=== PATIENT | female | born 1935 | race Caucasian/White ===

== ENCOUNTER 2022-08-12 12:08 | Emergency (ER) | payer MEDICARE, SELFPAY ==
--- NOTE | ~2022-08-12 | XR_ITS ---
EXAMINATION: XR HUMERUS, RIGHT CLINICAL INFORMATION: Pain after catching self from falling. COMPARISON: CXR from 02/07/2019 TECHNIQUE: AP and lateral views of the right humerus. FINDINGS: Bone density is diffusely decreased in this patient with history of osteoporosis. Alignment is normal at the glenohumeral and acromioclavicular joints. No acute fracture or subluxation. The humerus is intact. Soft tissues of the arm are unremarkable. Bones have normal alignment at the elbow. No elbow joint effusion. XR/XR humerus RT IMPRESSION: No acute findings. No fracture or malalignment in the right upper extremity.
--- NOTE | ~2022-08-12 | XR_ITS ---
EXAMINATION: XR CHEST CLINICAL INFORMATION: Right chest pain COMPARISON: None TECHNIQUE: Frontal view of the chest was obtained. FINDINGS: The lungs are well-expanded with postsurgical sutures right midlung. Heart size and pulmonary vascularity is normal. There is moderate dextroscoliosis mid to lower dorsal spine. No aggressive lytic or sclerotic process seen. XR/XR chest 1V IMPRESSION: No acute cardiopulmonary process seen. Moderate dextroscoliosis mid to lower dorsal spine.
[2022-08-12 12:33] VITALS: BP 144/82; BP 168/57; PULSE 69; PULSE 80; RESP 16; TEMP 36.5; O2SAT 99; BMI 20.4
--- NOTE | 2022-08-12 12:55 | ECG_ITS ---
Test Reason : CP Blood Pressure : / mmHG Vent. Rate : 060 BPM Atrial Rate : 060 BPM P-R Int : 144 ms QRS Dur : 072 ms QT Int : 456 ms P-R-T Axes : 020 057 062 degrees QTc Int : 456 ms Normal sinus rhythm Normal EKG When compared with ECG of 08-JUN-2020 15:59, Vent. rate has decreased BY 33 BPM Referred By: Jennifer Earl Electronically Signed By:JANES SUMMERS
--- OUTSIDE RECORDS SUMMARY | 2022-08-12 13:00 | XMS_ITS | Continuity of Care Document ---
:1935 Author Organization [facility] Address [address] [place] [id number]- Care Team Providers Name Role Phone Imelda POWER, Donavan Hinojosa Primary Care Physician [place] [facility] [place]23[place] - 02/25/[address] [address]- Encounter Diagnosis Laceration of forehead (Final) - 02/21/21 Nasal bone fractures (Final) - 02/21/21 Periorbital edema of right eye (Final) - 02/21/21 Periorbital edema of right eye (Final) - 02/21/21 Laceration of forehead (Final) - 02/21/21 Nasal bone fractures (Final) - 02/21/21 Syncope (Final) - 02/21/21 Discharge Disposition: A-Transfer SNF Attending Physician: Mona Gurrola MD Admitting Physician: Milvia Duncan MD Referring Physician: Not on Staff, Referring MD Allergies, Adverse Reactions, Alerts Substance Reaction Severity Status NKA Active Immunizations Given and Recorded Vaccine Date Status Refusal Reason tetanus-diphtheria toxoids (Td) 02/21/21 Given tetanus-diphtheria toxoids (Td) 02/07/19 Recorded tetanus-diphtheria toxoids (Td) 02/03/13 Recorded SARS-CoV-2 (COVID-19) mRNA BNT-162b2 vac 10/06/20 Recorde d SARS-CoV-2 (COVID-19) mRNA BNT-162b2 vac 09/13/20 Recorde d Medications amLODIPine 5 mg oral tablet 5 mg, 1, tablet, By Mouth, Daily, Refills 0, Maintenance, 02/24/21 14:55:00 EDT, Partial fill upon patient request if the prescription is for a schedule II opioid drug. Start Date: 02/24/21 Status: OrderedamLODIPine 5 mg oral tablet 5 mg, Tablet, By Mouth, 02/25/21 9:00:00 EDT Start Date: 02/25/21 Stop Date: 02/25/21 Status: Completedatorvastatin 10 mg oral tablet 1 tablet = 10 mg, By Mouth, Daily, # 30 tablet, 0 Refills, Maintenance, 12/14/20 19:03:00 EDT, Partial fill upon patient request if the prescription is for a schedule II opioid drug. Start Date: 12/14/20 Status: Orderedlosartan 25 mg oral tablet 25 mg, Tablet, By Mouth, 02/25/21 9:00:00 EDT Start Date: 02/25/21 Stop Date: 02/25/21 Status: Completedlosartan 25 mg oral tablet 1 tablet = 25 mg, By Mouth, Daily, # 30 tablet, 0 Refills, Maintenance, 12/14/20 19:03:00 EDT, Tablet, Partial fill upon patient request if the prescription is for a schedule II opioid drug. Start Date: 12/14/20 Status: Orderedmelatonin 3 mg oral tablet By Mouth, Daily at bedtime, PRN Insomnia, 0 Refills, Maintenance, 02/24/21 14:57:00 EDT, Tablet, Partial fill upon patient request if the prescription is for a schedule II opioid drug. Start Date: 02/24/21 Status: OrderedMultivit Therapeutic/Minerals Tablet 1 tablet, By Mouth, Daily, 0 Refills, Maintenance, 02/24/21 14:59:00 EDT, Tablet, Partial fill upon patient request if the prescription is for a schedule II opioid drug. Start Date: 02/24/21 Status: Orderedthiamine 100 mg oral tablet 100 mg, 1, tablet, By Mouth, Daily, Refills 0, Maintenance, 02/24/21 14:59:00 EDT, Partial fill uponpatient request if the prescription is for a schedule II opioid drug. Start Date: 02/24/21 Status: Ordered Problem List Condition Effective Dates Status Health Status Informant HLD - Hyperlipidemia(Confirmed) Active HTN - Hypertension(Confirmed) Active Results Orders for Microbiology Reports Name Date Blood Culture 02/21/21 Blood Culture #2 02/21/21 Microbiology Reports TEST:Blood Culture, Second Order STATUS:Unauthenticated BODY SITE: SOURCE:Blood COLLECTED DATE/TIME:02/21/21 4:31 PMBlood Culture, Second Order SPECIMEN DESCRIPTION : BLOOD R AC SPECIAL REQUESTS : NONE CULTURE : NO GROWTH 4 DAYS REPORT STATUS : PRELIMINARY REPORT TEST:Blood Culture STATUS:Unauthenticated BODY SITE: SOURCE:Blood COLLECTED DATE/TIME:02/21/21 2:21 PMBlood Culture SPECIMEN DESCRIPTION : BLOOD LFA SPECIAL REQUESTS : NONE CULTURE : NO GROWTH 4 DAYS REPORT STATUS : PRELIMINARY REPORT Radiology Reports Exam Date Time Procedure Performing Provider Status 02/21/21 4:10 PM Chest 2 Views Frontal and Lat Nikole Menon; Auth (Verified) Notes:(Chest 2 Views Frontal and Lat) Reason For Exam: trauma;Other:RESULT: Chest 2 Views Frontal and Lat Chest 2 Views Frontal and Lat INDICATION: Status post mechanical fall COMPARISON: CT cervical spine 02/21/2021; CT angiogram chest 12/14/2020; chest x- ray 12/14/2020 FINDINGS: Lateral view is suboptimal due to patient positioning and motion blur. LINES AND TUBES: None. LUNGS AND PLEURA: C-collar overlies the lung apices, limiting evaluation. Right lower lung surgical suture. Large lung volumes correlating with emphysema on prior CT. Otherwise, clear lungs. No pleural effusion. No definite pneumothorax. HEART, MEDIASTINUM AND SCOTT: Heart is normal in size. Aorta is calcified. BONES AND SOFT TISSUES: No acute abnormality. Moderate-severe thoracic scoliosis. IMPRESSION: No acute abnormality. Emphysematous changes. I have personally reviewed the images and I agree with this report. WSN: [id number] Ordering Physician: Eliecer Izquierdo Dictated By: Harry Anderson DO Dictated Date/Time: 02/21/21 4:49 pm Reviewed By: Bernard Rosales MD Signed By: Bernard Rosales MD Signed Date/Time: 02/21/21 4:54 pm Transcribed By: LAURA Transcribed Date/Time: 02/21/21 4:18 pm Exam Date Time Procedure Performing Provider Status 02/21/21 3:27 PM XR Femur 2 Views Left Eliza Iglesias; Auth ( Verified) Notes:(XR Femur 2 Views Left) Reason For Exam: with Pain;TraumaRESULT: Femur 2 Views Left Pelvis 1 View, Femur 2 Views Right, Femur 2 Views Left Hx of Present Illness: pt states she tripped and fell on asphalt hit head, Question(s): Fracture COMPARISON: None. FINDINGS: There is no fracture or dislocation. Degenerative changes seen in the sacroiliac joints. Symmetric joint space narrowing is seen in both hips without significant bony hypertrophy change. Degenerative changes in the lower lumbar spine. Moderate to severe joint space narrowing in the knee joints. Mild stool retention. IMPRESSION: No fractures. Moderate-severe osteoarthritis of the knees. I have personally reviewed the images and I agree with this report. WSN: [id number] Ordering Physician: Eliecer Izquierdo Dictated By: Samuel Aguirre MD Dictated Date/Time: 02/21/21 3:34 pm Reviewed By: Ruma Burch MD Signed By: Ruma Burch MD Signed Date/Time: 02/21/21 3:39 pm Transcribed By: LAURA Transcribed Date/Time: 02/21/21 3:31 pm Exam Date Time Procedure Performing Provider Status 02/21/21 3:27 PM XR Femur 2 Views Right Eliza Iglesias; Auth (Verified) Notes:(XR Femur 2 Views Right) Reason For Exam: with Pain;TraumaRESULT: Femur 2 Views Right Pelvis 1 View, Femur 2 Views Right, Femur 2 Views Left Hx of Present Illness: pt states she tripped and fell on asphalt hit head, Question(s): Fracture COMPARISON: None. FINDINGS: There is no fracture or dislocation. Degenerative changes seen in the sacroiliac joints. Symmetric joint space narrowing is seen in both hips without significant bony hypertrophy change. Degenerative changes in the lower lumbar spine. Moderate to severe joint space narrowing in the knee joints. Mild stool retention. IMPRESSION: No fractures. Moderate-severe osteoarthritis of the knees. I have personally reviewed the images and I agree with this report. WSN: [id number] Ordering Physician: Eliecer Izquierdo Dictated By: Samuel Aguirre MD Dictated Date/Time: 02/21/21 3:34 pm Reviewed By: Ruma Burch MD Signed By: Ruma Burch MD Signed Date/Time: 02/21/21 3:39 pm Transcribed By: LAURA Transcribed Date/Time: 02/21/21 3:31 pm Exam Date Time Procedure Performing Provider Status 02/21/21 3:27 PM Pelvis 1 or 2 Views Eliza Iglesais; Auth (Ve rified) Notes:(Pelvis 1 or 2 Views) Reason For Exam: With Pain;TraumaRESULT: Pelvis 1 or 2 Views Pelvis 1 View, Femur 2 Views Right, Femur 2 Views Left Hx of Present Illness: pt states she tripped and fell on asphalt hit head, Question(s): Fracture COMPARISON: None. FINDINGS: There is no fracture or dislocation. Degenerative changes seen in the sacroiliac joints. Symmetric joint space narrowing is seen in both hips without significant bony hypertrophy change. Degenerative changes in the lower lumbar spine. Moderate to severe joint space narrowing in the knee joints. Mild stool retention. IMPRESSION: No fractures. Moderate-severe osteoarthritis of the knees. I have personally reviewed the images and I agree with this report. WSN: [id number] Ordering Physician: Eliecer Izquierdo Dictated By: Samuel Aguirre MD Dictated Date/Time: 02/21/21 3:34 pm Reviewed By: Ruma Burch MD Signed By: Ruma Burch MD Signed Date/Time: 02/21/21 3:39 pm Transcribed By: LAURA Transcribed Date/Time: 02/21/21 3:31 pm Vital Signs Most recent to oldest 1 2 3 [Reference Range]: Height 149 cm 149 cm 149 cm (02/25/21 11:36 AM) (02/24/21 5:01 PM) (02/24/21 12 :04 PM) Weight 40.2 kg 40.0 kg 38.6 kg (02/24/21 5:57 AM) (02/23/21 6:03 AM) (02/22/21 12: 13 PM) Oxygen Saturation [94-100 %] 97 % 100 % 99 % (02/25/21 11:36 AM) (02/24/21 11:00 PM) (02/24/21 5 :01 PM) Pulse Rate [55-90 bpm] 98 bpm 85 bpm 71 bpm *H* (02/24/21 11:00 PM) (02/24/21 5:01 PM) (02/25/21 11:36 AM) Body Mass Index [18.5-24.99] 18.11 18.02 17. 39 *L* *L* *L* (02/24/21 5:57 AM) (02/23/21 6:03 AM) (02/22/21 12: 13 PM) Blood Pressure [90-138/55-84 155/86 mm Hg 161/81 mm Hg 161 /81 mm Hg mm Hg] *H* *H* *H* (02/25/21 11:36 AM) (02/25/21 8:57 AM) (02/25/21 8: 57 AM) Respiratory Rate [16-30 18 br/min 18 br/min 18 br/mi n br/min] (02/25/21 11:36 AM) (02/24/21 11:00 PM) (02/24/21 5 :01 PM) Temperature [96.8-100.4 98.6 DegF 97.5 DegF 98.2 Deg F DegF] (02/25/21 11:36 AM) (02/24/21 11:00 PM) (02/24/21 5 :01 PM) Mode of Delivery (Oxygen) Room air Room air Room a ir (02/25/21 11:36 AM) (02/24/21 11:00 PM) (02/24/21 5 :01 PM) Blood pressure sites Arm, right Arm, right Arm, right (02/25/21 11:36 AM) (02/24/21 11:00 PM) (02/24/21 5 :01 PM) Temperature Route Oral Oral Oral (02/25/21 11:36 AM) (02/24/21 11:00 PM) (02/24/21 5 :01 PM) Dry Weight 38.6 kg (02/22/21 12:13 PM) Weight Obtained Via Bed scale Bed scale (02/24/21 5:57 AM) (02/23/21 6:03 AM) Social History Social History Type Response Smoking Status Never (less than 100 in life time) entered on: 12/14/20 Sex
--- OUTSIDE RECORDS SUMMARY | 2022-08-12 13:00 | XMS_ITS | Continuity of Care Document ---
:1935 Author Organization [facility] Address [address] [place] [address]- Care Team Providers Name Role Phone Imelda POWER, Donavan Hinojosa Primary Care Physician Encounter 12/16/20 - 01/10/21 [facility] [address] [place] [address]- Discharge Disposition: PER CLIENT REQUEST Allergies, Adverse Reactions, Alerts Substance Reaction Severity Status NKA Active Medications atorvastatin 10 mg oral tablet 1 tablet = 10 mg, By Mouth, Daily, # 30 tablet, 0 Refills, Maintenance, 12/14/20 19:03:00 EDT, Partial fill upon patient request if the prescription is for a schedule II opioid drug. Start Date: 12/14/20 Status: Orderedlosartan 25 mg oral tablet 1 tablet = 25 mg, By Mouth, Daily, # 30 tablet, 0 Refills, Maintenance, 12/14/20 19:03:00 EDT, Tablet, Partial fill upon patient request if the prescription is for a schedule II opioid drug. Start Date: 12/14/20 Status: Orderedmeclizine 25 mg oral tablet 1 tablet = 25 mg, By Mouth, Daily, # 30 tablet, 0 Refills, Maintenance, 12/14/20 19:03:00 EDT, Tablet, Partial fill upon patient request if the prescription is for a schedule II opioid drug. Start Date: 12/14/20 Status: Ordered Problem List Condition Effective Dates Status Health Status Informant HLD - Hyperlipidemia(Confirmed) Active HTN - Hypertension(Confirmed) Active Social History Social History Type Response Smoking Status Never (less than 100 in life time) entered on: 12/14/20 Sex
--- OUTSIDE RECORDS SUMMARY | 2022-08-12 13:00 | XMS_ITS | Continuity of Care Document ---
:1935 Author Organization [facility] Address [address] [place] [address]- Care Team Providers Name Role Phone Imelda POWER, Donavan Hinojosa Primary Care Physician Encounter [facility] [place] Date(s): 12/15/20 - 01/14/[address] [address]- Attending Physician: Not on Staff, Attending MD Admitting Physician: Not on Staff, Admitting MD Referring Physician: Not on Staff, Referring [...]
--- OUTSIDE RECORDS SUMMARY | 2022-08-12 13:00 | XMS_ITS | Continuity of Care Document ---
:1935 Author Organization [facility] Address [address] [place] [address] Drive [address] [place] [address]- Care Team Providers Name Role Phone Imelda POWER, Donavan Hinojosa Primary Care Physician Encounter [facility] [place] Date(s): 02/25/21 - 03/27/[address] [place] [address]- Allergies, Adverse Reactions, Alerts Substance Reaction Severity [...] II opioid drug. Start Date: 02/24/21 Status: Orderedatorvastatin 10 mg oral tablet 1 tablet = [...]
--- OUTSIDE RECORDS SUMMARY | 2022-08-12 13:00 | XMS_ITS | Continuity of Care Document ---
:1935 Author Organization [facility] Address [address] [place] [address]- Care Team Providers Name Role Phone Imelda POWER, Donavan Hinojosa Primary Care Physician Encounter [facility] [place] Date(s): 12/14/20 - 12/15/[address] [address]- Encounter Diagnosis Chest pain (Final) - 12/14/20 Discharge Disposition: A-Transfer VNA/Home Health Attending Physician: Renetta Wells MD Admitting Physician: Brittany Caballero MD Referring Physician: Not on Staff, Referring [...] oral tablet 25 mg, Tablet, By Mouth, 12/15/20 9:00:00 EDT Start Date: 12/15/20 Stop Date: 12/15/20 Status: Completedlosartan 25 mg oral tablet 1 [...] Hyperlipidemia(Confirmed) Active HTN - Hypertension(Confirmed) Active Results Radiology Reports Exam Date Time Procedure Performing Provider Status 12/14/20 3:13 PM Chest Portable Mar Nava; Denise (Verified ) Notes:(Chest Portable) Reason For Exam: Chest Pain;Other:RESULT: Chest Portable Chest Portable performed upright at 2:55 PM Hx of Present Illness: sudden onset back pain radiating to chest (pressure feeling) pt took 3 baby asa prior to ems arrival, 1 SL nitro given with no relief. 7 10 chest pressure.; Reason: Other:; ChestPain; Clinical Question(s): Other: COMPARISON: None. FINDINGS: LINES AND TUBES: None. LUNGS AND PLEURA: Surgical suture material seen in the right lower lung. Adjacent linear density may reflect atelectasis or scarring. No focal infiltrate or vascular congestion. No pleural effusion. No pneumothorax. HEART, MEDIASTINUM AND SCOTT: Heart is normal in size. Normal upper mediastinal and hilar contour. BONES AND SOFT TISSUES: No acute abnormality. Dextroscoliosis of the lower thoracic spine is seen. IMPRESSION: Linear atelectasis versus scarring in the right lung base. No focal infiltrate. WSN: [id number] Ordering Physician: Eric Rios Dictated By: Ruma Burch MD Dictated Date/Time: 12/14/20 3:29 pm Reviewed By: Ruma Burch MD Signed By: Ruma Burch MD Signed Date/Time: 12/14/20 3:29 pm Transcribed By: LAURA Transcribed Date/Time: 12/14/20 3:26 pm Vital Signs Most recent to oldest [Reference 1 2 3 Range]: Oxygen Saturation [94-100 %] 100 % 100 % 100 % (12/15/20 11:56 AM) (12/15/20 7:25 AM) (12/15/20 3:56 AM) Pulse Rate [55-90 bpm] 57 bpm 58 bpm 50 bpm (12/15/20 11:56 AM) (12/15/20 7:25 AM) *L* (12/15/20 3:56 AM) Blood Pressure [90-138/55-84 mm 158/67 mm Hg 165/70 mm Hg 165/70 mm Hg Hg] *H* *H* *H* (12/15/20 11:56 AM) (12/15/20 8:02 AM) (12/15/20 7:25 AM) Respiratory Rate [16-30 br/min] 16 br/min 17 br/min 17 br/min (12/15/20 11:56 AM) (12/15/20 9:00 AM) (12/15/20 7:25 AM) Temperature [96.8-100.4 DegF] 97.7 DegF 97.6 DegF 97 .6 DegF (12/15/20 11:56 AM) (12/15/20 7:25 AM) (12/15/20 3:56 AM) Mode of Delivery (Oxygen) Room air Room air Room a ir (12/15/20 11:56 AM) (12/15/20 7:25 AM) (12/15/20 3:56 AM) Blood pressure sites Arm, left Arm, left Arm, right (12/15/20 11:56 AM) (12/15/20 7:25 AM) (12/15/20 3:56 AM) Temperature Route Oral Oral Oral (12/15/20 11:56 AM) (12/15/20 7:25 AM) (12/15/20 3:56 AM) Social History Social History Type Response Smoking Status Never (less than 100 in life time) entered on: 12/14/20 Sex
--- NOTE | 2022-08-12 13:07 | PC.NURSE ---
patient alert, oriented x4. WRANGE[place]. ambulated to the bathroom with steady gait. able to make needs known. call monsivais within reach
[2022-08-12 13:23] VITALS: BP 149/59; PULSE 59; RESP 17; TEMP 36.8; O2SAT 100
[2022-08-12 13:23] LABS: MANUAL DIFF FLAG NO
[2022-08-12 13:25] LABS: Basophils Percent Auto 1.1 % (0-2); Eosinophils Percent Auto 0.8 % (0-4); Hematocrit 39.5 % (37.0-47.0); Hemoglobin 12.9 g/dl (12.0-16.0); Imm Gran Abs Auto 0.01 X10*3/uL (0.00-0.03); Imm Gran Pct Auto 0.3 % (0.0-0.4); Lymphocytes Absolute Auto 0.7 X10*3/uL (1.2-4.9); Lymphocytes Percent Auto 19.1 % (20-40); Mean Corpuscular HGB Conc 32.7 g/dl (31.0-35.0); Mean Corpuscular Hemoglobin 31.5 pg (27.0-33.0); Mean Corpuscular Volume 96.6 fL (80.0-98.0); Mean Platelet Volume 9.8 fL (9.4-12.3); Monocytes Absolute Auto 0.3 X10*3/uL (0.1-1.2); Monocytes Percent Auto 8.8 % (2-11); Neutrophils Absolute Auto 2.5 x10*3/uL (2.0-8.3); Neutrophils Percent Auto 69.9 % (45-73); Platelet Count 195 X10*3/uL (160-400); Red Blood Count 4.09 X10*6/uL (4.20-5.50); Red Cell Distribution Width 12.7 % (11.0-16.0); White Blood Count 3.6 X10*3/uL (4.8-10.8)
--- NOTE | 2022-08-12 13:30 | ED_ITS ---
HPI - General Adult General Chief complaint: General Medical Stated complaint: RT SIDED PAIN ON RT ARM MOVEMENT Time Seen by Provider: 08/12/22 12:35 Source: patient Mode of arrival: ambulatory Limitations: no limitations History of Present Illness HPI narrative: 86-year-old severely hard of hearing female past medical history of bilateral ostial arthritis of knee presents the emergency department with complaints of right sided pain near the axilla which radiates into her right arm after catching herself from falling to the right arm. She states pain is worse with movement and deep breathing. She denies falling to the ground, hitting her head, or loss of consciousness. She denies any dizziness, lightheadedness, chest palpitations, chest pain, shortness of breath prior to falling. She denies any recent illness, fever, chills, shortness of breath, chest pain, or changes in bowel patterns. Onset (ago): hour(s) Location: chest and right Radiation: other (right arm) Severity: moderate Severity scale (1-10): 5 Quality: aching Pain Consistency: constant Relieving factors: none Exacerbating factors: none Associated symptoms: denies other symptoms Treatments prior to arrival: none Related Data Previous Rx's Medication Instructions Recorded meclizine 25 mg tablet 25 mg PO TID PRN dizziness #14 tabs 06/08/20 Allergies Allergy/AdvReac Type Severity Reaction Status Date / Time epinephrine [EPINEPHRINE] Allergy Unknown TACHYCARDIA,SHAKEY, Verified 08/12/22 13:12 tachycardia anesthesia Allergy Unknown difficulty Uncoded 02/29/20 00:00 waking up Review of Systems Review of Systems: In addition to documented HPI above, the additional ROS was obtained: CONSTITUTIONAL: Denies fever, chills, weakness, fatigue, headache, night sweats, or weight loss EYES: Denies vision changes, eye pain, swelling, redness, foreign body, discharge ENT: Hard of hearing, wears hearing aids. Denies sore throat, swallowing difficulty, congestion, ear pain, no hoarseness CV: Denies chest pain or epigastric pain. No edema, palpitations, or dyspnea o n exertion RESP: Denies shortness of breath. Denies cough, wheezing, dyspnea. Denies smoke exposure GI: Denies abdominal pain. Denies nausea, vomiting, constipation or diarrhea. No melena or hematochezia. : Denies irregular bleeding, and dysuria, urinary frequency, urinary incontinence/retention, urgency. Denies flank pain, hematuria MSK: Denies change in gait, myalgias, joint swelling or pain SKIN: Denies no lesions, rashes, or sores NEURO: Denies new numbness, tingling, dizziness, paresthesias or weakness. No loss of consciousness. Denies headache ENDOCRINE: Denies unexpected weight loss. Denies polyuria, polydipsia. No temperature intolerance HEME/ONC: Denies bleeding disorders, easy bruising, or lymphadenopathy PSYCH: Denies anxiety/panic, depression, SI/HI, or social issues. Yes all other systems are reviewed and are negative [facility] Past Medical History Attestation statement: The following information was validated with the patient. Source: old records reviewed Medical History Diabetes High cholesterol HTN (hypertension) Social History Social History Alcohol intake: never Smoked in Last 30 Days: No Use of substances other than those prescribed or required for medical reasons: No Advance Directives: No Physical Exam ED Vital Signs: Vital Signs - 24 hr 08/12/22 12:33 08/12/22 13:23 08/12/22 16:04 Temperature 97.7 F 98.2 F 98.2 F Pulse Rate 69 59 54 Respiratory Rate 16 17 16 Blood Pressure 168/57 H 149/59 H 145/42 H Pulse Oximetry 99 100 98 Oxygen Delivery Method Room Air Room Air Room Air BMI result Body Mass Index 20.4 Const General: cooperative, alert and awake Nutritional Appearance: average body habitus Orientation/consciousness: patient oriented x3 Limitations: no limitations [facility] Head: Yes normal to inspection and Yes atraumatic Ears: external ears normal and hearing grossly impaired bilaterally General nose exam: Normal external nose present and Normal nares present Face and sinus: Yes normal facial exam and Yes face symmetric Mouth: Normal oral and palatal mucosa present Teeth and gingiva: dentures (upper) and poor dentition (lower) Throat: Yes posterior oropharynx normal Eyes General: appearance normal, both eyes and all related structures Visual Sexton: normal visual sexton by confrontation Alignment and Position: alignment normal Periorbital: periorbital findings normal Eyelids: Yes eyelids normal Conjunctivae: conjunctivae normal Sclerae: sclerae normal Corneas: corneas normal Pupils: Equal, round and reactive pupils present EOM: EOMs intact bilaterally Neck Neck: Yes normal visual inspection and Yes full ROM Chest Chest palpation & inspection: normal inspection of the chest Resp Effort & Inspection: normal respiratory effort, no cough and not labored Auscultation: clear to auscultation bilaterally, no crackles, no rhonchi and no wheezes Cardio Rate: regular rate Rhythm: regular rhythm GI Inspection: Yes normal to inspection Palpation (GI): Soft to palpation and nontender Auscultation: normal bowel sounds General: Yes no CVA tenderness Back/Spine/Pelvis Back: no CVA tenderness Cervical Spine: cervical ROM normal Thoracic/Lumbar Spine: thoraco-lumbar ROM normal Skin General skin exam: no rashes or lesions noted Neuro General: patient oriented x3, tone normal and moves all extremities Cranial nerves: Yes Equal, round and reactive pupils present Cognition (Neuro): normal cognition Gait exam (Neuro): Normal gait present Extrem General: Yes normal to inspection, Yes full ROM and Yes capillary refill normal Psych Appearance: grossly normal Mental Status: mental status grossly normal Speech and movement: Normal speech and movement present Affect: normal affect Attitude: cooperative Thought process: Normal thought process present Thought content: Normal thought content present Insight: Good insight present (Psych) Judgement: Good judgement present (Psych) Medical Decision Making Medical Decision Making MDM Narrative: 86-year-old severely hard of hearing female past medical history of bilateral ostial arthritis of knee presents the emergency department with complaints of right sided pain near the axilla which radiates into her right arm after catching herself from falling to the right arm. She states pain is worse with movement and deep breathing. Blood work unremarkable. Chest x-ray with no acute cardiopulmonary process, move moderate dextroscoliosis mid to lower dorsal spine. Right humerus/shoulder with no acute findings, no fracture, or malalignment in the right upper extremity. EKG normal sinus rhythm with no rhythm change compared to previous EKG done on 06/08/2020. HPI, PE, diagnostic consistent with muscle strain. Low suspicion for cardiopulmonary infection or disease, fracture, or dislocation. Patient is safe for discharge at this time with symptom management with [id number] Tylenol and/or Motrin with dosing according to package instructions. HPI, PE, diagnostics, and plan discussed with patient and patient's daughter, Ioana, with no unanswered questions at this time. Patient educated to return to the emergency department with new, worsening, or concerning emergent symptoms. Recommended to follow-up with her primary care provider in addition to [facility] [place] for further treatment and management. *Refer to Course for additional information on consultations, diagnostic interpretation, consultations, emergency department stay, conversations with patient and family, shared decision making with patient, and more information on medical decision making* Lab Data Result Diagrams: 08/12/22 13:18 08/12/22 13:18 Labs: Lab Results 08/12/22 08/12/22 Range/Units 13:18 13:18 WBC 3.6 L (4.8-10.8) X10*3/uL RBC 4.09 L (4.20-5.50) X10*6/uL Hgb 12.9 (12.0-16.0) g/dl Hct 39.5 (37.0-47.0) % MCV 96.6 (80.0-98.0) fL MCH 31.5 (27.0-33.0) pg MCHC 32.7 (31.0-35.0) g/dl RDW 12.7 (11.0-16.0) % Plt Count 195 (160-400) X10*3/uL MPV 9.8 (9.4-12.3) fL Immature Gran % (Auto) 0.3 (0.0-0.4) % Neut % (Auto) 69.9 (45-73) % Lymph % (Auto) 19.1 L (20-40) % [place] % (Auto) 8.8 (2-11) % Eos % (Auto) 0.8 (0-4) % Baso % (Auto) 1.1 (0-2) % Lymph # (Auto) 0.7 L (1.2-4.9) X10*3/uL [place] # (Auto) 0.3 (0.1-1.2) X10*3/uL Eos # (Auto) 0.0 (0.0-0.4) X10*3/uL Baso # (Auto) 0.0 (0.0-0.2) X10*3/uL Abs Immat Gran (auto) 0.01 (0.00-0.03) X10*3/uL Absolute Neuts (auto) 2.5 (2.0-8.3) x10*3/uL Absolute Nucleated RBC 0.000 (0.0-0.012) X10*3/uL Nucleated RBC % (auto) 0.0 (0.0-0.2) /100WBC Sodium 143 (135-145) mmol/L Potassium 3.8 (3.3-5.1) mmol/L Chloride 111 H (96-108) mmol/L Carbon Dioxide 26 (22-29) mmol/L Anion Gap 10 L (12-20) BUN 9 (9-16) mg/dL Creatinine 0.82 (0.5-1.4) mg/dL Estim Creat Clear Calc 32.9 Estimated GFR > 60 Random Glucose 114 (60-115) mg/dL Calcium 9.2 D (8.4-10.2) mg/dL Total Bilirubin 0.5 (0.0-1.0) mg/dL AST 20 (5-31) U/L ALT 18 (0-31) U/L Alkaline Phosphatase 89 (39-117) U/L Total Protein 6.3 L (6.5-8.0) g/dL Albumin 4.1 (3.5-5.0) g/dL Discharge Plan Discharge Clinical Impression: Muscle strain Patient Disposition: Home, Self-Care Instructions: Fall Prevention for Older Adults (ED), Acetaminophen (By mouth) Additional Instructions: Your EKG is normal sinus rhythm. Your chest x-ray shows no signs of cardiac or lung disease or infection. Your right shoulder and upper arm does not show fracture or dislocation. Your lab work is unremarkable. Based on your s ymptoms, exam and diagnostic tests, you have muscle strain. You may manage her pain with [id number] Tylenol and/or Motrin. Please return to the emergency department with new, worsening, or concerning symptoms. Recommended follow the primary care provider for further treatment and management. Prescriptions: No Action meclizine 25 mg tablet 25 mg PO TID PRN (Reason: dizziness) Qty: 14 0RF Referrals: Donavan Segura MD [Primary Care Provider] - Print Language: Pashto
[2022-08-12 13:45] LABS: Alanine Aminotransferase 18 U/L (0-31); Albumin Level 4.1 g/dL (3.5-5.0); Alkaline Phosphatase 89 U/L (39-117); Anion Gap 10 (12-20); Aspartate Amino Transferase 20 U/L (5-31); Bilirubin Total 0.5 mg/dL (0.0-1.0); Blood Urea Nitrogen 9 mg/dL (9-16); Calcium 9.2 mg/dL (8.4-10.2); Carbon Dioxide 26 mmol/L (22-29); Chloride 111 mmol/L (96-108); Creatinine Clr Calc Pharmacy 32.9; Estimated Glomerular Filt Rate > 60; Glucose Random 114 mg/dL (60-115); Potassium 3.8 mmol/L (3.3-5.1); Sodium 143 mmol/L (135-145); Total Protein 6.3 g/dL (6.5-8.0)
[2022-08-12 16:04] VITALS: BP 145/42; PULSE 54; RESP 16; TEMP 36.8; O2SAT 98
== END 2022-08-12 17:16 | disposition home or self-care (01) ==
PROVIDERS: Nurse Practitioner Family; Emergency Provider Student in an Organized Health Care Education/Training Program; PCP Internal Medicine
DX: S29.011A Strain of muscle and tendon of front wall of thorax, initial encounter (principal); W17.89XA Other fall from one level to another, initial encounter; Y93.89 Activity, other specified; Y92.9 Unspecified place or not applicable; Y99.9 Unspecified external cause status
CPT/HCPCS: 36415; 71045; 73060; 80053; 85025; 93005; 99283; 99284

== ENCOUNTER 2022-09-16 13:46 | Inpatient (IN) | payer MEDICARE, SELFPAY ==
--- NOTE | ~2022-09-16 | CT_ITS ---
EXAMINATION: CTA ABDOMEN AND PELVIS WITHOUT AND WITH CONTRAST CLINICAL INFORMATION: GI bleed TECHNIQUE: Helical imaging was performed in the axial plane through the abdomen and pelvis before and after administration of IV contrast. 80 mL of Omnipaque 350 was administered intravenously. Images were evaluated on independent dedicated 3-D workstation and 3-D images were reconstructed with concurrent radiologist supervision and subsequently interpreted. This CT examination was performed using dose optimization techniques as appropriate, variously including the following: * Automated exposure control * Adjustment of mA and/or kV according to patient size (this includes techniques or standardized protocols for targeted exams where dose is matched to indication/reason for exam; i.e. extremities or head) * Use of iterative reconstruction technique COMPARISON: CT abdomen pelvis 09/16/2022 DLP: 1047 mGy-cm. FINDINGS: VASCULAR: Slightly suboptimal arterial phase contrast enhancement. Visualized Thoracic Aorta: Normal caliber. Abdominal Aorta: The abdominal aorta is of normal contour and caliber without evidence of dissection. Moderate vascular calcifications. Celiac Trunk: The celiac trunk and its branches opacify normally without evidence of dissection, obstruction, or flow-limiting stenosis. Mesenteric Arteries: The superior and inferior mesenteric arteries are normal in caliber with no focal stenosis or dissection. Renal Arteries: There are single renal arteries bilaterally. No evidence of stenosis or dissection. Iliac Arteries: The iliac arteries are normal in course and caliber without evidence of focal stenosis or dissection. Venous Structures: The inferior vena cava and portal venous system are without demonstrated abnormalities. NONVASCULAR: LUNG BASES: Minimal bibasilar atelectasis. Mitral annular calcifications. LIVER, GALLBLADDER, BILIARY TREE: The liver is normal in size, shape, and attenuation. No focal hepatic lesion or biliary ductal dilatation is present. Mild vicarious excretion of contrast in the gallbladder. No calcified gallstone or surrounding inflammatory change. PANCREAS: Unremarkable. SPLEEN: Unremarkable. ADRENAL GLANDS: Unremarkable. KIDNEYS AND URETERS: Symmetric nephrograms. No hydronephrosis. 4.7 cm simple right upper pole renal cyst. A small parapelvic left renal cysts. No imaging follow-up recommended. BLADDER: Unremarkable. GASTROINTESTINAL TRACT: Colonic diverticulosis primarily involving the descending and sigmoid colon. No evidence of acute diverticulitis. No dilated bowel loops. No bowel wall thickening. No extravasated intraluminal contrast identified to localize a source of active GI bleeding. Appendix not clearly identified. No inflammatory changes the base of the cecum. No ascites or free air. Moderate amount of formed stool in the colon. ABDOMINAL WALL: No hernia is demonstrated. LYMPH NODES: No lymphadenopathy. PELVIC VISCERA: Unremarkable. Trace free pelvic fluid. OSSEOUS STRUCTURES: Levoconvex curvature lumbar spine. Mild multilevel degenerative disc disease. No acute fracture or suspicious osseous lesion. CT/CT gi bleed abd pel wo/w IVcon IMPRESSION: 1. No CT evidence of active gastrointestinal bleeding identified. 2. Colonic diverticulosis. No evidence of acute diverticulitis. 3. Moderate amount of formed stool throughout the colon. 4. No acute intra-abdominal process.
--- NOTE | ~2022-09-16 | CT_ITS ---
EXAMINATION: CT ABDOMEN AND PELVIS WITH AND WITHOUT CONTRAST: CT GI BLEEDING STUDY CLINICAL INFORMATION: Rectal bleeding.. COMPARISON: 10/04/2015. TECHNIQUE: Multidetector volumetric imaging was performed from the lung bases to the pubic symphysis before and after the administration of: Intravenous contrast: 80 mL Omnipaque 350 2 minute delayed acquisition also performed. No contrast reaction reported MIP coronal, sagittal and coronal reformatted images were obtained on the technologist workstation. This CT examination was performed using dose optimization techniques as appropriate, variously including the following: *Automated exposure control *Adjustment of mA and/or kV according to patient size (this includes techniques or standardized protocols for targeted exams where dose is matched to indication/reason for exam; i.e. extremities or head) *Use of iterative reconstruction technique Total exam dose-length product 640 mGy-cm FINDINGS: STOMACH: No abnormal wall thickening or mass. No intraluminal contrast accumulation to suggest hemorrhage. SMALL BOWEL: No abnormal wall thickening or dilation. No intraluminal contrast accumulation to suggest hemorrhage. COLON: No intraluminal contrast accumulation to suggest hemorrhage. No colonic wall thickening or pericolonic inflammatory changes. There is a moderate volume of stool throughout the colon. The cecum is likely positioned in the upper central abdomen. Diverticulosis without evidence of diverticulitis. Normal appendix. LUNG BASES: No nodules, mass, or focal consolidation. PLEURA: No pleural effusion. LIVER, GALLBLADDER, AND BILIARY TREE: The liver is normal in size, shape, and attenuation. No focal hepatic lesion. Mild intrahepatic biliary ductal dilatation is present. The gallbladder is unremarkable with no evidence of radiopaque gallstones, gallbladder wall thickening, or obvious pericholecystic inflammatory changes. Caliber common bile duct. PANCREAS: Normal; no mass or surrounding fluid. SPLEEN: Normal size. No focal lesion. ADRENAL GLANDS: Normal; no mass. KIDNEYS AND URETERS: The kidneys are normal in size, shape, and attenuation. No hydronephrosis, hydroureter, or calculi. Simple cyst at the upper pole of the right kidney. No specific follow-up recommended. ABDOMINAL WALL: No hernia seen. LYMPHOVASCULAR STRUCTURES: No lymphadenopathy. The aorta is normal in caliber. Moderate atherosclerotic calcifications. BLADDER: No focal mass or wall thickening seen. No bladder calculi. PELVIC VISCERA: No pelvic mass. OSSEOUS STRUCTURES: Scoliotic curvature of the spine. No acute or suspicious osseous abnormality. Mild degenerative change throughout the spine. CT/CT gi bleed abd pel wo/w IVcon IMPRESSION: 1. No evidence of active GI bleed. 2. Diverticulosis without diverticulitis. Moderate volume of stool throughout the colon.
[2022-09-16 13:53] VITALS: BP 141/73; BP 142/52; PULSE 72; PULSE 76; RESP 16; TEMP 36.5; O2SAT 96; O2SAT 98; BMI 17.7
--- NOTE | 2022-09-16 14:30 | ED.GIBLEED ---
HPI - GI Bleed General Chief complaint: GI Bleed Stated complaint: RECTAL BLEEDING PER EMS Time Seen by Provider: 09/16/22 13:49 Source: patient and EMS Mode of arrival: EMS Limitations: no limitations History of Present Illness HPI Narrative: Patient comes emergency room complaining of rectal bleeding. When the patient states that earlier today after eating lunch, she went to use the restroom, patient noted that there was a large amount of blood in the toilet with blood clots. Patient weighed herself, hoping it was a one time thing. Shortly after, patient had a 2nd bowel movement with significant amount of blood. Patient states that she got very scared, this has never happened before. Patient unsure if she is taking any blood thinners. Patient states that she has no abdominal pain or rectal pain. Related Data Previous Rx's Medication Instructions Recorded meclizine 25 mg tablet 25 mg PO TID PRN dizziness #14 tabs 06/08/20 Allergies Allergy/AdvReac Type Severity Reaction Status Date / Time epinephrine [EPINEPHRINE] Allergy Unknown TACHYCARDIA,SHAKEY, Verified 08/12/22 13:12 tachycardia anesthesia Allergy Unknown difficulty Uncoded 02/29/20 00:00 waking up Review of Systems Review of Systems: Constitutional : No Weight loss, No Fever, No Chills, No Night Sweats, No Fatigue, No Malaise ENT/Mouth : No Hearing loss, No Ear Pain, No Nasal Congestion, No Sinus Pain, No Hoarseness, No sore throat, No Rhinorrhea, No Swallowing Difficulty Eyes: No Eye Pain, No Swelling, No Redness, No Foreign Body, No Discharge, No Vision Changes Cardiovascular : No Chest Pain, No SOB, No Dyspnea on Exertion, No Orthopnea, No Edema, No Palpitations Respiratory : No Cough, No Sputum, No Wheezing, No Smoke Exposure, No Dyspnea Gastrointestinal : No Nausea, No Vomiting, No Diarrhea, No Constipation, no abdominal pain, complaining of rectal bleeding Genitourinary : no irregular bleeding, No Dysuria, No Urinary Frequency, No Hematuria, No Urinary Incontinence, No Urgency, No Flank Pain, No Urinary Flow Changes, No Hesitancy Musculoskeletal : No joint pain, No Myalgias, No Joint Swelling Skin : No Skin Lesions, No rash Neuro : No Weakness, No Numbness, No Paresthesias, No Loss of Consciousness, No Dizziness, No Headache Psych : No Anxiety/Panic, No Depression, No SI/HI/AH/VH, No Social Issues, Heme/Lymph: No Bruising, No Bleeding,No Lymphadenopathy Endocrine : No Polyuria, No Polydipsia, No Temperature Intolerance [facility] Past Medical History Medical History Diabetes High cholesterol HTN (hypertension) Social History Social History Alcohol intake: never Smoked in Last 30 Days: No Use of substances other than those prescribed or required for medical reasons: No Advance Directives: No Physical Exam Vital Signs: Vital Signs: Last Vital Signs Temp 98.1 F 09/16/22 16:42 Pulse 64 09/16/22 19:46 Resp 18 09/16/22 19:46 BP 150/62 H 09/16/22 19:46 Pulse Ox 97 09/16/22 19:46 O2 Del Method 09/16/22 19:46 BMI result Body Mass Index 17.7 Const: Other: Appearance: Alert. Oriented X3. No acute distress. Eyes: Pupils equal, round and reactive to light. ENT: Pharynx normal. Neck: Normal inspection. Neck supple. No lymph nodes noted. No crepitus CVS: Normal heart rate and rhythm. Pulses normal. Normal S1 and S2 Respiratory: No respiratory distress. Breath sounds normal. No Wheezing. No rales Abdomen: Soft and nontender. No rigidity. No distention. Skin: Skin warm and dry. Normal skin color. Normal skin turgor. Extremities: No lower extremity edema. No Lacerations. No Rash Neuro: Oriented X 3. No motor deficit. No sensory deficit. Moving all extremities. No slurred speech. CN 2 through 12 grossly intact Psych: calm, cooperative, normal affect Course Course Course Narrative: -all of patient's labs pending -at this time, patient is asymptomatic Medications Administered Discontinued Medications Generic Name Dose Route Start Last Admin Trade Name Freq PRN Reason Stop Dose Admin Iohexol 100 ml 09/16/22 15:42 09/16/22 15:43 Iohexol 350 Mg/Ml 100 Ml Infus..Btl IV 09/16/22 15:43 80 ml ONCE ONE Administration Medical Decision Making Medical Decision Making [facility] Narrative: -patient remains asymptomatic -CT scan does not show any evidence of acute GI bleed, diverticulosis without diverticulitis -H&H is stable, guaiac stool test is positive -patient is a bit reluctant to stay, states that the reason she was having red bowel movements is because she had a lot of tomato. I discussed with the patient that her stool guaiac test was positive. Patient's son who is at bedside, agreeable that it would be best to keep her mother in the hospital. -I discussed the patient with Dr. Rangel, patient being admitted. Differential Diagnosis Differential Diagnoses: The differential diagnosis associated with the presentation includes (GI bleed, diverticulitis, internal hemorrhoids) Admission/Observation Consideration of admission/observation: Escalation of care including admission/observation considered (Given the patient's age and amount of GI bleed that she had earlier today, it would be best to keep the patient in the hospital) Consult Healthcare Provider Management of the patient was discussed with: Hospitalist Lab Data MDM Lab Attestation statement: I reviewed the patient's lab results. 09/16/22 18:17 09/16/22 14:40 Labs: Lab Results 09/16/22 09/16/22 09/16/22 Range/Units 14:40 14:40 14:40 WBC 6.1 (4.8-10.8) X10*3/uL RBC 4.05 L (4.20-5.50) X10*6/uL Hgb 13.2 (12.0-16.0) g/dl Hct 39.9 (37.0-47.0) % MCV 98.5 H (80.0-98.0) fL MCH 32.6 (27.0-33.0) pg MCHC 33.1 (31.0-35.0) g/dl RDW 13.1 (11.0-16.0) % Plt Count 180 (160-400) X10*3/uL MPV 10.2 (9.4-12.3) fL Immature Gran % (Auto) 0.5 H (0.0-0.4) % Neut % (Auto) 77.9 H (45-73) % Lymph % (Auto) 12.7 L (20-40) % [place] % (Auto) 7.5 (2-11) % Eos % (Auto) 0.7 (0-4) % Baso % (Auto) 0.7 (0-2) % Lymph # (Auto) 0.8 L (1.2-4.9) X10*3/uL [place] # (Auto) 0.5 (0.1-1.2) X10*3/uL Eos # (Auto) 0.0 (0.0-0.4) X10*3/uL Baso # (Auto) 0.0 (0.0-0.2) X10*3/uL Abs Immat Gran (auto) 0.03 (0.00-0.03) X10*3/uL Absolute Neuts (auto) 4.8 (2.0-8.3) x10*3/uL Absolute Nucleated RBC 0.000 (0.0-0.012) X10*3/uL Nucleated RBC % (auto) 0.0 (0.0-0.2) /100WBC PT 11.6 (10.0-13.1) SEC INR 1.0 (0.9-1.1) Sodium 143 (135-145) mmol/L Potassium 4.0 (3.3-5.1) mmol/L Chloride 108 (96-108) mmol/L Carbon Dioxide 23 (22-29) mmol/L Anion Gap 16 (12-20) BUN 15 (9-16) mg/dL Creatinine 0.74 (0.5-1.4) mg/dL Estim Creat Clear Calc 34.2 Estimated GFR > 60 Random Glucose 151 H (60-115) mg/dL Lactic Acid (0.5-2.0) mmol/L Calcium 9.0 (8.4-10.2) mg/dL Magnesium 2.1 (1.6-2.6) mg/dL Total Bilirubin 0.5 (0.0-1.0) mg/dL Direct Bilirubin < 0.2 (0.0-0.5) mg/dL AST 14 (5-31) U/L ALT 12 (0-31) U/L Alkaline Phosphatase 95 (39-117) U/L Total Protein 6.3 L (6.5-8.0) g/dL Albumin 4.0 (3.5-5.0) g/dL Lipase 13 (8-78) U/L Stool Occult Blood (NEGATIVE) COVID-19 (CODY) (Negative) COVID-19 Clin Com 09/16/22 09/16/22 09/16/22 Range/Units 14:40 14:46 15:43 WBC (4.8-10.8) X10*3/uL RBC (4.20-5.50) X10*6/uL Hgb (12.0-16.0) g/dl Hct (37.0-47.0) % MCV (80.0-98.0) fL MCH (27.0-33.0) pg MCHC (31.0-35.0) g/dl RDW (11.0-16.0) % Plt Count (160-400) X10*3/uL MPV (9.4-12.3) fL Immature Gran % (Auto) (0.0-0.4) % Neut % (Auto) (45-73) % Lymph % (Auto) (20-40) % [place] % (Auto) (2-11) % Eos % (Auto) (0-4) % Baso % (Auto) (0-2) % Lymph # (Auto) (1.2-4.9) X10*3/uL [place] # (Auto) (0.1-1.2) X10*3/uL Eos # (Auto) (0.0-0.4) X10*3/uL Baso # (Auto) (0.0-0.2) X10*3/uL Abs Immat Gran (auto) (0.00-0.03) X10*3/uL Absolute Neuts (auto) (2.0-8.3) x10*3/uL Absolute Nucleated RBC (0.0-0.012) X10*3/uL Nucleated RBC % (auto) (0.0-0.2) /100WBC PT (10.0-13.1) SEC INR (0.9-1.1) Sodium (135-145) mmol/L Potassium (3.3-5.1) mmol/L Chloride (96-108) mmol/L Carbon Dioxide (22-29) mmol/L Anion Gap (12-20) BUN (9-16) mg/dL Creatinine (0.5-1.4) mg/dL Estim Creat Clear Calc Estimated GFR Random Glucose (60-115) mg/dL Lactic Acid 0.9 (0.5-2.0) mmol/L Calcium (8.4-10.2) mg/dL Magnesium (1.6-2.6) mg/dL Total Bilirubin (0.0-1.0) mg/dL Direct Bilirubin (0.0-0.5) mg/dL AST (5-31) U/L ALT (0-31) U/L Alkaline Phosphatase (39-117) U/L Total Protein (6.5-8.0) g/dL Albumin (3.5-5.0) g/dL Lipase (8-78) U/L Stool Occult Blood POSITIVE (NEGATIVE) COVID-19 (CODY) Negative (Negative) COVID-19 Clin Com See Note 09/16/22 Range/Units 18:17 WBC (4.8-10.8) X10*3/uL RBC (4.20-5.50) X10*6/uL Hgb 12.9 (12.0-16.0) g/dl Hct 38.7 (37.0-47.0) % MCV (80.0-98.0) fL MCH (27.0-33.0) pg MCHC (31.0-35.0) g/dl RDW (11.0-16.0) % Plt Count (160-400) X10*3/uL MPV (9.4-12.3) fL Immature Gran % (Auto) (0.0-0.4) % Neut % (Auto) (45-73) % Lymph % (Auto) (20-40) % [place] % (Auto) (2-11) % Eos % (Auto) (0-4) % Baso % (Auto) (0-2) % Lymph # (Auto) (1.2-4.9) X10*3/uL [place] # (Auto) (0.1-1.2) X10*3/uL Eos # (Auto) (0.0-0.4) X10*3/uL Baso # (Auto) (0.0-0.2) X10*3/uL Abs Immat Gran (auto) (0.00-0.03) X10*3/uL Absolute Neuts (auto) (2.0-8.3) x10*3/uL Absolute Nucleated RBC (0.0-0.012) X10*3/uL Nucleated RBC % (auto) (0.0-0.2) /100WBC PT (10.0-13.1) SEC INR (0.9-1.1) Sodium (135-145) mmol/L Potassium (3.3-5.1) mmol/L Chloride (96-108) mmol/L Carbon Dioxide (22-29) mmol/L Anion Gap (12-20) BUN (9-16) mg/dL Creatinine (0.5-1.4) mg/dL Estim Creat Clear Calc Estimated GFR Random Glucose (60-115) mg/dL Lactic Acid (0.5-2.0) mmol/L Calcium (8.4-10.2) mg/dL Magnesium (1.6-2.6) mg/dL Total Bilirubin (0.0-1.0) mg/dL Direct Bilirubin (0.0-0.5) mg/dL AST (5-31) U/L ALT (0-31) U/L Alkaline Phosphatase (39-117) U/L Total Protein (6.5-8.0) g/dL Albumin (3.5-5.0) g/dL Lipase (8-78) U/L Stool Occult Blood (NEGATIVE) COVID-19 (CODY) (Negative) COVID-19 Clin Com Independent Interpretation I performed an independent interpretation of an: CT Scan (CT scan my interpretation: Diverticulosis, no SBO) Radiology Impression Discussion of test interpretation with radiology: I have reviewed the radiologist's reading. Radiologist Impression: FINDINGS: STOMACH: No abnormal wall thickening or mass.? No intraluminal contrast accumulation to suggest hemorrhage. SMALL BOWEL: No abnormal wall thickening or dilation. No intraluminal contrast accumulation to suggest hemorrhage. COLON: No intraluminal contrast accumulation to suggest hemorrhage.? No colonic wall thickening or pericolonic inflammatory changes. There is a moderate volume of stool throughout the colon. The cecum is likely positioned in the upper central abdomen. Diverticulosis without evidence of diverticulitis.? Normal appendix. LUNG BASES: No nodules, mass, or focal consolidation. PLEURA: No pleural effusion. LIVER, GALLBLADDER, AND BILIARY TREE: The liver is normal in size, shape, and attenuation. No focal hepatic lesion. Mild intrahepatic biliary ductal dilatation is present. The gallbladder is unremarkable with no evidence of radiopaque gallstones, gallbladder wall thickening, or obvious pericholecystic inflammatory changes. Caliber common bile duct.? PANCREAS: Normal; no mass or surrounding fluid.? SPLEEN: Normal size.? No focal lesion.? ADRENAL GLANDS: Normal; no mass.? KIDNEYS AND URETERS: The kidneys are normal in size, shape, and attenuation. No hydronephrosis, hydroureter, or calculi. Simple cyst at the upper pole of the right kidney. No specific follow-up recommended. ABDOMINAL WALL: No hernia seen.? LYMPHOVASCULAR STRUCTURES: No lymphadenopathy. The aorta is normal in caliber. Moderate atherosclerotic calcifications. BLADDER: No focal mass or wall thickening seen.? No bladder calculi.? PELVIC VISCERA: No pelvic mass. OSSEOUS STRUCTURES: Scoliotic curvature of the spine. No acute or suspicious osseous abnormality. Mild degenerative change throughout the spine.? CT/CT gi bleed abd pel wo/w IVcon IMPRESSION: 1.? No evidence of active GI bleed. 2.? Diverticulosis without diverticulitis. Moderate volume of stool throughout the colon. Critical Care Time Critical Care Time Critical Care Time: Yes Total Critical Care Time: 30 Attestation: I have personally provided critical care time. Time includes review of lab data, radiology results, discussion with consultants, and monitoring for potential decompensation. Intervention performed as documented. Discharge Plan Discharge Clinical Impression: Acute GI bleeding Patient Disposition: Admitted As Inpatient Prescriptions: No Action meclizine 25 mg tablet 25 mg PO TID PRN (Reason: dizziness) Qty: 14 0RF
[2022-09-16 14:46] LABS: MANUAL DIFF FLAG NO
[2022-09-16 14:48] LABS: Basophils Percent Auto 0.7 % (0-2); Eosinophils Percent Auto 0.7 % (0-4); Hematocrit 39.9 % (37.0-47.0); Hemoglobin 13.2 g/dl (12.0-16.0); Imm Gran Abs Auto 0.03 X10*3/uL (0.00-0.03); Imm Gran Pct Auto 0.5 % (0.0-0.4); Lymphocytes Absolute Auto 0.8 X10*3/uL (1.2-4.9); Lymphocytes Percent Auto 12.7 % (20-40); Mean Corpuscular HGB Conc 33.1 g/dl (31.0-35.0); Mean Corpuscular Hemoglobin 32.6 pg (27.0-33.0); Mean Corpuscular Volume 98.5 fL (80.0-98.0); Mean Platelet Volume 10.2 fL (9.4-12.3); Monocytes Absolute Auto 0.5 X10*3/uL (0.1-1.2); Monocytes Percent Auto 7.5 % (2-11); Neutrophils Absolute Auto 4.8 x10*3/uL (2.0-8.3); Neutrophils Percent Auto 77.9 % (45-73); Platelet Count 180 X10*3/uL (160-400); Red Blood Count 4.05 X10*6/uL (4.20-5.50); Red Cell Distribution Width 13.1 % (11.0-16.0); White Blood Count 6.1 X10*3/uL (4.8-10.8)
[2022-09-16 14:56] LABS: Prothrombin Time 11.6 SEC (10.0-13.1)
[2022-09-16 15:03] LABS: COVID-19 Test Negative (Negative); IDNOW Serial# BCCEAD1C
[2022-09-16 15:03] LABS: Lactic Acid 0.9 mmol/L (0.5-2.0)
[2022-09-16 15:07] LABS: Alanine Aminotransferase 12 U/L (0-31); Alkaline Phosphatase 95 U/L (39-117); Anion Gap 16 (12-20); Aspartate Amino Transferase 14 U/L (5-31); Bilirubin Direct < 0.2 mg/dL (0.0-0.5); Bilirubin Total 0.5 mg/dL (0.0-1.0); Blood Urea Nitrogen 15 mg/dL (9-16); Carbon Dioxide 23 mmol/L (22-29); Chloride 108 mmol/L (96-108); Creatinine Clr Calc Pharmacy 34.2; Estimated Glomerular Filt Rate > 60; Glucose Random 151 mg/dL (60-115); Lipase 13 U/L (8-78); Magnesium 2.1 mg/dL (1.6-2.6); Sodium 143 mmol/L (135-145); Total Protein 6.3 g/dL (6.5-8.0)
[2022-09-16] MEDS: iohexoL 350 MG/ML 100 ML INFUS..BTL IV (15:43)
[2022-09-16 15:50] LABS: OBS Int Ctl Valid YES; OBS1 POSITIVE (NEGATIVE)
[2022-09-16 16:42] VITALS: BP 166/71; PULSE 81; RESP 18; TEMP 36.7; O2SAT 95
[2022-09-16 18:32] LABS: Hematocrit 38.7 % (37.0-47.0); Hemoglobin 12.9 g/dl (12.0-16.0)
[2022-09-16 19:46] VITALS: BP 150/62; PULSE 64; RESP 18; O2SAT 97
--- NOTE | 2022-09-16 20:49 | PM.IMHP ---
History of Present Illness Date of Service: 09/16/22 Chief Complaint: GI bleed This is a pleasant 87-year-old female with past medical history of hypertension, presents to the hospital with 2 episodes of GI bleed. Patient is hard of hearing but able to give history well, she is alert to self and place. States that she came home after lunch, all of a sudden felt that she needed to move her bowels, went to the bathroom and had a large bloody bowel movement. She called her doctor who advised her to call the ambulance and come to the hospital, shortly after had a 2nd episode with bright red blood per rectum. She reports no abdominal pain, no shortness of breath, she does feel dizzy but has no headache or change in vision, no palpitations, no chest pain, no urinary symptoms and no lower extremity edema. She reports taking Advil few days ago not sure why, on review of her home medications patient is taking naproxen. All other review of systems negative On arrival to the ED patient hemodynamically stable with a slightly elevated blood pressure, Labs are significant for WBC count of 6.1, hemoglobin of 13.2, hematocrit of 38.7, Pelvic CT showsvidence of active GI bleed, diverticulosis with no diverticulitis, moderate volume of stool throughout the colon Patient will be admitted for further management Review of Systems Review of Systems: Yes all other systems are reviewed and are negative [facility] Medical History Diabetes High cholesterol HTN (hypertension) Surgical History No pertinent past surgical history Social History Alcohol intake: never Smoked in Last 30 Days: No Use of substances other than those prescribed or required for medical reasons: No Advance Directives: No Meds Allergies Allergy/AdvReac Type Severity Reaction Status Date / Time epinephrine [EPINEPHRINE] Allergy Unknown TACHYCARDIA,SHAKEY, Verified 08/12/22 13:12 tachycardia anesthesia Allergy Unknown difficulty Uncoded 02/29/20 00:00 waking up Home Medications Medication Instructions Recorded Confirmed Last Taken Type amlodipine 5 mg tablet 1 tab PO DAILY 09/16/22 09/16/22 09/16/22 History atorvastatin 10 mg tablet 1 tab PO DAILY 09/16/22 09/16/22 09/16/22 History losartan 50 mg tablet 1 tab PO DAILY 09/16/22 09/16/22 09/16/22 History naproxen 250 mg tablet 250 mg PO BID PRN Pain 09/16/22 09/16/22 09/16/22 History Physical Exam Vital Signs and Narrative: Vital Signs: Last Vital Signs Temp 98.1 F 09/16/22 16:42 Pulse 64 09/16/22 19:46 Resp 18 09/16/22 19:46 BP 150/62 H 09/16/22 19:46 Pulse Ox 97 09/16/22 19:46 O2 Del Method 09/16/22 19:46 BMI result Body Mass Index 17.7 Const: General: cooperative and no acute distress Orientation/consciousness: patient oriented x3 Eyes: General: appearance normal, both eyes and all related structures Resp: Effort & Inspection: normal respiratory effort Auscultation: clear to auscultation bilaterally Cardio: Rate: regular rate Rhythm: regular rhythm GI: Other: Abdomen is soft, nontender Palpation (GI): Soft to palpation Auscultation: normal bowel sounds Skin: General skin exam: no rashes or lesions noted Neuro: General: patient oriented x3 Cognition (Neuro): normal cognition Extrem: General: Yes normal to inspection and Yes no pedal edema Results Labs 09/16/22 18:17 09/16/22 14:40 Labs: Laboratory Results - last 24 hr 09/16/22 09/16/22 09/16/22 14:40 14:40 14:40 MCV 98.5 H MCH 32.6 MCHC 33.1 RDW 13.1 Plt Count 180 MPV 10.2 Immature Gran % (Auto) 0.5 H Neut % (Auto) 77.9 H Lymph % (Auto) 12.7 L [place] % (Auto) 7.5 Eos % (Auto) 0.7 Baso % (Auto) 0.7 Lymph # (Auto) 0.8 L [place] # (Auto) 0.5 Eos # (Auto) 0.0 Baso # (Auto) 0.0 Abs Immat Gran (auto) 0.03 Absolute Neuts (auto) 4.8 Absolute Nucleated RBC 0.000 Nucleated RBC % (auto) 0.0 PT 11.6 INR 1.0 Anion Gap 16 Estim Creat Clear Calc 34.2 Estimated GFR > 60 Random Glucose 151 H Lactic Acid Calcium 9.0 Magnesium 2.1 Total Bilirubin 0.5 Direct Bilirubin < 0.2 AST 14 ALT 12 Alkaline Phosphatase 95 Total Protein 6.3 L Albumin 4.0 Lipase 13 Stool Occult Blood COVID-19 (CODY) COVID-19 Clin Com 09/16/22 09/16/22 09/16/22 14:40 14:46 15:43 MCV MCH MCHC RDW Plt Count MPV Immature Gran % (Auto) Neut % (Auto) Lymph % (Auto) [place] % (Auto) Eos % (Auto) Baso % (Auto) Lymph # (Auto) [place] # (Auto) Eos # (Auto) Baso # (Auto) Abs Immat Gran (auto) Absolute Neuts (auto) Absolute Nucleated RBC Nucleated RBC % (auto) PT INR Anion Gap Estim Creat Clear Calc Estimated GFR Random Glucose Lactic Acid 0.9 Calcium Magnesium Total Bilirubin Direct Bilirubin AST ALT Alkaline Phosphatase Total Protein Albumin Lipase Stool Occult Blood POSITIVE COVID-19 (CODY) Negative COVID-19 Clin Com See Note Imaging Radiologist's Impressions: Impressions Abdomen/Pelvis CT 09/16/22 15:43 IMPRESSION: 1. No evidence of active GI bleed. 2. Diverticulosis without diverticulitis. Moderate volume of stool throughout the colon. Assessment and Plan (1) Acute GI bleeding: Status: Acute Plan Patient with past medical history of hypertension presents to the hospital with complaints of GI bleed # acute GI bleed - possibly upper versus lower GI - patient takes naproxen for history of osteoarthritis - does have evidence of diverticulosis - H&H stable - at this time will keep NPO, consult GI for further evaluation - given history of naproxen use, will place on PPI IV b.i.d. - follow H&H # hypertension - slightly elevated - will resume home antihypertensives DVT prophylaxis: SCDs Given patient's need for further evaluation by GI to evaluate GI bleed, patient will require minimum 2 nights inpatient hospital stay Time Spent With Patient Time: Total time managing care of this patient today ____ minutes. Quality Stroke Does the patient have a stroke diagnosis?: No VTE Prior VTE?: No VTE Risk Level:: Medical - moderate - high VTE Device Contraindication: N/A - Device Ordered VTE Drug Contraindication: Treatment Not Indicated
--- NOTE | 2022-09-16 20:52 | PHA.MEDREC ---
Pharmacy Consult ? Medication Reconciliation Pharmacy has completed the medication reconciliation.
[2022-09-16 22:52] VITALS: BP 144/68; PULSE 56; RESP 16; TEMP 36.8; O2SAT 96
[2022-09-16] MEDS: 0.9 % Sodium Chloride Flush 3 ML SYRINGE IVFLUSH (23:27)
[2022-09-16] MEDS: Pantoprazole Sodium 40 MG/10 ML VIAL IVPUSH (23:27)
[2022-09-17] VITALS (9 sets, daily range): BP systolic 138–179; BP diastolic 67–92; PULSE 57–91; RESP 16–18; TEMP 36.2–37.1; O2SAT 95–99; BMI 18.3
--- NOTE | 2022-09-17 00:16 | PC.NURSE ---
Pt DHILLON x 4 medicated per OCT. RN assisted pt to bathroom no bloody stools per pt. Paper toilet color when wiped is brown.
--- NOTE | 2022-09-17 06:06 | MHC.EDTECH ---
Pt Refused Vital Signs Pt became aggrivated and combative
[2022-09-17] MEDS: Pantoprazole Sodium 40 MG/10 ML VIAL IVPUSH ×2 (07:50→19:28)
[2022-09-17] MEDS: 0.9 % Sodium Chloride Flush 3 ML SYRINGE IVFLUSH ×2 (07:51→19:28)
[2022-09-17 08:50] LABS: Appearance Urine Cloudy; Color Urine Yellow; Glucose Urine UA Negative (Negative); Leukocyte Esterase Urine Small (1+) (Negative); Nitrite Urine Negative (Negative); PH 6.5 (5.0-9.0); Specific Gravity - Urine >= 1.030 (1.005-1.025); UMIC TRIGGER UACC YES; Urine Blood Large (3+) (Negative); Urine Ketones Negative (Negative); Urine Protein Negative (Neg-Trace)
[2022-09-17 09:06] LABS: Bacteria Urine 1+ (None Seen); Hyaline Casts Urine 0-2 /LPF (0-2); RBC Urine >20 /HPF (0-2); UACC Culture Trigger YES; WBC Urine 0-5 /HPF (0-5)
[2022-09-17 09:32] LABS: MANUAL DIFF FLAG NO
[2022-09-17 09:34] LABS: Basophils Absolute Auto 0.1 X10*3/uL (0.0-0.2); Basophils Percent Auto 1.2 % (0-2); Eosinophils Absolute Auto 0.1 X10*3/uL (0.0-0.4); Eosinophils Percent Auto 1.2 % (0-4); Hematocrit 37.9 % (37.0-47.0); Hemoglobin 12.6 g/dl (12.0-16.0); Imm Gran Abs Auto 0.01 X10*3/uL (0.00-0.03); Imm Gran Pct Auto 0.2 % (0.0-0.4); Lymphocytes Absolute Auto 0.8 X10*3/uL (1.2-4.9); Lymphocytes Percent Auto 20.3 % (20-40); Mean Corpuscular HGB Conc 33.2 g/dl (31.0-35.0); Mean Corpuscular Hemoglobin 32.7 pg (27.0-33.0); Mean Corpuscular Volume 98.4 fL (80.0-98.0); Mean Platelet Volume 10.3 fL (9.4-12.3); Monocytes Absolute Auto 0.4 X10*3/uL (0.1-1.2); Monocytes Percent Auto 8.6 % (2-11); Neutrophils Absolute Auto 2.8 x10*3/uL (2.0-8.3); Neutrophils Percent Auto 68.5 % (45-73); Platelet Count 167 X10*3/uL (160-400); Red Blood Count 3.85 X10*6/uL (4.20-5.50); Red Cell Distribution Width 13.2 % (11.0-16.0); White Blood Count 4.1 X10*3/uL (4.8-10.8)
[2022-09-17 09:52] LABS: Anion Gap 10 (12-20); Blood Urea Nitrogen 15 mg/dL (9-16); Calcium 8.9 mg/dL (8.4-10.2); Carbon Dioxide 25 mmol/L (22-29); Chloride 109 mmol/L (96-108); Creatinine Clr Calc Pharmacy 34.7; Estimated Glomerular Filt Rate > 60; Glucose Random 114 mg/dL (60-115); Sodium 140 mmol/L (135-145)
--- NOTE | 2022-09-17 14:14 | P.CNGI_ITS ---
History of Present Illness Data of Consult Service Date: 09/17/22 Primary Care Provider: Donavan Segura MD [facility] Reason for consult: GI bleeding 87-year-old female with past medical history of hypertension, osteoarthritis, constipation, who presented from home for rectal bleeding. History was obtained from the patient who states that on the day of admission, shortly after lunch time, she had an urge to have a bowel movement. When she looked in the toilet bowl, it was bloody. He proceeded to have another similar episode. When she called her primary care provider, he advised her to go to the emergency room. Patient has never had any similar episodes in the past. No associated abdominal pain, nausea, vomiting. No fevers or chills. Has not had any recurrence since then. Last colonoscopy was almost 20 years ago. Does take NSAIDs for her osteoarthritis. Collateral history was obtained from the daughter over the phone. She reports that patient has been having issues with constipation and frequently has to take laxatives to have a bowel movement. Also reports a previous history of diverticulitis. Patient herself could not recall whether she was straining at that time to have a bowel movement. In the ER she was noted to be hemodynamically stable. Labs showed Hb of 13.2 which remained grossly unchanged on recheck. Chem 7 with normal Cr and BUN. CT abd shows diverticulosis but no active bleed noted on the scan. Review of Systems Review of Systems: Yes all other systems are reviewed and are negative [facility] Past Medical History Medical History Diabetes High cholesterol HTN (hypertension) Surgical History Surgical History No pertinent past surgical history Social History Social History Alcohol intake: never Meds Allergies Allergy/AdvReac Type Severity Reaction Status Date / Time epinephrine [EPINEPHRINE] Allergy Unknown TACHYCARDIA,SHAKEY, Verified 08/12/22 13:12 tachycardia anesthesia Allergy Unknown difficulty Uncoded 02/29/20 00:00 waking up Active Medications: Current Medications Acetaminophen (Acetaminophen 325 Mg Tablet) 650 mg PO Q6H PRN PRN Reason: Pain, Mild (Pain Scale 1-3) Ondansetron HCl (Ondansetron Hcl 4 Mg/2 Ml Vial) 4 mg IVPUSH Q8H PRN PRN Reason: Nausea and Vomiting Pantoprazole Sodium (Pantoprazole Sodium 40 Mg/10 Ml Vial) 40 mg IVPUSH BID@0630,1630 [facility] Last Admin: 09/17/22 07:50 Dose: 40 mg Sodium Chloride (0.9 % Sodium Chloride Flush 3 Ml Syringe) 3 ml IVFLUSH QSHIFT [facility] Last Admin: 09/17/22 07:51 Dose: 3 ml Home Medications Medication Instructions Recorded Confirmed Last Taken Type amlodipine 5 mg tablet 1 tab PO DAILY 09/16/22 09/16/22 09/16/22 History atorvastatin 10 mg tablet 1 tab PO DAILY 09/16/22 09/16/22 09/16/22 History losartan 50 mg tablet 1 tab PO DAILY 09/16/22 09/16/22 09/16/22 History naproxen 250 mg tablet 250 mg PO BID PRN Pain 09/16/22 09/16/22 09/16/22 History Physical Exam Vital Signs: Vital Signs: Last Vital Signs Temp 98.2 F 09/16/22 22:52 Pulse 68 09/17/22 13:50 Resp 18 09/17/22 13:50 BP 150/89 H 09/17/22 13:50 Pulse Ox 97 09/17/22 13:50 O2 Del Method 09/16/22 22:52 BMI result Body Mass Index 17.7 Gen appear: NAD HEENT: nonicteric, no cervical lymphadenopathy Chest: CTA CVS: Regular S1/S2 Abd: soft, nontender, nondistended, bowel sounds + Ext: no peripheral edema Neuro: Hard of hearing, moving all extremities spontaneously Psych: interacting appropriately Results Labs 09/17/22 09:09 09/17/22 09:09 Labs: Short CBC 09/16/22 09/16/22 09/17/22 Range/Units 14:40 18:17 09:09 WBC 6.1 4.1 L (4.8-10.8) X10*3/uL Hgb 13.2 12.9 12.6 (12.0-16.0) g/dl Hct 39.9 38.7 37.9 (37.0-47.0) % Plt Count 180 167 (160-400) X10*3/uL BMP 09/16/22 09/17/22 14:40 09:09 Sodium 143 140 Potassium 4.0 4.0 Chloride 108 109 H Carbon Dioxide 23 25 BUN 15 15 Creatinine 0.74 0.73 Calcium 9.0 8.9 Liver Function 09/16/22 Range/Units 14:40 Total Bilirubin 0.5 (0.0-1.0) mg/dL Direct Bilirubin < 0.2 (0.0-0.5) mg/dL AST 14 (5-31) U/L ALT 12 (0-31) U/L Alkaline Phosphatase 95 (39-117) U/L Albumin 4.0 (3.5-5.0) g/dL Urine 09/17/22 Range/Units 08:17 Urine Color Yellow Urine Appearance Cloudy Urine pH 6.5 (5.0-9.0) Ur Specific [place] >= 1.030 H (1.005-1.025) Urine Protein Negative (Neg-Trace) mg/dL Urine Glucose (UA) Negative (Negative) mg/dL Assessment and Plan (1) Bright red rectal bleeding: Status: Acute Plan Painless small amount of self-limiting bleeding likely secondary hemorrhoidal versus diverticular bleeding. Low suspicion for colitis given abdominal pain or changes on imaging. Other differentials include large friable polyp or cancer. Reviewed with the patient as well as her daughter Ioana. They elect to hold off diagnostic colonoscopy at this time given patient's advanced age. Ioana is also concerned about possible early dementia. They would call our office if patient has recurrence of this bleeding, or if they change their mind. Plan: - Okay to advance diet from gastroenterology standpoint - Cont to monitor GI outpt - Pt advised to avoid NSAIDs - Bowel regimen Thank you for the consultation. Please do not hesitate to reach out for any questions or concerns. Time Spent With Patient Time: Total time managing care of this patient today ____ minutes. Procedures Date of Service Date of Service: 09/17/22
--- NOTE | 2022-09-17 15:39 | HO.PM.IMPN ---
Subjective Subjective Date of Service: 09/17/22 Interval History: Gi bleed. Review of Systems Patient denies new episode of bleeding over the day she had 1 bowel movement this morning but unclear if she had bleeding Vital stable, no fever no dizziness or lightheadedness or chest pain or shortness of breath. Physical Exam Vital Signs: Vital Signs: Last Vital Signs Temp 98.2 F 09/16/22 22:52 Pulse 68 09/17/22 13:50 Resp 18 09/17/22 13:50 BP 150/89 H 09/17/22 13:50 Pulse Ox 97 09/17/22 13:50 O2 Del Method 09/16/22 22:52 BMI result Body Mass Index 17.7 Appearance: Alert.? Oriented X3.? cvs: rrr, [id number]. res: clear to auscultation ,no rhonchii or wheezing abd: no rebound or guarding ,nt, bs present. ext pulses present , no cyanosis . neuro: axo3 , nonfocal. Objective Data Active Medications Acetaminophen (Acetaminophen 325 Mg Tablet) 650 mg PO Q6H PRN PRN Reason: Pain, Mild (Pain Scale 1-3) Ondansetron HCl (Ondansetron Hcl 4 Mg/2 Ml Vial) 4 mg IVPUSH Q8H PRN PRN Reason: Nausea and Vomiting Pantoprazole Sodium (Pantoprazole Sodium 40 Mg/10 Ml Vial) 40 mg IVPUSH BID@0630,1630 [facility] Last Admin: 09/17/22 07:50 Dose: 40 mg Documented By: MEREDITH Sodium Chloride (0.9 % Sodium Chloride Flush 3 Ml Syringe) 3 ml IVFLUSH QSHIFT [facility] Last Admin: 09/17/22 07:51 Dose: 3 ml Documented By: MEREDITH Labs 09/17/22 09:09 09/17/22 09:09 Labs: Laboratory Results - last 24 hr 09/16/22 09/17/22 09/17/22 15:43 08:17 09:09 MCV 98.4 H MCH 32.7 MCHC 33.2 RDW 13.2 Plt Count 167 MPV 10.3 Immature Gran % (Auto) 0.2 Neut % (Auto) 68.5 Lymph % (Auto) 20.3 [place] % (Auto) 8.6 Eos % (Auto) 1.2 Baso % (Auto) 1.2 Lymph # (Auto) 0.8 L [place] # (Auto) 0.4 Eos # (Auto) 0.1 Baso # (Auto) 0.1 Abs Immat Gran (auto) 0.01 Absolute Neuts (auto) 2.8 Absolute Nucleated RBC 0.000 Nucleated RBC % (auto) 0.0 Anion Gap Estim Creat Clear Calc Estimated GFR Random Glucose Calcium Urine Color Yellow Urine Appearance Cloudy Urine pH 6.5 Ur Specific [place] >= 1.030 H Urine Protein Negative Urine Glucose (UA) Negative Urine Ketones Negative Urine Blood Large (3+) H Urine Nitrite Negative Ur Leukocyte Esterase Small (1+) H Urine RBC >20 H Urine WBC 0-5 Ur Squamous Epith Cells 3-5 Urine Bacteria 1+ Hyaline Casts 0-2 Stool Occult Blood POSITIVE 09/17/22 09:09 MCV MCH MCHC RDW Plt Count MPV Immature Gran % (Auto) Neut % (Auto) Lymph % (Auto) [place] % (Auto) Eos % (Auto) Baso % (Auto) Lymph # (Auto) [place] # (Auto) Eos # (Auto) Baso # (Auto) Abs Immat Gran (auto) Absolute Neuts (auto) Absolute Nucleated RBC Nucleated RBC % (auto) Anion Gap 10 L Estim Creat Clear Calc 34.7 Estimated GFR > 60 Random Glucose 114 Calcium 8.9 Urine Color Urine Appearance Urine pH Ur Specific [place] Urine Protein Urine Glucose (UA) Urine Ketones Urine Blood Urine Nitrite Ur Leukocyte Esterase Urine RBC Urine WBC Ur Squamous Epith Cells Urine Bacteria Hyaline Casts Stool Occult Blood Assessment and Plan (1) Acute GI bleeding: Status: Acute (2) Bilateral primary osteoarthritis of knee: Status: Acute Plan 87 f with?past medical history of hypertension presents to the hospital with complaints of GI bleed # acute GI bleed - possibly upper versus lower GI - patient takes naproxen for history of osteoarthritis - does have evidence of diverticulosis - H&H stable - at this time will keep NPO, consult GI for further evaluation - given history of naproxen use, will place on PPI IV b.i.d. - follow H&H stable around 12 , will chekc in even[place] # hypertension - slightly elevated - will resume home antihypertensives DVT prophylaxis:? SCDs inaptient need:acute GI bleed-h/h monitering , gi eval for further Gi workup. Time Spent With Patient Time: Total time managing care of this patient today ____ minutes. Quality Stroke Does the patient have a stroke diagnosis?: No VTE Prior VTE?: No VTE Risk Level:: Medical - moderate - high VTE Device Contraindication: N/A - Device Ordered VTE Drug Contraindication: Treatment Not Indicated
[2022-09-17 16:27] LABS: Hematocrit 42.4 % (37.0-47.0); Hemoglobin 14.1 g/dl (12.0-16.0); Mean Corpuscular HGB Conc 33.3 g/dl (31.0-35.0); Mean Corpuscular Hemoglobin 32.9 pg (27.0-33.0); Mean Corpuscular Volume 98.8 fL (80.0-98.0); Mean Platelet Volume 10.3 fL (9.4-12.3); Platelet Count 183 X10*3/uL (160-400); Red Blood Count 4.29 X10*6/uL (4.20-5.50); Red Cell Distribution Width 13.1 % (11.0-16.0); White Blood Count 6.5 X10*3/uL (4.8-10.8)
[2022-09-17 19:12] LABS: Hematocrit 42.4 % (37.0-47.0); Hematocrit 43.5 % (37.0-47.0); Hemoglobin 14.1 g/dl (12.0-16.0); Hemoglobin 14.4 g/dl (12.0-16.0); Mean Corpuscular HGB Conc 33.1 g/dl (31.0-35.0); Mean Corpuscular Hemoglobin 32.4 pg (27.0-33.0); Mean Platelet Volume 9.8 fL (9.4-12.3); Platelet Count 195 X10*3/uL (160-400); Red Blood Count 4.44 X10*6/uL (4.20-5.50); Red Cell Distribution Width 12.9 % (11.0-16.0); White Blood Count 6.4 X10*3/uL (4.8-10.8)
[2022-09-17] MEDS: LORazepam 2 MG/ML VIAL 0.25 MG IVPUSH (19:28)
--- NOTE | 2022-09-17 20:00 | P.DS_ITS ---
DS: Providers Provider Date of Service: 09/17/22 Date of admission: 09/16/22 20:47 Primary care physician: Donavan Segura MD Consults: 09/16/22 20:47 Consult to Gastroenterology Routine Consulting Provider: Robert Moreira Reason for consultation: GI bleed Has provider been notified: No DS: Diagnosis Discharge Diagnosis (1) Bright red rectal bleeding: Status: Acute (2) Bilateral primary osteoarthritis of knee: Status: Acute DS: Summary Hospital Course Hospital Course: 87-year-old female with past medical history of hypertension, presents to the hospital with 2 episodes of GI bleed.? Patient is hard of hearing but able to give history well, she is alert to self and place.? States that she came home after lunch, all of a sudden felt that she needed to move her bowels, went to the bathroom and had a large bloody bowel movement.? She called her doctor who advised her to call the ambulance and come to the hospital, shortly after had a 2nd episode with bright red blood per rectum.? She reports no abdominal pain, no shortness of breath, she does feel dizzy but has no headache or change in vision, no palpitations, no chest pain, no urinary symptoms and no lower extremity edema.? She reports taking Advil few days ago not sure why, on review of her home medications patient is taking naproxen.? All other review of systems negative On arrival to the ED patient hemodynamically stable with a slightly elevated blood pressure, Labs are significant for WBC count of 6.1, hemoglobin of 13.2, hematocrit of 38.7, Pelvic CT showsvidence of active GI bleed, diverticulosis with no diverticulitis, moderate volume of stool throughout the colon Patient will be admitted for further management. Hospital course: Patient admitted for GI bleed-initially bleeding stopped but then started to have significant bleeding again-patient has 5 -6 punch color liquid -h/h soafar stable , vitals stable, discussed with GI and surgery patient need CT angio and may need IR guided intervention which is currently not available in [facility]. Spoke to on-call interventional radiologist as well as GI as well as surgery. Monitor H&H closely, vitals, p.r.n. transfuse. last h/h : 12.4/36.6 at 4 am this morning cta negative(please see imaging section below.) Due to persistent bleeding and currently not haveIR guided intervention here which might be needed if continue to bleed. may also need colonoscopy . d/w with Gi and surgery- multiple hospitals called -patient overnight accepted to [facility]-accepting physician Dr nichols. This morning also discussed the case with Dr. Parish. Time Spent with Patient Time attestation: Total time managing care of this patient today ____ minutes. Discharge coordination time: Greater than 30 minutes Quality: Safe Use of Opioids Does Pt have an Active Cancer Diagnosis on the Problem List?: No Quality: Stroke Does the patient have a stroke diagnosis?: No Physical Exam Vital Signs: Vital Signs: Last Vital Signs Temp 98.7 F 09/17/22 16:00 Pulse 77 09/17/22 16:00 Resp 16 09/17/22 16:00 BP 179/84 H 09/17/22 16:00 Pulse Ox 97 09/17/22 16:00 O2 Del Method 09/17/22 16:00 BMI result Body Mass Index 18.3 Appearance: Alert.? Oriented X3.? cvs: rrr, [id number]. res: clear to auscultation ,no rhonchii or wheezing abd: no rebound or guarding ,nt, bs present. ext pulses present , no cyanosis . neuro: axo3 , nonfocal. DS: Data Data Completed and Pending Labs on day of discharge: Laboratory Results - last 24 hr 09/17/22 09/17/22 09/17/22 08:17 09:09 09:09 WBC 4.1 L RBC 3.85 L Hgb 12.6 Hct 37.9 MCV 98.4 H MCH 32.7 MCHC 33.2 RDW 13.2 Plt Count 167 MPV 10.3 Immature Gran % (Auto) 0.2 Neut % (Auto) 68.5 Lymph % (Auto) 20.3 [place] % (Auto) 8.6 Eos % (Auto) 1.2 Baso % (Auto) 1.2 Lymph # (Auto) 0.8 L [place] # (Auto) 0.4 Eos # (Auto) 0.1 Baso # (Auto) 0.1 Abs Immat Gran (auto) 0.01 Absolute Neuts (auto) 2.8 Absolute Nucleated RBC 0.000 Nucleated RBC % (auto) 0.0 Sodium 140 Potassium 4.0 Chloride 109 H Carbon Dioxide 25 Anion Gap 10 L BUN 15 Creatinine 0.73 Estim Creat Clear Calc 34.7 Estimated GFR > 60 Random Glucose 114 Calcium 8.9 Urine Color Yellow Urine Appearance Cloudy Urine pH 6.5 Ur Specific [place] >= 1.030 H Urine Protein Negative Urine Glucose (UA) Negative Urine Ketones Negative Urine Blood Large (3+) H Urine Nitrite Negative Ur Leukocyte Esterase Small (1+) H Urine RBC >20 H Urine WBC 0-5 Ur Squamous Epith Cells 3-5 Urine Bacteria 1+ Hyaline Casts 0-2 Blood Type Antibody Screen 09/17/22 09/17/22 09/17/22 16:08 18:55 18:55 WBC 6.5 6.4 RBC 4.29 4.44 Hgb 14.1 14.1 14.4 Hct 42.4 42.4 43.5 MCV 98.8 H 98.0 MCH 32.9 32.4 MCHC 33.3 33.1 RDW 13.1 12.9 Plt Count 183 195 MPV 10.3 9.8 Immature Gran % (Auto) Neut % (Auto) Lymph % (Auto) [place] % (Auto) Eos % (Auto) Baso % (Auto) Lymph # (Auto) [place] # (Auto) Eos # (Auto) Baso # (Auto) Abs Immat Gran (auto) Absolute Neuts (auto) Absolute Nucleated RBC 0.000 0.000 Nucleated RBC % (auto) 0.0 0.0 Sodium Potassium Chloride Carbon Dioxide Anion Gap BUN Creatinine Estim Creat Clear Calc Estimated GFR Random Glucose Calcium Urine Color Urine Appearance Urine pH Ur Specific [place] Urine Protein Urine Glucose (UA) Urine Ketones Urine Blood Urine Nitrite Ur Leukocyte Esterase Urine RBC Urine WBC Ur Squamous Epith Cells Urine Bacteria Hyaline Casts Blood Type Antibody Screen 09/17/22 18:55 WBC RBC Hgb Hct MCV MCH MCHC RDW Plt Count MPV Immature Gran % (Auto) Neut % (Auto) Lymph % (Auto) [place] % (Auto) Eos % (Auto) Baso % (Auto) Lymph # (Auto) [place] # (Auto) Eos # (Auto) Baso # (Auto) Abs Immat Gran (auto) Absolute Neuts (auto) Absolute Nucleated RBC Nucleated RBC % (auto) Sodium Potassium Chloride Carbon Dioxide Anion Gap BUN Creatinine Estim Creat Clear Calc Estimated GFR Random Glucose Calcium Urine Color Urine Appearance Urine pH Ur Specific [place] Urine Protein Urine Glucose (UA) Urine Ketones Urine Blood Urine Nitrite Ur Leukocyte Esterase Urine RBC Urine WBC Ur Squamous Epith Cells Urine Bacteria Hyaline Casts Blood Type O Positive Antibody Screen NEGATIVE Preliminary micro results at discharge 09/16/22 14:57 Blood Culture - Preliminary Blood - Venous No growth after 24 hours. 09/16/22 14:40 Blood Culture - Preliminary Blood - Venous No growth after 24 hours. Imaging Chest x-ray: Radiologist's impression: ITS Impressions Abdomen/Pelvis CT 09/16/22 15:43 IMPRESSION: 1. No evidence of active GI bleed. 2. Diverticulosis without diverticulitis. Moderate volume of stool throughout the colon. CT/CT gi bleed abd pel wo/w IVcon IMPRESSION: 1.? No CT evidence of active gastrointestinal bleeding identified. 2.? Colonic diverticulosis. No evidence of acute diverticulitis. 3.? Moderate amount of formed stool throughout the colon. 4.? No acute intra-abdominal process. Discharge Plan Discharge Anticipated Discharge Date/Time: 09/17/22 19:46 Patient Disposition: Xfer [facility] Discharge Diagnosis: Gi BLEED Referrals: Donavan Segura MD [Primary Care Provider] - 1 Week Discharge Medications: New pantoprazole [Protonix] 40 mg Recon Soln 40 mg IVPUSH BID@0630,1630 Qty: 1 0RF ondansetron HCl (PF) 4 mg/2 mL Solution 4 mg IVPUSH Q8H PRN (Reason: Nausea And Vomiting) Qty: 1 0RF Held meclizine 25 mg tablet 25 mg PO TID PRN (Reason: dizziness) Qty: 14 0RF Hold Instructions: Resume on 10/13/22. losartan 50 mg tablet 1 tab PO DAILY Hold Instructions: Resume on 09/22/22. atorvastatin 10 mg tablet 1 tab PO DAILY Hold Instructions: Resume on 09/22/22. amlodipine 5 mg tablet 1 tab PO DAILY Hold Instructions: Resume on 09/22/22. naproxen 250 mg Tablet 250 mg PO BID PRN (Reason: Pain) Hold Instructions: Resume on 09/17/22. Discharge Orders: Discharge Order (Routine); Ordered 09/18/22 Ordered By: Ian Bateman Diet: NPO Activity on Discharge: As tolerated Stand Alone Forms: Patient Portal Discharge page Care Plan Goals: Patient admitted for GI bleed-initially bleeding stopped but then started to have significant bleeding again-patient has 5 -6 punch color liquid -h/h soafar stable , vitals stable, discussed with GI and surgery patient need CT angio and may need IR guided intervention which is currently not available in [facility]. Spoke to on-call interventional radiologist as well as GI as well as surgery. Monitor H&H closely, vitals, p.r.n. transfuse. Call was placed to [facility]-declined because of full capacity, [facility] declined GI bleed transfer, [facility] call was placed-they will call us back. also called [facility]- Health Concerns: as above Plan of Treatment: as above Assessment: as above Discharge Date/Time: 09/18/22 07:30
--- NOTE | 2022-09-17 20:06 | PC.NURSE ---
Obtained consent for CT with contrast at this time with Loyda Simmons, daughter and Health care proxy verbally over the phone because she lives in [place].
--- NOTE | 2022-09-17 20:20 | PC.NURSE ---
Report given at this time to SAY Baugh. assuming care of patient at this time.
--- NOTE | 2022-09-17 20:24 | P.CONGS_ITS ---
History of Present Illness Consult details Consult date: 09/17/22 Narrative: 87F referred for GI bleed. She was admitted yesterday for passage of bright blood per rectum.She apparently had 2 episodes of significant amounts of bright blood per rectum prior to going to the ED. Her Hg was within normal. She seemed to have had no further episodes until later today. According to the nursing staff, she has had multiple episodes of maroon blood per rectum starting early evening. She just had another episodes prior to me seeing her and accodring to staff, this is probably the 6th time the past few hours with large amounts. According to records, she has a hx of diverticular disease. She takes naproxen on and off for joint pains. She seems to have had some dementia symptoms as well. She is very hard of hearing and does not provide much details when asked at this time. Review of Systems Constitutional: Constitutional: Denies chills and Denies fever(s) Cardiovascular: Cardiovascular: Denies chest pain Respiratory: Respiratory: Denies hemoptysis Gastrointestinal: Gastrointestinal: Denies abdominal pain Musculoskeletal: Musculoskeletal: Reports arthralgias PMFSH Past Medical History Medical History Diabetes High cholesterol HTN (hypertension) Surgical History Surgical History No pertinent past surgical history Social History Social History Household Members: None Housing: House Do you presently have visiting nurse or other home services: Yes Alcohol intake: never Patient Tobacco Use Status: Never used Tobacco Meds Allergies Allergy/AdvReac Type Severity Reaction Status Date / Time epinephrine [EPINEPHRINE] Allergy Unknown TACHYCARDIA,SHAKEY, Verified 08/12/22 13:12 tachycardia NSAIDS (Non-Steroidal Allergy Unknown Verified 09/17/22 19:19 Anti-Inflamma anesthesia Allergy Unknown difficulty Uncoded 02/29/20 00:00 waking up Active Medications: Current Medications Acetaminophen (Acetaminophen 325 Mg Tablet) 650 mg PO Q6H PRN PRN Reason: Pain, Mild (Pain Scale 1-3) Lactated Ringer's (Lr) 1,000 mls @ 80 mls/hr IVCONT .[id number] LORA Ondansetron HCl (Ondansetron Hcl 4 Mg/2 Ml Vial) 4 mg IVPUSH Q8H PRN PRN Reason: Nausea and Vomiting Pantoprazole Sodium (Pantoprazole Sodium 40 Mg/10 Ml Vial) 40 mg IVPUSH BID@0630,1630 [facility] Last Admin: 09/17/22 19:28 Dose: 40 mg Sodium Chloride (0.9 % Sodium Chloride Flush 3 Ml Syringe) 3 ml IVFLUSH QSHIFT [facility] Last Admin: 09/17/22 19:28 Dose: 3 ml Home Medications Medication Instructions Recorded Confirmed Last Taken Type amlodipine 5 mg tablet 1 tab PO DAILY 09/16/22 09/16/22 09/16/22 History atorvastatin 10 mg tablet 1 tab PO DAILY 09/16/22 09/16/22 09/16/22 History losartan 50 mg tablet 1 tab PO DAILY 09/16/22 09/16/22 09/16/22 History naproxen 250 mg tablet 250 mg PO BID PRN Pain 09/16/22 09/16/22 09/16/22 History Physical Exam Vital Signs: Vital Signs: Last Vital Signs Temp 98.2 F 09/17/22 20:00 Pulse 61 09/17/22 20:00 Resp 18 09/17/22 20:00 BP 152/72 H 09/17/22 20:00 Pulse Ox 95 09/17/22 20:00 O2 Del Method 09/17/22 20:00 BMI result Body Mass Index 18.3 Const: Other: very hard of hearing, answers some questions General: comfortable and no acute distress Resp: Effort & Inspection: normal respiratory effort Cardio: Rate: regular rate GI: Palpation (GI): Soft to palpation, not firm and nontender Extrem: Right upper extremity: normal capillary refill Results Labs 09/17/22 18:55 09/17/22 09:09 Labs: Abnormal lab results 09/17/22 09/17/22 09/17/22 Range/Units 08:17 09:09 09:09 WBC 4.1 L (4.8-10.8) X10*3/uL RBC 3.85 L (4.20-5.50) X10*6/uL MCV 98.4 H (80.0-98.0) fL Lymph # (Auto) 0.8 L (1.2-4.9) X10*3/uL Chloride 109 H (96-108) mmol/L Anion Gap 10 L (12-20) Ur Specific [place] >= 1.030 H (1.005-1.025) Urine Blood Large (3+) H (Negative) Ur Leukocyte Esterase Small (1+) H (Negative) Urine RBC >20 H (0-2) /HPF 09/17/22 Range/Units 16:08 WBC (4.8-10.8) X10*3/uL RBC (4.20-5.50) X10*6/uL MCV 98.8 H (80.0-98.0) fL Lymph # (Auto) (1.2-4.9) X10*3/uL Chloride (96-108) mmol/L Anion Gap (12-20) Ur Specific [place] (1.005-1.025) Urine Blood (Negative) Ur Leukocyte Esterase (Negative) Urine RBC (0-2) /HPF Short CBC 09/17/22 09/17/22 09/17/22 Range/Units 09:09 16:08 18:55 WBC 4.1 L 6.5 (4.8-10.8) X10*3/uL Hgb 12.6 14.1 14.1 (12.0-16.0) g/dl Hct 37.9 42.4 42.4 (37.0-47.0) % Plt Count 167 183 (160-400) X10*3/uL 09/17/22 Range/Units 18:55 WBC 6.4 (4.8-10.8) X10*3/uL Hgb 14.4 (12.0-16.0) g/dl Hct 43.5 (37.0-47.0) % Plt Count 195 (160-400) X10*3/uL BMP 09/17/22 09:09 Sodium 140 Potassium 4.0 Chloride 109 H Carbon Dioxide 25 BUN 15 Creatinine 0.73 Calcium 8.9 Urine 09/17/22 Range/Units 08:17 Urine Color Yellow Urine Appearance Cloudy Urine pH 6.5 (5.0-9.0) Ur Specific [place] >= 1.030 H (1.005-1.025) Urine Protein Negative (Neg-Trace) mg/dL Urine Glucose (UA) Negative (Negative) mg/dL All other labs normal. Assessment and Plan (1) Acute GI bleeding: Status: Acute She has had multiple episodes of blood per rectum the past few hours. A repeat H/H was done early tonight and this was still stable. She seems to be hemody namically stable as well. Her abdomen is benign. However, she has had multiple episodes, and just had another one with large amounts of maroon blood. She is being seen by GI, and an angiogram has been recommended. I would agree with this recommendation as this allows localization and can be therapeutic. The patient is of extreme age, and of frail health, and surgical intervention may require total colectomy for likely diverticular disease, if bleeding is not localized. This surgical procedure presents with potentially severe physiologic insult to the patient, hence, angiographic control would be most beneficial. I have discusseed the above with the hospitalist service, who has stated that t he patient is [facility] Time Spent With Patient Time: Total time managing care of this patient today ____ minutes. Procedures Date of Service Date of Service: 09/17/22
[2022-09-17] MEDS: iohexoL 350 MG/ML 100 ML INFUS..BTL IV (20:42)
[2022-09-17] MEDS: Lactated Ringers 1,000 ML 80 ML IVCONT (21:20)
[2022-09-17 21:35] LABS: Hematocrit 37.5 % (37.0-47.0); Hemoglobin 12.2 g/dl (12.0-16.0)
--- NOTE | 2022-09-17 21:47 | PC.NURSE ---
Addendum entered by Lizabeth Johnston RN 09/17/22 21:49: RN to RN report number [phone] Original Note: Gave report to Estefania Michael assuming care of patient at [facility] ER at this time pending transfer.
[2022-09-17] MEDS: ondansetron HCL 4 MG/2 ML VIAL IVPUSH (22:45)
--- NOTE | 2022-09-17 23:05 | P.EN_ITS ---
Event Note Date of Service: 09/17/22 Event Note: Patient was accepted by Dr. Jimenez at [facility] in [facility]. She is currently sleeping, hemodynamically stable, has a blood pressure of 154/70, heart rate in the 60s. She has no acute complaint. Last bloody bowel movement around 21:00. Unable to transfer patient by ambulance due to unavailability of ambulance. Patient does not qualify for air left due to her DNR DNI status. Spoke to her daughter Ioana over the phone in detail, at this time do not want to change her code status as patient was clear on admission that she wanted to be DNR DNI. At this time will keep patient on IMC, will check vitals q.1 hour, H&H q.4, will assess and maintain large-bore access. Discussed with patient's nurse, clinical garment manufacturing supervisor If patient bleeds, will transfer to ICU Time Spent With Patient Time: Total time managing care of this patient today ____ minutes.
[2022-09-18] VITALS: BP 126/62; PULSE 70; RESP 16; TEMP 36.7; O2SAT 96
[2022-09-18 02:00] VITALS: BP 143/82; PULSE 95; RESP 16; TEMP 36.6; O2SAT 96
[2022-09-18 04:00] VITALS: BP 142/66; PULSE 84; RESP 14; TEMP 36.4; O2SAT 97
--- NOTE | 2022-09-18 04:14 | PC.NURSE ---
Addendum entered by Heather Umanzor RN 09/18/22 04:22: [id number]; No new episodes of bleeding at this time. vss. @ 0040; patient agitated with staff attempting to obtain vital signs, resistive to care. Dr. Rangel notified. IM stat Olanzapine ordered. Medication not available on floor, nursing pot room supervisor notified. When medication brought to floor, patient asleep, calm. Medication not administered. @ 0300 report given to oncoming RN, olanzapine medication placed in patient specific bin, RN taking over patient's care aware. Original Note: @ 2100, Patient transferred from med surge unit to Room 460. Patient noted to have moderate amount clots/blood in brief, skin care provided. Vitals stable, h/h stable. @2220; Patient's hr dropping to 44 while sleeping, when woken, hr increases to 70s. Patient complaining of ongoing dizziness. Dr Rangel made aware.
[2022-09-18 04:17] LABS: Hematocrit 36.6 % (37.0-47.0); Hemoglobin 12.4 g/dl (12.0-16.0)
[2022-09-18] MEDS: Pantoprazole Sodium 40 MG/10 ML VIAL IVPUSH (05:43)
[2022-09-18 06:00] VITALS: BP 146/80; PULSE 71; RESP 14; TEMP 36.9; O2SAT 98
== END 2022-09-18 07:30 | disposition short-term general hospital (02) | DRG 379 ==
LOC: HO.ED 20:11 → HO.EDOVER 20:57 → HO.S3 09-17 15:21 → HO.IMC 09-17 19:35
PROVIDERS: Admitting Provider Internal Medicine; Emergency Provider Emergency Medicine; PCP Internal Medicine; Visit Provider Internal Medicine
DX: K57.31 Diverticulosis of large intestine without perforation or abscess with bleeding (principal); E11.9 Type 2 diabetes mellitus without complications; E78.00 Pure hypercholesterolemia, unspecified; Z66 Do not resuscitate; I10 Essential (primary) hypertension; Z20.822 Contact with and (suspected) exposure to COVID-19; Z88.6 Allergy status to analgesic agent; Z88.8 Allergy status to other drugs, medicaments and biological substances; Z79.899 Other long term (current) drug therapy
CPT/HCPCS: 36415; 74178; 80048; 80076; 81001; 82272; 83605; 83690; 83735; 85014; 85018; 85025; 85027; 85610; 86850; 86900; 86901; 87040; 87086; 87635; 99285; J2060; J2405; Q9967

== ENCOUNTER 2023-02-18 15:33 | Inpatient (IN) | payer MEDICARE, SELFPAY ==
--- NOTE | ~2023-02-18 | CT_ITS ---
EXAMINATION: CT HEAD WITHOUT CONTRAST CLINICAL INFORMATION: Confusion COMPARISON: None available. TECHNIQUE: Contiguous axial imaging was performed from the skull base to vertex without intravenous administration of contrast. This CT examination was performed using dose optimization techniques as appropriate, variously including the following: *Automated exposure control *Adjustment of mA and/or kV according to patient size (this includes techniques or standardized protocols for targeted exams where dose is matched to indication/reason for exam; i.e. extremities or head) *Use of iterative reconstruction technique DLP: 502 mGy-cm FINDINGS: There is no acute intra-axial, extra-axial bleed, masses or midline shift. There is no acute infarction evolution. There is no edema. The fernandez to white matter differentiation is maintained. There is moderate prominence of bilateral frontal subarachnoid space and prominence of cortical sulci suggestive of frontal lobe volume loss. The lateral ventricles are symmetrical but moderately enlarged. Bone windows reveal no calvarial abnormality. Bilateral paranasal sinuses and mastoid air cells are well-aerated. There is no scalp soft tissue abnormality. CT/CT head/brain wo IV con IMPRESSION: No acute intracranial process seen.
--- NOTE | 2023-02-18 15:51 | ED.GENADULT ---
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, there is no fever no vomiting Onset (ago): day(s) (2) Radiation: non-radiation Quality: burning Relieving factors: none Related Data Home Medications Medication Instructions Recorded Confirmed amlodipine 5 mg tablet 1 tab PO DAILY 09/16/22 02/18/23 atorvastatin 10 mg tablet 1 tab PO DAILY 09/16/22 02/18/23 naproxen 250 mg tablet 250 mg PO BID PRN Pain 09/16/22 02/18/23 Previous Rx's Medication Instructions Recorded meclizine 25 mg tablet 25 mg PO TID PRN dizziness #14 tabs 06/08/20 ondansetron HCl (PF) 4 mg/2 mL 4 mg (2 mL) IVPUSH Q8H PRN Nausea 09/17/22 injection solution And Vomiting #1 mL Allergies Allergy/AdvReac Type Severity Reaction Status Date / Time epinephrine [EPINEPHRINE] Allergy Unknown TACHYCARDIA,SHAKEY, Verified 08/12/22 13:12 tachycardia NSAIDS (Non-Steroidal Allergy Unknown Verified 09/17/22 19:19 Anti-Inflamma anesthesia Allergy Unknown difficulty Uncoded 02/29/20 00:00 waking up Review of Systems Constitutional: Constitutional: Reports no additional constitutional complaints Eyes: Eyes: Reports no additional eye complaints Respiratory: Respiratory: Reports no additional respiratory complaints Psychiatric: Psychiatric: Reports paranoia and Reports visual hallucinations PMF Past Medical History Medical History Diabetes High cholesterol HTN (hypertension) Surgical History No pertinent past surgical history Social History Social History Household Members: None Housing: House Do you presently have visiting nurse or other home services: Yes Alcohol intake: never Patient Tobacco Use Status: Never used Tobacco Smoked in Last 30 Days: No Use of substances other than those prescribed or required for medical reasons: No Advance Directives: No Advance Directives Information Provided: Yes Physical Exam ED Vital Signs: Vital Signs - 24 hr 02/18/23 15:54 02/19/23 06:00 Temperature 97.4 F 97.6 F Pulse Rate 68 60 Respiratory Rate 18 17 Blood Pressure 170/90 H 115/64 Pulse Oximetry 96 100 Oxygen Delivery Method Room Air Room Air BMI result Body Mass Index 18.6 Const General: cooperative and anxious Nutritional Appearance: well nourished Orientation/consciousness: oriented to person and patient oriented x3 HENMT Head: Yes normal to inspection Face and sinus: Yes normal facial exam Mouth: Normal oral and palatal mucosa present Teeth and gingiva: dentition normal Neck Neck: Yes normal visual inspection, Yes full ROM and Yes no lymphadenopathy Resp Effort & Inspection: normal respiratory effort and able to speak in complete sentences Auscultation: clear to auscultation bilaterally Cardio Jugular venous distension: no JVD Rate: regular rate Rhythm: regular rhythm GI Inspection: Yes normal to inspection Palpation (GI): Soft to palpation, not firm, nontender and no guarding General: Yes no CVA tenderness Back/Spine/Pelvis Back: no CVA tenderness Neuro General: oriented to person and patient oriented x3 Cranial nerves: Yes CN's II-XII intact bilaterally Motor exam (neuro): 5/5 motor strength present throughout Course Course Course Narrative: This is a rapid medical exam: Additional HPI, ROS, PE not included below will be deferred to primary provider. Patient is an 87-year-old female with history of DM, HTN, high cholesterol presenting to the emergency department with her daughter. Patient complains of feeling frightened. Daughter reports that patient lives alone and reports that the TV is talking to her, she thinks that she lost on a game show and because she lost people were going to come after her. Daughter states patient has been having gradual mental decline but that the patient's confusion has been worsening more quickly for the last 6 weeks, and even more rapidly worsening over past 2 weeks. Daughter has brought her to her PCP, her urine has been negative for UTI. Daughter states they have an appointment tomorrow for a long-term care facility/assisted living but that daughter feels she is unsafe at home right now. Daughter denies any recent falls. Daughter states she does not have any official diagnosis of dementia. Plan: labs, UA, CT head Reevaluation(s) Reevaluation #1: we are waiting for care team/crisis evaluation signed out to Dr Palmer Time: 21:22 Reevaluation #2: physician observation started last night and continued overnight. no acute events. VS remain stable. medical workup is unremarkable. patient is pending crisis/care team evaluation and psych evaluation for possible inpatient geriatric psychatric admission. home meds and PO diet ordered. will continue to monitor. Time: 07:09 Medical Decision Making Medical Decision Making [facility] Narrative: Basically 87 years old presented to the ED with increasing paranoia and anxiety hallucination so far she has negative workup including a head CT/UA/chemistry CBC. I think is very reasonable to get a residential case manager consult iand the care Team consult Differential Diagnosis Differential Diagnoses: The differential diagnosis associated with the presentation includes Differential diagnosis dementia with behavioral abnormality, urinary tract infection which she has been ruled out by UA, stroke which is been ruled out by physical examination ST-T Admission/Observation Consideration of admission/observation: Escalation of care including admission/observation considered Lab Data [facility] Lab Attestation statement: I reviewed the patient's lab results. 02/18/23 16:18 02/18/23 16:18 Labs: Lab Results 02/18/23 02/18/23 02/18/23 Range/Units 16:18 16:18 16:18 WBC 6.5 (4.8-10.8) X10*3/uL RBC 4.02 L (4.20-5.50) X10*6/uL Hgb 12.2 (12.0-16.0) g/dl Hct 37.7 (37.0-47.0) % MCV 93.8 (80.0-98.0) fL MCH 30.3 (27.0-33.0) pg MCHC 32.4 (31.0-35.0) g/dl RDW 15.3 (11.0-16.0) % Plt Count 195 (160-400) X10*3/uL MPV 9.8 (9.4-12.3) fL Immature Gran % (Auto) 0.3 (0.0-0.4) % Neut % (Auto) 74.9 H (45-73) % Lymph % (Auto) 15.0 L (20-40) % [place] % (Auto) 8.4 (2-11) % Eos % (Auto) 0.8 (0-4) % Baso % (Auto) 0.6 (0-2) % Lymph # (Auto) 1.0 L (1.2-4.9) X10*3/uL [place] # (Auto) 0.5 (0.1-1.2) X10*3/uL Eos # (Auto) 0.1 (0.0-0.4) X10*3/uL Baso # (Auto) 0.0 (0.0-0.2) X10*3/uL Abs Immat Gran (auto) 0.02 (0.00-0.03) X10*3/uL Absolute Neuts (auto) 4.8 (2.0-8.3) x10*3/uL Absolute Nucleated RBC 0.000 (0.0-0.012) X10*3/uL Nucleated RBC % (auto) 0.0 (0.0-0.2) /100WBC Sodium 141 (135-145) mmol/L Potassium 3.9 (3.3-5.1) mmol/L Chloride 107 (96-108) mmol/L Carbon Dioxide 25 (22-29) mmol/L Anion Gap 13 (12-20) BUN 19 H (9-16) mg/dL Creatinine 0.83 (0.5-1.4) mg/dL Estim Creat Clear Calc 30.9 Estimated GFR > 60 Random Glucose 122 H (60-115) mg/dL Calcium 9.4 (8.4-10.2) mg/dL Urine Color Yellow Urine Appearance Clear Urine pH 6.0 (5.0-9.0) Ur Specific [place] 1.010 (1.005-1.025) Urine Protein Negative (Neg-Trace) mg/dL Urine Glucose (UA) Negative (Negative) mg/dL Urine Ketones Negative (Negative) mg/dL Urine Blood Negative (Negative) Urine Nitrite Negative (Negative) Ur Leukocyte Esterase Negative (Negative) Discharge Plan Discharge Clinical Impression: Dementia, Anxiety Prescriptions: No Action meclizine 25 mg tablet 25 mg PO TID PRN (Reason: dizziness) Qty: 14 0RF Hold Instructions: Resume on 10/13/22. atorvastatin 10 mg tablet 1 tab PO DAILY Hold Instructions: Resume on 09/22/22. amlodipine 5 mg tablet 1 tab PO DAILY Hold Instructions: Resume on 09/22/22. naproxen 250 mg Tablet 250 mg PO BID PRN (Reason: Pain) Hold Instructions: Resume on 09/17/22. ondansetron HCl (PF) 4 mg/2 mL Solution 4 mg IVPUSH Q8H PRN (Reason: Nausea And Vomiting) Qty: 1 0RF
[2023-02-18 15:54] VITALS: BP 170/90; PULSE 68; RESP 18; TEMP 36.3; O2SAT 96; BMI 18.6
[2023-02-18 16:27] LABS: MANUAL DIFF FLAG NO
[2023-02-18 16:29] LABS: Basophils Percent Auto 0.6 % (0-2); Eosinophils Absolute Auto 0.1 X10*3/uL (0.0-0.4); Eosinophils Percent Auto 0.8 % (0-4); Hematocrit 37.7 % (37.0-47.0); Hemoglobin 12.2 g/dl (12.0-16.0); Imm Gran Abs Auto 0.02 X10*3/uL (0.00-0.03); Imm Gran Pct Auto 0.3 % (0.0-0.4); Mean Corpuscular HGB Conc 32.4 g/dl (31.0-35.0); Mean Corpuscular Hemoglobin 30.3 pg (27.0-33.0); Mean Corpuscular Volume 93.8 fL (80.0-98.0); Mean Platelet Volume 9.8 fL (9.4-12.3); Monocytes Absolute Auto 0.5 X10*3/uL (0.1-1.2); Monocytes Percent Auto 8.4 % (2-11); Neutrophils Absolute Auto 4.8 x10*3/uL (2.0-8.3); Neutrophils Percent Auto 74.9 % (45-73); Platelet Count 195 X10*3/uL (160-400); Red Blood Count 4.02 X10*6/uL (4.20-5.50); Red Cell Distribution Width 15.3 % (11.0-16.0); White Blood Count 6.5 X10*3/uL (4.8-10.8)
[2023-02-18 16:39] LABS: Appearance Urine Clear; Color Urine Yellow; Glucose Urine UA Negative (Negative); Leukocyte Esterase Urine Negative (Negative); Nitrite Urine Negative (Negative); Urine Blood Negative (Negative); Urine Ketones Negative (Negative); Urine Protein Negative (Neg-Trace)
[2023-02-18 16:47] LABS: Anion Gap 13 (12-20); Blood Urea Nitrogen 19 mg/dL (9-16); Calcium 9.4 mg/dL (8.4-10.2); Carbon Dioxide 25 mmol/L (22-29); Chloride 107 mmol/L (96-108); Creatinine Clr Calc Pharmacy 30.9; Estimated Glomerular Filt Rate > 60; Glucose Random 122 mg/dL (60-115); Potassium 3.9 mmol/L (3.3-5.1); Sodium 141 mmol/L (135-145)
--- NOTE | 2023-02-18 22:03 | PC.NURSE ---
Pt is determined to be case management, report given to SAY Rolon and pt will be moved to Overflow bed 7. Pt is currently sitting on the edge of her bed, eating a sandwich. Pt daughter went home for the night.
--- NOTE | 2023-02-18 22:41 | MHC.CM.ED ---
CM met with patient and daughter at request of Dr. Avendaño. Per daughter/HCP #2 Ioana Woody, patient has been increasingly confused, paranoid and hallucinating, especially over the last several weeks. Urine tests are negative. Ioana feels mother has some dementia, forgetfulness, but not this bad and not so acutely. Pt lives alone. 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 Pt is active with [facility] for nail/foot care. No longer drives. Uses a cane and walker. Was in assisted living in [place] for 1 month last May-June, but patient refused to stay and family moved her back home with assistance. According to her daughter, her mother has been seeing people in her home from the TV who are threatening her. Mother is very fearful and having panic attacks. States her mother told her people came into her home and were spraying poison. TV People are requesting her mother to pay them or go down there . CM spoke with patient. She is well groomed. She tells me she just had her hair done and went out to lunch. Then she very adamantly tells me that people on the TV are speaking directly to her. They tell her she has to do things, go on trips, play games or they will make her pay or send her away down there to [facility]. She is afraid to eat in the living room, as these people talk to her. Tells CM that these people, who are clipper operator and doctors and important people, told her to get dressed for a keven libertarian and after she got dressed in a nice outfit and returned to the living room, they were gone. Pt was visibly upset when telling CM about the TV people. She tells me they are on every channel. CM explained that she was safe in the hospital and will stay here overnight. Daughter said Dr. Segura told her to bring her mother in to the ED due to these hallucinations and paranoid feelings. JUAN explained to the patient that Dr. Segura knows her and it would be best for her to stay. Pt agreeable. Daughter is aware that CARE psych team will see her mother in the morning. Daughter is looking into SENIOR CARE for her mother. Encouraged daughter to look for memory units with level 4-5 for advanced memory care. Also explained that currently, CM would focus on patients mental health and CARE team recommendations. Dr. Briseno aware and is in agreement that CARE team consult is necessary.
--- NOTE | 2023-02-19 | ECG_ITS ---
Test Reason : CHECK QTC Blood Pressure : / mmHG Vent. Rate : 069 BPM Atrial Rate : 069 BPM P-R Int : 124 ms QRS Dur : 074 ms QT Int : 412 ms P-R-T Axes : 058 043 060 degrees QTc Int : 441 ms Normal sinus rhythm Normal ECG When compared with ECG of 12-AUG-2022 13:05, No significant change was found Referred By: Brent Avendaño Electronically Signed By:KALPANA PELAEZ MD
[2023-02-19 06:00] VITALS: BP 115/64; PULSE 60; RESP 17; TEMP 36.4; O2SAT 100
[2023-02-19 07:40] LABS: Glucose, Whole Blood 126 mg/dL (60-115)
[2023-02-19] MEDS: amLODIPine Besylate 5 MG TABLET PO (08:12)
[2023-02-19] MEDS: Atorvastatin Calcium 10 MG TABLET PO (08:12)
[2023-02-19 10:49] LABS: Amphetamine Screen Urine Not Detected (Not Detect); Barbiturates, Urine Not Detected (Not Detect); Benzodiazepines Screen Urine Not Detected (Not Detect); Cannabinoid Screen Urine Not Detected (Not Detect); Cocaine Screen Urine Not Detected (Not Detect); Fentanyl, urine Not Detected (Not Detect); Opiate Screen Urine Not Detected (Not Detect); Phencyclidine Screen Urine Not Detected (Not Detect)
--- NOTE | 2023-02-19 13:10 | MHC.EDTECH ---
Patient has used the commode 3 times this morning. The last time patient went to the bathroom there was a small BM. Patient was about to use the commode the last time and asked staff to turn off the TV because she did not want them to watch her use the bathroom. Patient currently talk
--- NOTE | 2023-02-19 13:51 | PM.PSYCN ---
History of Present Illness Date of Service: 02/19/23 Chief Complaint: psychotic symptoms Reason for Consult: assess psychotic symptoms Sources of Information: patient interviewed, chart reviewed and crisis/core team assessment reviewed HPI Narrative: Patient is an 87-year-old female with history of hypertension, hyperlipidemia, diabetes, arthritis including knees, hard of hearing who presents from her PCPs office for worsening psychotic symptoms. Patient's daughter and son-in-law both present. Patient is pleasant, friendly on approach and alert and orientedx4. She wants her daughter present and answer questions. Patient herself says I know I am not the person I was a year ago... Referring to increased forgetfulness. Patient's family and patient herself agree that patient seems to have burgeoning symptoms of dementia with increased forgetfulness and some confusion. However over the last few weeks and maybe months, patient had increasingly intense paranoid delusions and auditory hallucinations. Patient told mortgage or loan underwriter that the people on the television are talking to were, sometimes saying nice things, sometimes tricking her, sometimes saying scary and mean things. One time she was told to get dressed up to go to a function however once she returned in nice clothes, the people told her to do this for gone. Patient has felt threatened that she has to go on a trip which she cannot physically handle; she also thinks that some of these things started because she refused a prize from a game show and is now being punished for it. Patient has called her daughter crying and yelling, feeling scared and threatened by AH and delusions. It is not clear if she has visual hallucinations; 1 time she said she saw a man with his son however it remains unclear if this or other incidents are due to actual visual hallucinations or if she is simply misinterpreting something she saw on television. No change in gait per daughter. Patient's family is pursuing assisted living facility with which patient is in agreeance. There is a placement pending in the next few weeks at [facility] and patient is amenable to go. Patient is afraid to go back to her house; her daughter is afraid for patient safety as she calls up crying and asking for help afraid of paranoid delusions. Patient agrees to hospitalization for safety and treatment. Tobacco Stripper discussed possibility of antipsychotic medication its risks/side effects and family is amenable. Patient healthcare proxy is her son. Past Psychiatric History: No past psychiatric history Medical Evaluation Reviewed: Yes [facility] Medical History Diabetes High cholesterol HTN (hypertension) Surgical History No pertinent past surgical history Family History: deferred Social History: ; 4 children, 15 grandchildren with close supportive family lives alone in her own house; moving to assisted living in a few weeks Substance History: None Trauma History: Deferred Diagnostics Vital Signs (24Hr): Vital Signs - 24 hr 02/18/23 15:54 02/19/23 06:00 Temperature 97.4 F 97.6 F Pulse Rate 68 60 Respiratory Rate 18 17 Blood Pressure 170/90 H 115/64 Pulse Oximetry 96 100 Oxygen Delivery Method Room Air Room Air BMI result Body Mass Index 18.6 Labs 02/18/23 16:18 02/18/23 16:18 Labs: Laboratory Results - last 48 hr 02/18/23 02/18/23 02/18/23 16:18 16:18 16:18 WBC 6.5 RBC 4.02 L Hgb 12.2 Hct 37.7 MCV 93.8 MCH 30.3 MCHC 32.4 RDW 15.3 Plt Count 195 MPV 9.8 Immature Gran % (Auto) 0.3 Neut % (Auto) 74.9 H Lymph % (Auto) 15.0 L [place] % (Auto) 8.4 Eos % (Auto) 0.8 Baso % (Auto) 0.6 Lymph # (Auto) 1.0 L [place] # (Auto) 0.5 Eos # (Auto) 0.1 Baso # (Auto) 0.0 Abs Immat Gran (auto) 0.02 Absolute Neuts (auto) 4.8 Absolute Nucleated RBC 0.000 Nucleated RBC % (auto) 0.0 Sodium 141 Potassium 3.9 Chloride 107 Carbon Dioxide 25 Anion Gap 13 BUN 19 H Creatinine 0.83 Estim Creat Clear Calc 30.9 Estimated GFR > 60 POC Glucose Random Glucose 122 H Calcium 9.4 Urine Color Yellow Urine Appearance Clear Urine pH 6.0 Ur Specific [place] 1.010 Urine Protein Negative Urine Glucose (UA) Negative Urine Ketones Negative Urine Blood Negative Urine Nitrite Negative Ur Leukocyte Esterase Negative Urine Opiates Screen Urine Fentanyl Screen Ur Barbiturates Screen Ur Phencyclidine Scrn Ur Amphetamines Screen U Benzodiazepines Scrn Urine Cocaine Screen U Marijuana (THC) Screen 02/19/23 02/19/23 07:37 10:12 WBC RBC Hgb Hct MCV MCH MCHC RDW Plt Count MPV Immature Gran % (Auto) Neut % (Auto) Lymph % (Auto) [place] % (Auto) Eos % (Auto) Baso % (Auto) Lymph # (Auto) [place] # (Auto) Eos # (Auto) Baso # (Auto) Abs Immat Gran (auto) Absolute Neuts (auto) Absolute Nucleated RBC Nucleated RBC % (auto) Sodium Potassium Chloride Carbon Dioxide Anion Gap BUN Creatinine Estim Creat Clear Calc Estimated GFR POC Glucose 126 H Random Glucose Calcium Urine Color Urine Appearance Urine pH Ur Specific [place] Urine Protein Urine Glucose (UA) Urine Ketones Urine Blood Urine Nitrite Ur Leukocyte Esterase Urine Opiates Screen Not Detected Urine Fentanyl Screen Not Detected Ur Barbiturates Screen Not Detected Ur Phencyclidine Scrn Not Detected Ur Amphetamines Screen Not Detected U Benzodiazepines Scrn Not Detected Urine Cocaine Screen Not Detected U Marijuana (THC) Screen Not Detected Imaging Radiology Impressions: ITS Impressions Head CT 02/18/23 17:26 IMPRESSION: No acute intracranial process seen. Mental Status Exam Mental Status Exam Narrative: Pt is alert and oriented; behavior is cooperative, friendly and calm; patient is not in distress; dressed in casual attire and adequately groomed; mood is described as good and affect congruent; eye contact appropriate; Speech is normal rate, volume and prosody and not pressured; no psychomotor agitation/retardation present; thought process is can be organized and goal directed, but is also tangential and she will start talking about irrelevant topics the come to mind; Thought content on fear of being it treated upon in her house (due to paranoid delusions/AH) and on various things about her life the come to mind; otherwise she is able to answer questions appropriately; positive for paranoid delusions; denies any SI/HI. Auditory hallucinations present; not sure about visual Patients insight and judgment appear impaired Medications Medications Current Medications Amlodipine Besylate (Amlodipine Besylate 5 Mg Tablet) 5 mg PO DAILY LORA; Protocol Last Admin: 02/19/23 08:12 Dose: 5 mg Atorvastatin Calcium (Atorvastatin Calcium 10 Mg Tablet) 10 mg PO DAILY LORA Last Admin: 02/19/23 08:12 Dose: 10 mg Meclizine HCl (Meclizine Hcl 25 Mg Tablet) 25 mg PO TID PRN PRN Reason: dizziness Allergies Allergies Allergy/AdvReac Type Severity Reaction Status Date / Time epinephrine [EPINEPHRINE] Allergy Unknown TACHYCARDIA,SHAKEY, Verified 08/12/22 13:12 tachycardia NSAIDS (Non-Steroidal Allergy Unknown Verified 09/17/22 19:19 Anti-Inflamma anesthesia Allergy Unknown difficulty Uncoded 02/29/20 00:00 waking up Assessment & Plan Assessment & Plan (1) Dementia: Status: Acute Code(s): F03.90 - Unspecified dementia, unspecified severity, without behavioral disturbance, psychotic disturbance, mood disturbance, and anxiety (2) Anxiety: Status: Acute Code(s): F41.9 - Anxiety disorder, unspecified (3) Psychosis: Status: Acute Code(s): F29 - Unspecified psychosis not due to a substance or known physiological condition Plan Patient is an 87-year-old female with history of hypertension, hyperlipidemia, diabetes, arthritis including knees, hard of hearing who presents from her PCPs office for worsening psychotic symptoms. Patient's daughter and son-in-law both present. Patient is pleasant, friendly on approach and alert and orientedx4. She wants her daughter present and answer questions. Patient herself says I know I am not the person I was a year ago... Referring to increased forgetfulness. Patient's family and patient herself agree that patient seems to have burgeoning symptoms of dementia with increased forgetfulness and some confusion. However over the last few weeks and maybe months, patient had increasingly intense paranoid delusions and auditory hallucinations. Patient told mortgage or loan underwriter that the people on the television are talking to were, sometimes saying nice things, sometimes tricking her, sometimes saying scary and mean things. One time she was told to get dressed up to go to a function however once she returned in nice clothes, the people told her to do this for gone. Patient has felt threatened that she has to go on a trip which she cannot physically handle; she also thinks that some of these things started because she refused a prize from a game show and is now being punished for it. Patient has called her daughter crying and yelling, feeling scared and threatened by AH and delusions. It is not clear if she has visual hallucinations; 1 time she said she saw a man with his son however it remains unclear if this or other incidents are due to actual visual hallucinations or if she is simply misinterpreting something she saw on television. No change in gait per daughter. Patient's family is pursuing assisted living facility with which patient is in agreeance. There is a placement pending in the next few weeks at [facility] and patient is amenable to go. Patient is afraid to go back to her house; her daughter is afraid for patient safety as she calls up crying and asking for help afraid of paranoid delusions. Patient agrees to hospitalization for safety and treatment. Tobacco Stripper discussed possibility of antipsychotic medication its risks/side effects and family is amenable. Patient healthcare proxy is her son. F/P Patient suffers from urging dementia; also has likely associated psychotic symptoms with paranoid delusions and auditory hallucinations; medically cleared and no other obvious, organic etiology Patient will soon go to assisted living place that is pending a bed and paperwork at [facility] Discussed with Dr. Sanchez who agrees with inpatient admission for safety and medication management patient agrees to hospitalization Total time managing care of this patient today ____ minutes. Patient educated on: diagnosis, medication risk/benefits and therapeutic strategies Informed Consent: understands, does not understand and further education needed
--- NOTE | 2023-02-19 14:15 | MHC.CM.ED ---
Pt holding in ED for placement: Psych eval pending: pt continues to have hallucinations and delusions about people from the TV directing and threatening her. ED CM waiting for eval to determine pt's level of d/c care.
[2023-02-19 14:56] LABS: COVID-19 Test Negative (Negative); IDNOW Serial# BCCEAD1C
[2023-02-19 15:37] VITALS: BP 120/88; PULSE 65; RESP 18; TEMP 36.7; O2SAT 97
--- NOTE | 2023-02-19 16:39 | MHC.OT.IE ---
[address] [phone] F: [phone] Occupational Therapy Inpatient Evaluation Patient Name: Barbara Barcenas History Diagnosis: Dementia History of Current Condition: Medical History Reviewed: Precautions: Precautions Comments: Social History History Obtained By: Lives With: Type of Dwelling: Number of Floors: Number of Stairs to Enter: Living Situation Comment: Adaptive Equipment Owned: Adaptive Equipment Comment: Prior Level of Function: Pain Assessment Pain Score: Pain Scale Used: Pain Location and Description: Comment: Current Condition Behavior and Communication Alertness: Alert Orientation: to self, place and situation Safety Awareness: Cognition Comments: OT performed the Zach Cognitive Level Screen (ACLS) and attempted the Granby Cognitive Asessment (MOCA). Pt scored a 3.4 on the ACLS indicating severe cognitive impairment. A score of 3.4 is indicative of relying on motor memory to complete daily tasks; there is little awareness of cause and effect, end product or goal; Attention span is maximum of 30 minutes and actions can be unpredictable, erratic, unsafe or impulsive; 54% moderate cognitive assistance is recommended. Pt was unable to complete the MOCA assessment but executive functioning deficits were notable. Pt has good social and verbal skills. Pt struggled with problem solving and demonstrated mild word finding difficulties. Pt would benefit from increased help at home. If wandering is not an issue and pt sleeps through the night, assistance could be provided for many hours a day or pt can attend an adult day health program. If safety and wandering is a high risk and help cannot be obtained for most of the day, pt may benefit from a higher level of care. Vision: glasses Hearing: hard of hearing, hearing aides were charged and placed bilaterally Coordination Finger to Nose: Finger Opposition: Rapid Alternating Movement: Comments: Sensory Assessment Light Touch: Localization: Proprioception: Temperature: Stereognosis: Comments: Musculoskeletal Upper Extremity ROM: Upper Extremity Strength: Balance Static Sitting: Dynamic Sitting: Static Standing: Dynamic Standing: Comments: Self-Care Feeding: Grooming: Upper Body Bathing: Lower Body Bathing: Upper Body Dressing: Lower Body Dressing: Toileting: IADL/Home Care: Comments: Bed Mobility Assistive Device: Rolling: Supine to Sit: Sit to Supine: Comments: Transfers Assistive Device: Transfer Type: Transfer Destination: Transfer Ability: Comments: Functional Mobility Assistive Device: Ambulation Distance: Ambulation Ability: Comments: Plan of Care Rehab Potential: Assessment: Problem List: Treatment Plan: Goals: Goals Set with Patient: Frequency and Duration: The patient will be seen Equipment Needed: Discharge Plan: Discharge Plan Comment: Discharge Today: Electronically Signed By: Carrie Cabral OTR/Doug Reviewed/agree with student documentation: Therapist:
--- NOTE | 2023-02-19 17:49 | MHC.CM.ED ---
Pt unable to complete MOCA. ACLS score 3.4-severe cognitive impairment. Pt will be admitted to [facility]. Awaiting bed assignment.
--- NOTE | 2023-02-19 20:13 | MHC.CM.ED ---
CM spoke with patient's daughter/HCP Ioana ([phone]) regarding bed assignment.
[2023-02-19] MEDS: OLANZapine 2.5 MG TABLET PO (21:36)
--- NOTE | 2023-02-20 00:46 | PC.ADMIT ---
Patient is an 87 year old female admitted from [facility] ED on a CV on Wednesday, February 19, 2023 at 2030. Patient has been experiencing worsening paranoia, hallucinations, and delusions about her TV speaking to her.? Patient has had no prior psychiatric hospitalizations or diagnoses, as well as no formal diagnosis of dementia. Her PCP has mentioned that it is possible that ?dementia is setting in?. Patient has no history of substance/alcohol use, self harm or suicidal ideation. Patient [facility] to the unit [facility] upon approach. Patient does experience word finding difficulties. She is alert to self and place, however had trouble finding words to express the date. Patient initially declined to sign ISABEL, stating ?I usually don?t sign things without my daughter here,? however later was able to sign two. Patient declined to sign anything else. Patient was med compliant for evening meds. Patient ambulating with walker, unsteady gait at times.
[2023-02-20 06:50] LABS: Cholesterol 204 mg/dL; HDL Cholesterol 84 mg/dL; LDL Cholesterol Calculated 111 mg/dl; Triglycerides 48 mg/dL
[2023-02-20 07:33] LABS: Estimated Average Glucose 131 mg/dL; Hemoglobin A1c % 6.2 %
[2023-02-20] MEDS: amLODIPine Besylate 5 MG TABLET PO (08:09)
[2023-02-20] MEDS: Atorvastatin Calcium 10 MG TABLET PO (08:09)
[2023-02-20 08:30] VITALS: BP 137/60; PULSE 72; RESP 16; TEMP 36.5; O2SAT 99
--- NOTE | 2023-02-20 09:09 | P.HPPS_ITS ---
[facility] Date of Service: 02/20/23 Chief Complaint: psychotic symptoms Sources of Information: patient interviewed, chart reviewed and crisis/core team assessment reviewed HPI Subjective Notes: Conditional Voluntary Narrative: Patient is an 87-year-old female with history of? hypertension, hyperlipidemia, diabetes, arthritis including knees, hard of hearing who presents from her PCPs office for worsening psychotic symptoms.? Patient's daughter and son-in-law both present.? Patient is pleasant, friendly on approach and alert and orientedx4.? She wants her daughter present and answer questions.? Patient herself says I know I am not the person I was a year ago... Referring to increased forgetfulness.? Patient's family and patient herself agree that patient seems to have burgeoning symptoms of dementia with increased forgetfulness and some confusion.? However over the last few weeks and maybe months, patient had increasingly intense paranoid delusions and auditory hallucinations.? Patient told director underwriter sales that the people on the television are talking to were, sometimes saying nice things, sometimes tricking her, sometimes saying scary and mean things.? One time she was told to get dressed up to go to a function however once she returned in nice clothes, the people told her to do this for gone.? Patient has felt threatened that she has to go on a trip which she cannot physically handle; she also thinks that some of these things started because she refused a prize from a game show and is now being punished for it.? Patient has called her daughter crying and yelling, feeling scared and threatened by AH and delusions.? It is not clear if she has visual hallucinations; 1 time she said she saw a man with his son however it remains unclear if this or other incidents are due to actual visual hallucinations or if she is simply misinterpreting something she saw on television.? No change in gait per daughter.? Patient's family is pursuing assisted living facility with which patient is in agreeance.? There is a placement pending in the next few weeks at [facility] and patient is amenable to go.? Patient is afraid to go back to her house; her daughter is afraid for patient safety as she calls up crying and asking for help afraid of paranoid delusions.? Patient agrees to hospitalization for safety and treatment.? Photo Lab Manager discussed possibility of antipsychotic medication its risks/side effects and family is amenable.? Patient healthcare proxy is her son. Past Psychiatric History: No past psychiatric history Medical Evaluation Reviewed: Yes [facility] Medical History Diabetes High cholesterol HTN (hypertension) Surgical History No pertinent past surgical history Family History: deferred Social History: ; 4 children, 15 grandchildren with close supportive family lives alone in her own house; moving to assisted living in a few weeks Substance History: none Trauma History: Deferred Diagnostics Vital Signs (24Hr): Vital Signs - 24 hr 02/19/23 15:37 Temperature 98.1 F Pulse Rate 65 Respiratory Rate 18 Blood Pressure 120/88 Pulse Oximetry 97 Oxygen Delivery Method Room Air BMI result Body Mass Index 18.6 Labs 02/18/23 16:18 02/18/23 16:18 Labs: Laboratory Results - last 48 hr 02/18/23 02/18/23 02/18/23 16:18 16:18 16:18 WBC 6.5 RBC 4.02 L Hgb 12.2 Hct 37.7 MCV 93.8 MCH 30.3 MCHC 32.4 RDW 15.3 Plt Count 195 MPV 9.8 Immature Gran % (Auto) 0.3 Neut % (Auto) 74.9 H Lymph % (Auto) 15.0 L Hudspeth % (Auto) 8.4 Eos % (Auto) 0.8 Baso % (Auto) 0.6 Lymph # (Auto) 1.0 L Hudspeth # (Auto) 0.5 Eos # (Auto) 0.1 Baso # (Auto) 0.0 Abs Immat Gran (auto) 0.02 Absolute Neuts (auto) 4.8 Absolute Nucleated RBC 0.000 Nucleated RBC % (auto) 0.0 Sodium 141 Potassium 3.9 Chloride 107 Carbon Dioxide 25 Anion Gap 13 BUN 19 H Creatinine 0.83 Estim Creat Clear Calc 30.9 Estimated GFR > 60 POC Glucose Random Glucose 122 H Estimat Average Glucose Hemoglobin A1c % Calcium 9.4 Triglycerides Cholesterol LDL Cholesterol, Calc HDL Cholesterol Urine Color Yellow Urine Appearance Clear Urine pH 6.0 Ur Specific Colby 1.010 Urine Protein Negative Urine Glucose (UA) Negative Urine Ketones Negative Urine Blood Negative Urine Nitrite Negative Ur Leukocyte Esterase Negative Urine Opiates Screen Urine Fentanyl Screen Ur Barbiturates Screen Ur Phencyclidine Scrn Ur Amphetamines Screen U Benzodiazepines Scrn Urine Cocaine Screen U Marijuana (THC) Screen COVID-19 (CODY) COVID-19 Clin Com 02/19/23 02/19/23 02/19/23 07:37 10:12 14:31 WBC RBC Hgb Hct MCV MCH MCHC RDW Plt Count MPV Immature Gran % (Auto) Neut % (Auto) Lymph % (Auto) Hudspeth % (Auto) Eos % (Auto) Baso % (Auto) Lymph # (Auto) Hudspeth # (Auto) Eos # (Auto) Baso # (Auto) Abs Immat Gran (auto) Absolute Neuts (auto) Absolute Nucleated RBC Nucleated RBC % (auto) Sodium Potassium Chloride Carbon Dioxide Anion Gap BUN Creatinine Estim Creat Clear Calc Estimated GFR POC Glucose 126 H Random Glucose Estimat Average Glucose Hemoglobin A1c % Calcium Triglycerides Cholesterol LDL Cholesterol, Calc HDL Cholesterol Urine Color Urine Appearance Urine pH Ur Specific Colby Urine Protein Urine Glucose (UA) Urine Ketones Urine Blood Urine Nitrite Ur Leukocyte Esterase Urine Opiates Screen Not Detected Urine Fentanyl Screen Not Detected Ur Barbiturates Screen Not Detected Ur Phencyclidine Scrn Not Detected Ur Amphetamines Screen Not Detected U Benzodiazepines Scrn Not Detected Urine Cocaine Screen Not Detected U Marijuana (THC) Screen Not Detected COVID-19 (CODY) Negative COVID-19 Clin Com See Note 02/20/23 02/20/23 06:21 06:21 WBC RBC Hgb Hct MCV MCH MCHC RDW Plt Count MPV Immature Gran % (Auto) Neut % (Auto) Lymph % (Auto) Hudspeth % (Auto) Eos % (Auto) Baso % (Auto) Lymph # (Auto) Hudspeth # (Auto) Eos # (Auto) Baso # (Auto) Abs Immat Gran (auto) Absolute Neuts (auto) Absolute Nucleated RBC Nucleated RBC % (auto) Sodium Potassium Chloride Carbon Dioxide Anion Gap BUN Creatinine Estim Creat Clear Calc Estimated GFR POC Glucose Random Glucose Estimat Average Glucose 131 Hemoglobin A1c % 6.2 Calcium Triglycerides 48 Cholesterol 204 LDL Cholesterol, Calc 111 HDL Cholesterol 84 Urine Color Urine Appearance Urine pH Ur Specific Colby Urine Protein Urine Glucose (UA) Urine Ketones Urine Blood Urine Nitrite Ur Leukocyte Esterase Urine Opiates Screen Urine Fentanyl Screen Ur Barbiturates Screen Ur Phencyclidine Scrn Ur Amphetamines Screen U Benzodiazepines Scrn Urine Cocaine Screen U Marijuana (THC) Screen COVID-19 (CODY) COVID-19 Clin Com Imaging Radiology Impressions: ITS Impressions Head CT 02/18/23 17:26 IMPRESSION: No acute intracranial process seen. Meds/Allergies Meds Home Medications Medication Instructions Recorded Confirmed Type amlodipine 5 mg tablet 1 tab PO DAILY 09/16/22 02/18/23 History atorvastatin 10 mg tablet 1 tab PO DAILY 09/16/22 02/18/23 History naproxen 250 mg tablet 250 mg PO BID PRN Pain 09/16/22 02/18/23 History Allergies Allergies Allergy/AdvReac Type Severity Reaction Status Date / Time epinephrine [EPINEPHRINE] Allergy Unknown TACHYCARDIA,SHAKEY, Verified 08/12/22 13:12 tachycardia NSAIDS (Non-Steroidal Allergy Unknown Verified 09/17/22 19:19 Anti-Inflamma anesthesia Allergy Unknown difficulty Uncoded 02/29/20 00:00 waking up Mental Status Exam Mental Status Exam Narrative: Pt is alert and oriented; behavior is cooperative, friendly and calm; patient is not in distress; dressed in casual attire and adequately groomed; mood is described as good and affect congruent; eye contact appropriate; Speech is normal rate, volume and prosody and not pressured; no psychomotor agitation/retardation present; thought process is can be organized and goal directed, but is also tangential and she will start talking about irrelevant topics the come to mind; Thought content on fear of being it treated upon in her house (due to paranoid delusions/AH) and on various things about her life the come to mind; otherwise she is able to answer questions appropriately; positive for paranoid delusions; denies any SI/HI. Auditory hallucinations present; not sure about visual Patients insight and judgment appear impaired Assessment & Plan Assessment & Plan (1) Dementia: Status: Acute Code(s): F03.90 - Unspecified dementia, unspecified severity, without behavioral disturbance, psychotic disturbance, mood disturbance, and anxiety (2) Psychosis: Status: Acute Code(s): F29 - Unspecified psychosis not due to a substance or known physiological condition (3) Anxiety: Status: Acute Code(s): F41.9 - Anxiety disorder, unspecified Plan Patient is an 87-year-old female with history of? hypertension, hyperlipidemia, diabetes, arthritis including knees, hard of hearing who presents from her PCPs office for worsening psychotic symptoms.? Patient's daughter and son-in-law both present.? Patient is pleasant, friendly on approach and alert and orientedx4.? She wants her daughter present and answer questions.? Patient herself says I know I am not the person I was a year ago... Referring to increased forgetfulness.? Patient's family and patient herself agree that patient seems to have burgeoning symptoms of dementia with increased forgetfulness and some confusion.? However over the last few weeks and maybe months, patient had increasingly intense paranoid delusions and auditory hallucinations.? Patient told director underwriter sales that the people on the television are talking to were, sometimes saying nice things, sometimes tricking her, sometimes saying scary and mean things.? One time she was told to get dressed up to go to a function however once she returned in nice clothes, the people told her to do this for gone.? Patient has felt threatened that she has to go on a trip which she cannot physic ally handle; she also thinks that some of these things started because she refused a prize from a game show and is now being punished for it.? Patient has called her daughter crying and yelling, feeling scared and threatened by AH and delusions.? It is not clear if she has visual hallucinations; 1 time she said she saw a man with his son however it remains unclear if this or other incidents are due to actual visual hallucinations or if she is simply misinterpreting something she saw on television.? No change in gait per daughter.? Patient's family is pursuing assisted living facility with which patient is agreeable.? There is a placement pending in the next few weeks at [facility] and patient is amenable to go.? Patient is afraid to go back to her house; her daughter is afraid for patient safety as she calls up crying and asking for help afraid of paranoid delusions.? Patient agrees to hospitalization for safety and treatment.? Photo Lab Manager discussed possibility of antipsychotic medication its risks/side effects and family is amenable.? Patient healthcare proxy is her son. Impression: Patient suffers from burgeoning dementia; also has likely associated psychotic symptoms with paranoid delusions and auditory hallucinations; medically cleared and no other obvious, organic etiology Patient will soon go to assisted living place that is pending a bed and paperwork at [facility] Discussed with Dr. Sanchez who agrees with inpatient admission for safety and medication management patient agrees to hospitalization HCP son with daughter (present) as alternate PLAN: CV q15min continue home meds will start low dose of Zyprexa 2.5mg qhs for psychotic symptoms and associated anxiety Patient has healthcare proxy with her son and daughter listed; will continue to assess patient and decide whether to invoke healthcare proxy Patient educated on: diagnosis and medication risk/benefits Informed Consent: understands, does not understand and further education needed Reason for continued inpatient stay Substantial Risk for: inability to function Statement Statement: I have reviewed the history and physical and performed a pertinent examination on my patient. No changes have occurred unless specified. If the History and Physical was not performed prior to admission, the Hospitalist's service will be consulted for completing the admission physical. Time Spent With Patient Time: Total time managing care of this patient today ____ minutes.
[2023-02-20 18:00] VITALS: BP 155/78; PULSE 88; RESP 16; TEMP 36.6; O2SAT 99
[2023-02-20] MEDS: OLANZapine 2.5 MG TABLET PO (21:07)
[2023-02-21] MEDS: OLANZapine 2.5 MG TABLET PO ×2 (01:17→20:34)
[2023-02-21 08:05] VITALS: BP 146/86; PULSE 86; TEMP 36.8; O2SAT 98
[2023-02-21] MEDS: Atorvastatin Calcium 10 MG TABLET PO (08:13)
[2023-02-21] MEDS: amLODIPine Besylate 5 MG TABLET PO (08:13)
--- NOTE | 2023-02-21 10:10 | P.PNPSI_ITS ---
Subjective Subjective Date of Service: 02/21/23 Reason For Visit: psychotic symptoms Interim History: met with patient; discussed with team no mention of trouble with TV, paranoid delusions. Pt taking meds, eating well. She says she wants to leave the hospital and signed a 3 day notice. Mental Status Exam Mental Status Exam Narrative: Pt is alert and oriented; behavior is cooperative, friendly and calm; patient is not in distress; dressed in casual attire and adequately groomed; mood is described as good and affect congruent; eye contact appropriate; Speech is normal rate, volume and prosody and not pressured; no psychomotor agitation/retardation present; thought process is can be organized and goal directed, but is also tangential and she will start talking about irrelevant topics the come to mind; Thought content on discharge; recently on fear of being it treated upon in her house (due to paranoid delusions/AH) and on various things about her life the come to mind; otherwise she is able to answer questions appropriately; positive for paranoid delusions; denies any SI/HI. Auditory hallucinations present; not sure about visual Patients insight and judgment appear impaired Diagnostics Vital Signs (24Hr): Vital Signs - 24 hr 02/20/23 18:00 02/21/23 08:05 Temperature 97.8 F 98.2 F Pulse Rate 88 86 Respiratory Rate 16 Blood Pressure 155/78 H 146/86 H Pulse Oximetry 99 98 Oxygen Delivery Method Room Air Room Air BMI result Body Mass Index 18.6 Labs 02/18/23 16:18 02/18/23 16:18 Labs: Laboratory Results - last 48 hr 02/19/23 02/19/23 02/20/23 10:12 14:31 06:21 Estimat Average Glucose 131 Hemoglobin A1c % 6.2 Triglycerides Cholesterol LDL Cholesterol, Calc HDL Cholesterol Urine Opiates Screen Not Detected Urine Fentanyl Screen Not Detected Ur Barbiturates Screen Not Detected Ur Phencyclidine Scrn Not Detected Ur Amphetamines Screen Not Detected U Benzodiazepines Scrn Not Detected Urine Cocaine Screen Not Detected U Marijuana (THC) Screen Not Detected COVID-19 (CODY) Negative COVID-19 Clin Com See Note 02/20/23 06:21 Estimat Average Glucose Hemoglobin A1c % Triglycerides 48 Cholesterol 204 LDL Cholesterol, Calc 111 HDL Cholesterol 84 Urine Opiates Screen Urine Fentanyl Screen Ur Barbiturates Screen Ur Phencyclidine Scrn Ur Amphetamines Screen U Benzodiazepines Scrn Urine Cocaine Screen U Marijuana (THC) Screen COVID-19 (CODY) COVID-19 Clin Com Imaging Radiology Impressions: ITS Impressions Head CT 02/18/23 17:26 IMPRESSION: No acute intracranial process seen. Medications Medications Current Medications Acetaminophen (Acetaminophen 325 Mg Tablet) 650 mg PO Q6H PRN PRN Reason: Headache/Pain Mild Scale (1-3) Al Hydroxide/Mg Hydroxide (Magnesium Hydrox/Alum Hydrox 30 Ml Oral.Susp) 30 ml PO Q6H PRN PRN Reason: Heartburn/Nausea Amlodipine Besylate (Amlodipine Besylate 5 Mg Tablet) 5 mg PO DAILY [facility]; Protocol Last Admin: 02/21/23 08:13 Dose: 5 mg Atorvastatin Calcium (Atorvastatin Calcium 10 Mg Tablet) 10 mg PO DAILY [facility] Last Admin: 02/21/23 08:13 Dose: 10 mg Magnesium Hydroxide (Milk Of Magnesia 30 Ml Oral.Susp) 30 ml PO DAILY PRN PRN Reason: Constipation Meclizine HCl (Meclizine Hcl 25 Mg Tablet) 25 mg PO TID PRN PRN Reason: dizziness Olanzapine (Olanzapine 2.5 Mg Tablet) 2.5 mg PO BEDTIME [facility] Last Admin: 02/20/23 21:07 Dose: 2.5 mg Olanzapine (Olanzapine 2.5 Mg Tablet) 2.5 mg PO BID PRN PRN Reason: Anxiety Last Admin: 02/21/23 01:17 Dose: 2.5 mg Ondansetron HCl (Ondansetron Odt 4 Mg Tab.Rapdis) 4 mg TRANSLINGU Q8H PRN PRN Reason: Nausea and Vomiting Allergies Allergies Allergy/AdvReac Type Severity Reaction Status Date / Time epinephrine [EPINEPHRINE] Allergy Unknown TACHYCARDIA,SHAKEY, Verified 08/12/22 13:12 tachycardia NSAIDS (Non-Steroidal Allergy Unknown Verified 09/17/22 19:19 Anti-Inflamma anesthesia Allergy Unknown difficulty Uncoded 02/29/20 00:00 waking up Assessment & Plan Assessment & Plan (1) Dementia: Status: Acute Code(s): F03.90 - Unspecified dementia, unspecified severity, without behavioral disturbance, psychotic disturbance, mood disturbance, and anxiety (2) Anxiety: Status: Acute Code(s): F41.9 - Anxiety disorder, unspecified (3) Psychosis: Status: Acute Code(s): F29 - Unspecified psychosis not due to a substance or known physiological condition Plan Patient is an 87-year-old female with history of? hypertension, hyperlipidemia, diabetes, arthritis including knees, hard of hearing who presents from her PCPs office for worsening psychotic symptoms.? Patient's daughter and son-in-law both present.? Patient is pleasant, friendly on approach and alert and orientedx4.? She wants her daughter present and answer questions.? Patient herself says I know I am not the person I was a year ago... Referring to increased for getfulness.? Patient's family and patient herself agree that patient seems to have burgeoning symptoms of dementia with increased forgetfulness and some confusion.? However over the last few weeks and maybe months, patient had increasingly intense paranoid delusions and auditory hallucinations.? Patient told principal technical writer that the people on the television are talking to were, sometimes saying nice things, sometimes tricking her, sometimes saying scary and mean things.? One time she was told to get dressed up to go to a function however once she returned in nice clothes, the people told her to do this for gone.? Patient has felt threatened that she has to go on a trip which she cannot physically handle; she also thinks that some of these things started because she refused a prize from a game show and is now being punished for it.? Patient has called her daughter crying and yelling, feeling scared and threatened by AH and delusions.? It is not clear if she has visual hallucinations; 1 time she said she saw a man with his son however it remains unclear if this or other incidents are due to actual visual hallucinations or if she is simply misinterpreting something she saw on television.? No change in gait per daughter.? Patient's family is pursuing assisted living facility with which patient is agreeable.? There is a placement pending in the next few weeks at [facility] and patient is amenable to go.? Patient is afraid to go back to her house; her daughter is afraid for patient safety as she calls up crying and asking for help afraid of paranoid delusions.? Patient agrees to hospitalization for safety and treatment.? Eap Counselor discussed possibility of antipsychotic medication its risk s/side effects and family is amenable.? Patient healthcare proxy is her son. Impression: Patient suffers from burgeoning dementia; also has likely associated psychotic symptoms with paranoid delusions and auditory hallucinations; medically cleared and no other obvious, organic etiology Patient will soon go to assisted living place that is pending a bed and paperwork at [facility] Discussed with Dr. Sanchez who agrees with inpatient admission for safety and medication management patient agrees to hospitalization HCP son with daughter (present) as alternate Hospital course: 02/21 started on zyprexa 2.5mg qhs; remains pleasant; did not reference paranoid delusions; wants to leave hospital and signed 3 day PLAN: 3 day notice q15min continue home meds continue Zyprexa 2.5mg qhs for psychotic symptoms and associated anxiety Reason for continued inpatient stay Substantial Risk for: rapid decompensation Time Spent With Patient Time: Total time managing care of this patient today ____ minutes.
[2023-02-21 20:00] VITALS: BP 140/79; PULSE 72; RESP 16; TEMP 36.8; O2SAT 96
[2023-02-21] MEDS: Melatonin 3 MG TABLET PO (20:34)
[2023-02-22 09:15] VITALS: BP 131/94; PULSE 72; RESP 20; TEMP 36.3; O2SAT 97
[2023-02-22] MEDS: Atorvastatin Calcium 10 MG TABLET PO (09:17)
[2023-02-22] MEDS: amLODIPine Besylate 5 MG TABLET PO (09:17)
--- NOTE | 2023-02-22 11:10 | HO.PSYCHPN ---
Subjective Subjective Date of Service: 02/22/23 Reason For Visit: psychotic symptoms Subjective Notes: Conditional Voluntary Interim History: The nursing staff reported the patient had been compliant with treatment, she has been paranoid regarding TV commercials. The occupational therapist did a Zach test and she scored tree 0.4 and she could not finish the [place] test. She has been very confused and she signed a 3 day notice. On interview, the patient denies new symptoms, she adamantly denies active suicidal or homicidal thoughts. It was evident that she has a cognitive problem and I advised her to continue taking Aricept to target dementia. Mental Status Exam Mental Status Exam Patient Appearance: Well Grooomed and Appropriate Patient Orientation: Person and Situation Level of Consciousness: Awake and Appropriate Patient Behavior: Guarded and Passive Mood Description: Withdrawn Affect Description: Constricted Patient Cognition Impaired: Yes Ability to Follow Directions: Good Speech Pattern: Clear Hallucinations: None Delusions: Paranoid Ideation Thought Process: Distracted and Evasive Thought Content: positive for [place] and positive for Circumstantial Judgement: Fair Diagnostics Vital Signs (24Hr): Vital Signs - 24 hr 02/21/23 20:00 Temperature 98.2 F Pulse Rate 72 Respiratory Rate 16 Blood Pressure 140/79 H Pulse Oximetry 96 Oxygen Delivery Method Room Air BMI result Body Mass Index 18.6 Labs 02/18/23 16:18 02/18/23 16:18 Imaging Radiology Impressions: ITS Impressions Head CT 02/18/23 17:26 IMPRESSION: No acute intracranial process seen. Medications Medications Current Medications Acetaminophen (Acetaminophen 325 Mg Tablet) 650 mg PO Q6H PRN PRN Reason: Headache/Pain Mild Scale (1-3) Al Hydroxide/Mg Hydroxide (Magnesium Hydrox/Alum Hydrox 30 Ml Oral.Susp) 30 ml PO Q6H PRN PRN Reason: Heartburn/Nausea Amlodipine Besylate (Amlodipine Besylate 5 Mg Tablet) 5 mg PO DAILY LORA; Protocol Last Admin: 02/22/23 09:17 Dose: 5 mg Atorvastatin Calcium (Atorvastatin Calcium 10 Mg Tablet) 10 mg PO DAILY [facility] Last Admin: 02/22/23 09:17 Dose: 10 mg Donepezil HCl (Donepezil Hcl 5 Mg Tablet) 5 mg PO BEDTIME [facility] Magnesium Hydroxide (Milk Of Magnesia 30 Ml Oral.Susp) 30 ml PO DAILY PRN PRN Reason: Constipation Meclizine HCl (Meclizine Hcl 25 Mg Tablet) 25 mg PO TID PRN PRN Reason: dizziness Melatonin (Melatonin 3 Mg Tablet) 3 mg PO BEDTIME PRN PRN Reason: Insomnia Last Admin: 02/21/23 20:34 Dose: 3 mg Olanzapine (Olanzapine 2.5 Mg Tablet) 2.5 mg PO BEDTIME [facility]OR[facility] Last Admin: 02/21/23 20:34 Dose: 2.5 mg Olanzapine (Olanzapine 2.5 Mg Tablet) 2.5 mg PO BID PRN PRN Reason: Anxiety Last Admin: 02/21/23 01:17 Dose: 2.5 mg Ondansetron HCl (Ondansetron Odt 4 Mg Tab.Rapdis) 4 mg TRANSLINGU Q8H PRN PRN Reason: Nausea and Vomiting Allergies Allergies Allergy/AdvReac Type Severity Reaction Status Date / Time epinephrine [EPINEPHRINE] Allergy Unknown TACHYCARDIA,SHAKEY, Verified 08/12/22 13:12 tachycardia NSAIDS (Non-Steroidal Allergy Unknown Verified 09/17/22 19:19 Anti-Inflamma anesthesia Allergy Unknown difficulty Uncoded 02/29/20 00:00 waking up Assessment & Plan Assessment & Plan (1) Dementia: Status: Acute Code(s): F03.90 - Unspecified dementia, unspecified severity, without behavioral disturbance, psychotic disturbance, mood disturbance, and anxiety (2) Anxiety: Status: Acute Code(s): F41.9 - Anxiety disorder, unspecified (3) Psychosis: Status: Acute Code(s): F29 - Unspecified psychosis not due to a substance or known physiological condition Plan Patient is an 87-year-old female with history of? hypertension, hyperlipidemia, diabetes, arthritis including knees, hard of hearing who presents from her PCPs office for worsening psychotic symptoms.? Patient's daughter and son-in-law both present.? Patient is pleasant, friendly on approach and alert and orientedx4.? She wants her daughter present and answer questions.? Patient herself says I know I am not the person I was a year ago... Referring to increased forgetfulness.? Patient's family and patient herself agree that patient seems to have burgeoning symptoms of dementia with increased forgetfulness and some confusion.? However over the last few weeks and maybe months, patient had increasingly intense paranoid delusions and auditory hallucinations.? Patient told automatic typewriter inspector that the people on the television are talking to were, sometimes saying nice things, sometimes tricking her, sometimes saying scary and mean things.? One time she was told to get dressed up to go to a function however once she returned in nice clothes, the people told her to do this for gone.? Patient has felt threatened that she has to go on a trip which she cannot physically handle; she also thinks that some of these things started because she refused a prize from a game show and is now being punished for it.? Patient has called her daughter crying and yelling, feeling scared and threatened by AH and delusions.? It is not clear if she has visual hallucinations; 1 time she said she saw a man with his son however it remains unclear if this or other incidents are due to actual visual hallucinations or if she is simply misinterpreting something she saw on television.? No change in gait per daughter.? Patient's family is pursuing assisted living facility with which patient is agreeable.? There is a placement pending in the next few weeks at [facility] and patient is amenable to go.? Patient is afraid to go back to her house; her daughter is afraid for patient safety as she calls up crying and asking for help afraid of paranoid delusions.? Patient agrees to hospitalization for safety and treatment.? Application Support Intern discussed possibility of antipsychotic medication its risks/side effects and family is amenable.? Patient healthcare proxy is her son. Impression: Patient suffers from burgeoning dementia; also has likely associated psychotic symptoms with paranoid delusions and auditory hallucinations; medically cleared and no other obvious, organic etiology Patient will soon go to assisted living place that is pending a bed and paperwork at [facility] Discussed with Dr. Sanchez who agrees with inpatient admission for safety and medication management patient agrees to hospitalization HCP son with daughter (present) as alternate Hospital course: 02/21 started on zyprexa 2.5mg qhs; remains pleasant; did not reference paranoid delusions; wants to leave hospital and signed 3 day PLAN: 3 day notice q15min continue home meds continue Zyprexa 2.5mg qhs for psychotic symptoms and associated anxiety On February 22 we are starting Aricept 5 mg p.o. q.h.s. to target dementia Reason for continued inpatient stay Substantial Risk for: inability to function, rapid decompensation and med/psych decompensation Time Spent With Patient Time: Total time managing care of this patient today _20___ minutes.
[2023-02-22 14:20] VITALS: BMI 18.6
[2023-02-22 18:00] VITALS: BP 136/78; PULSE 81; RESP 16; TEMP 36.5; O2SAT 97
[2023-02-22] MEDS: Donepezil HCl 5 MG TABLET PO (20:23)
[2023-02-22] MEDS: OLANZapine 2.5 MG TABLET PO (20:23)
[2023-02-22] MEDS: Acetaminophen 325 MG TABLET 650 MG PO (21:10)
[2023-02-22] MEDS: Melatonin 3 MG TABLET PO (21:10)
[2023-02-22] MEDS: Milk of Magnesia 30 ML ORAL.SUSP PO (21:16)
[2023-02-23 09:00] VITALS: BP 133/100; PULSE 68; RESP 20; TEMP 36.2; O2SAT 92
[2023-02-23] MEDS: amLODIPine Besylate 5 MG TABLET PO (09:04)
[2023-02-23] MEDS: Atorvastatin Calcium 10 MG TABLET PO (09:04)
--- NOTE | 2023-02-23 14:58 | P.PNPSI_ITS ---
Subjective Subjective Date of Service: 02/23/23 Reason For Visit: psychotic symptoms Subjective Notes: Conditional Voluntary Interim History: The nursing staff reported the patient is only oriented to person, she took Tylenol and she signed a 3 day notice but then later on she retracted today. The occupational therapist reported that she has court 3.4 on the Zach test and he could not finish the [place] test. The oncology social worker reported that she came from home and she was been psychotic with messages coming from the TV. We are going to try to contact her daughter today. On interview the patient is pleasantly confused easily redirectable, yesterday we started Aricept 5 mg p.o. q.h.s. to target dementia and Zyprexa was started on admission. Mental Status Exam Mental Status Exam Patient Appearance: Well Grooomed Patient Orientation: Person Level of Consciousness: Awake Patient Behavior: Guarded and Passive Mood Description: Withdrawn Affect Description: Constricted Patient Cognition Impaired: Yes Ability to Follow Directions: Good Speech Pattern: Clear Hallucinations: None Delusions: Paranoid Ideation Thought Process: Illogical, Distracted and Evasive Thought Content: positive for [place] and positive for Circumstantial Judgement: Poor Diagnostics Vital Signs (24Hr): Vital Signs - 24 hr 02/22/23 18:00 02/23/23 09:00 Temperature 97.7 F 97.2 F Pulse Rate 81 68 Respiratory Rate 16 20 Blood Pressure 136/78 133/100 H Pulse Oximetry 97 92 Oxygen Delivery Method Room Air Room Air BMI result Body Mass Index 18.6 Labs 02/18/23 16:18 02/18/23 16:18 Imaging Radiology Impressions: ITS Impressions Head CT 02/18/23 17:26 IMPRESSION: No acute intracranial process seen. Medications Medications Current Medications Acetaminophen (Acetaminophen 325 Mg Tablet) 650 mg PO Q6H PRN PRN Reason: Headache/Pain Mild Scale (1-3) Last Admin: 02/22/23 21:10 Dose: 650 mg Al Hydroxide/Mg Hydroxide (Magnesium Hydrox/Alum Hydrox 30 Ml Oral.Susp) 30 ml PO Q6H PRN PRN Reason: Heartburn/Nausea Amlodipine Besylate (Amlodipine Besylate 5 Mg Tablet) 5 mg PO DAILY [facility]; Protocol Last Admin: 02/23/23 09:04 Dose: 5 mg Atorvastatin Calcium (Atorvastatin Calcium 10 Mg Tablet) 10 mg PO DAILY [facility] Last Admin: 02/23/23 09:04 Dose: 10 mg Donepezil HCl (Donepezil Hcl 5 Mg Tablet) 5 mg PO BEDTIME [facility]ORA Last Admin: 02/22/23 20:23 Dose: 5 mg Magnesium Hydroxide (Milk Of Magnesia 30 Ml Oral.Susp) 30 ml PO DAILY PRN PRN Reason: Constipation Last Admin: 02/22/23 21:16 Dose: 30 ml Meclizine HCl (Meclizine Hcl 25 Mg Tablet) 25 mg PO TID PRN PRN Reason: dizziness Melatonin (Melatonin 3 Mg Tablet) 3 mg PO BEDTIME PRN PRN Reason: Insomnia Last Admin: 02/22/23 21:10 Dose: 3 mg Olanzapine (Olanzapine 2.5 Mg Tablet) 2.5 mg PO BEDTIME [facility]ORA Last Admin: 02/22/23 20:23 Dose: 2.5 mg Olanzapine (Olanzapine 2.5 Mg Tablet) 2.5 mg PO BID PRN PRN Reason: Anxiety Last Admin: 02/21/23 01:17 Dose: 2.5 mg Ondansetron HCl (Ondansetron Odt 4 Mg Tab.Rapdis) 4 mg TRANSLINGU Q8H PRN PRN Reason: Nausea and Vomiting Allergies Allergies Allergy/AdvReac Type Severity Reaction Status Date / Time epinephrine [EPINEPHRINE] Allergy Unknown TACHYCARDIA,SHAKEY, Verified 08/12/22 13:12 tachycardia NSAIDS (Non-Steroidal Allergy Unknown Verified 09/17/22 19:19 Anti-Inflamma anesthesia Allergy Unknown difficulty Uncoded 02/29/20 00:00 waking up Assessment & Plan Assessment & Plan (1) Dementia: Status: Acute Code(s): F03.90 - Unspecified dementia, unspecified severity, without behavioral disturbance, psychotic disturbance, mood disturbance, and anxiety (2) Anxiety: Status: Acute Code(s): F41.9 - Anxiety disorder, unspecified (3) Psychosis: Status: Acute Code(s): F29 - Unspecified psychosis not due to a substance or known physiological condition Plan Patient is an 87-year-old female with history of? hypertension, hyperlipidemia, diabetes, arthritis including knees, hard of hearing who presents from her PCPs office for worsening psychotic symptoms.? Patient's daughter and son-in-law both present.? Patient is pleasant, friendly on approach and alert and orientedx4.? She wants her daughter present and answer questions.? Patient herself says I know I am not the person I was a year ago... Referring to increased forgetfulness.? Patient's family and patient herself agree that patient seems to have burgeoning symptoms of dementia with increased forgetfulness and some confusion.? However over the last few weeks and maybe months, patient had increasingly intense paranoid delusions and auditory hallucinations.? Patient told commercial insurance underwriter that the people on the television are talking to were, sometimes saying nice things, sometimes tricking her, sometimes saying scary and mean things.? One time she was told to get dressed up to go to a function however once she returned in nice clothes, the people told her to do this for gone.? Patient has felt threatened that she has to go on a trip which she cannot physically handle; she also thinks that some of these things started because she refused a prize from a game show and is now being punished for it.? Patient has called her daughter crying and yelling, feeling scared and threatened by AH and delusions.? It is not clear if she has visual hallucinations; 1 time she said she saw a man with his son however it remains unclear if this or other incidents are due to actual visual hallucinations or if she is simply misinterpreting something she saw on television.? No change in gait per daughter.? Patient's family is pursuing assisted living facility with which patient is agreeable.? There is a placement pending in the next few weeks at [facility] and patient is amenable to go.? Patient is afraid to go back to her house; her daughter is afraid for patient safety as she calls up crying and asking for help afraid of paranoid delusions.? Patient agrees to hospitalization for safety and treatment.? Capsule Filling Machine Operator discussed possibility of antipsychotic medication its risks/side effects and family is amenable.? Patient healthcare proxy is her son. Impression: Patient suffers from burgeoning dementia; also has likely associated psychotic symptoms with paranoid delusions and auditory hallucinations; medically cleared and no other obvious, organic etiology Patient will soon go to assisted living place that is pending a bed and paperwork at [facility] Discussed with Dr. Sanchez who agrees with inpatient admission for safety and medication management patient agrees to hospitalization HCP son with daughter (present) as alternate Hospital course: 02/21 started on zyprexa 2.5mg qhs; remains pleasant; did not reference paranoid delusions; wants to leave hospital and signed 3 day PLAN: 3 day notice q15min continue home meds continue Zyprexa 2.5mg qhs for psychotic symptoms and associated anxiety On February 22 we are starting Aricept 5 mg p.o. q.h.s. to target dementia Reason for continued inpatient stay Substantial Risk for: inability to function, rapid decompensation and med/psych decompensation Time Spent With Patient Time: Total time managing care of this patient today __20__ minutes.
[2023-02-23 18:00] VITALS: BP 145/74; PULSE 80; RESP 16; TEMP 36.2; O2SAT 97
[2023-02-23] MEDS: Artificial Tears 15 ML DROPS 2 DROP EYE-BOTH (20:25)
[2023-02-23] MEDS: OLANZapine 2.5 MG TABLET PO (20:25)
[2023-02-23] MEDS: Donepezil HCl 5 MG TABLET PO (20:25)
[2023-02-23] MEDS: Artificial Tears Ophth Oint 3.5 GM TUBE 1 APPL EYE-BOTH (20:44)
[2023-02-24] MEDS: Melatonin 3 MG TABLET PO (01:56)
--- NOTE | 2023-02-24 10:44 | HO.PSYCHPN ---
Subjective Subjective Date of Service: 02/24/23 Reason For Visit: psychotic symptoms Subjective Notes: Conditional Voluntary Interim History: The nursing staff reported patient is only alert to person and now she is hearing much better that her hearing aids are in place. She showered yesterday and she revoked a 3 day notice. She has been pleasant and cooperative. The social work case manager reported that her 2 daughters does not want her back home because she has to impaired at this moment. We will have a family meeting on Wednesday. On interview the patient denies new symptoms she is pleasantly confused but easily redirectable. Mental Status Exam Mental Status Exam Patient Appearance: Well Grooomed and Appropriate Patient Orientation: Person and Situation Level of Consciousness: Awake and Appropriate Patient Behavior: Guarded and Passive Mood Description: Withdrawn Affect Description: Constricted Patient Cognition Impaired: Yes Ability to Follow Directions: Good Speech Pattern: Clear Hallucinations: None Delusions: Not Present Thought Process: Illogical and Slowed Thinking Thought Content: positive for [place] and positive for Thought Blocking Judgement: Fair Diagnostics Vital Signs (24Hr): Vital Signs - 24 hr 02/23/23 18:00 Temperature 97.2 F Pulse Rate 80 Respiratory Rate 16 Blood Pressure 145/74 H Pulse Oximetry 97 Oxygen Delivery Method Room Air BMI result Body Mass Index 18.6 Labs 02/18/23 16:18 02/18/23 16:18 Imaging Radiology Impressions: ITS Impressions Head CT 02/18/23 17:26 IMPRESSION: No acute intracranial process seen. Medications Medications Current Medications Acetaminophen (Acetaminophen 325 Mg Tablet) 650 mg PO Q6H PRN PRN Reason: Headache/Pain Mild Scale (1-3) Last Admin: 02/22/23 21:10 Dose: 650 mg Al Hydroxide/Mg Hydroxide (Magnesium Hydrox/Alum Hydrox 30 Ml Oral.Susp) 30 ml PO Q6H PRN PRN Reason: Heartburn/Nausea Amlodipine Besylate (Amlodipine Besylate 5 Mg Tablet) 5 mg PO DAILY LORA; Protocol Last Admin: 02/23/23 09:04 Dose: 5 mg Artificial Tears (Artificial Tears 15 Ml Drops) 2 drop EYE-BOTH Q4H PRN PRN Reason: Dry Eyes Last Admin: 02/23/23 20:25 Dose: 2 drop Atorvastatin Calcium (Atorvastatin Calcium 10 Mg Tablet) 10 mg PO DAILY [facility]A Last Admin: 02/23/23 09:04 Dose: 10 mg Donepezil HCl (Donepezil Hcl 5 Mg Tablet) 5 mg PO BEDTIME LORA Last Admin: 02/23/23 20:25 Dose: 5 mg Magnesium Hydroxide (Milk Of Magnesia 30 Ml Oral.Susp) 30 ml PO DAILY PRN PRN Reason: Constipation Last Admin: 02/22/23 21:16 Dose: 30 ml Meclizine HCl (Meclizine Hcl 25 Mg Tablet) 25 mg PO TID PRN PRN Reason: dizziness Melatonin (Melatonin 3 Mg Tablet) 3 mg PO BEDTIME PRN PRN Reason: Insomnia Last Admin: 02/24/23 01:56 Dose: 3 mg Multi-Ingred Cream/Lotion/Oil/Oint (Artificial Tears Ophth Oint 3.5 Gm Tube) 1 appl EYE-BOTH BEDTIME LORA; Protocol Last Admin: 02/23/23 20:44 Dose: 1 appl Olanzapine (Olanzapine 2.5 Mg Tablet) 2.5 mg PO BEDTIME LORA Last Admin: 02/23/23 20:25 Dose: 2.5 mg Olanzapine (Olanzapine 2.5 Mg Tablet) 2.5 mg PO BID PRN PRN Reason: Anxiety Last Admin: 02/21/23 01:17 Dose: 2.5 mg Ondansetron HCl (Ondansetron Odt 4 Mg Tab.Rapdis) 4 mg TRANSLINGU Q8H PRN PRN Reason: Nausea and Vomiting Allergies Allergies Allergy/AdvReac Type Severity Reaction Status Date / Time epinephrine [EPINEPHRINE] Allergy Unknown TACHYCARDIA,SHAKEY, Verified 08/12/22 13:12 tachycardia NSAIDS (Non-Steroidal Allergy Unknown Verified 09/17/22 19:19 Anti-Inflamma anesthesia Allergy Unknown difficulty Uncoded 02/29/20 00:00 waking up Assessment & Plan Assessment & Plan (1) Dementia: Status: Acute Code(s): F03.90 - Unspecified dementia, unspecified severity, without behavioral disturbance, psychotic disturbance, mood disturbance, and anxiety (2) Anxiety: Status: Acute Code(s): F41.9 - Anxiety disorder, unspecified (3) Psychosis: Status: Acute Code(s): F29 - Unspecified psychosis not due to a substance or known physiological condition Plan Patient is an 87-year-old female with history of? hypertension, hyperlipidemia, diabetes, arthritis including knees, hard of hearing who presents from her PCPs office for worsening psychotic symptoms.? Patient's daughter and son-in-law both present.? Patient is pleasant, friendly on approach and alert and orientedx4.? She wants her daughter present and answer questions.? Patient herself says I know I am not the person I was a year ago... Referring to increased forgetfulness.? Patient's family and patient herself agree that patient seems to have burgeoning symptoms of dementia with increased forgetfulness and some confusion.? However over the last few weeks and maybe months, patient had increasingly intense paranoid delusions and auditory hallucinations.? Patient told keno writer / runner that the people on the television are talking to were, sometimes saying nice things, sometimes tricking her, sometimes saying scary and mean things.? One time she was told to get dressed up to go to a function however once she returned in nice clothes, the people told her to do this for gone.? Patient has felt threatened that she has to go on a trip which she cannot physically handle; she also thinks that some of these things started because she refused a prize from a game show and is now being punished for it.? Patient has called her daughter crying and yelling, feeling scared and threatened by AH and delusions.? It is not clear if she has visual hallucinations; 1 time she said she saw a man with his son however it remains unclear if this or other incidents are due to actual visual hallucinations or if she is simply misinterpreting something she saw on television.? No change in gait per daughter.? Patient's family is pursuing assisted living facility with which patient is agreeable.? There is a placement pending in the next few weeks at [facility] and patient is amenable to go.? Patient is afraid to go back to her house; her daughter is afraid for patient safety as she calls up crying and asking for help afraid of paranoid delusions.? Patient agrees to hospitalization for safety and treatment.? Batch Operator discussed possibility of antipsychotic medication its risks/side effects and family is amenable.? Patient healthcare proxy is her son. Impression: Patient suffers from burgeoning dementia; also has likely associated psychotic symptoms with paranoid delusions and auditory hallucinations; medically cleared and no other obvious, organic etiology Patient will soon go to assisted living place that is pending a bed and paperwork at [facility] Discussed with Dr. Sanchez who agrees with inpatient admission for safety and medication management patient agrees to hospitalization HCP son with daughter (present) as alternate Hospital course: 02/21 started on zyprexa 2.5mg qhs; remains pleasant; did not reference paranoid delusions; wants to leave hospital and signed 3 day PLAN: 3 day notice q15min continue home meds continue Zyprexa 2.5mg qhs for psychotic symptoms and associated anxiety On February 22 we are starting Aricept 5 mg p.o. q.h.s. to target dementia. In February 24 we increased up to 10 mg p.o. q.h.s.. Reason for continued inpatient stay Substantial Risk for: inability to function, rapid decompensation and med/psych decompensation Time Spent With Patient Time: Total time managing care of this patient today _20___ minutes.
[2023-02-24 12:01] VITALS: BP 153/94; PULSE 83; RESP 16; TEMP 36.7; O2SAT 97
[2023-02-24] MEDS: amLODIPine Besylate 5 MG TABLET PO (12:03)
[2023-02-24] MEDS: Atorvastatin Calcium 10 MG TABLET PO (12:03)
--- NOTE | 2023-02-24 13:39 | MHC.CLN ---
NUTRITION DIET=CARDIAC. ADDING ENSURE BID TO INCREASE NUTRITIONAL INTAKE. SUPPLEMENT PROVIDES 700 KCALS, 40 G PROTEIN. INTAKE APPEARS VARIABLE WITH 25% AT BREAKFAST TODAY. LIBERALIZE TO REGULAR DIET BASED ON ADVANCED AGE AND LIMITED PO. FOLLOW FOR INTAKE.
[2023-02-24 18:00] VITALS: BP 168/72; PULSE 67; RESP 18; TEMP 35.9; O2SAT 100
[2023-02-24] MEDS: OLANZapine 2.5 MG TABLET PO (20:10)
[2023-02-24] MEDS: Donepezil HCl 10 MG TABLET PO (20:10)
[2023-02-24] MEDS: Artificial Tears Ophth Oint 3.5 GM TUBE 1 APPL EYE-BOTH (22:59)
[2023-02-25 07:00] VITALS: BMI 18.3
[2023-02-25 08:00] VITALS: BP 151/71; PULSE 61; RESP 18; TEMP 35.9
[2023-02-25] MEDS: Atorvastatin Calcium 10 MG TABLET PO (09:50)
[2023-02-25] MEDS: amLODIPine Besylate 5 MG TABLET PO (09:50)
--- NOTE | 2023-02-25 13:18 | P.PNPSI_ITS ---
Subjective Subjective Date of Service: 02/25/23 Reason For Visit: psychotic symptoms Subjective Notes: Conditional Voluntary Interim History: The nursing staff reported the patient slept well last night she had been walking with the help of his Merry Walker, she has been disoriented and she needed help on her activities of daily life. The medical social consultant reported that we will have a family meeting for tomorrow for placement. On interview the patient is pleasantly confused easily redirectable. Mental Status Exam Mental Status Exam Patient Appearance: Well Grooomed and Appropriate Patient Orientation: Person Level of Consciousness: Awake and Appropriate Patient Behavior: Guarded and Passive Mood Description: Withdrawn Affect Description: Constricted Patient Cognition Impaired: Yes Ability to Follow Directions: Good Speech Pattern: Clear Hallucinations: None Delusions: Not Present Thought Process: Illogical, Distracted and Slowed Thinking Thought Content: positive for [place]overty of Content, positive for [place] and positive for Thought Blocking Judgement: Fair Diagnostics Vital Signs (24Hr): Vital Signs - 24 hr 02/24/23 18:00 02/25/23 08:00 Temperature 96.7 F L 96.6 F L Pulse Rate 67 61 Respiratory Rate 18 18 Blood Pressure 168/72 H 151/71 H Pulse Oximetry 100 Oxygen Delivery Method Room Air BMI result Body Mass Index 18.3 Labs 02/18/23 16:18 02/18/23 16:18 Imaging Radiology Impressions: ITS Impressions Head CT 02/18/23 17:26 IMPRESSION: No acute intracranial process seen. Medications Medications Current Medications Acetaminophen (Acetaminophen 325 Mg Tablet) 650 mg PO Q6H PRN PRN Reason: Headache/Pain Mild Scale (1-3) Last Admin: 02/22/23 21:10 Dose: 650 mg Al Hydroxide/Mg Hydroxide (Magnesium Hydrox/Alum Hydrox 30 Ml Oral.Susp) 30 ml PO Q6H PRN PRN Reason: Heartburn/Nausea Amlodipine Besylate (Amlodipine Besylate 5 Mg Tablet) 5 mg PO DAILY LORA; Protocol Last Admin: 02/25/23 09:50 Dose: 5 mg Artificial Tears (Artificial Tears 15 Ml Drops) 2 drop EYE-BOTH Q4H PRN PRN Reason: Dry Eyes Last Admin: 02/23/23 20:25 Dose: 2 drop Atorvastatin Calcium (Atorvastatin Calcium 10 Mg Tablet) 10 mg PO DAILY LORA Last Admin: 02/25/23 09:50 Dose: 10 mg Donepezil HCl (Donepezil Hcl 10 Mg Tablet) 10 mg PO BEDTIME LORA Last Admin: 02/24/23 20:10 Dose: 10 mg Magnesium Hydroxide (Milk Of Magnesia 30 Ml Oral.Susp) 30 ml PO DAILY PRN PRN Reason: Constipation Last Admin: 02/22/23 21:16 Dose: 30 ml Meclizine HCl (Meclizine Hcl 25 Mg Tablet) 25 mg PO TID PRN PRN Reason: dizziness Melatonin (Melatonin 3 Mg Tablet) 3 mg PO BEDTIME PRN PRN Reason: Insomnia Last Admin: 02/24/23 01:56 Dose: 3 mg Multi-Ingred Cream/Lotion/Oil/Oint (Artificial Tears Ophth Oint 3.5 Gm Tube) 1 appl EYE-BOTH BEDTIME LORA; Protocol Last Admin: 02/24/23 22:59 Dose: 1 appl Olanzapine (Olanzapine 2.5 Mg Tablet) 2.5 mg PO BEDTIME LORA Last Admin: 02/24/23 20:10 Dose: 2.5 mg Olanzapine (Olanzapine 2.5 Mg Tablet) 2.5 mg PO BID PRN PRN Reason: Anxiety Last Admin: 02/21/23 01:17 Dose: 2.5 mg Ondansetron HCl (Ondansetron Odt 4 Mg Tab.Rapdis) 4 mg TRANSLINGU Q8H PRN PRN Reason: Nausea and Vomiting Allergies Allergies Allergy/AdvReac Type Severity Reaction Status Date / Time epinephrine [EPINEPHRINE] Allergy Unknown TACHYCARDIA,SHAKEY, Verified 08/12/22 13:12 tachycardia NSAIDS (Non-Steroidal Allergy Unknown Verified 09/17/22 19:19 Anti-Inflamma anesthesia Allergy Unknown difficulty Uncoded 02/29/20 00:00 waking up Assessment & Plan Assessment & Plan (1) Dementia: Status: Acute Code(s): F03.90 - Unspecified dementia, unspecified severity, without behavioral disturb ance, psychotic disturbance, mood disturbance, and anxiety (2) Anxiety: Status: Acute Code(s): F41.9 - Anxiety disorder, unspecified (3) Psychosis: Status: Acute Code(s): F29 - Unspecified psychosis not due to a substance or known physiological condition Plan Patient is an 87-year-old female with history of? hypertension, hyperlipidemia, diabetes, arthritis including knees, hard of hearing who presents from her PCPs office for worsening psychotic symptoms.? Patient's daughter and son-in-law both present.? Patient is pleasant, friendly on approach and alert and orientedx4.? She wants her daughter present and answer questions.? Patient herself says I know I am not the person I was a year ago... Referring to increased forgetfulness.? Patient's family and patient herself agree that patient seems to have burgeoning symptoms of dementia with increased forgetfulness and some confusion.? However over the last few weeks and maybe months, patient had increasingly intense paranoid delusions and auditory hallucinations.? Patient told race and sports book writer that the people on the television are talking to were, sometimes saying nice things, sometimes tricking her, sometimes saying scary and mean thin gs.? One time she was told to get dressed up to go to a function however once she returned in nice clothes, the people told her to do this for gone.? Patient has felt threatened that she has to go on a trip which she cannot physically handle; she also thinks that some of these things started because she refused a prize from a game show and is now being punished for it.? Patient has called her daughter crying and yelling, feeling scared and threatened by AH and delusions.? It is not clear if she has visual hallucinations; 1 time she said she saw a man with his son however it remains unclear if this or other incidents are due to actual visual hallucinations or if she is simply misinterpreting something she saw on television.? No change in gait per daughter.? Patient's family is pursuing assisted living facility with which patient is agreeable.? There is a placement pending in the next few weeks at [facility] and patient is amenable to go.? Patient is afraid to go back to her house; her daughter is afraid for patient safety as she calls up crying and asking for help afraid of paranoid delusions.? Patient agrees to hospitalization for safety and treatment.? Pass Worker discussed possibility of antipsychotic medication its risks/side effects and family is amenable.? Patient healthcare proxy is her son. Impression: Patient suffers from burgeoning dementia; also has likely associated psychotic symptoms with paranoid delusions and auditory hallucinations; medically cleared and no other obvious, organic etiology Patient will soon go to assisted living place that is pending a bed and pa perwork at [facility] Discussed with Dr. Sanchez who agrees with inpatient admission for safety and medication management patient agrees to hospitalization HCP son with daughter (present) as alternate Hospital course: 02/21 started on zyprexa 2.5mg qhs; remains pleasant; did not reference paranoid delusions; wants to leave hospital and signed 3 day PLAN: 3 day notice q15min continue home meds continue Zyprexa 2.5mg qhs for psychotic symptoms and associated anxiety On February 22 we are starting Aricept 5 mg p.o. q.h.s. to target dementia. In February 24 we increased up to 10 mg p.o. q.h.s.. Next week we will start with Namenda since her dementia is pretty advanced per Reason for continued inpatient stay Substantial Risk for: inability to function, rapid decompensation and med/psych decompensation Time Spent With Patient Time: Total time managing care of this patient today _20___ minutes.
[2023-02-25 18:00] VITALS: BP 140/77; PULSE 69; RESP 16; TEMP 36.1; O2SAT 99
[2023-02-25] MEDS: OLANZapine 2.5 MG TABLET PO (19:58)
[2023-02-25] MEDS: Artificial Tears Ophth Oint 3.5 GM TUBE 1 APPL EYE-BOTH (19:58)
[2023-02-25] MEDS: Donepezil HCl 10 MG TABLET PO (19:58)
[2023-02-26 08:00] VITALS: BP 177/74; PULSE 81; RESP 18; TEMP 36.3; O2SAT 93
[2023-02-26] MEDS: amLODIPine Besylate 5 MG TABLET PO (08:29)
[2023-02-26] MEDS: Atorvastatin Calcium 10 MG TABLET PO (08:29)
--- NOTE | 2023-02-26 13:01 | MHC.CLN ---
F/U DIET=REGULAR. ENSURE BID TO INCREASE NUTRITIONAL INTAKE. SUPPLEMENT PROVIDES 700 KCALS, 40 G PROTEIN. INTAKE CONTINUES VARIABLE. FOLLOW FOR INTAKE AND WEIGHT. RD TO FOLLOW WEEKLY.
--- NOTE | 2023-02-26 14:41 | P.PNPSI_ITS ---
Subjective Subjective Date of Service: 02/26/23 Reason For Visit: psychotic symptoms Subjective Notes: Conditional Voluntary Interim History: The nursing staff reported the patient has been alert to self cooperative and pleasant appropriate and she had been eating and sleeping well. She has been med compliant. Today the patient was very confused stated that she was going to be discharged today and explained that today was the family meeting. The school social worker reported that we have the family denied 130 with her daughter for placement. Today we started Namenda 5 mg p.o. q.h.s. to target dementia. Mental Status Exam Mental Status Exam Patient Appearance: Well Grooomed and Appropriate Patient Orientation: Person Level of Consciousness: Awake and Appropriate Patient Behavior: Cooperative Mood Description: Calm Affect Description: Constricted Patient Cognition Impaired: Yes Ability to Follow Directions: Good Speech Pattern: Clear Hallucinations: None Delusions: Not Present Thought Process: Distracted and Evasive Thought Content: positive for [place] and positive for Poverty of Content Judgement: Fair Diagnostics Vital Signs (24Hr): Vital Signs - 24 hr 02/25/23 18:00 02/26/23 08:00 Temperature 97.0 F 97.3 F Pulse Rate 69 81 Respiratory Rate 16 18 Blood Pressure 140/77 H 177/74 H Pulse Oximetry 99 93 Oxygen Delivery Method Room Air Room Air BMI result Body Mass Index 18.3 Labs 02/18/23 16:18 02/18/23 16:18 Imaging Radiology Impressions: ITS Impressions Head CT 02/18/23 17:26 IMPRESSION: No acute intracranial process seen. Medications Medications Current Medications Acetaminophen (Acetaminophen 325 Mg Tablet) 650 mg PO Q6H PRN PRN Reason: Headache/Pain Mild Scale (1-3) Last Admin: 02/22/23 21:10 Dose: 650 mg Al Hydroxide/Mg Hydroxide (Magnesium Hydrox/Alum Hydrox 30 Ml Oral.Susp) 30 ml PO Q6H PRN PRN Reason: Heartburn/Nausea Amlodipine Besylate (Amlodipine Besylate 5 Mg Tablet) 5 mg PO DAILY [facility]; Protocol Last Admin: 02/26/23 08:29 Dose: 5 mg Artificial Tears (Artificial Tears 15 Ml Drops) 2 drop EYE-BOTH Q4H PRN PRN Reason: Dry Eyes Last Admin: 02/23/23 20:25 Dose: 2 drop Atorvastatin Calcium (Atorvastatin Calcium 10 Mg Tablet) 10 mg PO DAILY [facility] Last Admin: 02/26/23 08:29 Dose: 10 mg Donepezil HCl (Donepezil Hcl 10 Mg Tablet) 10 mg PO BEDTIME LORA Last Admin: 02/25/23 19:58 Dose: 10 mg Magnesium Hydroxide (Milk Of Magnesia 30 Ml Oral.Susp) 30 ml PO DAILY PRN PRN Reason: Constipation Last Admin: 02/22/23 21:16 Dose: 30 ml Meclizine HCl (Meclizine Hcl 25 Mg Tablet) 25 mg PO TID PRN PRN Reason: dizziness Melatonin (Melatonin 3 Mg Tablet) 3 mg PO BEDTIME PRN PRN Reason: Insomnia Last Admin: 02/24/23 01:56 Dose: 3 mg Memantine (Memantine Hcl 5 Mg Tablet) 5 mg PO BEDTIME LORA Multi-Ingred Cream/Lotion/Oil/Oint (Artificial Tears Ophth Oint 3.5 Gm Tube) 1 appl EYE-BOTH BEDTIME [facility]ORA; Protocol Last Admin: 02/25/23 19:58 Dose: 1 appl Olanzapine (Olanzapine 2.5 Mg Tablet) 2.5 mg PO BEDTIME LORA Last Admin: 02/25/23 19:58 Dose: 2.5 mg Olanzapine (Olanzapine 2.5 Mg Tablet) 2.5 mg PO BID PRN PRN Reason: Anxiety Last Admin: 02/21/23 01:17 Dose: 2.5 mg Ondansetron HCl (Ondansetron Odt 4 Mg Tab.Rapdis) 4 mg TRANSLINGU Q8H PRN PRN Reason: Nausea and Vomiting Allergies Allergies Allergy/AdvReac Type Severity Reaction Status Date / Time epinephrine [EPINEPHRINE] Allergy Unknown TACHYCARDIA,SHAKEY, Verified 08/12/22 13:12 tachycardia NSAIDS (Non-Steroidal Allergy Unknown Verified 09/17/22 19:19 Anti-Inflamma anesthesia Allergy Unknown difficulty Uncoded 02/29/20 00:00 waking up Assessment & Plan Assessment & Plan (1) Dementia: Status: Acute Code(s): F03.90 - Unspecified dementia, unspecified severity, without behavioral disturbance, psychotic disturbance, mood disturbance, and anxiety (2) Anxiety: Status: Acute Code(s): F41.9 - Anxiety disorder, unspecified (3) Psychosis: Status: Acute Code(s): F29 - Unspecified psychosis not due to a substance or known physiological condition Plan Patient is an 87-year-old female with history of? hypertension, hyperlipidemia, diabetes, arthritis including knees, hard of hearing who presents from her PCPs office for worsening psychotic symptoms.? Patient's daughter and son-in-law both present.? Patient is pleasant, friendly on approach and alert and orientedx4.? She wants her daughter present and answer questions.? Patient herself says I know I am not the person I was a year ago... Referring to increased forgetfulness.? Patient's family and patient herself agree that patient seems to have burgeoning symptoms of dementia with increased forgetfulness and some confusion.? However over the last few weeks and maybe months, patient had increasingly intense paranoid delusions and auditory hallucinations.? Patient told medical technical writer that the people on the television are talking to were, sometimes saying nice things, sometimes tricking her, sometimes saying scary and mean things.? One time she was told to get dressed up to go to a function however once she returned in nice clothes, the people told her to do this for gone.? Patient has felt threatened that she has to go on a trip which she cannot physically handle; she also thinks that some of these things started because she refused a prize from a game show and is now being punished for it.? Patient has called her daughter crying and yelling, feeling scared and threatened by AH and delusions.? It is not clear if she has visual hallucinations; 1 time she said she saw a man with his son however it remains unclear if this or other incidents are due to actual visual hallucinations or if she is simply misinterpreting something she saw on television.? No change in gait per daughter.? Patient's family is pursuing assisted living facility with which patient is agreeable.? There is a placement pending in the next few weeks at [facility] and patient is amenable to go.? Patient is afraid to go back to her house; her daughter is afraid for patient safety as she calls up crying and asking for help afraid of paranoid delusions.? Patient agrees to hospitalization for safety and treatment.? Machinery Mover discussed possibility of antipsychotic medication its risks/side effects and family is amenable.? Patient healthcare proxy is her son. Impression: Patient suffers from burgeoning dementia; also has likely associated psychotic symptoms with paranoid delusions and auditory hallucinations; medically cleared and no other obvious, organic etiology Patient will soon go to assisted living place that is pending a bed and paperwork at [facility] Discussed with Dr. Sanchez who agrees with inpatient admission for safety and medication management patient agrees to hospitalization HCP son with daughter (present) as alternate Hospital course: 02/21 started on zyprexa 2.5mg qhs; remains pleasant; did not reference paranoid delusions; wants to leave hospital and signed 3 day PLAN: 3 day notice q15min continue home meds continue Zyprexa 2.5mg qhs for psychotic symptoms and associated anxiety On February 22 we are starting Aricept 5 mg p.o. q.h.s. to target dementia. In February 24 we increased up to 10 mg p.o. q.h.s.. On February 26 we start Namenda 5 mg p.o. q.h.s. Reason for continued inpatient stay Substantial Risk for: inability to function, rapid decompensation and med/psych decompensation Time Spent With Patient Time: Total time managing care of this patient today __20__ minutes.
[2023-02-26 18:00] VITALS: BP 132/51; PULSE 78; TEMP 36.2; O2SAT 98
[2023-02-26] MEDS: OLANZapine 2.5 MG TABLET PO (21:12)
[2023-02-26] MEDS: Donepezil HCl 10 MG TABLET PO (21:12)
[2023-02-26] MEDS: Memantine HCl 5 MG TABLET PO (21:12)
[2023-02-26] MEDS: Artificial Tears Ophth Oint 3.5 GM TUBE 1 APPL EYE-BOTH (21:22)
[2023-02-27 06:00] VITALS: BP 163/78; PULSE 76; RESP 18; TEMP 36.1; O2SAT 98
[2023-02-27] MEDS: amLODIPine Besylate 5 MG TABLET PO (09:12)
[2023-02-27] MEDS: Atorvastatin Calcium 10 MG TABLET PO (09:12)
[2023-02-27] MEDS: Acetaminophen 325 MG TABLET 650 MG PO (09:17)
--- NOTE | 2023-02-27 09:54 | P.PNPSI_ITS ---
Subjective Subjective Date of Service: 02/27/23 Reason For Visit: psychotic symptoms Subjective Notes: Conditional Voluntary Interim History: Pt visiting with family. Pt denies any physical or otherwise other concerns. She reports doing well. She asks for hearing aids. No SI/HI. Pt ambulating with walker. Pt slept through the night. No behavioral concerns. Not oriented to situation or place. Medication Compliance: Yes Review of Systems Constitutional: Reports no additional constitutional complaints Eyes: Reports no additional eye complaints Respiratory: Reports no additional respiratory complaints Psychiatric: Reports paranoia and Reports visual hallucinations Mental Status Exam Mental Status Exam Patient Appearance: Well Grooomed and Appropriate Patient Orientation: Person Level of Consciousness: Awake and Appropriate Patient Behavior: Cooperative Mood Description: Calm Affect Description: Constricted Patient Cognition Impaired: Yes Ability to Follow Directions: Good Speech Pattern: Clear Diagnostics Vital Signs (24Hr): Vital Signs - 24 hr 02/26/23 18:00 Temperature 97.2 F Pulse Rate 78 Blood Pressure 132/51 L Pulse Oximetry 98 Oxygen Delivery Method Room Air BMI result Body Mass Index 18.3 Labs 02/18/23 16:18 02/18/23 16:18 Imaging Radiology Impressions: ITS Impressions Head CT 02/18/23 17:26 IMPRESSION: No acute intracranial process seen. Medications Medications Current Medications Acetaminophen (Acetaminophen 325 Mg Tablet) 650 mg PO Q6H PRN PRN Reason: Headache/Pain Mild Scale (1-3) Last Admin: 02/27/23 09:17 Dose: 650 mg Al Hydroxide/Mg Hydroxide (Magnesium Hydrox/Alum Hydrox 30 Ml Oral.Susp) 30 ml PO Q6H PRN PRN Reason: Heartburn/Nausea Amlodipine Besylate (Amlodipine Besylate 5 Mg Tablet) 5 mg PO DAILY LORA; Protocol Last Admin: 02/27/23 09:12 Dose: 5 mg Artificial Tears (Artificial Tears 15 Ml Drops) 2 drop EYE-BOTH Q4H PRN PRN Reason: Dry Eyes Last Admin: 02/23/23 20:25 Dose: 2 drop Atorvastatin Calcium (Atorvastatin Calcium 10 Mg Tablet) 10 mg PO DAILY LORA Last Admin: 02/27/23 09:12 Dose: 10 mg Donepezil HCl (Donepezil Hcl 10 Mg Tablet) 10 mg PO BEDTIME LORA Last Admin: 02/26/23 21:12 Dose: 10 mg Magnesium Hydroxide (Milk Of Magnesia 30 Ml Oral.Susp) 30 ml PO DAILY PRN PRN Reason: Constipation Last Admin: 02/22/23 21:16 Dose: 30 ml Meclizine HCl (Meclizine Hcl 25 Mg Tablet) 25 mg PO TID PRN PRN Reason: dizziness Melatonin (Melatonin 3 Mg Tablet) 3 mg PO BEDTIME PRN PRN Reason: Insomnia Last Admin: 02/24/23 01:56 Dose: 3 mg Memantine (Memantine Hcl 5 Mg Tablet) 5 mg PO BEDTIME LORA Last Admin: 02/26/23 21:12 Dose: 5 mg Multi-Ingred Cream/Lotion/Oil/Oint (Artificial Tears Ophth Oint 3.5 Gm Tube) 1 appl EYE-BOTH BEDTIME LORA; Protocol Last Admin: 02/26/23 21:22 Dose: 1 appl Olanzapine (Olanzapine 2.5 Mg Tablet) 2.5 mg PO BEDTIME LORA Last Admin: 02/26/23 21:12 Dose: 2.5 mg Olanzapine (Olanzapine 2.5 Mg Tablet) 2.5 mg PO BID PRN PRN Reason: Anxiety Last Admin: 02/21/23 01:17 Dose: 2.5 mg Ondansetron HCl (Ondansetron Odt 4 Mg Tab.Rapdis) 4 mg TRANSLINGU Q8H PRN PRN Reason: Nausea and Vomiting Allergies Allergies Allergy/AdvReac Type Severity Reaction Status Date / Time epinephrine [EPINEPHRINE] Allergy Unknown TACHYCARDIA,SHAKEY, Verified 08/12/22 13:12 tachycardia NSAIDS (Non-Steroidal Allergy Unknown Verified 09/17/22 19:19 Anti-Inflamma anesthesia Allergy Unknown difficulty Uncoded 02/29/20 00:00 waking up Assessment & Plan Assessment & Plan (1) Dementia: Status: Acute Code(s): F03.90 - Unspecified dementia, unspecified severity, without behavioral disturbance, psychotic disturbance, mood disturbance, and anxiety (2) Anxiety: Status: Acute Code(s): F41.9 - Anxiety disorder, unspecified (3) Psychosis: Status: Acute Code(s): F29 - Unspecified psychosis not due to a substance or known physiological condition Plan Patient is an 87-year-old female with history of? hypertension, hyperlipidemia, diabetes, arthritis including knees, hard of hearing who presents from her PCPs office for worsening psychotic symptoms.? Patient's daughter and son-in-law both present.? Patient is pleasant, friendly on approach and alert and orientedx4.? She wants her daughter present and answer questions.? Patient herself says I know I am not the person I was a year ago... Referring to increased forgetfulness.? Patient's family and patient herself agree that patient seems to have burgeoning symptoms of dementia with increased forgetfulness and some confusion.? However over the last few weeks and maybe months, patient had increasingly intense paranoid delusions and auditory hallucinations.? Patient told health technical writer that the people on the television are talking to were, sometimes saying nice things, sometimes tricking her, sometimes saying scary and mean things.? One time she was told to get dressed up to go to a function however once she returned in nice clothes, the people told her to do this for gone.? Patient has felt threatened that she has to go on a trip which she cannot physically handle; she also thinks that some of these things started because she refused a prize from a game show and is now being punished for it.? Patient has called her daughter crying and yelling, feeling scared and threatened by AH and delusions.? It is not clear if she has visual hallucinations; 1 time she said she saw a man with his son however it remains unclear if this or other incidents are due to actual visual hallucinations or if she is simply misinterpreting something she saw on television.? No change in gait per daughter.? Patient's family is pursuing assisted living facility with which patient is agreeable.? There is a placement pending in the next few weeks at [facility] and patient is amenable to go.? Patient is afraid to go back to her house; her daughter is afraid for patient safety as she calls up crying and asking for help afraid of paranoid delusions.? Patient agrees to hospitalization for safety and treatment.? Supervisor Slitting And Shipping discussed possibility of antipsychotic medication its risks/side effects and family is amenable.? Patient healthcare proxy is her son. Impression: Patient suffers from burgeoning dementia; also has likely associated psychotic symptoms with paranoid delusions and auditory hallucinations; medically cleared and no other obvious, organic etiology Patient will soon go to assisted living place that is pending a bed and paperwor k at [facility] Discussed with Dr. Sanchez who agrees with inpatient admission for safety and medication management patient agrees to hospitalization HCP son with daughter (present) as alternate Hospital course: 02/21 started on zyprexa 2.5mg qhs; remains pleasant; did not reference paranoid delusions; wants to leave hospital and signed 3 day PLAN: 3 day notice q15min continue home meds continue Zyprexa 2.5mg qhs for psychotic symptoms and associated anxiety On February 22 we are starting Aricept 5 mg p.o. q.h.s. to target dementia. In February 24 we increased up to 10 mg p.o. q.h.s.. On February 26 we start Namenda 5 mg p.o. q.h.s. 02/27 continue tx. Reason for continued inpatient stay Substantial Risk for: inability to function Time Spent With Patient Time: Total time managing care of this patient today ____ minutes.
[2023-02-27] MEDS: OLANZapine 2.5 MG TABLET PO (13:57)
[2023-02-27 18:00] VITALS: BP 131/61; PULSE 64; RESP 24; TEMP 36.3; O2SAT 95
--- NOTE | 2023-02-27 18:57 | PC.NURSE ---
Assumed care at 07:00. Patient was hyper-focused on her clothing, she does not believe that the clothing her son brought for her is her own clothing, despite one article being identical to the shirt she is wearing, the sizes generally appearing appropriate, and the style (i.e., capris pants and cut of shirt) appearing consistent with the rest of her attire. The patient is convinced a white cable-knit sweater of hers is missing, but it is not on her belongings list. She also is refusing to allow the items recently delivered to be placed in her belongings bin or to correct the number of her outfits to 3. Her daughter is to visit tomorrow with plan of sending extra clothes and having her take home the night gown and robe to wash. Patient did not believe that her dentures were her own. Refused to allow hearing aides to be placed in ears. PRN zyprexa with good effect. Permitted hygiene, hair care, and use of her dentures, and admitted that it is possible the clothes her son delivered are from her home, in the back of her closet. Later socializing in milieu. .
[2023-02-28 08:00] VITALS: BP 145/70; PULSE 78; RESP 18; TEMP 36.6; O2SAT 97
[2023-02-28] MEDS: Atorvastatin Calcium 10 MG TABLET PO (08:46)
[2023-02-28] MEDS: amLODIPine Besylate 5 MG TABLET PO (08:46)
[2023-02-28] MEDS: Milk of Magnesia 30 ML ORAL.SUSP PO (08:55)
--- NOTE | 2023-02-28 12:23 | HO.PSYCHPN ---
Subjective Subjective Date of Service: 02/28/23 Reason For Visit: psychotic symptoms Subjective Notes: Conditional Voluntary Interim History: Pt ambulating with walker. She reports feeling tired. She had a large BM this morning. She is suspicious about medications and hesitant to take them. She is visible on the unit, and social with select peers. No behavioral concerns. Medication Compliance: Yes Review of Systems Constitutional: Reports no additional constitutional complaints Eyes: Reports no additional eye complaints Respiratory: Reports no additional respiratory complaints Psychiatric: Reports paranoia and Reports visual hallucinations Mental Status Exam Mental Status Exam Patient Appearance: Well Grooomed and Appropriate Patient Orientation: Person Level of Consciousness: Awake and Appropriate Patient Behavior: Cooperative Mood Description: Calm Affect Description: Constricted Patient Cognition Impaired: Yes Ability to Follow Directions: Good Speech Pattern: Clear Diagnostics Vital Signs (24Hr): Vital Signs - 24 hr 02/27/23 18:00 02/28/23 08:00 Temperature 97.3 F 97.9 F Pulse Rate 64 78 Respiratory Rate 24 H 18 Blood Pressure 131/61 145/70 H Pulse Oximetry 95 97 Oxygen Delivery Method Room Air Room Air BMI result Body Mass Index 18.3 Labs 02/18/23 16:18 02/18/23 16:18 Imaging Radiology Impressions: ITS Impressions Head CT 02/18/23 17:26 IMPRESSION: No acute intracranial process seen. Medications Medications Current Medications Acetaminophen (Acetaminophen 325 Mg Tablet) 650 mg PO Q6H PRN PRN Reason: Headache/Pain Mild Scale (1-3) Last Admin: 02/27/23 09:17 Dose: 650 mg Al Hydroxide/Mg Hydroxide (Magnesium Hydrox/Alum Hydrox 30 Ml Oral.Susp) 30 ml PO Q6H PRN PRN Reason: Heartburn/Nausea Amlodipine Besylate (Amlodipine Besylate 5 Mg Tablet) 5 mg PO DAILY LORA; Protocol Last Admin: 02/28/23 08:46 Dose: 5 mg Artificial Tears (Artificial Tears 15 Ml Drops) 2 drop EYE-BOTH Q4H PRN PRN Reason: Dry Eyes Last Admin: 02/23/23 20:25 Dose: 2 drop Atorvastatin Calcium (Atorvastatin Calcium 10 Mg Tablet) 10 mg PO DAILY [facility] Last Admin: 02/28/23 08:46 Dose: 10 mg Donepezil HCl (Donepezil Hcl 10 Mg Tablet) 10 mg PO BEDTIME LORA Last Admin: 07/22/23 21:19 Dose: Not Given Fluticasone Propionate (Fluticasone Propionate Nasal 16 Gm [place]) 1 spray NOSTRIL-B DAILY LORA Last Admin: 02/28/23 08:59 Dose: Not Given Magnesium Hydroxide (Milk Of Magnesia 30 Ml Oral.Susp) 30 ml PO DAILY PRN PRN Reason: Constipation Last Admin: 02/28/23 08:55 Dose: 30 ml Meclizine HCl (Meclizine Hcl 25 Mg Tablet) 25 mg PO TID PRN PRN Reason: dizziness Melatonin (Melatonin 3 Mg Tablet) 3 mg PO BEDTIME PRN PRN Reason: Insomnia Last Admin: 02/24/23 01:56 Dose: 3 mg Memantine (Memantine Hcl 5 Mg Tablet) 5 mg PO BEDTIME LORA Last Admin: 02/27/23 21:19 Dose: Not Given Multi-Ingred Cream/Lotion/Oil/Oint (Artificial Tears Ophth Oint 3.5 Gm Tube) 1 appl EYE-BOTH BEDTIME LORA; Protocol Last Admin: 02/27/23 21:19 Dose: Not Given Olanzapine (Olanzapine 2.5 Mg Tablet) 2.5 mg PO BEDTIME LORA Last Admin: 02/27/23 13:57 Dose: 2.5 mg Olanzapine (Olanzapine 2.5 Mg Tablet) 2.5 mg PO BID PRN PRN Reason: Anxiety Last Admin: 02/21/23 01:17 Dose: 2.5 mg Ondansetron HCl (Ondansetron Odt 4 Mg Tab.Rapdis) 4 mg TRANSLINGU Q8H PRN PRN Reason: Nausea and Vomiting Allergies Allergies Allergy/AdvReac Type Severity Reaction Status Date / Time epinephrine [EPINEPHRINE] Allergy Unknown TACHYCARDIA,SHAKEY, Verified 08/12/22 13:12 tachycardia NSAIDS (Non-Steroidal Allergy Unknown Verified 09/17/22 19:19 Anti-Inflamma anesthesia Allergy Unknown difficulty Uncoded 02/29/20 00:00 waking up Assessment & Plan Assessment & Plan (1) Dementia: Status: Acute Code(s): F03.90 - Unspecified dementia, unspecified severity, without behavioral disturbance, psychotic disturbance, mood disturbance, and anxiety (2) Anxiety: Status: Acute Code(s): F41.9 - Anxiety disorder, unspecified (3) Psychosis: Status: Acute Code(s): F29 - Unspecified psychosis not due to a substance or known physiological condition Plan Patient is an 87-year-old female with history of? hypertension, hyperlipidemia, diabetes, arthritis including knees, hard of hearing who presents from her PCPs office for worsening psychotic symptoms.? Patient's daughter and son-in-law both present.? Patient is pleasant, friendly on approach and alert and orientedx4.? She wants her daughter present and answer questions.? Patient herself says I know I am not the person I was a year ago... Referring to increased forgetfulness.? Patient's family and patient herself agree that patient seems to have burgeoning symptoms of dementia with increased forgetfulness and some confusion.? However over the last few weeks and maybe months, patient had increasingly intense paranoid delusions and auditory hallucinations.? Patient told report writer that the people on the television are talking to were, sometimes saying nice things, sometimes tricking her, sometimes saying scary and mean things.? One time she was told to get dressed up to go to a function however once she returned in nice clothes, the people told her to do this for gone.? Patient has felt threatened that she has to go on a trip which she cannot physically handle; she also thinks that some of these things started because she refused a prize from a game show and is now being punished for it.? Patient has called her daughter crying and yelling, feeling scared and threatened by AH and delusions.? It is not clear if she has visual hallucinations; 1 time she said she saw a man with his son however it remains unclear if this or other incidents are due to actual visual hallucinations or if she is simply misinterpreting something she saw on television.? No change in gait per daughter.? Patient's family is pursuing assisted living facility with which patient is agreeable.? There is a placement pending in the next few weeks at [facility] and patient is amenable to go.? Patient is afraid to go back to her house; her daughter is afraid for patient safety as she calls up crying and asking for help afraid of paranoid delusions.? Patient agrees to hospitalization for safety and treatment.? Supervisor Channel Process discussed possibility of antipsychotic medication its risks/side effects and family is amenable.? Patient healthcare proxy is her son. Impression: Patient suffers from burgeoning dementia; also has likely associated psychotic symptoms with paranoid delusions and auditory hallucinations; medically cleared and no other obvious, organic etiology Patient will soon go to assisted living place that is pending a bed and paperwork at [facility] Discussed with Dr. Sanchez who agrees with inpatient admission for safety and medication management patient agrees to hospitalization HCP son with daughter (present) as alternate Hospital course: 02/21 started on zyprexa 2.5mg qhs; remains pleasant; did not reference paranoid delusions; wants to leave hospital and signed 3 day PLAN: 3 day notice q15min continue home meds continue Zyprexa 2.5mg qhs for psychotic symptoms and associated anxiety On February 22 we are starting Aricept 5 mg p.o. q.h.s. to target dementia. In February 24 we increased up to 10 mg p.o. q.h.s.. On February 26 we start Namenda 5 mg p.o. q.h.s. 02/27 continue tx. 02/28 continue tx. Reason for continued inpatient stay Substantial Risk for: inability to function Time Spent With Patient Time: Total time managing care of this patient today ____ minutes.
[2023-02-28 18:00] VITALS: BP 142/65; PULSE 83; RESP 16; TEMP 36.1; O2SAT 98
[2023-02-28] MEDS: Melatonin 3 MG TABLET PO (21:07)
[2023-02-28] MEDS: Memantine HCl 5 MG TABLET PO (21:08)
[2023-02-28] MEDS: OLANZapine 2.5 MG TABLET PO (21:08)
[2023-02-28] MEDS: Donepezil HCl 10 MG TABLET PO (21:08)
[2023-02-28] MEDS: Acetaminophen 325 MG TABLET 650 MG PO (21:08)
[2023-02-28] MEDS: Artificial Tears Ophth Oint 3.5 GM TUBE 1 APPL EYE-BOTH (21:28)
[2023-03-01 08:00] VITALS: BP 150/67; PULSE 67; RESP 18; TEMP 36.1; O2SAT 98
[2023-03-01] MEDS: amLODIPine Besylate 5 MG TABLET PO (08:48)
[2023-03-01] MEDS: Fluticasone Propionate Nasal 16 GM SPRAY 1 SPRAY NOSTRIL-B (08:48)
[2023-03-01] MEDS: Atorvastatin Calcium 10 MG TABLET PO (08:48)
[2023-03-01] MEDS: Memantine HCl 5 MG TABLET PO ×2 (09:07→20:10)
--- NOTE | 2023-03-01 10:36 | HO.PSYCHPN ---
Subjective Subjective Date of Service: 03/01/23 Reason For Visit: psychotic symptoms Subjective Notes: Conditional Voluntary Interim History: The nursing staff reported the patient had been pleasant, social compliant with medications and she slept all well last night. The medical social worker reported that last Wednesday we have a family meeting and most likely she will be place. On interview the patient is pleasantly confused, she agreed to increase Namenda to 5 mg p.o. b.i.d.. Mental Status Exam Mental Status Exam Patient Appearance: Well Grooomed and Appropriate Patient Orientation: Person and Situation Level of Consciousness: Awake and Appropriate Patient Behavior: Guarded and Passive Mood Description: Withdrawn Affect Description: Calm Patient Cognition Impaired: Yes Ability to Follow Directions: Good Speech Pattern: Clear Hallucinations: None Delusions: Not Present Thought Process: Distracted and Evasive Thought Content: positive for Mission and positive for Poverty of Content Judgement: Fair Diagnostics Vital Signs (24Hr): Vital Signs - 24 hr 02/28/23 18:00 03/01/23 08:00 Temperature 97 F 96.9 F Pulse Rate 83 67 Respiratory Rate 16 18 Blood Pressure 142/65 H 150/67 H Pulse Oximetry 98 98 Oxygen Delivery Method Room Air Room Air BMI result Body Mass Index 18.3 Labs 02/18/23 16:18 02/18/23 16:18 Imaging Radiology Impressions: ITS Impressions Head CT 02/18/23 17:26 IMPRESSION: No acute intracranial process seen. Medications Medications Current Medications Acetaminophen (Acetaminophen 325 Mg Tablet) 650 mg PO Q6H PRN PRN Reason: Headache/Pain Mild Scale (1-3) Last Admin: 02/28/23 21:08 Dose: 650 mg Al Hydroxide/Mg Hydroxide (Magnesium Hydrox/Alum Hydrox 30 Ml Oral.Susp) 30 ml PO Q6H PRN PRN Reason: Heartburn/Nausea Amlodipine Besylate (Amlodipine Besylate 5 Mg Tablet) 5 mg PO DAILY LORA; Protocol Last Admin: 03/01/23 08:48 Dose: 5 mg Artificial Tears (Artificial Tears 15 Ml Drops) 2 drop EYE-BOTH Q4H PRN PRN Reason: Dry Eyes Last Admin: 02/23/23 20:25 Dose: 2 drop Atorvastatin Calcium (Atorvastatin Calcium 10 Mg Tablet) 10 mg PO DAILY LORA Last Admin: 03/01/23 08:48 Dose: 10 mg Donepezil HCl (Donepezil Hcl 10 Mg Tablet) 10 mg PO BEDTIME LORA Last Admin: 02/28/23 21:08 Dose: 10 mg Fluticasone Propionate (Fluticasone Propionate Nasal 16 Gm [place]) 1 spray NOSTRIL-B DAILY [facility]ORA Last Admin: 03/01/23 08:48 Dose: 1 spray Magnesium Hydroxide (Milk Of Magnesia 30 Ml Oral.Susp) 30 ml PO DAILY PRN PRN Reason: Constipation Last Admin: 02/28/23 08:55 Dose: 30 ml Meclizine HCl (Meclizine Hcl 25 Mg Tablet) 25 mg PO TID PRN PRN Reason: dizziness Melatonin (Melatonin 3 Mg Tablet) 3 mg PO BEDTIME PRN PRN Reason: Insomnia Last Admin: 02/28/23 21:07 Dose: 3 mg Memantine (Memantine Hcl 5 Mg Tablet) 5 mg PO BID LORA Last Admin: 03/01/23 09:07 Dose: 5 mg Multi-Ingred Cream/Lotion/Oil/Oint (Artificial Tears Ophth Oint 3.5 Gm Tube) 1 appl EYE-BOTH BEDTIME LORA; Protocol Last Admin: 02/28/23 21:28 Dose: 1 appl Olanzapine (Olanzapine 2.5 Mg Tablet) 2.5 mg PO BEDTIME LORA Last Admin: 02/28/23 21:08 Dose: 2.5 mg Olanzapine (Olanzapine 2.5 Mg Tablet) 2.5 mg PO BID PRN PRN Reason: Anxiety Last Admin: 02/21/23 01:17 Dose: 2.5 mg Ondansetron HCl (Ondansetron Odt 4 Mg Tab.Rapdis) 4 mg TRANSLINGU Q8H PRN PRN Reason: Nausea and Vomiting Allergies Allergies Allergy/AdvReac Type Severity Reaction Status Date / Time epinephrine [EPINEPHRINE] Allergy Unknown TACHYCARDIA,SHAKEY, Verified 08/12/22 13:12 tachycardia NSAIDS (Non-Steroidal Allergy Unknown Verified 09/17/22 19:19 Anti-Inflamma anesthesia Allergy Unknown difficulty Uncoded 02/29/20 00:00 waking up Assessment & Plan Assessment & Plan (1) Dementia: Status: Acute Code(s): F03.90 - Unspecified dementia, unspecified severity, without behavioral disturbance, psychotic disturbance, mood disturbance, and anxiety (2) Anxiety: Status: Acute Code(s): F41.9 - Anxiety disorder, unspecified (3) Psychosis: Status: Acute Code(s): F29 - Unspecified psychosis not due to a substance or known physiological condition Plan Patient is an 87-year-old female with history of? hypertension, hyperlipidemia, diabetes, arthritis including knees, hard of hearing who presents from her PCPs office for worsening psychotic symptoms.? Patient's daughter and son-in-law both present.? Patient is pleasant, friendly on approach and alert and orientedx4.? She wants her daughter present and answer questions.? Patient herself says I know I am not the person I was a year ago... Referring to increased forgetfulness.? Patient's family and patient herself agree that patient seems to have burgeoning symptoms of dementia with increased forgetfulness and some confusion.? However over the last few weeks and maybe months, patient had increasingly intense paranoid delusions and auditory hallucinations.? Patient told functional tester typewriters that the people on the television are talking to were, sometimes saying nice things, sometimes tricking her, sometimes saying scary and mean things.? One time she was told to get dressed up to go to a function however once she returned in nice clothes, the people told her to do this for gone.? Patient has felt threatened that she has to go on a trip which she cannot physically handle; she also thinks that some of these things started because she refused a prize from a game show and is now being punished for it.? Patient has called her daughter crying and yelling, feeling scared and threatened by AH and delusions.? It is not clear if she has visual hallucinations; 1 time she said she saw a man with his son however it remains unclear if this or other incidents are due to actual visual hallucinations or if she is simply misinterpreting something she saw on television.? No change in gait per daughter.? Patient's family is pursuing assisted living facility with which patient is agreeable.? There is a placement pending in the next few weeks at [facility] and patient is amenable to go.? Patient is afraid to go back to her house; her daughter is afraid for patient safety as she calls up crying and asking for help afraid of paranoid delusions.? Patient agrees to hospitalization for safety and treatment.? Science Center Display Builder discussed possibility of antipsychotic medication its risks/side effects and family is amenable.? Patient healthcare proxy is her son. Impression: Patient suffers from burgeoning dementia; also has likely associated psychotic symptoms with paranoid delusions and auditory hallucinations; medically cleared and no other obvious, organic etiology Patient will soon go to assisted living place that is pending a bed and paperwork at [facility] Discussed with Dr. Sanchez who agrees with inpatient admission for safety and medication management patient agrees to hospitalization HCP son with daughter (present) as alternate Hospital course: 02/21 started on zyprexa 2.5mg qhs; remains pleasant; did not reference paranoid delusions; wants to leave hospital and signed 3 day PLAN: 3 day notice q15min continue home meds continue Zyprexa 2.5mg qhs for psychotic symptoms and associated anxiety On February 22 we are starting Aricept 5 mg p.o. q.h.s. to target dementia. In February 24 we increased up to 10 mg p.o. q.h.s.. On February 26 we start Namenda 5 mg p.o. q.h.s. we increased up to 5 mg p.o. b.i.d. on March 01 Reason for continued inpatient stay Substantial Risk for: inability to function, rapid decompensation and med/psych decompensation Time Spent With Patient Time: Total time managing care of this patient today __20__ minutes.
[2023-03-01 18:00] VITALS: BP 136/65; PULSE 95; RESP 18; TEMP 36.6; O2SAT 100
[2023-03-01] MEDS: OLANZapine 2.5 MG TABLET PO (20:09)
[2023-03-01] MEDS: Donepezil HCl 10 MG TABLET PO (20:10)
[2023-03-01] MEDS: Artificial Tears Ophth Oint 3.5 GM TUBE 1 APPL EYE-BOTH (20:11)
[2023-03-01] MEDS: Melatonin 3 MG TABLET PO (21:00)
[2023-03-02 09:13] VITALS: BP 180/70; PULSE 84; RESP 18; TEMP 36.5; O2SAT 98
[2023-03-02] MEDS: amLODIPine Besylate 5 MG TABLET PO (09:15)
[2023-03-02] MEDS: Memantine HCl 5 MG TABLET PO (09:15)
[2023-03-02] MEDS: Fluticasone Propionate Nasal 16 GM SPRAY 1 SPRAY NOSTRIL-B (09:15)
[2023-03-02] MEDS: Atorvastatin Calcium 10 MG TABLET PO (09:15)
--- NOTE | 2023-03-02 09:35 | HO.PSYCHPN ---
Subjective Subjective Date of Service: 03/02/23 Reason For Visit: psychotic symptoms Subjective Notes: Conditional Voluntary Interim History: The nursing staff reported the patient had been anxious and irritable at times, she had been social with some peers. She slept well last night and she had been fully compliant with treatment. The high school social science teacher reported that we are going to refer her to a memory care unit. On interview the patient is pleasantly confused, no evidence of psychosis or agitation. Mental Status Exam Mental Status Exam Patient Appearance: Well Grooomed and Appropriate Patient Orientation: Person Level of Consciousness: Awake and Appropriate Patient Behavior: Guarded and Passive Mood Description: Withdrawn Affect Description: Constricted Patient Cognition Impaired: Yes Ability to Follow Directions: Good Speech Pattern: Clear Hallucinations: None Delusions: Not Present Thought Process: Distracted and Slowed Thinking Thought Content: positive for [place] and positive for Circumstantial Judgement: Fair Diagnostics Vital Signs (24Hr): Vital Signs - 24 hr 03/01/23 18:00 03/02/23 09:13 Temperature 97.8 F 97.7 F Pulse Rate 95 84 Respiratory Rate 18 18 Blood Pressure 136/65 180/70 H Pulse Oximetry 100 98 Oxygen Delivery Method Room Air BMI result Body Mass Index 18.3 Labs 02/18/23 16:18 02/18/23 16:18 Imaging Radiology Impressions: ITS Impressions Head CT 02/18/23 17:26 IMPRESSION: No acute intracranial process seen. Medications Medications Current Medications Acetaminophen (Acetaminophen 325 Mg Tablet) 650 mg PO Q6H PRN PRN Reason: Headache/Pain Mild Scale (1-3) Last Admin: 02/28/23 21:08 Dose: 650 mg Al Hydroxide/Mg Hydroxide (Magnesium Hydrox/Alum Hydrox 30 Ml Oral.Susp) 30 ml PO Q6H PRN PRN Reason: Heartburn/Nausea Amlodipine Besylate (Amlodipine Besylate 5 Mg Tablet) 5 mg PO DAILY LORA; Protocol Last Admin: 03/02/23 09:15 Dose: 5 mg Artificial Tears (Artificial Tears 15 Ml Drops) 2 drop EYE-BOTH Q4H PRN PRN Reason: Dry Eyes Last Admin: 02/23/23 20:25 Dose: 2 drop Atorvastatin Calcium (Atorvastatin Calcium 10 Mg Tablet) 10 mg PO DAILY LORA Last Admin: 03/02/23 09:15 Dose: 10 mg Donepezil HCl (Donepezil Hcl 10 Mg Tablet) 10 mg PO BEDTIME LORA Last Admin: 03/01/23 20:10 Dose: 10 mg Fluticasone Propionate (Fluticasone Propionate Nasal 16 Gm [place]) 1 spray NOSTRIL-B DAILY LORA Last Admin: 03/02/23 09:15 Dose: 1 spray Magnesium Hydroxide (Milk Of Magnesia 30 Ml Oral.Susp) 30 ml PO DAILY PRN PRN Reason: Constipation Last Admin: 02/28/23 08:55 Dose: 30 ml Meclizine HCl (Meclizine Hcl 25 Mg Tablet) 25 mg PO TID PRN PRN Reason: dizziness Melatonin (Melatonin 3 Mg Tablet) 3 mg PO BEDTIME PRN PRN Reason: Insomnia Last Admin: 03/01/23 21:00 Dose: 3 mg Memantine (Memantine Hcl 5 Mg Tablet) 5 mg PO BID LORA Last Admin: 03/02/23 09:15 Dose: 5 mg Multi-Ingred Cream/Lotion/Oil/Oint (Artificial Tears Ophth Oint 3.5 Gm Tube) 1 appl EYE-BOTH BEDTIME LORA; Protocol Last Admin: 03/01/23 20:11 Dose: 1 appl Olanzapine (Olanzapine 2.5 Mg Tablet) 2.5 mg PO BEDTIME LORA Last Admin: 03/01/23 20:09 Dose: 2.5 mg Olanzapine (Olanzapine 2.5 Mg Tablet) 2.5 mg PO BID PRN PRN Reason: Anxiety Last Admin: 02/21/23 01:17 Dose: 2.5 mg Ondansetron HCl (Ondansetron Odt 4 Mg Tab.Rapdis) 4 mg TRANSLINGU Q8H PRN PRN Reason: Nausea and Vomiting Allergies Allergies Allergy/AdvReac Type Severity Reaction Status Date / Time epinephrine [EPINEPHRINE] Allergy Unknown TACHYCARDIA,SHAKEY, Verified 08/12/22 13:12 tachycardia NSAIDS (Non-Steroidal Allergy Unknown Verified 09/17/22 19:19 Anti-Inflamma anesthesia Allergy Unknown difficulty Uncoded 02/29/20 00:00 waking up Assessment & Plan Assessment & Plan (1) Dementia: Status: Acute Code(s): F03.90 - Unspecified dementia, unspecified severity, without behavioral disturbance, psychotic disturbance, mood disturbance, and anxiety (2) Anxiety: Status: Acute Code(s): F41.9 - Anxiety disorder, unspecified (3) Psychosis: Status: Acute Code(s): F29 - Unspecified psychosis not due to a substance or known physiological condition Plan Patient is an 87-year-old female with history of? hypertension, hyperlipidemia, diabetes, arthritis including knees, hard of hearing who presents from her PCPs office for worsening psychotic symptoms.? Patient's daughter and son-in-law both present.? Patient is pleasant, friendly on approach and alert and orientedx4.? She wants her daughter present and answer questions.? Patient herself says I know I am not the person I was a year ago... Referring to increased forgetfulness.? Patient's family and patient herself agree that patient seems to have burgeoning symptoms of dementia with increased forgetfulness and some confusion.? However over the last few weeks and maybe months, patient had increasingly intense paranoid delusions and auditory hallucinations.? Patient told fiction and nonfiction writer prose that the people on the television are talking to were, sometimes saying nice things, sometimes tricking her, sometimes saying scary and mean things.? One time she was told to get dressed up to go to a function however once she returned in nice clothes, the people told her to do this for gone.? Patient has felt threatened that she has to go on a trip which she cannot physically handle; she also thinks that some of these things started because she refused a prize from a game show and is now being punished for it.? Patient has called her daughter crying and yelling, feeling scared and threatened by AH and delusions.? It is not clear if she has visual hallucinations; 1 time she said she saw a man with his son however it remains unclear if this or other incidents are due to actual visual hallucinations or if she is simply misinterpreting something she saw on television.? No change in gait per daughter.? Patient's family is pursuing assisted living facility with which patient is agreeable.? There is a placement pending in the next few weeks at [facility] and patient is amenable to go.? Patient is afraid to go back to her house; her daughter is afraid for patient safety as she calls up crying and asking for help afraid of paranoid delusions.? Patient agrees to hospitalization for safety and treatment.? Fire Extinguisher Technician discussed possibility of antipsychotic medication its risks/side effects and family is amenable.? Patient healthcare proxy is her son. Impression: Patient suffers from burgeoning dementia; also has likely associated psychotic symptoms with paranoid delusions and auditory hallucinations; medically cleared and no other obvious, organic etiology Patient will soon go to assisted living place that is pending a bed and paperwork at [facility] Discussed with Dr. Sanchez who agrees with inpatient admission for safety and medication management patient agrees to hospitalization HCP son with daughter (present) as alternate Hospital course: 02/21 started on zyprexa 2.5mg qhs; remains pleasant; did not reference paranoid delusions; wants to leave hospital and signed 3 day PLAN: 3 day notice q15min continue home meds continue Zyprexa 2.5mg qhs for psychotic symptoms and associated anxiety On February 22 we are starting Aricept 5 mg p.o. q.h.s. to target dementia. In February 24 we increased up to 10 mg p.o. q.h.s.. On February 26 we start Namenda 5 mg p.o. q.h.s. we increased up to 5 mg p.o. b.i.d. on March 01 Reason for continued inpatient stay Substantial Risk for: inability to function, rapid decompensation and med/psych decompensation Time Spent With Patient Time: Total time managing care of this patient today __20__ minutes.
[2023-03-02] MEDS: Milk of Magnesia 30 ML ORAL.SUSP PO (10:21)
[2023-03-02 18:00] VITALS: BP 131/76; PULSE 72; RESP 16; TEMP 36.4; O2SAT 98
[2023-03-02] MEDS: Melatonin 3 MG TABLET PO (19:43)
[2023-03-02] MEDS: OLANZapine 2.5 MG TABLET PO (19:43)
[2023-03-02] MEDS: Donepezil HCl 10 MG TABLET PO (19:44)
[2023-03-02] MEDS: Artificial Tears Ophth Oint 3.5 GM TUBE 1 APPL EYE-BOTH (19:45)
[2023-03-03 06:00] VITALS: BP 139/65; PULSE 80; RESP 16; O2SAT 96
[2023-03-03] MEDS: Atorvastatin Calcium 10 MG TABLET PO (08:42)
[2023-03-03] MEDS: Fluticasone Propionate Nasal 16 GM SPRAY 1 SPRAY NOSTRIL-B (08:42)
[2023-03-03] MEDS: amLODIPine Besylate 5 MG TABLET PO (08:42)
[2023-03-03] MEDS: Memantine HCl 5 MG TABLET PO (08:42)
--- NOTE | 2023-03-03 10:42 | P.PNPSI_ITS ---
Subjective Subjective Date of Service: 03/03/23 Reason For Visit: psychotic symptoms Subjective Notes: Conditional Voluntary Interim History: The nursing staff reported the patient is only alert to person. She has been perseverative regarding a banana that was taking of from his room. Yesterday she was pleasant and cooperative but very confused. The oncology social work reported that [facility] and they will come on Wednesday at 02:30 to assess her. Her daughter is working with a power of state's attorney for financial clearance. On interview the patient is pleasantly confused, easily redirectable. Mental Status Exam Mental Status Exam Patient Appearance: Well Grooomed and Appropriate Patient Orientation: Person Level of Consciousness: Awake Patient Behavior: Guarded and Passive Mood Description: Withdrawn Affect Description: Constricted Patient Cognition Impaired: Yes Ability to Follow Directions: Good Speech Pattern: Clear Hallucinations: None Delusions: Not Present Thought Process: Distracted and Evasive Judgement: Fair Diagnostics Vital Signs (24Hr): Vital Signs - 24 hr 03/02/23 18:00 03/03/23 06:00 Temperature 97.6 F Pulse Rate 72 80 Respiratory Rate 16 16 Blood Pressure 131/76 139/65 Pulse Oximetry 98 96 Oxygen Delivery Method Room Air Room Air BMI result Body Mass Index 18.3 Labs 02/18/23 16:18 02/18/23 16:18 Imaging Radiology Impressions: ITS Impressions Head CT 02/18/23 17:26 IMPRESSION: No acute intracranial process seen. Medications Medications Current Medications Acetaminophen (Acetaminophen 325 Mg Tablet) 650 mg PO Q6H PRN PRN Reason: Headache/Pain Mild Scale (1-3) Last Admin: 02/28/23 21:08 Dose: 650 mg Al Hydroxide/Mg Hydroxide (Magnesium Hydrox/Alum Hydrox 30 Ml Oral.Susp) 30 ml PO Q6H PRN PRN Reason: Heartburn/Nausea Amlodipine Besylate (Amlodipine Besylate 5 Mg Tablet) 5 mg PO DAILY LORA; Protocol Last Admin: 03/03/23 08:42 Dose: 5 mg Artificial Tears (Artificial Tears 15 Ml Drops) 2 drop EYE-BOTH Q4H PRN PRN Reason: Dry Eyes Last Admin: 02/23/23 20:25 Dose: 2 drop Atorvastatin Calcium (Atorvastatin Calcium 10 Mg Tablet) 10 mg PO DAILY [facility] Last Admin: 03/03/23 08:42 Dose: 10 mg Donepezil HCl (Donepezil Hcl 10 Mg Tablet) 10 mg PO BEDTIME LORA Last Admin: 03/02/23 19:44 Dose: 10 mg Fluticasone Propionate (Fluticasone Propionate Nasal 16 Gm [place]) 1 spray NOSTRIL-B DAILY LORA Last Admin: 03/03/23 08:42 Dose: 1 spray Magnesium Hydroxide (Milk Of Magnesia 30 Ml Oral.Susp) 30 ml PO DAILY PRN PRN Reason: Constipation Last Admin: 03/02/23 10:21 Dose: 30 ml Meclizine HCl (Meclizine Hcl 25 Mg Tablet) 25 mg PO TID PRN PRN Reason: dizziness Melatonin (Melatonin 3 Mg Tablet) 3 mg PO BEDTIME PRN PRN Reason: Insomnia Last Admin: 03/02/23 19:43 Dose: 3 mg Memantine (Memantine Hcl 10 Mg Tablet) 10 mg PO BID [facility] Multi-Ingred Cream/Lotion/Oil/Oint (Artificial Tears Ophth Oint 3.5 Gm Tube) 1 appl EYE-BOTH BEDTIME LORA; Protocol Last Admin: 03/02/23 19:45 Dose: 1 appl Olanzapine (Olanzapine 2.5 Mg Tablet) 2.5 mg PO BEDTIME LORA Last Admin: 03/02/23 19:43 Dose: 2.5 mg Olanzapine (Olanzapine 2.5 Mg Tablet) 2.5 mg PO BID PRN PRN Reason: Anxiety Last Admin: 02/21/23 01:17 Dose: 2.5 mg Ondansetron HCl (Ondansetron Odt 4 Mg Tab.Rapdis) 4 mg TRANSLINGU Q8H PRN PRN Reason: Nausea and Vomiting Allergies Allergies Allergy/AdvReac Type Severity Reaction Status Date / Time epinephrine [EPINEPHRINE] Allergy Unknown TACHYCARDIA,SHAKEY, Verified 08/12/22 13:12 tachycardia NSAIDS (Non-Steroidal Allergy Unknown Verified 09/17/22 19:19 Anti-Inflamma anesthesia Allergy Unknown difficulty Uncoded 02/29/20 00:00 waking up Assessment & Plan Assessment & Plan (1) Dementia: Status: Acute Code(s): F03.90 - Unspecified dementia, unspecified severity, without behavioral disturbance, psychotic disturbance, mood disturbance, and anxiety (2) Anxiety: Status: Acute Code(s): F41.9 - Anxiety disorder, unspecified (3) Psychosis: Status: Acute Code(s): F29 - Unspecified psychosis not due to a substance or known physiological condition Plan Patient is an 87-year-old female with history of? hypertension, hyperlipidemia, diabetes, arthritis including knees, hard of hearing who presents from her PCPs office for worsening psychotic symptoms.? Patient's daughter and son-in-law both present.? Patient is pleasant, friendly on approach and alert and orientedx4.? She wants her daughter present and answer questions.? Patient herself says I know I am not the person I was a year ago... Referring to increased forgetfulness.? Patient's family and patient herself agree that patient seems to have burgeoning symptoms of dementia with increased forgetfulness and some confusion.? However over the last few weeks and maybe months, patient had increasingly intense paranoid delusions and auditory hallucinations.? Patient told curriculum writer that the people on the television are talking to were, sometimes say ing nice things, sometimes tricking her, sometimes saying scary and mean things.? One time she was told to get dressed up to go to a function however once she returned in nice clothes, the people told her to do this for gone.? Patient has felt threatened that she has to go on a trip which she cannot physically handle; she also thinks that some of these things started because she refused a prize from a game show and is now being punished for it.? Patient has called her daughter crying and yelling, feeling scared and threatened by AH and delusions.? It is not clear if she has visual hallucinations; 1 time she said she saw a man with his son however it remains unclear if this or other incidents are due to actual visual hallucinations or if she is simply misinterpreting something she saw on television.? No change in gait per daughter.? Patient's family is pursuing assisted living facility with which patient is agreeable.? There is a placement pending in the next few weeks at [facility] and patient is amenable to go.? Patient is afraid to go back to her house; her daughter is afraid for patient safety as she calls up crying and asking for help afraid of paranoid delusions.? Patient agrees to hospitalization for safety and treatment.? Endodontist discussed possibility of antipsychotic medication its risks/side effects and family is amenable.? Patient healthcare proxy is her son. Impression: Patient suffers from burgeoning dementia; also has likely associated psychotic symptoms with paranoid delusions and auditory hallucinations; medically cleared and no other obvious, organic etiology Patient will soon go to assisted living place that is pending a bed and paperwork at [facility] Discussed with Dr. Sanchez who agrees with inpatient admission for safety and medication management patient agrees to hospitalization HCP son with daughter (present) as alternate Hospital course: 02/21 started on zyprexa 2.5mg qhs; remains pleasant; did not reference paranoid delusions; wants to leave hospital and signed 3 day PLAN: 3 day notice q15min continue home meds continue Zyprexa 2.5mg qhs for psychotic symptoms and associated anxiety On February 22 we are starting Aricept 5 mg p.o. q.h.s. to target dementia. In February 24 we increased up to 10 mg p.o. q.h.s.. On February 26 we start Namenda 5 mg p.o. q.h.s. we increased up to 5 mg p.o. b.i.d. on March 01. On March 03 we increased up to on Namenda 10 mg p.o. b.i.d. to target dementia. In March 05 we will have staff [facility] [place] [facility] to assess her at 14:30. Reason for continued inpatient stay Substantial Risk for: inability to function, rapid decompensation and med/psych decompensation Time Spent With Patient Time: Total time managing care of this patient today __20__ minutes.
[2023-03-03 19:58] VITALS: BP 142/64; PULSE 74; RESP 18; TEMP 36.3; O2SAT 97
[2023-03-03] MEDS: Donepezil HCl 10 MG TABLET PO (20:56)
[2023-03-03] MEDS: OLANZapine 2.5 MG TABLET PO (20:56)
[2023-03-03] MEDS: Memantine HCl 10 MG TABLET PO (20:56)
[2023-03-03] MEDS: Artificial Tears Ophth Oint 3.5 GM TUBE 1 APPL EYE-BOTH (20:58)
[2023-03-04 07:00] VITALS: BMI 18.3
[2023-03-04 08:00] VITALS: BP 124/76; PULSE 102; RESP 18; TEMP 36.5; O2SAT 99
[2023-03-04] MEDS: amLODIPine Besylate 5 MG TABLET PO (08:47)
[2023-03-04] MEDS: Memantine HCl 10 MG TABLET PO ×2 (08:47→20:36)
[2023-03-04] MEDS: Atorvastatin Calcium 10 MG TABLET PO (08:47)
--- NOTE | 2023-03-04 11:04 | HO.PSYCHPN ---
Subjective Subjective Date of Service: 03/04/23 Reason For Visit: psychotic symptoms Subjective Notes: Conditional Voluntary Interim History: The nursing staff reported the patient has been confused common cooperative and easily redirectable. The social research assistant reported that [facility] in [facility] staff will come and assess her for placement. On interview the patient is confused asking for discharge, unable to remember the conversation of yesterday. No safety concerns, waiting for proper placement. Mental Status Exam Mental Status Exam Patient Appearance: Well Grooomed Patient Orientation: Person and Situation Level of Consciousness: Awake and Appropriate Patient Behavior: Guarded and Passive Mood Description: Calm Affect Description: Constricted Patient Cognition Impaired: Yes Ability to Follow Directions: Good Speech Pattern: Clear Hallucinations: None Delusions: Not Present Thought Process: Distracted, Evasive and Slowed Thinking Thought Content: positive for [place] and positive for Poverty of Content Judgement: Fair Diagnostics Vital Signs (24Hr): Vital Signs - 24 hr 03/03/23 19:58 03/04/23 08:00 Temperature 97.3 F 97.7 F Pulse Rate 74 102 H Respiratory Rate 18 18 Blood Pressure 142/64 H 124/76 Pulse Oximetry 97 99 Oxygen Delivery Method Room Air Room Air BMI result Body Mass Index 18.3 Labs 02/18/23 16:18 02/18/23 16:18 Imaging Radiology Impressions: ITS Impressions Head CT 02/18/23 17:26 IMPRESSION: No acute intracranial process seen. Medications Medications Current Medications Acetaminophen (Acetaminophen 325 Mg Tablet) 650 mg PO Q6H PRN PRN Reason: Headache/Pain Mild Scale (1-3) Last Admin: 02/28/23 21:08 Dose: 650 mg Al Hydroxide/Mg Hydroxide (Magnesium Hydrox/Alum Hydrox 30 Ml Oral.Susp) 30 ml PO Q6H PRN PRN Reason: Heartburn/Nausea Amlodipine Besylate (Amlodipine Besylate 5 Mg Tablet) 5 mg PO DAILY LORA; Protocol Last Admin: 03/04/23 08:47 Dose: 5 mg Artificial Tears (Artificial Tears 15 Ml Drops) 2 drop EYE-BOTH Q4H PRN PRN Reason: Dry Eyes Last Admin: 02/23/23 20:25 Dose: 2 drop Atorvastatin Calcium (Atorvastatin Calcium 10 Mg Tablet) 10 mg PO DAILY LORA Last Admin: 03/04/23 08:47 Dose: 10 mg Donepezil HCl (Donepezil Hcl 10 Mg Tablet) 10 mg PO BEDTIME LORA Last Admin: 03/03/23 20:56 Dose: 10 mg Fluticasone Propionate (Fluticasone Propionate Nasal 16 Gm [place]) 1 spray NOSTRIL-B DAILY LORA Last Admin: 03/04/23 08:48 Dose: Not Given Magnesium Hydroxide (Milk Of Magnesia 30 Ml Oral.Susp) 30 ml PO DAILY PRN PRN Reason: Constipation Last Admin: 03/02/23 10:21 Dose: 30 ml Meclizine HCl (Meclizine Hcl 25 Mg Tablet) 25 mg PO TID PRN PRN Reason: dizziness Melatonin (Melatonin 3 Mg Tablet) 3 mg PO BEDTIME PRN PRN Reason: Insomnia Last Admin: 03/02/23 19:43 Dose: 3 mg Memantine (Memantine Hcl 10 Mg Tablet) 10 mg PO BID LORA Last Admin: 03/04/23 08:47 Dose: 10 mg Multi-Ingred Cream/Lotion/Oil/Oint (Artificial Tears Ophth Oint 3.5 Gm Tube) 1 appl EYE-BOTH BEDTIME LORA; Protocol Last Admin: 03/03/23 20:58 Dose: 1 appl Olanzapine (Olanzapine 2.5 Mg Tablet) 2.5 mg PO BEDTIME LORA Last Admin: 03/03/23 20:56 Dose: 2.5 mg Olanzapine (Olanzapine 2.5 Mg Tablet) 2.5 mg PO BID PRN PRN Reason: Anxiety Last Admin: 02/21/23 01:17 Dose: 2.5 mg Ondansetron HCl (Ondansetron Odt 4 Mg Tab.Rapdis) 4 mg TRANSLINGU Q8H PRN PRN Reason: Nausea and Vomiting Allergies Allergies Allergy/AdvReac Type Severity Reaction Status Date / Time epinephrine [EPINEPHRINE] Allergy Unknown TACHYCARDIA,SHAKEY, Verified 08/12/22 13:12 tachycardia NSAIDS (Non-Steroidal Allergy Unknown Verified 09/17/22 19:19 Anti-Inflamma anesthesia Allergy Unknown difficulty Uncoded 02/29/20 00:00 waking up Assessment & Plan Assessment & Plan (1) Dementia: Status: Acute Code(s): F03.90 - Unspecified dementia, unspecified severity, without behavioral disturbance, psychotic disturbance, mood disturbance, and anxiety (2) Anxiety: Status: Acute Code(s): F41.9 - Anxiety disorder, unspecified (3) Psychosis: Status: Acute Code(s): F29 - Unspecified psychosis not due to a substance or known physiological condition Plan Patient is an 87-year-old female with history of? hypertension, hyperlipidemia, diabetes, arthritis including knees, hard of hearing who presents from her PCPs office for worsening psychotic symptoms.? Patient's daughter and son-in-law both present.? Patient is pleasant, friendly on approach and alert and orientedx4.? She wants her daughter present and answer questions.? Patient herself says I know I am not the person I was a year ago... Referring to increased forgetfulness.? Patient's family and patient herself agree that patient seems to have burgeoning symptoms of dementia with increased forgetfulness and some confusion.? However over the last few weeks and maybe months, patient had increasingly intense paranoid delusions and auditory hallucinations.? Patient told chief underwriter that the people on the television are talking to were, sometimes saying nice things, sometimes tricking her, sometimes saying scary and mean things.? One time she was told to get dressed up to go to a function however once she returned in nice clothes, the people told her to do this for gone.? Patient has felt threatened that she has to go on a trip which she cannot physically handle; she also thinks that some of these things started because she refused a prize from a game show and is now being punished for it.? Patient has called her daughter crying and yelling, feeling scared and threatened by AH and delusions.? It is not clear if she has visual hallucinations; 1 time she said she saw a man with his son however it remains unclear if this or other incidents are due to actual visual hallucinations or if she is simply misinterpreting something she saw on television.? No change in gait per daughter.? Patient's family is pursuing assisted living facility with which patient is agreeable.? There is a placement pending in the next few weeks at [facility] and patient is amenable to go.? Patient is afraid to go back to her house; her daughter is afraid for patient safety as she calls up crying and asking for help afraid of paranoid delusions.? Patient agrees to hospitalization for safety and treatment.? Plasticator discussed possibility of antipsychotic medication its risks/side effects and family is amenable.? Patient healthcare proxy is her son. Impression: Patient suffers from burgeoning dementia; also has likely associated psychotic symptoms with paranoid delusions and auditory hallucinations; medically cleared and no other obvious, organic etiology Patient will soon go to assisted living place that is pending a bed and paperwork at [facility] Discussed with Dr. Sanchez who agrees with inpatient admission for safety and medication management patient agrees to hospitalization HCP son with daughter (present) as alternate Hospital course: 02/21 started on zyprexa 2.5mg qhs; remains pleasant; did not reference paranoid delusions; wants to leave hospital and signed 3 day PLAN: 3 day notice q15min continue home meds continue Zyprexa 2.5mg qhs for psychotic symptoms and associated anxiety On February 22 we are starting Aricept 5 mg p.o. q.h.s. to target dementia. In February 24 we increased up to 10 mg p.o. q.h.s.. On February 26 we start Namenda 5 mg p.o. q.h.s. we increased up to 5 mg p.o. b.i.d. on March 01. On March 03 we increased up to on Namenda 10 mg p.o. b.i.d. to target dementia. In March 05 we will have staff from [facility] to assess her at 14:30. Reason for continued inpatient stay Substantial Risk for: inability to function, rapid decompensation and med/psych decompensation Time Spent With Patient Time: Total time managing care of this patient today __20__ minutes.
[2023-03-04 19:48] VITALS: BP 138/61; PULSE 55; RESP 16; TEMP 36.4; O2SAT 97
[2023-03-04] MEDS: OLANZapine 2.5 MG TABLET PO (20:34)
[2023-03-04] MEDS: Donepezil HCl 10 MG TABLET PO (20:34)
[2023-03-04] MEDS: Acetaminophen 325 MG TABLET 650 MG PO (20:35)
[2023-03-05 08:00] VITALS: BP 155/74; PULSE 70; RESP 16; TEMP 36.3; O2SAT 100
[2023-03-05] MEDS: amLODIPine Besylate 5 MG TABLET PO (10:23)
[2023-03-05] MEDS: Memantine HCl 10 MG TABLET PO ×2 (10:23→21:07)
[2023-03-05] MEDS: Atorvastatin Calcium 10 MG TABLET PO (10:23)
--- NOTE | 2023-03-05 12:03 | P.PNPSI_ITS ---
Subjective Subjective Date of Service: 03/05/23 Reason For Visit: psychotic symptoms Subjective Notes: Conditional Voluntary Interim History: The nursing staff reported the patient slept well, she ate all her meals and she was been compliant with medication. No changes in her mental status. The social welfare research worker reported that today at 11:00 o'clock will come staff from assisted living facility in [place] to assess her and a 14:30 they will come staff from a [facility] facility to assess her too. On interview the patient denies new symptoms, pleasantly confused easily redirectable. Mental Status Exam Mental Status Exam Patient Appearance: Well Grooomed and Appropriate Patient Orientation: Person and Situation Level of Consciousness: Awake and Appropriate Patient Behavior: Guarded and Passive Mood Description: Withdrawn Affect Description: Constricted Patient Cognition Impaired: Yes Ability to Follow Directions: Good Speech Pattern: Clear Hallucinations: None Delusions: Not Present Thought Process: Linear Thought Content: positive for [place] and positive for Poverty of Content Judgement: Fair Diagnostics Vital Signs (24Hr): Vital Signs - 24 hr 03/04/23 19:48 03/05/23 08:00 Temperature 97.6 F 97.3 F Pulse Rate 55 70 Respiratory Rate 16 16 Blood Pressure 138/61 155/74 H Pulse Oximetry 97 100 Oxygen Delivery Method Room Air Room Air BMI result Body Mass Index 18.3 Labs 02/18/23 16:18 02/18/23 16:18 Imaging Radiology Impressions: ITS Impressions Head CT 02/18/23 17:26 IMPRESSION: No acute intracranial process seen. Medications Medications Current Medications Acetaminophen (Acetaminophen 325 Mg Tablet) 650 mg PO Q6H PRN PRN Reason: Headache/Pain Mild Scale (1-3) Last Admin: 03/04/23 20:35 Dose: 650 mg Al Hydroxide/Mg Hydroxide (Magnesium Hydrox/Alum Hydrox 30 Ml Oral.Susp) 30 ml PO Q6H PRN PRN Reason: Heartburn/Nausea Amlodipine Besylate (Amlodipine Besylate 5 Mg Tablet) 5 mg PO [facility]; Protocol Last Admin: 03/05/23 10:23 Dose: 5 mg Artificial Tears (Artificial Tears 15 Ml Drops) 2 drop EYE-BOTH Q4H PRN PRN Reason: Dry Eyes Last Admin: 02/23/23 20:25 Dose: 2 drop Atorvastatin Calcium (Atorvastatin Calcium 10 Mg Tablet) 10 mg PO [facility] Last Admin: 07/28/23 10:23 Dose: 10 mg Donepezil HCl (Donepezil Hcl 10 Mg Tablet) 10 mg PO BEDTIME [facility] Last Admin: 03/04/23 20:34 Dose: 10 mg Fluticasone Propionate (Fluticasone Propionate Nasal 16 Gm [place]) 1 spray NOSTRIL-B DAILY [facility] Last Admin: 03/05/23 10:23 Dose: Not Given Magnesium Hydroxide (Milk Of Magnesia 30 Ml Oral.Susp) 30 ml PO DAILY PRN PRN Reason: Constipation Last Admin: 03/02/23 10:21 Dose: 30 ml Meclizine HCl (Meclizine Hcl 25 Mg Tablet) 25 mg PO TID PRN PRN Reason: dizziness Melatonin (Melatonin 3 Mg Tablet) 3 mg PO BEDTIME PRN PRN Reason: Insomnia Last Admin: 03/02/23 19:43 Dose: 3 mg Memantine (Memantine Hcl 10 Mg Tablet) 10 mg PO BID [facility] Last Admin: 03/05/23 10:23 Dose: 10 mg Multi-Ingred Cream/Lotion/Oil/Oint (Artificial Tears Ophth Oint 3.5 Gm Tube) 1 appl EYE-BOTH BEDTIME [facility]; Protocol Last Admin: 03/04/23 20:41 Dose: Not Given Olanzapine (Olanzapine 2.5 Mg Tablet) 2.5 mg PO BEDTIME [facility] Last Admin: 03/04/23 20:34 Dose: 2.5 mg Olanzapine (Olanzapine 2.5 Mg Tablet) 2.5 mg PO BID PRN PRN Reason: Anxiety Last Admin: 02/21/23 01:17 Dose: 2.5 mg Ondansetron HCl (Ondansetron Odt 4 Mg Tab.Rapdis) 4 mg TRANSLINGU Q8H PRN PRN Reason: Nausea and Vomiting Allergies Allergies Allergy/AdvReac Type Severity Reaction Status Date / Time epinephrine [EPINEPHRINE] Allergy Unknown TACHYCARDIA,SHAKEY, Verified 08/12/22 13:12 tachycardia NSAIDS (Non-Steroidal Allergy Unknown Verified 09/17/22 19:19 Anti-Inflamma anesthesia Allergy Unknown difficulty Uncoded 02/29/20 00:00 waking up Assessment & Plan Assessment & Plan (1) Dementia: Status: Acute Code(s): F03.90 - Unspecified dementia, unspecified severity, without behavioral di sturbance, psychotic disturbance, mood disturbance, and anxiety (2) Anxiety: Status: Acute Code(s): F41.9 - Anxiety disorder, unspecified (3) Psychosis: Status: Acute Code(s): F29 - Unspecified psychosis not due to a substance or known physiological condition Plan Patient is an 87-year-old female with history of? hypertension, hyperlipidemia, diabetes, arthritis including knees, hard of hearing who presents from her PCPs office for worsening psychotic symptoms.? Patient's daughter and son-in-law both present.? Patient is pleasant, friendly on approach and alert and orientedx4.? She wants her daughter present and answer questions.? Patient herself says I know I am not the person I was a year ago... Referring to increased forgetfulness.? Patient's family and patient herself agree that patient seems to have burgeoning symptoms of dementia with increased forgetfulness and some conf usion.? However over the last few weeks and maybe months, patient had increasingly intense paranoid delusions and auditory hallucinations.? Patient told sports writer that the people on the television are talking to were, sometimes saying nice things, sometimes tricking her, sometimes saying scary and mean things.? One time she was told to get dressed up to go to a function however once she returned in nice clothes, the people told her to do this for gone.? Patient has felt threatened that she has to go on a trip which she cannot physically handle; she also thinks that some of these things started because she refused a prize from a game show and is now being punished for it.? Patient has called her daughter crying and yelling, feeling scared and threatened by AH and delusions.? It is not clear if she has visual hallucinations; 1 time she said she saw a man with his son however it remains unclear if this or other incidents are due to actual visual hallucinations or if she is simply misinterpreting something she saw on television.? No change in gait per daughter.? Patient's family is pursuing assisted living facility with which patient is agreeable.? There is a placement pending in the next few weeks at [facility] and patient is amenable to go.? Patient is afraid to go back to her house; her daughter is afraid for patient safety as she calls up crying and asking for help afraid of paranoid delusions.? Patient agrees to hospitalization for safety and treatment.? Petroleum Refining Equipment Operator discussed possibility of antipsychotic medication its risks/side effects and family is amenable.? Patient healthcare proxy is her son. Impression: Patient suffers from burgeoning dementia; also has likely associated psychotic symptoms with paranoid delusions and auditory hallucinations; medically cleared and no other obvious, organic etiology Patient will soon go to assisted living place that is pending a bed and paperwork at [facility] Discussed with Dr. Sanchez who agrees with inpatient admission for safety and medication management patient agrees to hospitalization HCP son with daughter (present) as alternate Hospital course: 02/21 started on zyprexa 2.5mg qhs; remains pleasant; did not reference paranoid delusions; wants to leave hospital and signed 3 day PLAN: 3 day notice q15min continue home meds continue Zyprexa 2.5mg qhs for psychotic symptoms and associated anxiety On February 22 we are starting Aricept 5 mg p.o. q.h.s. to target dementia. In February 24 we increased up to 10 mg p.o. q.h.s.. On February 26 we start Namenda 5 mg p.o. q.h.s. we increased up to 5 mg p.o. b.i.d. on March 01. On March 03 we increased up to on Namenda 10 mg p.o. b.i.d. to target dementia. In March 05 we will have staff from [facility] facility to assess her at 14:30. Reason for continued inpatient stay Substantial Risk for: inability to function, rapid decompensation and med/psych decompensation Time Spent With Patient Time: Total time managing care of this patient today __20__ minutes.
--- NOTE | 2023-03-05 14:39 | MHC.CLN ---
F/U DIET=REGULAR. ENSURE BID TO INCREASE NUTRITIONAL INTAKE. SUPPLEMENT PROVIDES 700 KCALS, 40 G PROTEIN. APPEARS TO BE EATING WELL. FOLLOW WEEKLY FOR INTAKE AND WEIGHT.
[2023-03-05 18:00] VITALS: BP 168/74; PULSE 75; RESP 18; TEMP 36.3; O2SAT 99
[2023-03-05] MEDS: Artificial Tears Ophth Oint 3.5 GM TUBE 1 APPL EYE-BOTH (21:07)
[2023-03-05] MEDS: Donepezil HCl 10 MG TABLET PO (21:07)
[2023-03-05] MEDS: OLANZapine 2.5 MG TABLET PO (21:07)
[2023-03-06 06:00] VITALS: BP 156/72; PULSE 68; RESP 16; TEMP 36.4; O2SAT 99
--- NOTE | 2023-03-06 08:11 | P.PNPSI_ITS ---
Subjective Subjective Date of Service: 03/06/23 Reason For Visit: psychotic symptoms Subjective Notes: Conditional Voluntary Interim History: The nursing staff reported the patient had been alert to self, pleasantly confused compliant with medications. Yesterday she was slightly dizzy with her medications in the morning. On interview the patient is pleasantly confused no changes in mental status. Mental Status Exam Mental Status Exam Patient Appearance: Well Grooomed and Appropriate Patient Orientation: Person and Situation Level of Consciousness: Awake and Appropriate Patient Behavior: Guarded and Passive Mood Description: Withdrawn Affect Description: Constricted Patient Cognition Impaired: Yes Ability to Follow Directions: Good Speech Pattern: Clear Hallucinations: None Delusions: Not Present Thought Process: Distracted and Slowed Thinking Thought Content: positive for [place], positive for Poverty of Content and positive for Thought Blocking Judgement: Fair Diagnostics Vital Signs (24Hr): Vital Signs - 24 hr 03/05/23 18:00 Temperature 97.4 F Pulse Rate 75 Respiratory Rate 18 Blood Pressure 168/74 H Pulse Oximetry 99 Oxygen Delivery Method Room Air BMI result Body Mass Index 18.3 Labs 02/18/23 16:18 02/18/23 16:18 Imaging Radiology Impressions: ITS Impressions Head CT 02/18/23 17:26 IMPRESSION: No acute intracranial process seen. Medications Medications Current Medications Acetaminophen (Acetaminophen 325 Mg Tablet) 650 mg PO Q6H PRN PRN Reason: Headache/Pain Mild Scale (1-3) Last Admin: 03/04/23 20:35 Dose: 650 mg Al Hydroxide/Mg Hydroxide (Magnesium Hydrox/Alum Hydrox 30 Ml Oral.Susp) 30 ml PO Q6H PRN PRN Reason: Heartburn/Nausea Amlodipine Besylate (Amlodipine Besylate 5 Mg Tablet) 5 mg PO DAILY [facility]; Protocol Last Admin: 03/05/23 10:23 Dose: 5 mg Artificial Tears (Artificial Tears 15 Ml Drops) 2 drop EYE-BOTH Q4H PRN PRN Reason: Dry Eyes Last Admin: 02/23/23 20:25 Dose: 2 drop Atorvastatin Calcium (Atorvastatin Calcium 10 Mg Tablet) 10 mg PO DAILY [facility] Last Admin: 03/05/23 10:23 Dose: 10 mg Donepezil HCl (Donepezil Hcl 10 Mg Tablet) 10 mg PO BEDTIME [facility] Last Admin: 03/05/23 21:07 Dose: 10 mg Fluticasone Propionate (Fluticasone Propionate Nasal 16 Gm [place]) 1 spray NOSTRIL-B DAILY [facility] Last Admin: 03/05/23 10:23 Dose: Not Given Magnesium Hydroxide (Milk Of Magnesia 30 Ml Oral.Susp) 30 ml PO DAILY PRN PRN Reason: Constipation Last Admin: 03/02/23 10:21 Dose: 30 ml Meclizine HCl (Meclizine Hcl 25 Mg Tablet) 25 mg PO TID PRN PRN Reason: dizziness Melatonin (Melatonin 3 Mg Tablet) 3 mg PO BEDTIME PRN PRN Reason: Insomnia Last Admin: 03/02/23 19:43 Dose: 3 mg Memantine (Memantine Hcl 10 Mg Tablet) 10 mg PO BID [facility] Last Admin: 03/05/23 21:07 Dose: 10 mg Multi-Ingred Cream/Lotion/Oil/Oint (Artificial Tears Ophth Oint 3.5 Gm Tube) 1 appl EYE-BOTH BEDTIME [facility]; Protocol Last Admin: 03/05/23 21:07 Dose: 1 appl Olanzapine (Olanzapine 2.5 Mg Tablet) 2.5 mg PO BEDTIME [facility] Last Admin: 03/05/23 21:07 Dose: 2.5 mg Olanzapine (Olanzapine 2.5 Mg Tablet) 2.5 mg PO BID PRN PRN Reason: Anxiety Last Admin: 02/21/23 01:17 Dose: 2.5 mg Ondansetron HCl (Ondansetron Odt 4 Mg Tab.Rapdis) 4 mg TRANSLINGU Q8H PRN PRN Reason: Nausea and Vomiting Allergies Allergies Allergy/AdvReac Type Severity Reaction Status Date / Time epinephrine [EPINEPHRINE] Allergy Unknown TACHYCARDIA,SHAKEY, Verified 08/12/22 13:12 tachycardia NSAIDS (Non-Steroidal Allergy Unknown Verified 09/17/22 19:19 Anti-Inflamma anesthesia Allergy Unknown difficulty Uncoded 02/29/20 00:00 waking up Assessment & Plan Assessment & Plan (1) Dementia: Status: Acute Code(s): F03.90 - Unspecified dementia, unspecified severity, without behavioral disturbance, psychotic disturbance, mood disturbance, and anxiety (2) Anxiety: Status: Acute Code(s): F41.9 - Anxiety disorder, unspecified (3) Psychosis: Status: Acute Code(s): F29 - Unspecified psychosis not due to a substance or known physiological condition Plan Patient is an 87-year-old female with history of? hypertension, hyperlipidemia, diabetes, arthritis including knees, hard of hearing who presents from her PCPs office for worsening psychotic symptoms.? Patient's daughter and son-in-law both present.? Patient is pleasant, friendly on approach and alert and orientedx4.? She wants her daughter present and answer questions.? Patient herself says I know I am not the person I was a year ago... Referring to increased forgetfulness.? Patient's family and patient herself agree that patient seems to have burgeoning symptoms of dementia with increased forgetfulness and some confusion.? However over the last few weeks and maybe months, patient had increasingly intense paranoid delusions and auditory hallucinations.? Patient told conventional underwriter that the people on the television are talking to were, sometimes saying nice things, sometimes tricking her, sometimes saying scary and mean things.? One time she was told to get dressed up to go to a function however once she returned in nice clothes, the people told her to do this for gone.? Patient has felt threatened that she has to go on a trip which she cannot physically handle; she also thinks that some of these things started because she refused a prize from a game show and is now being punished for it.? Patient has called her daughter crying and yelling, feeling scared and threatened by AH and delusions.? It is not clear if she has visual hallucinations; 1 time she said she saw a man with his son however it remains unclear if this or other incidents are due to actual visual hallucinations or if she is simply misinterpreting something she saw on television.? No change in gait per daughter.? Patient's family is pursuing assisted living facility with which patient is agreeable.? There is a placement pending in the next few weeks at [facility] and patient is amenable to go.? Patient is afraid to go back to her house; her daughter is afraid for patient safety as she calls up crying and asking for help afraid of paranoid delusions.? Patient agrees to hospitalization for safety and treatment.? Electrical Plumbing Supervisor discussed possibility of antipsychotic medication its risks/side effects and family is amenable.? Patient healthcare proxy is her son. Impression: Patient suffers from burgeoning dementia; also has likely associated psychotic symptoms with paranoid delusions and auditory hallucinations; medically cleared and no other obvious, organic etiology Patient will soon go to assisted living place that is pending a bed and paperwork at [facility] Discussed with Dr. Sanchez who agrees with inpatient admission for safety and medication management patient agrees to hospitalization HCP son with daughter (present) as alternate Hospital course: 02/21 started on zyprexa 2.5mg qhs; remains pleasant; did not reference paranoid delusions; wants to leave hospital and signed 3 day PLAN: 3 day notice q15min continue home meds continue Zyprexa 2.5mg qhs for psychotic symptoms and associated anxiety On February 22 we are starting Aricept 5 mg p.o. q.h.s. to target dementia. In February 24 we increased up to 10 mg p.o. q.h.s.. On February 26 we start Namenda 5 mg p.o. q.h.s. we increased up to 5 mg p.o. b.i.d. on March 01. On March 03 we increased up to on Namenda 10 mg p.o. b.i.d. to target dementia. In March 05 we will have staff from the senior care facility to assess her at 14:30. Reason for continued inpatient stay Substantial Risk for: inability to function, rapid decompensation and med/psych decompensation Time Spent With Patient Time: Total time managing care of this patient today _20___ minutes.
[2023-03-06] MEDS: amLODIPine Besylate 5 MG TABLET PO (10:29)
[2023-03-06] MEDS: Atorvastatin Calcium 10 MG TABLET PO (10:29)
[2023-03-06] MEDS: Memantine HCl 10 MG TABLET PO ×2 (10:29→20:00)
[2023-03-06 18:00] VITALS: BP 138/65; PULSE 74; RESP 18; TEMP 36.6; O2SAT 98
[2023-03-06] MEDS: OLANZapine 2.5 MG TABLET PO (20:00)
[2023-03-06] MEDS: Artificial Tears Ophth Oint 3.5 GM TUBE 1 APPL EYE-BOTH (20:00)
[2023-03-06] MEDS: Donepezil HCl 10 MG TABLET PO (20:00)
[2023-03-07 06:00] VITALS: BP 123/62; PULSE 68; RESP 16; TEMP 36.1; O2SAT 99
--- NOTE | 2023-03-07 08:37 | P.PNPSI_ITS ---
Subjective Subjective Date of Service: 03/07/23 Reason For Visit: psychotic symptoms Subjective Notes: Conditional Voluntary Interim History: The nursing staff reported the patient had been medication compliant, having on her meals. She slept well last night. On interview the patient is pleasantly confused, waiting for placement. Her daughter came and the patient expected to go back to her home but she is going to SNF and she was upset with that. Mental Status Exam Mental Status Exam Patient Appearance: Well Grooomed and Appropriate Patient Orientation: Person and Situation Level of Consciousness: Awake and Appropriate Patient Behavior: Guarded and Passive Mood Description: Withdrawn Affect Description: Constricted Patient Cognition Impaired: Yes Ability to Follow Directions: Good Speech Pattern: Clear Hallucinations: None Delusions: Not Present Thought Process: Distracted, Slowed Thinking and Confusion Thought Content: positive for [place] and positive for [place] Judgement: Fair Diagnostics Vital Signs (24Hr): Vital Signs - 24 hr 03/06/23 18:00 03/07/23 06:00 Temperature 97.8 F 96.9 F Pulse Rate 74 68 Respiratory Rate 18 16 Blood Pressure 138/65 123/62 Pulse Oximetry 98 99 Oxygen Delivery Method Room Air Room Air BMI result Body Mass Index 18.3 Labs 02/18/23 16:18 02/18/23 16:18 Imaging Radiology Impressions: ITS Impressions Head CT 02/18/23 17:26 IMPRESSION: No acute intracranial process seen. Medications Medications Current Medications Acetaminophen (Acetaminophen 325 Mg Tablet) 650 mg PO Q6H PRN PRN Reason: Headache/Pain Mild Scale (1-3) Last Admin: 03/04/23 20:35 Dose: 650 mg Al Hydroxide/Mg Hydroxide (Magnesium Hydrox/Alum Hydrox 30 Ml Oral.Susp) 30 ml PO Q6H PRN PRN Reason: Heartburn/Nausea Amlodipine Besylate (Amlodipine Besylate 5 Mg Tablet) 5 mg PO DAILY [facility]; Protocol Last Admin: 03/06/23 10:29 Dose: 5 mg Artificial Tears (Artificial Tears 15 Ml Drops) 2 drop EYE-BOTH Q4H PRN PRN Reason: Dry Eyes Last Admin: 02/23/23 20:25 Dose: 2 drop Atorvastatin Calcium (Atorvastatin Calcium 10 Mg Tablet) 10 mg PO DAILY [facility] Last Admin: 03/06/23 10:29 Dose: 10 mg Donepezil HCl (Donepezil Hcl 10 Mg Tablet) 10 mg PO BEDTIME [facility] Last Admin: 03/06/23 20:00 Dose: 10 mg Fluticasone Propionate (Fluticasone Propionate Nasal 16 Gm [place]) 1 spray NOSTRIL-B DAILY [facility] Last Admin: 03/06/23 10:30 Dose: Not Given Magnesium Hydroxide (Milk Of Magnesia 30 Ml Oral.Susp) 30 ml PO DAILY PRN PRN Reason: Constipation Last Admin: 03/02/23 10:21 Dose: 30 ml Meclizine HCl (Meclizine Hcl 25 Mg Tablet) 25 mg PO TID PRN PRN Reason: dizziness Melatonin (Melatonin 3 Mg Tablet) 3 mg PO BEDTIME PRN PRN Reason: Insomnia Last Admin: 03/02/23 19:43 Dose: 3 mg Memantine (Memantine Hcl 10 Mg Tablet) 10 mg PO BID [facility] Last Admin: 03/06/23 20:00 Dose: 10 mg Multi-Ingred Cream/Lotion/Oil/Oint (Artificial Tears Ophth Oint 3.5 Gm Tube) 1 appl EYE-BOTH BEDTIME [facility]; Protocol Last Admin: 03/06/23 20:00 Dose: 1 appl Olanzapine (Olanzapine 2.5 Mg Tablet) 2.5 mg PO BEDTIME [facility] Last Admin: 03/06/23 20:00 Dose: 2.5 mg Olanzapine (Olanzapine 2.5 Mg Tablet) 2.5 mg PO BID PRN PRN Reason: Anxiety Last Admin: 02/21/23 01:17 Dose: 2.5 mg Ondansetron HCl (Ondansetron Odt 4 Mg Tab.Rapdis) 4 mg TRANSLINGU Q8H PRN PRN Reason: Nausea and Vomiting Allergies Allergies Allergy/AdvReac Type Severity Reaction Status Date / Time epinephrine [EPINEPHRINE] Allergy Unknown TACHYCARDIA,SHAKEY, Verified 08/12/22 13:12 tachycardia NSAIDS (Non-Steroidal Allergy Unknown Verified 09/17/22 19:19 Anti-Inflamma anesthesia Allergy Unknown difficulty Uncoded 02/29/20 00:00 waking up Assessment & Plan Assessment & Plan (1) Dementia: Status: Acute Code(s): F03.90 - Unspecified dementia, unspecified severity, without behavioral disturbance, psychotic disturbance, mood disturbance, and anxiety (2) Anxiety: Status: Acute Code(s): F41.9 - Anxiety disorder, unspecified (3) Psychosis: Status: Acute Code(s): F29 - Unspecified psychosis not due to a substance or known physiological condition Plan Patient is an 87-year-old female with history of? hypertension, hyperlipidemia, diabetes, arthritis including knees, hard of hearing who presents from her PCPs office for worsening psychotic symptoms.? Patient's daughter and son-in-law both present.? Patient is pleasant, friendly on approach and alert and orientedx4.? She wants her daughter present and answer questions.? Patient herself says I know I am not the person I was a year ago... Referring to increased forgetfulness.? Patient's family and patient herself agree that patient seems to have burgeoning symptoms of dementia with increased forgetfulness and some confusion.? However over the last few weeks and maybe months, patient had increasingly intense paranoid delusions and auditory hallucinations.? Patient told technical document writer that the people on the television are talking to were, sometimes saying nice things, sometimes tricking her, sometimes saying scary and mean things.? One time she was told to get dressed up to go to a function however once she returned in nice clothes, the people told her to do this for gone.? Patient has felt threatened that she has to go on a trip which she cannot physically handle; she also thinks that some of these things started because she refused a prize from a game show and is now being punished for it.? Patient has called her daughter crying and yelling, feeling scared and threatened by AH and delusions.? It is not clear if she has visual hallucinations; 1 time she said she saw a man with his son however it remains unclear if this or other incidents are due to actual visual hallucinations or if she is simply misinterpreting something she saw on television.? No change in gait per daughter.? Patient's family is pursuing assisted living facility with which patient is agreeable.? There is a placement pending in the next few weeks at [facility] and patient is amenable to go.? Patient is afraid to go back to her house; her daughter is afraid for patient safety as she calls up crying and asking for help afraid of paranoid delusions.? Patient agrees to hospitalization for safety and treatment.? Dairy Equipment Repairer discussed possibility of antipsychotic medication its risks/side effects and family is amenable.? Patient healthcare proxy is her son. Impression: Patient suffers from burgeoning dementia; also has likely associated psychotic symptoms with paranoid delusions and auditory hallucinations; medically cleared and no other obvious, organic etiology Patient will soon go to assisted living place that is pending a bed and paperwork at [facility] Discussed with Dr. Sanchez who agrees with inpatient admission for safety and medication management patient agrees to hospitalization HCP son with daughter (present) as alternate Hospital course: 02/21 started on zyprexa 2.5mg qhs; remains pleasant; did not reference paranoid delusions; wants to leave hospital and signed 3 day PLAN: 3 day notice q15min continue home meds continue Zyprexa 2.5mg qhs for psychotic symptoms and associated anxiety On February 22 we are starting Aricept 5 mg p.o. q.h.s. to target dementia. In February 24 we increased up to 10 mg p.o. q.h.s.. On February 26 we start Namenda 5 mg p.o. q.h.s. we increased up to 5 mg p.o. b.i.d. on March 01. On March 03 we increased up to on Namenda 10 mg p.o. b.i.d. to target dementia. In March 05 we will have staff from the long-term facility to assess her at 14:30. So far, there are 2 possible options for discharge. Reason for continued inpatient stay Substantial Risk for: inability to function, rapid decompensation and med/psych decompensation Time Spent With Patient Time: Total time managing care of this patient today __20__ minutes.
[2023-03-07] MEDS: Memantine HCl 10 MG TABLET PO ×2 (10:05→20:06)
[2023-03-07] MEDS: amLODIPine Besylate 5 MG TABLET PO (10:05)
[2023-03-07] MEDS: Atorvastatin Calcium 10 MG TABLET PO (10:05)
[2023-03-07 18:00] VITALS: BP 158/69; PULSE 68; RESP 16
[2023-03-07] MEDS: OLANZapine 2.5 MG TABLET PO (20:06)
[2023-03-07] MEDS: Donepezil HCl 10 MG TABLET PO (20:06)
[2023-03-08 08:00] VITALS: BP 163/70; PULSE 64; RESP 18; TEMP 36.1; O2SAT 99
[2023-03-08] MEDS: Fluticasone Propionate Nasal 16 GM SPRAY 1 SPRAY NOSTRIL-B (08:37)
[2023-03-08] MEDS: Atorvastatin Calcium 10 MG TABLET PO (08:37)
[2023-03-08] MEDS: Memantine HCl 10 MG TABLET PO ×2 (08:37→20:55)
[2023-03-08] MEDS: amLODIPine Besylate 5 MG TABLET PO (08:37)
[2023-03-08] MEDS: Artificial Tears 15 ML DROPS 2 DROP EYE-BOTH (08:40)
--- NOTE | 2023-03-08 10:13 | P.PNPSI_ITS ---
Subjective Subjective Date of Service: 03/08/23 Reason For Visit: psychotic symptoms Subjective Notes: Conditional Voluntary Interim History: Pt slept through the night. No combative behaviors. Pt tells this grant writer she is doing fine. She denies physical concerns. No SI/HI. She asks if someone can clean her glasses. Medication Compliance: Yes Review of Systems Constitutional: Reports no additional constitutional complaints Eyes: Reports no additional eye complaints Respiratory: Reports no additional respiratory complaints Psychiatric: Reports paranoia and Reports visual hallucinations Mental Status Exam Mental Status Exam Patient Appearance: Well Grooomed and Appropriate Patient Orientation: Person and Situation Level of Consciousness: Awake and Appropriate Patient Behavior: Guarded and Passive Mood Description: Withdrawn Affect Description: Constricted Patient Cognition Impaired: Yes Ability to Follow Directions: Good Speech Pattern: Clear Diagnostics Vital Signs (24Hr): Vital Signs - 24 hr 03/07/23 18:00 03/08/23 08:00 Temperature 96.9 F Pulse Rate 68 64 Respiratory Rate 16 18 Blood Pressure 158/69 H 163/70 H Pulse Oximetry 99 Oxygen Delivery Method Room Air BMI result Body Mass Index 18.3 Labs 02/18/23 16:18 02/18/23 16:18 Imaging Radiology Impressions: ITS Impressions Head CT 02/18/23 17:26 IMPRESSION: No acute intracranial process seen. Medications Medications Current Medications Acetaminophen (Acetaminophen 325 Mg Tablet) 650 mg PO Q6H PRN PRN Reason: Headache/Pain Mild Scale (1-3) Last Admin: 03/04/23 20:35 Dose: 650 mg Al Hydroxide/Mg Hydroxide (Magnesium Hydrox/Alum Hydrox 30 Ml Oral.Susp) 30 ml PO Q6H PRN PRN Reason: Heartburn/Nausea Amlodipine Besylate (Amlodipine Besylate 5 Mg Tablet) 5 mg PO DAILY [facility]; Protocol Last Admin: 03/08/23 08:37 Dose: 5 mg Artificial Tears (Artificial Tears 15 Ml Drops) 2 drop EYE-BOTH Q4H PRN PRN Reason: Dry Eyes Last Admin: 03/08/23 08:40 Dose: 2 drop Atorvastatin Calcium (Atorvastatin Calcium 10 Mg Tablet) 10 mg PO DAILY [facility] Last Admin: 03/08/23 08:37 Dose: 10 mg Donepezil HCl (Donepezil Hcl 10 Mg Tablet) 10 mg PO BEDTIME [facility] Last Admin: 03/07/23 20:06 Dose: 10 mg Fluticasone Propionate (Fluticasone Propionate Nasal 16 Gm [place]) 1 spray NOSTRIL-B DAILY [facility] Last Admin: 03/08/23 08:37 Dose: 1 spray Magnesium Hydroxide (Milk Of Magnesia 30 Ml Oral.Susp) 30 ml PO DAILY PRN PRN Reason: Constipation Last Admin: 03/02/23 10:21 Dose: 30 ml Meclizine HCl (Meclizine Hcl 25 Mg Tablet) 25 mg PO TID PRN PRN Reason: dizziness Melatonin (Melatonin 3 Mg Tablet) 3 mg PO BEDTIME PRN PRN Reason: Insomnia Last Admin: 03/02/23 19:43 Dose: 3 mg Memantine (Memantine Hcl 10 Mg Tablet) 10 mg PO BID [facility] Last Admin: 03/08/23 08:37 Dose: 10 mg Multi-Ingred Cream/Lotion/Oil/Oint (Artificial Tears Ophth Oint 3.5 Gm Tube) 1 appl EYE-BOTH BEDTIME [facility]; Protocol Last Admin: 03/07/23 20:07 Dose: Not Given Olanzapine (Olanzapine 2.5 Mg Tablet) 2.5 mg PO BEDTIME [facility] Last Admin: 03/07/23 20:06 Dose: 2.5 mg Olanzapine (Olanzapine 2.5 Mg Tablet) 2.5 mg PO BID PRN PRN Reason: Anxiety Last Admin: 02/21/23 01:17 Dose: 2.5 mg Ondansetron HCl (Ondansetron Odt 4 Mg Tab.Rapdis) 4 mg TRANSLINGU Q8H PRN PRN Reason: Nausea and Vomiting Allergies Allergies Allergy/AdvReac Type Severity Reaction Status Date / Time epinephrine [EPINEPHRINE] Allergy Unknown TACHYCARDIA,SHAKEY, Verified 08/12/22 13:12 tachycardia NSAIDS (Non-Steroidal Allergy Unknown Verified 09/17/22 19:19 Anti-Inflamma anesthesia Allergy Unknown difficulty Uncoded 02/29/20 00:00 waking up Assessment & Plan Assessment & Plan (1) Dementia: Status: Acute Code(s): F03.90 - Unspecified dementia, unspecified severity, without behavioral disturbance, psychotic disturbance, mood disturbance, and anxiety (2) Anxiety: Status: Acute Code(s): F41.9 - Anxiety disorder, unspecified (3) Psychosis: Status: Acute Code(s): F29 - Unspecified psychosis not due to a substance or known physiological condition Plan Patient is an 87-year-old female with history of? hypertension, hyperlipidemia, diabetes, arthritis including knees, hard of hearing who presents from her PCPs office for worsening psychotic symptoms.? Patient's daughter and son-in-law both present.? Patient is pleasant, friendly on approach and alert and orientedx4.? She wants her daughter present and answer questions.? Patient herself says I know I am not the person I was a year ago... Referring to increased forgetfulne ss.? Patient's family and patient herself agree that patient seems to have burgeoning symptoms of dementia with increased forgetfulness and some confusion.? However over the last few weeks and maybe months, patient had increasingly intense paranoid delusions and auditory hallucinations.? Patient told grant writer that the people on the television are talking to were, sometimes saying nice things, sometimes tricking her, sometimes saying scary and mean things.? One time she was told to get dressed up to go to a function however once she returned in nice clothes, the people told her to do this for gone.? Patient has felt threatened that she has to go on a trip which she cannot physically handle; she also thinks that some of these things started because she refused a prize from a game show and is now being punished for it.? Patient has called her daughter crying and yelling, feeling scared and threatened by AH and delusions.? It is not clear if she has visual hallucinations; 1 time she said she saw a man with his son however it remains unclear if this or other incidents are due to actual visual hallucinations or if she is simply misinterpreting something she saw on television.? No change in gait per daughter.? Patient's family is pursuing assisted living facility with which patient is agreeable.? There is a placement pending in the next few weeks at [facility] and patient is amenable to go.? Patient is afraid to go back to her house; her daughter is afraid for patient safety as she calls up crying and asking for help afraid of paranoid delusions.? Patient agrees to hospitalization for safety and treatment.? Territory Sales Representative discussed possibility of antipsychotic medication its risks/side effects and family is amenable.? Patient healthcare proxy is her son. Impression: Patient suffers from burgeoning dementia; also has likely associated psychotic symptoms with paranoid delusions and auditory hallucinations; medically cleared and no other obvious, organic etiology Patient will soon go to assisted living place that is pending a bed and paperwork at [facility] Discussed with Dr. Sanchez who agrees with inpatient admission for safety and medication management patient agrees to hospitalization HCP son with daughter (present) as alternate Hospital course: 02/21 started on zyprexa 2.5mg qhs; remains pleasant; did not reference paranoid delusions; wants to leave hospital and signed 3 day PLAN: 3 day notice q15min continue home meds continue Zyprexa 2.5mg qhs for psychotic symptoms and associated anxiety On February 22 we are starting Aricept 5 mg p.o. q.h.s. to target dementia. In February 24 we increased up to 10 mg p.o. q.h.s.. On February 26 we start Namenda 5 mg p.o. q.h.s. we increased up to 5 mg p.o. b.i.d. on March 01. On March 03 we increased up to on Namenda 10 mg p.o. b.i.d. to target dementia. In March 05 we will have staff from the intermediate facility to assess her at 14:30. So far, there are 2 possible options for discharge. 03/08 continue tx. Reason for continued inpatient stay Substantial Risk for: inability to function Time Spent With Patient Time: Total time managing care of this patient today ____ minutes.
[2023-03-08 20:05] VITALS: BP 148/63; PULSE 70; TEMP 36.1; O2SAT 100
[2023-03-08] MEDS: Artificial Tears Ophth Oint 3.5 GM TUBE 1 APPL EYE-BOTH (20:53)
[2023-03-08] MEDS: Donepezil HCl 10 MG TABLET PO (20:55)
[2023-03-08] MEDS: OLANZapine 2.5 MG TABLET PO (20:55)
[2023-03-09 08:10] VITALS: BP 182/74; PULSE 75; RESP 18; TEMP 35.9; O2SAT 99
[2023-03-09] MEDS: Fluticasone Propionate Nasal 16 GM SPRAY 1 SPRAY NOSTRIL-B (08:56)
[2023-03-09] MEDS: Memantine HCl 10 MG TABLET PO ×2 (08:56→21:15)
[2023-03-09] MEDS: amLODIPine Besylate 5 MG TABLET PO (08:56)
[2023-03-09] MEDS: Atorvastatin Calcium 10 MG TABLET PO (08:57)
--- NOTE | 2023-03-09 10:57 | HO.PSYCHPN ---
Subjective Subjective Date of Service: 03/09/23 Reason For Visit: psychotic symptoms Subjective Notes: Conditional Voluntary Interim History: The nursing staff reported the patient had been common quiet confused but oriented to self. The child welfare social worker reported that the power of traffic law attorney is has been already done and she is going to halfway facility this week. On interview the patient denies new symptoms pleasantly confused. Mental Status Exam Mental Status Exam Patient Appearance: Well Grooomed and Appropriate Patient Orientation: Person and Situation Level of Consciousness: Awake and Appropriate Patient Behavior: Cooperative Mood Description: Calm and Constricted Affect Description: Calm Patient Cognition Impaired: Yes Ability to Follow Directions: Good Speech Pattern: Clear Hallucinations: None Delusions: Not Present Thought Process: Linear Thought Content: positive for [place] and positive for Poverty of Content Judgement: Fair Diagnostics Vital Signs (24Hr): Vital Signs - 24 hr 03/08/23 20:05 03/09/23 08:10 Temperature 96.9 F 96.6 F L Pulse Rate 70 75 Respiratory Rate 18 Blood Pressure 148/63 H 182/74 H Pulse Oximetry 100 99 Oxygen Delivery Method Room Air Room Air BMI result Body Mass Index 18.3 Labs 02/18/23 16:18 02/18/23 16:18 Imaging Radiology Impressions: ITS Impressions Head CT 02/18/23 17:26 IMPRESSION: No acute intracranial process seen. Medications Medications Current Medications Acetaminophen (Acetaminophen 325 Mg Tablet) 650 mg PO Q6H PRN PRN Reason: Headache/Pain Mild Scale (1-3) Last Admin: 03/04/23 20:35 Dose: 650 mg Al Hydroxide/Mg Hydroxide (Magnesium Hydrox/Alum Hydrox 30 Ml Oral.Susp) 30 ml PO Q6H PRN PRN Reason: Heartburn/Nausea Amlodipine Besylate (Amlodipine Besylate 5 Mg Tablet) 5 mg PO DAILY [facility]; Protocol Last Admin: 03/09/23 08:56 Dose: 5 mg Artificial Tears (Artificial Tears 15 Ml Drops) 2 drop EYE-BOTH Q4H PRN PRN Reason: Dry Eyes Last Admin: 03/08/23 08:40 Dose: 2 drop Atorvastatin Calcium (Atorvastatin Calcium 10 Mg Tablet) 10 mg PO DAILY [facility] Last Admin: 03/09/23 08:57 Dose: 10 mg Donepezil HCl (Donepezil Hcl 10 Mg Tablet) 10 mg PO BEDTIME [facility] Last Admin: 03/08/23 20:55 Dose: 10 mg Fluticasone Propionate (Fluticasone Propionate Nasal 16 Gm [place]) 1 spray NOSTRIL-B DAILY [facility] Last Admin: 03/09/23 08:56 Dose: 1 spray Magnesium Hydroxide (Milk Of Magnesia 30 Ml Oral.Susp) 30 ml PO DAILY PRN PRN Reason: Constipation Last Admin: 03/02/23 10:21 Dose: 30 ml Meclizine HCl (Meclizine Hcl 25 Mg Tablet) 25 mg PO TID PRN PRN Reason: dizziness Melatonin (Melatonin 3 Mg Tablet) 3 mg PO BEDTIME PRN PRN Reason: Insomnia Last Admin: 03/02/23 19:43 Dose: 3 mg Memantine (Memantine Hcl 10 Mg Tablet) 10 mg PO BID [facility] Last Admin: 03/09/23 08:56 Dose: 10 mg Multi-Ingred Cream/Lotion/Oil/Oint (Artificial Tears Ophth Oint 3.5 Gm Tube) 1 appl EYE-BOTH BEDTIME [facility]; Protocol Last Admin: 03/08/23 20:53 Dose: 1 appl Olanzapine (Olanzapine 2.5 Mg Tablet) 2.5 mg PO BEDTIME [facility] Last Admin: 03/08/23 20:55 Dose: 2.5 mg Olanzapine (Olanzapine 2.5 Mg Tablet) 2.5 mg PO BID PRN PRN Reason: Anxiety Last Admin: 02/21/23 01:17 Dose: 2.5 mg Ondansetron HCl (Ondansetron Odt 4 Mg Tab.Rapdis) 4 mg TRANSLINGU Q8H PRN PRN Reason: Nausea and Vomiting Allergies Allergies Allergy/AdvReac Type Severity Reaction Status Date / Time epinephrine [EPINEPHRINE] Allergy Unknown TACHYCARDIA,SHAKEY, Verified 08/12/22 13:12 tachycardia NSAIDS (Non-Steroidal Allergy Unknown Verified 09/17/22 19:19 Anti-Inflamma anesthesia Allergy Unknown difficulty Uncoded 02/29/20 00:00 waking up Assessment & Plan Assessment & Plan (1) Dementia: Status: Acute Code(s): F03.90 - Unspecified dementia, unspecified severity, without behavioral disturbance, psychotic disturbance, mood disturbance, and anxiety (2) Anxiety: Status: Acute Code(s): F41.9 - Anxiety disorder, unspecified (3) Psychosis: Status: Acute Code(s): F29 - Unspecified psychosis not due to a substance or known physiological condition Plan Patient is an 87-year-old female with history of? hypertension, hyperlipidemia, diabetes, arthritis including knees, hard of hearing who presents from her PCPs office for worsening psychotic symptoms.? Patient's daughter and son-in-law both present.? Patient is pleasant, friendly on approach and alert and orientedx4.? She wants her daughter present and answer questions.? Patient herself says I know I am not the person I was a year ago... Referring to increased forgetfulness.? Patient's family and patient herself agree that patient seems to have burgeoning symptoms of dementia with increased forgetfulness and some confusion.? However over the last few weeks and maybe months, patient had increasingly intense paranoid delusions and auditory hallucinations.? Patient told technical document writer that the people on the television are talking to were, sometimes saying nice things, sometimes tricking her, sometimes saying scary and mean things.? One time she was told to get dressed up to go to a function however once she returned in nice clothes, the people told her to do this for gone.? Patient has felt threatened that she has to go on a trip which she cannot physically handle; she also thinks that some of these things started because she refused a prize from a game show and is now being punished for it.? Patient has called her daughter crying and yelling, feeling scared and threatened by AH and delusions.? It is not clear if she has visual hallucinations; 1 time she said she saw a man with his son however it remains unclear if this or other incidents are due to actual visual hallucinations or if she is simply misinterpreting something she saw on television.? No change in gait per daughter.? Patient's family is pursuing assisted living facility with which patient is agreeable.? There is a placement pending in the next few weeks at [facility] and patient is amenable to go.? Patient is afraid to go back to her house; her daughter is afraid for patient safety as she calls up crying and asking for help afraid of paranoid delusions.? Patient agrees to hospitalization for safety and treatment.? Reconsignment Clerk discussed possibility of antipsychotic medication its risks/side effects and family is amenable.? Patient healthcare proxy is her son. Impression: Patient suffers from burgeoning dementia; also has likely associated psychotic symptoms with paranoid delusions and auditory hallucinations; medically cleared and no other obvious, organic etiology Patient will soon go to assisted living place that is pending a bed and paperwork at [facility] Discussed with Dr. Sanchez who agrees with inpatient admission for safety and medication management patient agrees to hospitalization HCP son with daughter (present) as alternate Hospital course: 02/21 started on zyprexa 2.5mg qhs; remains pleasant; did not reference paranoid delusions; wants to leave hospital and signed 3 day PLAN: 3 day notice q15min continue home meds continue Zyprexa 2.5mg qhs for psychotic symptoms and associated anxiety On February 22 we are starting Aricept 5 mg p.o. q.h.s. to target dementia. In February 24 we increased up to 10 mg p.o. q.h.s.. On February 26 we start Namenda 5 mg p.o. q.h.s. we increased up to 5 mg p.o. b.i.d. on March 01. On March 03 we increased up to on Namenda 10 mg p.o. b.i.d. to target dementia. In March 05 we will have staff from the halfway facility to assess her at 14:30. So far, there are 2 possible options for discharge. She has been accepted to our [facility] halfway facility, most likely to be discharged this week. Reason for continued inpatient stay Substantial Risk for: inability to function, rapid decompensation and med/psych decompensation Time Spent With Patient Time: Total time managing care of this patient today __20__ minutes.
[2023-03-09 19:15] VITALS: BP 121/67; PULSE 69; RESP 18; TEMP 36.6; O2SAT 98
[2023-03-09] MEDS: Donepezil HCl 10 MG TABLET PO (21:14)
[2023-03-09] MEDS: OLANZapine 2.5 MG TABLET PO (21:14)
[2023-03-09] MEDS: Artificial Tears Ophth Oint 3.5 GM TUBE 1 APPL EYE-BOTH (21:15)
[2023-03-10 08:56] VITALS: BP 138/67; PULSE 82; RESP 16; TEMP 36.2; O2SAT 98
[2023-03-10] MEDS: Memantine HCl 10 MG TABLET PO ×2 (09:07→20:51)
[2023-03-10] MEDS: Atorvastatin Calcium 10 MG TABLET PO (09:07)
[2023-03-10] MEDS: Fluticasone Propionate Nasal 16 GM SPRAY 1 SPRAY NOSTRIL-B (09:07)
[2023-03-10] MEDS: amLODIPine Besylate 5 MG TABLET PO (09:07)
[2023-03-10] MEDS: Acetaminophen 325 MG TABLET 650 MG PO (10:21)
--- NOTE | 2023-03-10 13:22 | P.PNPSI_ITS ---
Subjective Subjective Date of Service: 03/10/23 Reason For Visit: psychotic symptoms Subjective Notes: Conditional Voluntary Interim History: The nursing staff reported the patient has been quiet, cooperative but confused. No changes in her mental status. The social sciences professor reported that are for detention facility could take her probably Wednesday or Wednesday. On interview the patient remains pleasantly confused. Mental Status Exam Mental Status Exam Patient Appearance: Well Grooomed and Appropriate Patient Orientation: Person and Situation Level of Consciousness: Awake and Appropriate Patient Behavior: Guarded and Passive Mood Description: Calm Affect Description: Constricted Patient Cognition Impaired: Yes Ability to Follow Directions: Good Speech Pattern: Clear Hallucinations: None Delusions: Not Present Thought Process: Distracted and Slowed Thinking Thought Content: positive for [place] and positive for Circumstantial Judgement: Fair Diagnostics Vital Signs (24Hr): Vital Signs - 24 hr 03/09/23 19:15 03/10/23 08:56 Temperature 97.8 F 97.2 F Pulse Rate 69 82 Respiratory Rate 18 16 Blood Pressure 121/67 138/67 Pulse Oximetry 98 98 Oxygen Delivery Method Room Air Room Air BMI result Body Mass Index 18.3 Labs 02/18/23 16:18 02/18/23 16:18 Imaging Radiology Impressions: ITS Impressions Head CT 02/18/23 17:26 IMPRESSION: No acute intracranial process seen. Medications Medications Current Medications Acetaminophen (Acetaminophen 325 Mg Tablet) 650 mg PO Q6H PRN PRN Reason: Headache/Pain Mild Scale (1-3) Last Admin: 03/10/23 10:21 Dose: 650 mg Al Hydroxide/Mg Hydroxide (Magnesium Hydrox/Alum Hydrox 30 Ml Oral.Susp) 30 ml PO Q6H PRN PRN Reason: Heartburn/Nausea Amlodipine Besylate (Amlodipine Besylate 5 Mg Tablet) 5 mg PO DAILY [facility]; Protocol Last Admin: 03/10/23 09:07 Dose: 5 mg Artificial Tears (Artificial Tears 15 Ml Drops) 2 drop EYE-BOTH Q4H PRN PRN Reason: Dry Eyes Last Admin: 03/08/23 08:40 Dose: 2 drop Atorvastatin Calcium (Atorvastatin Calcium 10 Mg Tablet) 10 mg PO DAILY [facility] Last Admin: 03/10/23 09:07 Dose: 10 mg Donepezil HCl (Donepezil Hcl 10 Mg Tablet) 10 mg PO BEDTIME [facility] Last Admin: 03/09/23 21:14 Dose: 10 mg Fluticasone Propionate (Fluticasone Propionate Nasal 16 Gm [place]) 1 spray NOSTRIL-B DAILY [facility] Last Admin: 03/10/23 09:07 Dose: 1 spray Magnesium Hydroxide (Milk Of Magnesia 30 Ml Oral.Susp) 30 ml PO DAILY PRN PRN Reason: Constipation Last Admin: 03/02/23 10:21 Dose: 30 ml Meclizine HCl (Meclizine Hcl 25 Mg Tablet) 25 mg PO TID PRN PRN Reason: dizziness Melatonin (Melatonin 3 Mg Tablet) 3 mg PO BEDTIME PRN PRN Reason: Insomnia Last Admin: 03/02/23 19:43 Dose: 3 mg Memantine (Memantine Hcl 10 Mg Tablet) 10 mg PO BID [facility] Last Admin: 03/10/23 09:07 Dose: 10 mg Multi-Ingred Cream/Lotion/Oil/Oint (Artificial Tears Ophth Oint 3.5 Gm Tube) 1 appl EYE-BOTH BEDTIME [facility]; Protocol Last Admin: 03/09/23 21:15 Dose: 1 appl Olanzapine (Olanzapine 2.5 Mg Tablet) 2.5 mg PO BEDTIME [facility] Last Admin: 03/09/23 21:14 Dose: 2.5 mg Olanzapine (Olanzapine 2.5 Mg Tablet) 2.5 mg PO BID PRN PRN Reason: Anxiety Last Admin: 02/21/23 01:17 Dose: 2.5 mg Ondansetron HCl (Ondansetron Odt 4 Mg Tab.Rapdis) 4 mg TRANSLINGU Q8H PRN PRN Reason: Nausea and Vomiting Allergies Allergies Allergy/AdvReac Type Severity Reaction Status Date / Time epinephrine [EPINEPHRINE] Allergy Unknown TACHYCARDIA,SHAKEY, Verified 08/12/22 13:12 tachycardia NSAIDS (Non-Steroidal Allergy Unknown Verified 09/17/22 19:19 Anti-Inflamma anesthesia Allergy Unknown difficulty Uncoded 02/29/20 00:00 waking up Assessment & Plan Assessment & Plan (1) Dementia: Status: Acute Code(s): F03.90 - Unspecified dementia, unspecified severity, without behavioral disturbance, psychotic disturbance, mood disturbance, and anxiety (2) Anxiety: Status: Acute Code(s): F41.9 - Anxiety disorder, unspecified (3) Psychosis: Status: Acute Code(s): F29 - Unspecified psychosis not due to a substance or known physiological condition Plan Patient is an 87-year-old female with history of? hypertension, hyperlipidemia, diabetes, arthritis including knees, hard of hearing who presents from her PCPs office for worsening psychotic symptoms.? Patient's daughter and son-in-law both present.? Patient is pleasant, friendly on approach and alert and orientedx4.? She wants her daughter present and answer questions.? Patient herself says I know I am not the person I was a year ago... Referring to increased forgetfulness.? Patient's family and patient herself agree that patient seems to have burgeoning symptoms of dementia with increased forgetfulness and some confusion.? However over the last few weeks and maybe months, patient had increasingly intense paranoid delusions and auditory hallucinations.? Patient told repairer typewriter that the people on the television are talking to were, sometimes saying nice things, sometimes tricking her, sometimes saying scary and mean things.? One time she was told to get dressed up to go to a function however once she returned in nice clothes, the people told her to do this for gone.? Patient has felt threatened that she has to go on a trip which she cannot physically handle; she also thinks that some of these things started because she refused a prize from a game show and is now being punished for it.? Patient has called her daughter crying and yelling, feeling scared and threatened by AH and delusions.? It is not clear if she has visual hallucinations; 1 time she said she saw a man with his son however it remains unclear if this or other incidents are due to actual visual hallucinations or if she is simply misinterpreting something she saw on television.? No change in gait per daughter.? Patient's family is pursuing assisted living facility with which patient is agreeable.? There is a placement pending in the next few weeks at [facility] and patient is amenable to go.? Patient is afraid to go back to her house; her daughter is afraid for patient safety as she calls up crying and asking for help afraid of paranoid delusions.? Patient agrees to hospitalization for safety and t reatment.? Game Bird Farmer discussed possibility of antipsychotic medication its risks/side effects and family is amenable.? Patient healthcare proxy is her son. Impression: Patient suffers from burgeoning dementia; also has likely associated psychotic symptoms with paranoid delusions and auditory hallucinations; medically cleared and no other obvious, organic etiology Patient will soon go to assisted living place that is pending a bed and paperwork at [facility] Discussed with Dr. Sanchez who agrees with inpatient admission for safety and medication management patient agrees to hospitalization HCP son with daughter (present) as alternate Hospital course: 02/21 started on zyprexa 2.5mg qhs; remains pleasant; did not reference paranoid delusions; wants to leave hospital and signed 3 day PLAN: 3 day notice q15min continue home meds continue Zyprexa 2.5mg qhs for psychotic symptoms and associated anxiety On February 22 we are starting Aricept 5 mg p.o. q.h.s. to target dementia. In February 24 we increased up to 10 mg p.o. q.h.s.. On February 26 we start Namenda 5 mg p.o. q.h.s. we increased up to 5 mg p.o. b.i.d. on March 01. On March 03 we increased up to on Namenda 10 mg p.o. b.i.d. to target dementia. In March 05 we will have staff from the detention facility to assess her at 14:30. So far, there are 2 possible options for discharge. She has been accepted to our [facility] detention facility, most likely to be discharged this week. Reason for continued inpatient stay Substantial Risk for: inability to function, rapid decompensation and med/psych decompensation Time Spent With Patient Time: Total time managing care of this patient today __20__ minutes.
[2023-03-10 14:53] LABS: Glucose, Whole Blood 143 mg/dL (60-115)
--- NOTE | 2023-03-10 17:22 | PC.NURSE ---
Pt was sitting outside on patio at 1430 and reported to staff she was feeling dizzy, assisted patient into [facility] provided water, VSS, at 1445 pt reports feeling better, assisted pt to bathroom she had a medium bowel movement.
[2023-03-10 18:00] VITALS: BP 146/63; PULSE 67; RESP 18; TEMP 36.6; O2SAT 98
[2023-03-10] MEDS: OLANZapine 2.5 MG TABLET PO (20:51)
[2023-03-10] MEDS: Artificial Tears Ophth Oint 3.5 GM TUBE 1 APPL EYE-BOTH (20:51)
[2023-03-10] MEDS: Donepezil HCl 10 MG TABLET PO (20:51)
[2023-03-11 06:00] VITALS: BP 136/67; PULSE 72; RESP 16; O2SAT 92
[2023-03-11 07:00] VITALS: BMI 18.5
[2023-03-11] MEDS: Fluticasone Propionate Nasal 16 GM SPRAY 1 SPRAY NOSTRIL-B (09:26)
[2023-03-11] MEDS: Memantine HCl 10 MG TABLET PO ×2 (09:26→20:54)
[2023-03-11] MEDS: amLODIPine Besylate 5 MG TABLET PO (09:26)
[2023-03-11] MEDS: Atorvastatin Calcium 10 MG TABLET PO (09:26)
[2023-03-11] MEDS: Acetaminophen 325 MG TABLET 650 MG PO (12:23)
--- NOTE | 2023-03-11 12:44 | P.PNPSI_ITS ---
Subjective Subjective Date of Service: 03/11/23 Reason For Visit: psychotic symptoms Subjective Notes: Conditional Voluntary Interim History: The nursing staff reported the patient had been pleasant, easily engageable confused but very social. She slept well last night. Yesterday the occupational therapist reported the patient had a vasovagal episode since she was exposed to the sun. She was slightly dizzy but it it improved with p.o. liquids. On interview the patient denies new symptoms she is going to be discharged next Wednesday to a detention facility in [place]. Mental Status Exam Mental Status Exam Patient Appearance: Well Grooomed and Appropriate Patient Orientation: Person and Situation Level of Consciousness: Awake and Appropriate Patient Behavior: Guarded and Passive Mood Description: Withdrawn Affect Description: Calm Patient Cognition Impaired: Yes Ability to Follow Directions: Good Speech Pattern: Clear Hallucinations: None Delusions: Not Present Thought Process: Linear Thought Content: positive for Circumstantial and positive for Thought Blocking Judgement: Fair Diagnostics Vital Signs (24Hr): Vital Signs - 24 hr 03/10/23 18:00 03/11/23 06:00 Temperature 97.8 F Pulse Rate 67 72 Respiratory Rate 18 16 Blood Pressure 146/63 H 136/67 Pulse Oximetry 98 92 Oxygen Delivery Method Room Air Room Air BMI result Body Mass Index 18.3 Labs 02/18/23 16:18 02/18/23 16:18 Labs: Laboratory Results - last 48 hr 03/10/23 14:44 POC Glucose 143 H Imaging Radiology Impressions: ITS Impressions Head CT 02/18/23 17:26 IMPRESSION: No acute intracranial process seen. Medications Medications Current Medications Acetaminophen (Acetaminophen 325 Mg Tablet) 650 mg PO Q6H PRN PRN Reason: Headache/Pain Mild Scale (1-3) Last Admin: 03/11/23 12:23 Dose: 650 mg Al Hydroxide/Mg Hydroxide (Magnesium Hydrox/Alum Hydrox 30 Ml Oral.Susp) 30 ml PO Q6H PRN PRN Reason: Heartburn/Nausea Amlodipine Besylate (Amlodipine Besylate 5 Mg Tablet) 5 mg PO DAILY [facility]; Protocol Last Admin: 03/11/23 09:26 Dose: 5 mg Artificial Tears (Artificial Tears 15 Ml Drops) 2 drop EYE-BOTH Q4H PRN PRN Reason: Dry Eyes Last Admin: 03/08/23 08:40 Dose: 2 drop Atorvastatin Calcium (Atorvastatin Calcium 10 Mg Tablet) 10 mg PO DAILY [facility] Last Admin: 03/11/23 09:26 Dose: 10 mg Donepezil HCl (Donepezil Hcl 10 Mg Tablet) 10 mg PO BEDTIME [facility] Last Admin: 03/10/23 20:51 Dose: 10 mg Fluticasone Propionate (Fluticasone Propionate Nasal 16 Gm [place]) 1 spray NOSTRIL-B DAILY [facility] Last Admin: 03/11/23 09:26 Dose: 1 spray Magnesium Hydroxide (Milk Of Magnesia 30 Ml Oral.Susp) 30 ml PO DAILY PRN PRN Reason: Constipation Last Admin: 03/02/23 10:21 Dose: 30 ml Meclizine HCl (Meclizine Hcl 25 Mg Tablet) 25 mg PO TID PRN PRN Reason: dizziness Melatonin (Melatonin 3 Mg Tablet) 3 mg PO BEDTIME PRN PRN Reason: Insomnia Last Admin: 03/02/23 19:43 Dose: 3 mg Memantine (Memantine Hcl 10 Mg Tablet) 10 mg PO BID [facility] Last Admin: 03/11/23 09:26 Dose: 10 mg Multi-Ingred Cream/Lotion/Oil/Oint (Artificial Tears Ophth Oint 3.5 Gm Tube) 1 appl EYE-BOTH BEDTIME [facility]; Protocol Last Admin: 03/10/23 20:51 Dose: 1 appl Olanzapine (Olanzapine 2.5 Mg Tablet) 2.5 mg PO BEDTIME [facility] Last Admin: 03/10/23 20:51 Dose: 2.5 mg Olanzapine (Olanzapine 2.5 Mg Tablet) 2.5 mg PO BID PRN PRN Reason: Anxiety Last Admin: 02/21/23 01:17 Dose: 2.5 mg Ondansetron HCl (Ondansetron Odt 4 Mg Tab.Rapdis) 4 mg TRANSLINGU Q8H PRN PRN Reason: Nausea and Vomiting Allergies Allergies Allergy/AdvReac Type Severity Reaction Status Date / Time epinephrine [EPINEPHRINE] Allergy Unknown TACHYCARDIA,SHAKEY, Verified 08/12/22 13:12 tachycardia NSAIDS (Non-Steroidal Allergy Unknown Verified 09/17/22 19:19 Anti-Inflamma anesthesia Allergy Unknown difficulty Uncoded 02/29/20 00:00 waking up Assessment & Plan Assessment & Plan (1) Dementia: Status: Acute Code(s): F03.90 - Unspecified dementia, unspecified severity, without behavioral disturbance, psychotic disturbance, mood disturbance, and anxiety (2) Anxiety: Status: Acute Code(s): F41.9 - Anxiety disorder, unspecified (3) Psychosis: Status: Acute Code(s): F29 - Unspecified psychosis not due to a substance or known physiological condition Plan Patient is an 87-year-old female with history of? hypertension, hyperlipidemia, diabetes, arthritis including knees, hard of hearing who presents from her PCPs office for worsening psychotic symptoms.? Patient's daughter and son-in-law both present.? Patient is pleasant, friendly on approach and alert and orientedx4.? She wants her daughter present and answer questions.? Patient herself says I know I am not the person I was a year ago... Referring to increased forgetfulness.? Patient's family and patient herself agree that patient seems to have burgeoning symptoms of dementia with increased forgetfulness and some confusion.? However over the last few weeks and maybe months, patient had increasingly intense paranoid delusions and auditory hallucinations.? Patient told conventional mortgage underwriter that the people on the television are talking to were, sometimes saying nice things, sometimes tricking her, sometimes saying scary and mean things.? One time she was told to get dressed up to go to a function however o nce she returned in nice clothes, the people told her to do this for gone.? Patient has felt threatened that she has to go on a trip which she cannot physically handle; she also thinks that some of these things started because she refused a prize from a game show and is now being punished for it.? Patient has called her daughter crying and yelling, feeling scared and threatened by AH and delusions.? It is not clear if she has visual hallucinations; 1 time she said she saw a man with his son however it remains unclear if this or other incidents are due to actual visual hallucinations or if she is simply misinterpreting something she saw on television.? No change in gait per daughter.? Patient's family is pursuing assisted living facility with which patient is agreeable.? There is a placement pending in the next few weeks at [facility] and patient is amenable to go.? Patient is afraid to go back to her house; her daughter is afraid for patient safety as she calls up crying and asking for help afraid of paranoid delusions.? Patient agrees to hospitalization for safety and treatment.? Business Solution Analyst discussed possibility of antipsychotic medication its risks/side effects and family is amenable.? Patient healthcare proxy is her son. Impression: Patient suffers from burgeoning dementia; also has likely associated psychotic symptoms with paranoid delusions and auditory hallucinations; medically cleared and no other obvious, organic etiology Patient will soon go to assisted living place that is pending a bed and paperwork at [facility] Discussed with Dr. Sanchez who agrees with inpatient admission for safety and medication management patient agrees to hospitalization HCP son with daughter (present) as alternate Hospital course: 02/21 started on zyprexa 2.5mg qhs; remains pleasant; did not reference paranoid delusions; wants to leave hospital and signed 3 day PLAN: 3 day notice q15min continue home meds continue Zyprexa 2.5mg qhs for psychotic symptoms and associated anxiety On February 22 we are starting Aricept 5 mg p.o. q.h.s. to target dementia. In February 24 we increased up to 10 mg p.o. q.h.s.. On February 26 we start Namenda 5 mg p.o. q.h.s. we increased up to 5 mg p.o. b.i.d. on March 01. On March 03 we increased up to on Namenda 10 mg p.o. b.i.d. to target dementia. In March 05 we will have staff from the detention facility to assess her at 14:30. So far, there are 2 possible options for discharge. She has been accepted to our [facility] detention facility, most likely to be discharged this week. The confirmation date for the transfer will be next Wednesday. Reason for continued inpatient stay Substantial Risk for: inability to function, rapid decompensation and med/psych decompensation Time Spent With Patient Time: Total time managing care of this patient today _20___ minutes.
[2023-03-11 18:00] VITALS: BP 151/73; PULSE 63; TEMP 36.3; O2SAT 99
[2023-03-11] MEDS: OLANZapine 2.5 MG TABLET PO (20:53)
[2023-03-11] MEDS: Artificial Tears Ophth Oint 3.5 GM TUBE 1 APPL EYE-BOTH (20:54)
[2023-03-11] MEDS: Donepezil HCl 10 MG TABLET PO (20:54)
[2023-03-12 08:14] VITALS: BP 138/84; PULSE 74; RESP 18; TEMP 36.2; O2SAT 96
[2023-03-12] MEDS: Memantine HCl 10 MG TABLET PO ×2 (08:59→21:34)
[2023-03-12] MEDS: Atorvastatin Calcium 10 MG TABLET PO (08:59)
[2023-03-12] MEDS: Acetaminophen 325 MG TABLET 650 MG PO ×2 (08:59→21:32)
[2023-03-12] MEDS: amLODIPine Besylate 5 MG TABLET PO (08:59)
[2023-03-12] MEDS: Fluticasone Propionate Nasal 16 GM SPRAY 1 SPRAY NOSTRIL-B (09:00)
--- NOTE | 2023-03-12 11:06 | P.PNPSI_ITS ---
Subjective Subjective Date of Service: 03/12/23 Reason For Visit: psychotic symptoms Subjective Notes: Conditional Voluntary Interim History: The nursing staff reported the patient had been fully compliant with treatment pleasant cooperative confused at times but easily redirectable. The child protective services social worker reported that she is going to be transferred to the long term facility Wednesday at 10:00 o'clock. On interview the patient denies new symptoms she is pleasant and cooperative waiting for her transfer Mental Status Exam Mental Status Exam Patient Appearance: Well Grooomed and Appropriate Patient Orientation: Person and Situation Level of Consciousness: Awake and Appropriate Patient Behavior: Guarded and Passive Mood Description: Withdrawn and Constricted Affect Description: Calm Patient Cognition Impaired: Yes Ability to Follow Directions: Good Speech Pattern: Clear Hallucinations: None Delusions: Not Present Thought Process: Distracted and Slowed Thinking Thought Content: positive for [place] and positive for Poverty of Content Judgement: Fair Diagnostics Vital Signs (24Hr): Vital Signs - 24 hr 03/11/23 18:00 03/12/23 08:14 Temperature 97.3 F 97.1 F Pulse Rate 63 74 Respiratory Rate 18 Blood Pressure 151/73 H 138/84 Pulse Oximetry 99 96 Oxygen Delivery Method Room Air Room Air BMI result Body Mass Index 18.5 Labs 02/18/23 16:18 02/18/23 16:18 Labs: Laboratory Results - last 48 hr 03/10/23 14:44 POC Glucose 143 H Imaging Radiology Impressions: ITS Impressions Head CT 02/18/23 17:26 IMPRESSION: No acute intracranial process seen. Medications Medications Current Medications Acetaminophen (Acetaminophen 325 Mg Tablet) 650 mg PO Q6H PRN PRN Reason: Headache/Pain Mild Scale (1-3) Last Admin: 03/12/23 08:59 Dose: 650 mg Al Hydroxide/Mg Hydroxide (Magnesium Hydrox/Alum Hydrox 30 Ml Oral.Susp) 30 ml PO Q6H PRN PRN Reason: Heartburn/Nausea Amlodipine Besylate (Amlodipine Besylate 5 Mg Tablet) 5 mg PO DAILY [facility]; Protocol Last Admin: 03/12/23 08:59 Dose: 5 mg Artificial Tears (Artificial Tears 15 Ml Drops) 2 drop EYE-BOTH Q4H PRN PRN Reason: Dry Eyes Last Admin: 03/08/23 08:40 Dose: 2 drop Atorvastatin Calcium (Atorvastatin Calcium 10 Mg Tablet) 10 mg PO DAILY [facility] Last Admin: 03/12/23 08:59 Dose: 10 mg Donepezil HCl (Donepezil Hcl 10 Mg Tablet) 10 mg PO BEDTIME [facility] Last Admin: 03/11/23 20:54 Dose: 10 mg Fluticasone Propionate (Fluticasone Propionate Nasal 16 Gm [place]) 1 spray NOSTRIL-B DAILY [facility] Last Admin: 03/12/23 09:00 Dose: 1 spray Magnesium Hydroxide (Milk Of Magnesia 30 Ml Oral.Susp) 30 ml PO DAILY PRN PRN Reason: Constipation Last Admin: 03/02/23 10:21 Dose: 30 ml Meclizine HCl (Meclizine Hcl 25 Mg Tablet) 25 mg PO TID PRN PRN Reason: dizziness Melatonin (Melatonin 3 Mg Tablet) 3 mg PO BEDTIME PRN PRN Reason: Insomnia Last Admin: 03/02/23 19:43 Dose: 3 mg Memantine (Memantine Hcl 10 Mg Tablet) 10 mg PO BID [facility] Last Admin: 03/12/23 08:59 Dose: 10 mg Multi-Ingred Cream/Lotion/Oil/Oint (Artificial Tears Ophth Oint 3.5 Gm Tube) 1 appl EYE-BOTH BEDTIME [facility]; Protocol Last Admin: 03/11/23 20:54 Dose: 1 appl Olanzapine (Olanzapine 2.5 Mg Tablet) 2.5 mg PO BEDTIME [facility] Last Admin: 03/11/23 20:53 Dose: 2.5 mg Olanzapine (Olanzapine 2.5 Mg Tablet) 2.5 mg PO BID PRN PRN Reason: Anxiety Last Admin: 02/21/23 01:17 Dose: 2.5 mg Ondansetron HCl (Ondansetron Odt 4 Mg Tab.Rapdis) 4 mg TRANSLINGU Q8H PRN PRN Reason: Nausea and Vomiting Allergies Allergies Allergy/AdvReac Type Severity Reaction Status Date / Time epinephrine [EPINEPHRINE] Allergy Unknown TACHYCARDIA,SHAKEY, Verified 08/12/22 13:12 tachycardia NSAIDS (Non-Steroidal Allergy Unknown Verified 09/17/22 19:19 Anti-Inflamma anesthesia Allergy Unknown difficulty Uncoded 02/29/20 00:00 waking up Assessment & Plan Assessment & Plan (1) Dementia: Status: Acute Code(s): F03.90 - Unspecified dementia, unspecified severity, without behavioral disturbance, psychotic disturbance, mood disturbance, and anxiety (2) Anxiety: Status: Acute Code(s): F41.9 - Anxiety disorder, unspecified (3) Psychosis: Status: Acute Code(s): F29 - Unspecified psychosis not due to a substance or known physiological condition Plan Patient is an 87-year-old female with history of? hypertension, hyperlipidemia, diabetes, arthritis including knees, hard of hearing who presents from her PCPs office for worsening psychotic symptoms.? Patient's daughter and son-in-law both present.? Patient is pleasant, friendly on approach and alert and orientedx4.? She wants her daughter present and answer questions.? Patient herself says I know I am not the person I was a year ago... Referring to increased forgetfulness.? Patient's family and patient herself agree that patient seems to have burgeoning symptoms of dementia with increased forgetfulness and some confusion.? However over the last few weeks and maybe months, patient had increasingly intense paranoid delusions and auditory hallucinations.? Patient told consumer loan underwriter that the people on the television are talking to were, sometimes saying nice things, sometimes tricking her, sometimes saying scary and mean things.? One time she was told to get dressed up to go to a function however once she returned in nice clothes, the people told her to do this for gone.? Patient has felt threatened that she has to go on a trip which she cannot physically handle; she also thinks that some of these things started because she refused a prize from a game show and is now being punished for it.? Patient has called her daughter crying and yelling, feeling scared and threatened by AH and delusions.? It is not clear if she has visual hallucinations; 1 time she said she saw a man with his son however it remains unclear if this or other incidents are due to actual visual hallucinations or if she is simply misinterpreting something she saw on television.? No change in gait per daughter.? Patient's family is pursuing assisted living facility with which patient is agreeable.? There is a placement pending in the next few weeks at [facility] and patient is amenable to go.? Patient is afraid to go back to her house; her daughter is afraid for patient safety as she calls up crying and asking for help afraid of paranoid delusions.? Patient agrees to hospitalization for safety and treatment.? Publishing Manager discussed possibility of antipsychotic medication its risks/side effects and family is amenable.? Patient healthcare proxy is her son. Impression: Patient suffers from burgeoning dementia; also has likely associated psychotic symptoms with paranoid delusions and auditory hallucinations; medically cleared and no other obvious, organic etiology Patient will soon go to assisted living place that is pending a bed and paperwork at [facility] Discussed with Dr. Sanchez who agrees with inpatient admission for safety and medication management patient agrees to hospitalization HCP son with daughter (present) as alternate Hospital course: 02/21 started on zyprexa 2.5mg qhs; remains pleasant; did not reference paranoid delusions; wants to leave hospital and signed 3 day PLAN: 3 day notice that was reverted later q15min continue home meds continue Zyprexa 2.5mg qhs for psychotic symptoms and associated anxiety On February 22 we are starting Aricept 5 mg p.o. q.h.s. to target dementia. In February 24 we increased up to 10 mg p.o. q.h.s.. On February 26 we start Namenda 5 mg p.o. q.h.s. we increased up to 5 mg p.o. b.i.d. on March 01. On March 03 we increased up to on Namenda 10 mg p.o. b.i.d. to target dementia. In March 05 we will have staff from the long term facility to assess her at 14:30. So far, there are 2 possible options for discharge. She has been [facility], most likely to be discharged this week. The confirmation date for the transfer will be next Wednesday. Reason for continued inpatient stay Substantial Risk for: inability to function, rapid decompensation and med/psych decompensation Time Spent With Patient Time: Total time managing care of this patient today __20__ minutes.
--- NOTE | 2023-03-12 12:34 | MHC.CLN ---
F/U DIET=REGULAR. ENSURE BID TO INCREASE NUTRITIONAL INTAKE. SUPPLEMENT PROVIDES 700 KCALS, 40 G PROTEIN. APPEARS TO BE EATING WELL. FOLLOW WEEKLY FOR INTAKE AND WEIGHT.
[2023-03-12 21:16] VITALS: BP 142/63; PULSE 69; RESP 18; TEMP 36.6; O2SAT 99
[2023-03-12] MEDS: Melatonin 3 MG TABLET PO (21:32)
[2023-03-12] MEDS: Donepezil HCl 10 MG TABLET PO (21:34)
[2023-03-12] MEDS: Artificial Tears 15 ML DROPS 2 DROP EYE-BOTH (21:35)
[2023-03-12] MEDS: OLANZapine 2.5 MG TABLET PO (21:35)
[2023-03-12] MEDS: Artificial Tears Ophth Oint 3.5 GM TUBE 1 APPL EYE-BOTH (21:35)
[2023-03-13 09:14] VITALS: BP 160/70; PULSE 67; RESP 16; TEMP 36.6; O2SAT 97
[2023-03-13] MEDS: Fluticasone Propionate Nasal 16 GM SPRAY 1 SPRAY NOSTRIL-B (09:16)
[2023-03-13] MEDS: Atorvastatin Calcium 10 MG TABLET PO (09:17)
[2023-03-13] MEDS: amLODIPine Besylate 5 MG TABLET PO (09:17)
[2023-03-13] MEDS: Memantine HCl 10 MG TABLET PO ×2 (09:17→21:03)
--- NOTE | 2023-03-13 11:51 | P.PNPSI_ITS ---
Subjective Subjective Date of Service: 03/13/23 Reason For Visit: psychotic symptoms Subjective Notes: Conditional Voluntary Interim History: Patient was seen and discussed in rounds today. Records and plans were reviewed. She has been stable and is doing well. She is compliant with treatment. Eating and sleeping well. No complaints or side effects. No worley ges were made today Review of Systems Review of Systems Yes all other systems are reviewed and are negative Mental Status Exam Mental Status Exam Patient Appearance: Well Grooomed and Appropriate Patient Orientation: Person and Situation Level of Consciousness: Awake and Appropriate Patient Behavior: Guarded and Passive Mood Description: Withdrawn and Constricted Affect Description: Calm Patient Cognition Impaired: Yes Ability to Follow Directions: Good Speech Pattern: Clear Hallucinations: None Delusions: Not Present Thought Process: Distracted and Slowed Thinking Thought Content: positive for [place] and positive for Poverty of Content Judgement: Fair Diagnostics Vital Signs (24Hr): Vital Signs - 24 hr 03/12/23 21:16 03/13/23 09:14 Temperature 97.8 F 97.9 F Pulse Rate 69 67 Respiratory Rate 18 16 Blood Pressure 142/63 H 160/70 H Pulse Oximetry 99 97 Oxygen Delivery Method Room Air Room Air BMI result Body Mass Index 18.5 Labs 02/18/23 16:18 02/18/23 16:18 Imaging Radiology Impressions: ITS Impressions Head CT 02/18/23 17:26 IMPRESSION: No acute intracranial process seen. Medications Medications Current Medications Acetaminophen (Acetaminophen 325 Mg Tablet) 650 mg PO Q6H PRN PRN Reason: Headache/Pain Mild Scale (1-3) Last Admin: 03/12/23 21:32 Dose: 650 mg Al Hydroxide/Mg Hydroxide (Magnesium Hydrox/Alum Hydrox 30 Ml Oral.Susp) 30 ml PO Q6H PRN PRN Reason: Heartburn/Nausea Amlodipine Besylate (Amlodipine Besylate 5 Mg Tablet) 5 mg PO DAILY LORA; Protocol Last Admin: 03/13/23 09:17 Dose: 5 mg Artificial Tears (Artificial Tears 15 Ml Drops) 2 drop EYE-BOTH Q4H PRN PRN Reason: Dry Eyes Last Admin: 03/12/23 21:35 Dose: 2 drop Atorvastatin Calcium (Atorvastatin Calcium 10 Mg Tablet) 10 mg PO DAILY [facility] Last Admin: 03/13/23 09:17 Dose: 10 mg Donepezil HCl (Donepezil Hcl 10 Mg Tablet) 10 mg PO BEDTIME LORA Last Admin: 03/12/23 21:34 Dose: 10 mg Fluticasone Propionate (Fluticasone Propionate Nasal 16 Gm [place]) 1 spray NOSTRIL-B DAILY [facility]A Last Admin: 03/13/23 09:16 Dose: 1 spray Magnesium Hydroxide (Milk Of Magnesia 30 Ml Oral.Susp) 30 ml PO DAILY PRN PRN Reason: Constipation Last Admin: 03/02/23 10:21 Dose: 30 ml Meclizine HCl (Meclizine Hcl 25 Mg Tablet) 25 mg PO TID PRN PRN Reason: dizziness Melatonin (Melatonin 3 Mg Tablet) 3 mg PO BEDTIME PRN PRN Reason: Insomnia Last Admin: 03/12/23 21:32 Dose: 3 mg Memantine (Memantine Hcl 10 Mg Tablet) 10 mg PO BID LORA Last Admin: 03/13/23 09:17 Dose: 10 mg Multi-Ingred Cream/Lotion/Oil/Oint (Artificial Tears Ophth Oint 3.5 Gm Tube) 1 appl EYE-BOTH BEDTIME LORA; Protocol Last Admin: 03/12/23 21:35 Dose: 1 appl Olanzapine (Olanzapine 2.5 Mg Tablet) 2.5 mg PO BEDTIME LORA Last Admin: 03/12/23 21:35 Dose: 2.5 mg Olanzapine (Olanzapine 2.5 Mg Tablet) 2.5 mg PO BID PRN PRN Reason: Anxiety Last Admin: 02/21/23 01:17 Dose: 2.5 mg Ondansetron HCl (Ondansetron Odt 4 Mg Tab.Rapdis) 4 mg TRANSLINGU Q8H PRN PRN Reason: Nausea and Vomiting Allergies Allergies Allergy/AdvReac Type Severity Reaction Status Date / Time epinephrine [EPINEPHRINE] Allergy Unknown TACHYCARDIA,SHAKEY, Verified 08/12/22 13:12 tachycardia NSAIDS (Non-Steroidal Allergy Unknown Verified 09/17/22 19:19 Anti-Inflamma anesthesia Allergy Unknown difficulty Uncoded 02/29/20 00:00 waking up Assessment & Plan Assessment & Plan (1) Dementia: Status: Acute Code(s): F03.90 - Unspecified dementia, unspecified severity, without behavioral disturbance, psychotic disturbance, mood disturbance, and anxiety (2) Anxiety: Status: Acute Code(s): F41.9 - Anxiety disorder, unspecified (3) Psychosis: Status: Acute Code(s): F29 - Unspecified psychosis not due to a substance or known physiological condition Plan Patient is an 87-year-old female with history of? hypertension, hyperlipidemia, diabetes, arthritis including knees, hard of hearing who presents from her PCPs office for worsening psychotic symptoms.? Patient's daughter and son-in-law both present.? Patient is pleasant, friendly on approach and alert and orientedx4.? She wants her daughter present and answer questions.? Patient herself says I know I am not the person I was a year ago... Referring to increased for getfulness.? Patient's family and patient herself agree that patient seems to have burgeoning symptoms of dementia with increased forgetfulness and some confusion.? However over the last few weeks and maybe months, patient had increasingly intense paranoid delusions and auditory hallucinations.? Patient told race and sports book writer that the people on the television are talking to were, sometimes saying nice things, sometimes tricking her, sometimes saying scary and mean things.? One time she was told to get dressed up to go to a function however once she returned in nice clothes, the people told her to do this for gone.? Patient has felt threatened that she has to go on a trip which she cannot physically handle; she also thinks that some of these things started because she refused a prize from a game show and is now being punished for it.? Patient has called her daughter crying and yelling, feeling scared and threatened by AH and delusions.? It is not clear if she has visual hallucinations; 1 time she said she saw a man with his son however it remains unclear if this or other incidents are due to actual visual hallucinations or if she is simply misinterpreting something she saw on television.? No change in gait per daughter.? Patient's family is pursuing assisted living facility with which patient is agreeable.? There is a placement pending in the next few weeks at [facility] and patient is amenable to go.? Patient is afraid to go back to her house; her daughter is afraid for patient safety as she calls up crying and asking for help afraid of paranoid delusions.? Patient agrees to hospitalization for safety and treatment.? Supervisor Heavy Equipment discussed possibility of antipsychotic medication its risk s/side effects and family is amenable.? Patient healthcare proxy is her son. Impression: Patient suffers from burgeoning dementia; also has likely associated psychotic symptoms with paranoid delusions and auditory hallucinations; medically cleared and no other obvious, organic etiology Patient will soon go to assisted living place that is pending a bed and paperwork at [facility] Discussed with Dr. Sanchez who agrees with inpatient admission for safety and medication management patient agrees to hospitalization HCP son with daughter (present) as alternate Hospital course: 02/21 started on zyprexa 2.5mg qhs; remains pleasant; did not reference paranoid delusions; wants to leave hospital and signed 3 day PLAN: 3 day notice that was reverted later q15min continue home meds continue Zyprexa 2.5mg qhs for psychotic symptoms and associated anxiety On February 22 we are starting Aricept 5 mg p.o. q.h.s. to target dementia. In February 24 we increased up to 10 mg p.o. q.h.s.. On February 26 we start Namenda 5 mg p.o. q.h.s. we increased up to 5 mg p.o. b.i.d. on March 01. On March 03 we increased up to on Namenda 10 mg p.o. b.i.d. to target dementia. In March 05 we will have staff from the care home facility to assess her at 14:30. So far, there are 2 possible options for discharge. She has been accepted to our [facility] care home facility, most likely to be discharged this week. The confirmation date for the transfer will be next Wednesday. 03/13: Continue current regimen and plans Reason for continued inpatient stay Substantial Risk for: inability to function Time Spent With Patient Time: Total time managing care of this patient today ____ minutes.
[2023-03-13 20:00] VITALS: BP 135/66; PULSE 77; RESP 16; TEMP 36.3; O2SAT 97
[2023-03-13] MEDS: Donepezil HCl 10 MG TABLET PO (21:03)
[2023-03-13] MEDS: OLANZapine 2.5 MG TABLET PO (21:03)
[2023-03-14 08:29] VITALS: BP 119/57; PULSE 80; RESP 16; TEMP 36.6; O2SAT 97
[2023-03-14] MEDS: Memantine HCl 10 MG TABLET PO ×2 (08:32→21:27)
[2023-03-14] MEDS: Fluticasone Propionate Nasal 16 GM SPRAY 1 SPRAY NOSTRIL-B (08:32)
[2023-03-14] MEDS: amLODIPine Besylate 5 MG TABLET PO (08:32)
[2023-03-14] MEDS: Atorvastatin Calcium 10 MG TABLET PO (08:32)
--- NOTE | 2023-03-14 11:40 | P.PNPSI_ITS ---
Subjective Subjective Date of Service: 03/14/23 Reason For Visit: psychotic symptoms Subjective Notes: Conditional Voluntary Interim History: Patient was seen and discussed in rounds today. Records and plans were reviewed. She has been doing well and continues to be stable. She is awaiting placement. No behavioral issues reported. Eating and sleeping well. No changes were made today Review of Systems Review of Systems Yes all other systems are reviewed and are negative Mental Status Exam Mental Status Exam Patient Appearance: Well Grooomed and Appropriate Patient Orientation: Person and Situation Level of Consciousness: Awake and Appropriate Patient Behavior: Guarded and Passive Mood Description: Withdrawn and Constricted Affect Description: Calm Patient Cognition Impaired: Yes Ability to Follow Directions: Good Speech Pattern: Clear Hallucinations: None Delusions: Not Present Thought Process: Distracted and Slowed Thinking Thought Content: positive for [place] and positive for Poverty of Content Judgement: Fair Diagnostics Vital Signs (24Hr): Vital Signs - 24 hr 03/13/23 20:00 03/14/23 08:29 Temperature 97.4 F 97.9 F Pulse Rate 77 80 Respiratory Rate 16 16 Blood Pressure 135/66 119/57 L Pulse Oximetry 97 97 Oxygen Delivery Method Room Air Room Air BMI result Body Mass Index 18.5 Labs 02/18/23 16:18 02/18/23 16:18 Imaging Radiology Impressions: ITS Impressions Head CT 02/18/23 17:26 IMPRESSION: No acute intracranial process seen. Medications Medications Current Medications Acetaminophen (Acetaminophen 325 Mg Tablet) 650 mg PO Q6H PRN PRN Reason: Headache/Pain Mild Scale (1-3) Last Admin: 03/12/23 21:32 Dose: 650 mg Al Hydroxide/Mg Hydroxide (Magnesium Hydrox/Alum Hydrox 30 Ml Oral.Susp) 30 ml PO Q6H PRN PRN Reason: Heartburn/Nausea Amlodipine Besylate (Amlodipine Besylate 5 Mg Tablet) 5 mg PO DAILY LORA; Protocol Last Admin: 03/14/23 08:32 Dose: 5 mg Artificial Tears (Artificial Tears 15 Ml Drops) 2 drop EYE-BOTH Q4H PRN PRN Reason: Dry Eyes Last Admin: 03/12/23 21:35 Dose: 2 drop Atorvastatin Calcium (Atorvastatin Calcium 10 Mg Tablet) 10 mg PO DAILY [facility] Last Admin: 03/14/23 08:32 Dose: 10 mg Donepezil HCl (Donepezil Hcl 10 Mg Tablet) 10 mg PO BEDTIME [facility]A Last Admin: 03/13/23 21:03 Dose: 10 mg Fluticasone Propionate (Fluticasone Propionate Nasal 16 Gm [place]) 1 spray NOSTRIL-B DAILY [facility] Last Admin: 03/14/23 08:32 Dose: 1 spray Magnesium Hydroxide (Milk Of Magnesia 30 Ml Oral.Susp) 30 ml PO DAILY PRN PRN Reason: Constipation Last Admin: 03/02/23 10:21 Dose: 30 ml Meclizine HCl (Meclizine Hcl 25 Mg Tablet) 25 mg PO TID PRN PRN Reason: dizziness Melatonin (Melatonin 3 Mg Tablet) 3 mg PO BEDTIME PRN PRN Reason: Insomnia Last Admin: 03/12/23 21:32 Dose: 3 mg Memantine (Memantine Hcl 10 Mg Tablet) 10 mg PO BID LORA Last Admin: 03/14/23 08:32 Dose: 10 mg Multi-Ingred Cream/Lotion/Oil/Oint (Artificial Tears Ophth Oint 3.5 Gm Tube) 1 appl EYE-BOTH BEDTIME LORA; Protocol Last Admin: 03/13/23 22:14 Dose: Not Given Olanzapine (Olanzapine 2.5 Mg Tablet) 2.5 mg PO BEDTIME LORA Last Admin: 03/13/23 21:03 Dose: 2.5 mg Olanzapine (Olanzapine 2.5 Mg Tablet) 2.5 mg PO BID PRN PRN Reason: Anxiety Last Admin: 02/21/23 01:17 Dose: 2.5 mg Ondansetron HCl (Ondansetron Odt 4 Mg Tab.Rapdis) 4 mg TRANSLINGU Q8H PRN PRN Reason: Nausea and Vomiting Allergies Allergies Allergy/AdvReac Type Severity Reaction Status Date / Time epinephrine [EPINEPHRINE] Allergy Unknown TACHYCARDIA,SHAKEY, Verified 08/12/22 13:12 tachycardia NSAIDS (Non-Steroidal Allergy Unknown Verified 09/17/22 19:19 Anti-Inflamma anesthesia Allergy Unknown difficulty Uncoded 02/29/20 00:00 waking up Assessment & Plan Assessment & Plan (1) Dementia: Status: Acute Code(s): F03.90 - Unspecified dementia, unspecified severity, without behavioral disturbance, psychotic disturbance, mood disturbance, and anxiety (2) Anxiety: Status: Acute Code(s): F41.9 - Anxiety disorder, unspecified (3) Psychosis: Status: Acute Code(s): F29 - Unspecified psychosis not due to a substance or known physiological condition Plan Patient is an 87-year-old female with history of? hypertension, hyperlipidemia, diabetes, arthritis including knees, hard of hearing who presents from her PCPs office for worsening psychotic symptoms.? Patient's daughter and son-in-law both present.? Patient is pleasant, friendly on approach and alert and orientedx4.? She wants her daughter present and answer questions.? Patient herself says I know I am not the person I was a year ago... Referring to increased forgetfulness.? Patient's family and patient herself agree that patient seems to have burgeoning symptoms of dementia with increased forgetfulness and some confusion.? However over the last few weeks and maybe months, patient had increasingly intense paranoid delusions and auditory hallucinations.? Patient told loan underwriter that the people on the television are talking to were, sometimes saying nice things, sometimes tricking her, sometimes saying scary and mean things.? One time she was told to get dressed up to go to a function however once she returned in nice clothes, the people told her to do this for gone.? Patient has felt threatened that she has to go on a trip which she cannot physic ally handle; she also thinks that some of these things started because she refused a prize from a game show and is now being punished for it.? Patient has called her daughter crying and yelling, feeling scared and threatened by AH and delusions.? It is not clear if she has visual hallucinations; 1 time she said she saw a man with his son however it remains unclear if this or other incidents are due to actual visual hallucinations or if she is simply misinterpreting something she saw on television.? No change in gait per daughter.? Patient's family is pursuing assisted living facility with which patient is agreeable.? There is a placement pending in the next few weeks at [facility] and patient is amenable to go.? Patient is afraid to go back to her house; her daughter is afraid for patient safety as she calls up crying and asking for help afraid of paranoid delusions.? Patient agrees to hospitalization for safety and treatment.? Liquefaction And Regasification Helper discussed possibility of antipsychotic medication its risks/side effects and family is amenable.? Patient healthcare proxy is her son. Impression: Patient suffers from burgeoning dementia; also has likely associated psychotic symptoms with paranoid delusions and auditory hallucinations; medically cleared and no other obvious, organic etiology Patient will soon go to assisted living place that is pending a bed and paperwork at [facility] Discussed with Dr. Sanchez who agrees with inpatient admission for safety and medication management patient agrees to hospitalization HCP son with daughter (present) as alternate Hospital course: 02/21 started on zyprexa 2.5mg qhs; remains pleasant; did not reference paranoid delusions; wants to leave hospital and signed 3 day PLAN: 3 day notice that was reverted later q15min continue home meds continue Zyprexa 2.5mg qhs for psychotic symptoms and associated anxiety On February 22 we are starting Aricept 5 mg p.o. q.h.s. to target dementia. In February 24 we increased up to 10 mg p.o. q.h.s.. On February 26 we start Namenda 5 mg p.o. q.h.s. we increased up to 5 mg p.o. b.i.d. on March 01. On March 03 we increased up to on Namenda 10 mg p.o. b.i.d. to target dementia. In March 05 we will have staff from the senior living facility to assess her at 14:30. So far, there are 2 possible options for discharge. She has been accepted to our [facility] senior living facility, most likely to be discharged this week. The confirmation date for the transfer will be next Wednesday. 03/13: Continue current regimen and plans 03/14: Continue current plans and regimen Reason for continued inpatient stay Substantial Risk for: med/psych decompensation Time Spent With Patient Time: Total time managing care of this patient today ____ minutes.
[2023-03-14 18:00] VITALS: BP 163/70; PULSE 64; RESP 16; TEMP 36.4; O2SAT 98
[2023-03-14] MEDS: Donepezil HCl 10 MG TABLET PO (21:27)
[2023-03-14] MEDS: OLANZapine 2.5 MG TABLET PO (21:27)
[2023-03-14] MEDS: Artificial Tears Ophth Oint 3.5 GM TUBE 1 APPL EYE-BOTH (21:32)
[2023-03-15] MEDS: Acetaminophen 325 MG TABLET 650 MG PO (03:24)
[2023-03-15 07:59] VITALS: BP 157/65; PULSE 65; RESP 18; TEMP 36.2; O2SAT 99
[2023-03-15] MEDS: amLODIPine Besylate 5 MG TABLET PO (08:24)
[2023-03-15] MEDS: Atorvastatin Calcium 10 MG TABLET PO (08:24)
[2023-03-15] MEDS: Memantine HCl 10 MG TABLET PO (08:25)
[2023-03-15] MEDS: Fluticasone Propionate Nasal 16 GM SPRAY 1 SPRAY NOSTRIL-B (08:25)
--- NOTE | 2023-03-15 09:42 | PM.PSYDC ---
DS: Providers Provider Date of Service: 03/15/23 Date of admission: 02/19/23 19:11 Date of discharge: 03/15/23 Primary care physician: Donavan Segura MD Attending physician on discharge: Sathya Sanchez DS: Diagnosis Discharge Diagnosis (1) Dementia: Status: Acute (2) Anxiety: Status: Acute (3) Psychosis: Status: Acute DS: Medications Discharge Medications Home Medications: Home Medications Medication Instructions Recorded Confirmed amlodipine 5 mg tablet 1 tab PO DAILY 09/16/22 02/18/23 atorvastatin 10 mg tablet 1 tab PO DAILY 09/16/22 02/18/23 naproxen 250 mg tablet 250 mg PO BID PRN Pain 09/16/22 02/18/23 Previous Rx's Medication Instructions Recorded meclizine 25 mg tablet 25 mg PO TID PRN dizziness #14 tabs 06/08/20 ondansetron HCl (PF) 4 mg/2 mL 4 mg (2 mL) IVPUSH Q8H PRN Nausea 09/17/22 injection solution And Vomiting #1 mL Mental Status Exam Mental Status Exam Patient Appearance: Well Grooomed and Appropriate Patient Orientation: Person and Situation Level of Consciousness: Awake and Appropriate Patient Behavior: Appropriate and Passive Mood Description: Calm Affect Description: Constricted Patient Cognition Impaired: Yes Ability to Follow Directions: Good Speech Pattern: Clear Hallucinations: None Delusions: Not Present Thought Process: Distracted and Slowed Thinking Thought Content: positive for [place] and positive for Circumstantial Judgement: Fair Data Data Completed and Pending Completed studies during hospitalization [Text1]: 03/10/23 14:44 POC Glucose 143 H Imaging Diagnostic Imaging Impressions Head CT 02/18/23 17:26 IMPRESSION: No acute intracranial process seen. DS: Summary Hospital Course Hospital Course: The patient is an elderly female with no prior psychiatric history referred to the emergency room since the patient was complaining of psychotic symptoms elicited by ideas of reference from the TV, paranoia and disorganized behavior. Also she has had cognitive deterioration that worsened in the last year. Please see the HPI of the admission note for further details. On admission, the patient was assessed by the medical team trying to figure it out if it was delirium induced by UTI or any other source. We start her on a very low dose of olanzapine, Zyprexa 2.5 mg p.o. q.h.s. to target her psychosis and insomnia. The patient tolerated her medications very well, her psychotic symptoms resolved very fast and she was able to participate in the group activities of the unit. When she was in the unit, we did a cognitive assessment and the patient was unable to do a [place] test due to her advanced dementia but her Zach test was very low 3.2 and she needed help on her ADL less. We had several family meetings and we decided the best and safest course of action is to transfer her to a nursing home facility or assisted living facility with a memory care unit. We started Aricept titrated up to 10 mg p.o. q.h.s. and also we added Namenda titrated up to 10 mg p.o. b.i.d. to target dementia with for tolerability. Since there were no safety concerns the patient was back to her baseline discharge planning was discussed. No evidence of any psychotic symptoms only symptoms of dementia that they were well compensated. Time spent discussing smoking cessation with patient: 3 to 10 minutes Status at Discharge Cognitive/behavioral status at discharge: Impaired at baseline Functional status at discharge: independent ambulation Overall status at discharge: patient is back to baseline Time Spent with Patient Time attestation: Total time managing care of this patient today _30___ minutes. Time spent: Less than 30 minutes Discharge Plan Discharge Anticipated Discharge Date/Time: 03/15/23 10:00 Patient Disposition: Xfer SNF Discharge Diagnosis: Dementia Alzheimer's type Delirium resolved with psychotic features Referrals: Donavan Segura MD [Primary Care Provider] - 1 Week Discharge Medications: New acetaminophen 325 mg Tablet 650 mg PO Q6H PRN (Reason: Headache/Pain Mild Scale (1-3)) 30 Days Qty: 90 0RF donepezil 10 mg Tablet 10 mg PO BEDTIME 30 Days Qty: 30 0RF melatonin 3 mg Tablet 3 mg PO BEDTIME PRN (Reason: Insomnia) 30 Days Qty: 30 0RF olanzapine 2.5 mg Tablet 2.5 mg PO BEDTIME 30 Days Qty: 30 0RF fluticasone propionate 50 mcg/actuation [place],Suspension 1 spray intranasal DAILY 30 Days Qty: 1 0RF Artificial Tears([id number]) 1-0.2-0.2 % Drops 2 drp ophthalmic (eye) Q4H PRN (Reason: Dry Eyes) 30 Days Qty: 5 0RF memantine [Namenda] 10 mg Tablet 10 mg PO BID 30 Days Qty: 60 0RF Lubrifresh PM 83-15 % Ointment 1 appl ophthalmic (eye) BEDTIME 30 Days Qty: 1 0RF Protocol: Apply to: Apply to: both eyes Continued atorvastatin 10 mg tablet 1 tab PO DAILY 30 Days Qty: 30 0RF amlodipine 5 mg tablet 1 tab PO DAILY 30 Days Qty: 30 0RF meclizine 25 mg tablet 25 mg PO TID PRN (Reason: dizziness) 30 Days Qty: 14 0RF Discontinued naproxen 250 mg Tablet 250 mg PO BID PRN (Reason: Pain) Hold Instructions: Resume on 09/17/22. ondansetron HCl (PF) 4 mg/2 mL Solution 4 mg IVPUSH Q8H PRN (Reason: Nausea And Vomiting) Qty: 1 0RF Discharge Orders: Discharge Order (Routine); Ordered 03/15/23 Ordered By: Sathya Sanchez Diet: Advance to usual diet Activity on Discharge: As tolerated Stand Alone Forms: Patient Portal Discharge page, Community Support Care Plan Goals: Care plan goals achieved in this admission. Health Concerns: Continue treatment with outpatient providers and primary care physician. Plan of Treatment: Continue psychiatric treatment as an outpatient Assessment: Elderly female with no prior psychiatric history admitted for the presence of psychotic symptoms elicited by paranoia, ideas of reference and auditory hallucinations. Her symptoms resolved with a very low dose of olanzapine and she was diagnosed with dementia, started on Aricept and Namenda with further lability and good improvement of her symptoms. At this moment safe to be discharged on a facility with memory care.
[2023-03-15] MEDS: OLANZapine 2.5 MG TABLET PO (10:16)
== END 2023-03-15 10:32 | disposition skilled nursing facility (03) | DRG 57 ==
LOC: HO.ED 22:26 → HO.PGERI 02-19 19:23
PROVIDERS: Registered Nurse Emergency; Admitting Provider Psychiatry & Neurology Psychiatry; Emergency Provider Emergency Medicine; PCP Internal Medicine; Visit Provider Psychiatry & Neurology Psychiatry
DX: G30.9 Alzheimer's disease, unspecified (principal); F02.A2 Dementia in other diseases classified elsewhere, mild, with psychotic disturbance; F05 Delirium due to known physiological condition; E11.9 Type 2 diabetes mellitus without complications; E78.00 Pure hypercholesterolemia, unspecified; I10 Essential (primary) hypertension; Z20.822 Contact with and (suspected) exposure to COVID-19; Z79.51 Long term (current) use of inhaled steroids; Z79.899 Other long term (current) drug therapy; F41.9 Anxiety disorder, unspecified
CPT/HCPCS: 36415; 70450; 80048; 80061; 80307; 81003; 82947; 83036; 85025; 87635; 93005; 99284

== ENCOUNTER → 2023-02-19 18:05 | Outpatient (BNV) | payer MEDICARE, SELFPAY | PROVIDERS: Admitting Provider Psychiatry & Neurology Psychiatry; Emergency Provider Emergency Medicine; PCP Internal Medicine; Visit Provider Internal Medicine Cardiovascular Disease | DX: F03.90 Unspecified dementia, unspecified severity, without behavioral disturbance, psychotic disturbance, mood disturbance, and anxiety (principal) | CPT/HCPCS: 93010 ==

== ENCOUNTER → 2023-02-19 19:11 | Outpatient (BNV) | payer MEDICARE, SELFPAY | PROVIDERS: Admitting Provider Psychiatry & Neurology Psychiatry; Emergency Provider Emergency Medicine; PCP Internal Medicine; Visit Provider Psychiatry & Neurology Psychiatry | DX: F03.90 Unspecified dementia, unspecified severity, without behavioral disturbance, psychotic disturbance, mood disturbance, and anxiety (principal); F41.9 Anxiety disorder, unspecified; F29 Unspecified psychosis not due to a substance or known physiological condition | CPT/HCPCS: 90792; 99231; 99232; 99238; 99283 ==

== ENCOUNTER 2023-04-09 19:17 | Emergency (ER) | payer MEDICARE, SELFPAY ==
--- NOTE | ~2023-04-09 | XR_ITS ---
EXAMINATION: XR SHOULDER, LEFT CLINICAL INFORMATION: Trauma. Pain. COMPARISON: None available. TECHNIQUE: AP external rotation, Grashey, scapular Y, and axillary views of the left shoulder. FINDINGS: The bony structures are osteopenic. The joint spaces are maintained. There is no fracture. The soft tissues are unremarkable. XR/XR shoulder LT min 2V IMPRESSION: Osteopenia. No acute osseous abnormality.
--- NOTE | ~2023-04-09 | CT_ITS ---
EXAMINATION: CT HEAD WITHOUT CONTRAST CT CERVICAL SPINE WITHOUT CONTRAST CLINICAL INFORMATION: Unwitnessed fall. COMPARISON: 02/18/2023 TECHNIQUE: Contiguous axial imaging was performed through the head and cervical spine without intravenous administration of contrast. Sagittal and coronal reformatted images also obtained. This CT examination was performed using dose optimization techniques as appropriate, variously including the following: *Automated exposure control. *Adjustment of mA and/or kV according to patient size (this includes techniques or standardized protocols for targeted exams where dose is matched to indication/reason for exam; i.e. extremities or head). *Use of iterative reconstruction technique. DLP: 638 mGy-cm FINDINGS: HEAD: There is cerebral volume loss with prominence of the lateral and the third ventricles. The cortical sulci are widened appropriately. The fourth ventricle and basal cisterns are normally outlined. There is no acute territorial defect, hemorrhage or midline shift. The extra-axial spaces are unremarkable. Calvarium: Intact. Maxillofacial Sinuses and Mastoids: Clear as visualized. CERVICAL SPINE: The alignment is normal. There is moderate C5-C6 and C6-C7 disc degenerative change and mild disc degenerative change throughout the remaining cervical spine with loss of disc space, endplate change and posterior osteophytes associated with diffuse moderate facet osteoarthritic hypertrophic change with multilevel mild spinal canal and neural foraminal narrowing. The bony structures are osteopenic. No fracture is seen. The soft tissues are unremarkable. There is biapical pleural thickening. The visualized upper lung sexton are otherwise clear.. CT/CT head/brain wo IV con IMPRESSION: No acute intracranial abnormality. Cervical disc degenerative change. No fracture.
--- NOTE | ~2023-04-09 | CT_ITS ---
EXAMINATION: CT HEAD WITHOUT CONTRAST CT CERVICAL SPINE WITHOUT CONTRAST CLINICAL INFORMATION: Unwitnessed fall. COMPARISON: 02/18/2023 TECHNIQUE: Contiguous axial imaging was performed through the head and cervical spine without intravenous administration of contrast. Sagittal and coronal reformatted images also obtained. This CT examination was performed using dose optimization techniques as appropriate, variously including the following: *Automated exposure control. *Adjustment of mA and/or kV according to patient size (this includes techniques or standardized protocols for targeted exams where dose is matched to indication/reason for exam; i.e. extremities or head). *Use of iterative reconstruction technique. DLP: 638 mGy-cm FINDINGS: HEAD: There is cerebral volume loss with prominence of the lateral and the third ventricles. The cortical sulci are widened appropriately. The fourth ventricle and basal cisterns are normally outlined. There is no acute territorial defect, hemorrhage or midline shift. The extra-axial spaces are unremarkable. Calvarium: Intact. Maxillofacial Sinuses and Mastoids: Clear as visualized. CERVICAL SPINE: The alignment is normal. There is moderate C5-C6 and C6-C7 disc degenerative change and mild disc degenerative change throughout the remaining cervical spine with loss of disc space, endplate change and posterior osteophytes associated with diffuse moderate facet osteoarthritic hypertrophic change with multilevel mild spinal canal and neural foraminal narrowing. The bony structures are osteopenic. No fracture is seen. The soft tissues are unremarkable. There is biapical pleural thickening. The visualized upper lung sexton are otherwise clear.. CT/CT cervical spine wo IV con IMPRESSION: No acute intracranial abnormality. Cervical disc degenerative change. No fracture.
[2023-04-09 19:20] VITALS: BP 132/78; PULSE 82; O2SAT 95
[2023-04-09 19:32] VITALS: BP 142/52; PULSE 70; RESP 18; TEMP 36.5; O2SAT 100; BMI 19.5
--- NOTE | 2023-04-09 21:28 | ED_ITS ---
HPI - Fall General Chief Complaint: Fall Stated Complaint: FELL AND HIT BACK OF HEAD SMALL HEMATOMA Time Seen by Provider: 04/09/23 21:19 Source: patient Mode of arrival: EMS Limitations: no limitations History of Present Illness HPI Narrative: Patient comes to the emergency room complaining of an unwitnessed fall. Patient states that she lives in assisted living. Patient was trying to get a cup with ice, and I skipped fell out of her cup, leaned down to try to get it in patient slipped backwards hitting her head on the door and her left shoulder. Patient did not lose consciousness, remembers everything, denies being on blood thinners but is not sure. Unlikely that the patient is a blood thinners, had a significant GI bleed a few months ago. Patient complaining of localized pain in the shoulder and in the scalp on the left. No headache, no neck pain, no hip pain Related Data Previous Rx's Medication Instructions Recorded acetaminophen 325 mg tablet 650 mg PO Q6H PRN Headache/Pain 03/15/23 Mild Scale (1-3) 30 days #90 tabs amlodipine 5 mg tablet 1 tab PO DAILY 30 days #30 tabs 03/15/23 atorvastatin 10 mg tablet 1 tab PO DAILY 30 days #30 tabs 03/15/23 donepezil 10 mg tablet 10 mg PO BEDTIME 30 days #30 tabs 03/15/23 fluticasone propionate 50 1 spray intranasal DAILY 30 days 03/15/23 mcg/actuation nasal #1 units spray,suspension meclizine 25 mg tablet 25 mg PO TID PRN dizziness 30 days 03/15/23 #14 tabs melatonin 3 mg tablet 3 mg PO BEDTIME PRN Insomnia 30 03/15/23 days #30 tabs memantine 10 mg tablet (Namenda) 10 mg PO BID 30 days #60 tabs 03/15/23 olanzapine 2.5 mg tablet 2.5 mg PO BEDTIME 30 days #30 tabs 03/15/23 peg [id number] 1 2 drp ophthalmic (eye) Q4H PRN Dry 03/15/23 %-0.2 %-0.2 % eye drops Eyes 30 days #5 mL (Artificial Tears ([id number])) white petrolatum-mineral oil 83 1 appl ophthalmic (eye) BEDTIME 30 03/15/23 %-15 % eye ointment (Lubrifresh PM) days #1 g Allergies Allergy/AdvReac Type Severity Reaction Status Date / Time epinephrine [EPINEPHRINE] Allergy Unknown TACHYCARDIA,SHAKEY, Verified 08/12/22 13:12 tachycardia NSAIDS (Non-Steroidal Allergy Unknown Verified 09/17/22 19:19 Anti-Inflamma anesthesia Allergy Unknown difficulty Uncoded 02/29/20 00:00 waking up Review of Systems Review of Systems: Constitutional : No Weight loss, No Fever, No Chills, No Night Sweats, No Fatigue, No Malaise ENT/Mouth : No Hearing loss, No Ear Pain, No Nasal Congestion, No Sinus Pain, No Hoarseness, No sore throat, No Rhinorrhea, No Swallowing Difficulty Eyes: No Eye Pain, No Swelling, No Redness, No Foreign Body, No Discharge, No Vision Changes Cardiovascular : No Chest Pain, No SOB, No Dyspnea on Exertion, No Orthopnea, No Edema, No Palpitations Respiratory : No Cough, No Sputum, No Wheezing, No Smoke Exposure, No Dyspnea Gastrointestinal : No Nausea, No Vomiting, No Diarrhea, No Constipation, No abdominal Pain, No Hematochezia, No Melena Genitourinary : no irregular bleeding, No Dysuria, No Urinary Frequency, No Hematuria, No Urinary Incontinence, No Urgency, No Flank Pain, No Urinary Flow Changes, No Hesitancy Musculoskeletal : Complaining of left shoulder pain No Myalgias, No Joint Swelling Skin : Complaining of ecchymosis/hematoma on the left side of the scalp in an abrasion on the left shoulder Neuro : No Weakness, No Numbness, No Paresthesias, No Loss of Consciousness, No Dizziness, No Headache Psych : No Anxiety/Panic, No Depression, No SI/HI/AH/VH, No Social Issues, Heme/Lymph: No Bruising, No Bleeding,No Lymphadenopathy Endocrine : No Polyuria, No Polydipsia, No Temperature Intolerance [facility] Past Medical History Medical History Bright red rectal bleeding Diabetes High cholesterol HTN (hypertension) Surgical History No pertinent past surgical history Social History Social History Household Members: None Housing: House Alcohol intake: never Patient Tobacco Use Status: Never used Tobacco Smoked in Last 30 Days: No Use of substances other than those prescribed or required for medical reasons: No Advance Directives: No Advance Directives Information Provided: Yes service: No Sexual orientation: Straight/Heterosexual Physical Exam Vital Signs: Vital Signs: Last Vital Signs Temp 97.7 F 04/09/23 19:32 Pulse 70 04/09/23 19:32 Resp 18 04/09/23 19:32 BP 142/52 H 04/09/23 19:32 Pulse Ox 100 04/09/23 19:32 O2 Del Method Room Air 04/09/23 19:32 BMI result Body Mass Index 19.5 Const: Other: Appearance: Alert. Oriented X3. No acute distress. Eyes: Pupils equal, round and reactive to light. ENT: Pharynx normal. Neck: Normal inspection. Neck supple. No lymph nodes noted. No crepitus CVS: Normal heart rate and rhythm. Pulses normal. Normal S1 and S2 Respiratory: No respiratory distress. Breath sounds normal. No Wheezing. No rales Abdomen: Soft and nontender. No rigidity. No distention. Skin: Skin warm and dry. Normal skin color. Normal skin turgor. There is a hematoma in the scalp, no abrasion and no active bleed. There is also an abrasion on the left shoulder Extremities: No lower extremity edema. No Lacerations. No Rash. Patient is able to flex and extend the shoulder and abduct the arm. Neuro: Oriented X 3. No motor deficit. No sensory deficit. Moving all extremities. No slurred speech. CN 2 through 12 grossly intact Psych: calm, cooperative, normal affect Course Course Course Narrative: -head CT and cervical spine CT pending -shoulder x-ray pending -patient provided with Tylenol Medications Administered Discontinued Medications Generic Name Dose Route Start Last Admin Trade Name Freq PRN Reason Stop Dose Admin Acetaminophen 975 mg 04/09/23 21:26 04/09/23 21:44 Acetaminophen 325 Mg Tablet PO 04/09/23 21:27 975 mg ONCE ONE Administration Medical Decision Making Medical Decision Making [facility] Narrative: -my interpretation head CT: No intracranial bleed Differential Diagnosis Differential Diagnoses: The differential diagnosis associated with the presentation includes (Intracranial bleed, cervical spine fracture, shoulder dislocation, shoulder fracture) Admission/Observation Consideration of admission/observation: Escalation of care including admission/observation considered (Patient came in complaining pain in her shoulder, headache, unwitnessed fall, admission was considered) Independent Interpretation I performed an independent interpretation of an: Plain X-Ray and CT Scan Radiology Impression Discussion of test interpretation with radiology: I have reviewed the radiologist's reading. Radiologist Impression: HEAD: There is cerebral volume loss with prominence of the lateral and the third ventricles. The cortical sulci are widened appropriately. The fourth ventricle and basal cisterns are normally outlined. There is no acute territorial defect, hemorrhage or midline shift. The extra-axial spaces are unremarkable. Calvarium: Intact. Maxillofacial Sinuses and Mastoids: Clear as visualized. CERVICAL SPINE: The alignment is normal. There is moderate C5-C6 and C6-C7 disc degenerative change and mild disc degenerative change throughout the remaining cervical spine with loss of disc space, endplate change and posterior osteophytes associated with diffuse moderate facet osteoarthritic hypertrophic change with multilevel mild spinal canal and neural foraminal narrowing. The bony structures are osteopenic. No fracture is seen. The soft tissues are unremarkable. There is biapical pleural thickening. The visualized upper lung sexton are otherwise clear.. CT/CT cervical spine wo IV con IMPRESSION: No acute intracranial abnormality. ? Cervical disc degenerative change. ? No fracture. FINDINGS: The bony structures are osteopenic. The joint spaces are maintained. There is no fracture. The soft tissues are unremarkable. XR/XR shoulder LT min 2V IMPRESSION: Osteopenia. ? No acute osseous abnormality. Critical Care Time Critical Care Time Critical Care Time: Yes Total Critical Care Time: 60 Discharge Plan Discharge Clinical Impression: Unwitnessed fall, Scalp hematoma, Contusion of left shoulder Patient Disposition: Home, Self-Care Instructions: Contusion in Adults (ED) Additional Instructions: Please follow-up with your primary care physician tomorrow. If you have any worsening or new symptoms, please return to the emergency room or call 911 Prescriptions: No Action acetaminophen 325 mg Tablet 650 mg PO Q6H PRN (Reason: Headache/Pain Mild Scale (1-3)) 30 Days Qty: 90 0RF donepezil 10 mg Tablet 10 mg PO BEDTIME 30 Days Qty: 30 0RF melatonin 3 mg Tablet 3 mg PO BEDTIME PRN (Reason: Insomnia) 30 Days Qty: 30 0RF olanzapine 2.5 mg Tablet 2.5 mg PO BEDTIME 30 Days Qty: 30 0RF fluticasone propionate 50 mcg/actuation [place],Suspension 1 spray intranasal DAILY 30 Days Qty: 1 0RF Artificial Tears([id number]) 1-0.2-0.2 % Drops 2 drp ophthalmic (eye) Q4H PRN (Reason: Dry Eyes) 30 Days Qty: 5 0RF memantine [Namenda] 10 mg Tablet 10 mg PO BID 30 Days Qty: 60 0RF Lubrifresh PM 83-15 % Ointment 1 appl ophthalmic (eye) BEDTIME 30 Days Qty: 1 0RF Protocol: Apply to: Apply to: both eyes atorvastatin 10 mg tablet 1 tab PO DAILY 30 Days Qty: 30 0RF amlodipine 5 mg tablet 1 tab PO DAILY 30 Days Qty: 30 0RF meclizine 25 mg tablet 25 mg PO TID PRN (Reason: dizziness) 30 Days Qty: 14 0RF
[2023-04-09] MEDS: Acetaminophen 325 MG TABLET 975 MG PO (21:44)
[2023-04-10 00:46] VITALS: BP 150/56; PULSE 53; RESP 18; TEMP 36.5; O2SAT 99
== END 2023-04-10 01:07 | disposition home or self-care (01) ==
PROVIDERS: Emergency Provider Emergency Medicine
DX: S40.012A Contusion of left shoulder, initial encounter (principal); S00.03XA Contusion of scalp, initial encounter; W01.0XXA Fall on same level from slipping, tripping and stumbling without subsequent striking against object, initial encounter; R51.9 Headache, unspecified; M54.2 Cervicalgia; Y93.9 Activity, unspecified; Y92.9 Unspecified place or not applicable; Y99.9 Unspecified external cause status; Z79.899 Other long term (current) drug therapy
CPT/HCPCS: 70450; 72125; 73030; 99284

== ENCOUNTER 2023-07-06 08:11 | Emergency (ER) | payer MEDICARE, SELFPAY ==
--- NOTE | ~2023-07-06 | XR_ITS ---
EXAMINATION: AP pelvis, left hip, chest x-ray with left RIBS. Left shoulder. CLINICAL INDICATIONS: Status post fall. COMPARISON: Left shoulder 04/09/2023. TECHNIQUE: Left shoulder 3 views. Chest x-ray with left RIBS 4 views. Left hip with AP pelvis 3 views. FINDINGS: Left shoulder: There is decrease in the glenohumeral joint space without any bony erosive changes. No acute fracture or dislocation. Mild loss of AC joint seen. The soft tissues are normal. Chest and left RIBS: The lungs are well-expanded and clear. Heart size is enlarged. Pulmonary vascularity is within normal limits. There is moderate dextroscoliosis. Multiple views of left ribs reveal no visible fracture or bony abnormality. The soft tissues are normal. Left hip and AP pelvis: There is normal symmetry of bilateral hip joints and SI joints. Large amount of stool is seen colon and rectum. No fracture seen. AP and frog-leg views left hip reveal no visible fracture or dislocation. No bony erosive changes or osteophytes. The soft tissues are normal. XR/XR ribs LT min 3V w CXR1V IMPRESSION: 1. Mild degenerative changes left shoulder otherwise no acute process. 2. Unremarkable chest exam. 3. Unremarkable left ribs. 4. Unremarkable left hip and AP pelvis exam. 5. Moderate dextroscoliosis.
--- NOTE | ~2023-07-06 | XR_ITS ---
EXAMINATION: AP pelvis, left hip, chest x-ray with left RIBS. Left shoulder. CLINICAL INDICATIONS: Status post fall. COMPARISON: Left shoulder 04/09/2023. TECHNIQUE: Left shoulder 3 views. Chest x-ray with left RIBS 4 views. Left hip with AP pelvis 3 views. FINDINGS: Left shoulder: There is decrease in the glenohumeral joint space without any bony erosive changes. No acute fracture or dislocation. Mild loss of AC joint seen. The soft tissues are normal. Chest and left RIBS: The lungs are well-expanded and clear. Heart size is enlarged. Pulmonary vascularity is within normal limits. There is moderate dextroscoliosis. Multiple views of left ribs reveal no visible fracture or bony abnormality. The soft tissues are normal. Left hip and AP pelvis: There is normal symmetry of bilateral hip joints and SI joints. Large amount of stool is seen colon and rectum. No fracture seen. AP and frog-leg views left hip reveal no visible fracture or dislocation. No bony erosive changes or osteophytes. The soft tissues are normal. XR/XR hip LT w PEL1V IMPRESSION: 1. Mild degenerative changes left shoulder otherwise no acute process. 2. Unremarkable chest exam. 3. Unremarkable left ribs. 4. Unremarkable left hip and AP pelvis exam. 5. Moderate dextroscoliosis.
--- NOTE | ~2023-07-06 | CT_ITS ---
CT HEAD WITHOUT IV CONTRAST CT CERVICAL SPINE WITHOUT IV CONTRAST INDICATION: Neck trauma with moderate fall. COMPARISON: Head and cervical spine CT 04/09/2023. TECHNIQUE: Multidetector CT acquisitions of the head and cervical spine were obtained without IV contrast. Multiplanar reformats were acquired and utilized for image interpretation. This CT examination was performed using dose optimization techniques as appropriate, variously including the following: *Automated exposure control *Adjustment of mA and/or kV according to patient size (this includes techniques or standardized protocols for targeted exams where dose is matched to indication/reason for exam; i.e. extremities or head) *Use of iterative reconstruction technique FINDINGS: HEAD: There is global cerebral volume loss and there is mild chronic microangiopathy. There is no intracranial hemorrhage, hydrocephalus, extra-axial surface collection, midline shift, or other herniation pattern. Hayes to white matter differentiation is diffusely maintained without evidence of an evolved acute territorial infarct. The basilar cisterns are preserved. No significant soft tissue abnormality. No acute osseous abnormality. The paranasal sinuses and the mastoid air cells are well aerated. CERVICAL SPINE: Cervical alignment is maintained. Hypertrophic degenerative changes involving the atlantodental interval. The craniocervical junction is intact. There is multilevel degenerative disc disease and there is advanced multilevel hypertrophic facet arthropathy throughout the cervical spine. No acute fractures and no acute subluxations identified with assessment limited by the degree of osteopenia and advanced cervical spondylosis. No significant soft tissue abnormality within the neck. The visualized lung apices are clear. CT/CT cervical spine wo IV con IMPRESSION: - No acute intracranial abnormality. - No definite acute osseous findings within the cervical spine however assessment is limited by the degree of osteopenia and advanced cervical spondylosis
--- NOTE | ~2023-07-06 | XR_ITS ---
EXAMINATION: AP pelvis, left hip, chest x-ray with left RIBS. Left shoulder. CLINICAL INDICATIONS: Status post fall. COMPARISON: Left shoulder 04/09/2023. TECHNIQUE: Left shoulder 3 views. Chest x-ray with left RIBS 4 views. Left hip with AP pelvis 3 views. FINDINGS: Left shoulder: There is decrease in the glenohumeral joint space without any bony erosive changes. No acute fracture or dislocation. Mild loss of AC joint seen. The soft tissues are normal. Chest and left RIBS: The lungs are well-expanded and clear. Heart size is enlarged. Pulmonary vascularity is within normal limits. There is moderate dextroscoliosis. Multiple views of left ribs reveal no visible fracture or bony abnormality. The soft tissues are normal. Left hip and AP pelvis: There is normal symmetry of bilateral hip joints and SI joints. Large amount of stool is seen colon and rectum. No fracture seen. AP and frog-leg views left hip reveal no visible fracture or dislocation. No bony erosive changes or osteophytes. The soft tissues are normal. XR/XR shoulder LT min 2V IMPRESSION: 1. Mild degenerative changes left shoulder otherwise no acute process. 2. Unremarkable chest exam. 3. Unremarkable left ribs. 4. Unremarkable left hip and AP pelvis exam. 5. Moderate dextroscoliosis.
[2023-07-06 08:23] VITALS: BP 100/58; BP 99/83; PULSE 48; PULSE 52; RESP 18; O2SAT 95; O2SAT 97
--- NOTE | 2023-07-06 08:26 | ED.FALL ---
HPI - Fall General Chief Complaint: Fall Stated Complaint: L HIP.ARM PAIN S/P FALL FROM [facility] PER EMS Time Seen by Provider: 07/06/23 08:12 Source: patient and EMS Mode of arrival: EMS Limitations: other (dementia) History of Present Illness HPI Narrative: 87 yo female with PMH of dementia, HTN, HLD, GI bleed was being assisted by staff today and slipped it was witnessed - a very slow fall but she hit her L side of body on the ground. There was headstrike but no LOC. She has pain now in L shoulder with small skin tear, L head and L hip. complaint: fall Onset (ago): minute(s) (prior to arrival ) Fall from: standing Fall witnessed: yes, by living facility staff Place fall occurred: shelter/SNF Loss of consciousness: none Prolonged down time: no Symptoms prior to fall: none Context: tripped/slipped Location of injury: head, back and pelvis Location of injury - extremities: left: shoulder Severity: mild Quality: aching Associated symptoms (after fall): other (states her head hurts) Related Data Previous Rx's Medication Instructions Recorded acetaminophen 325 mg tablet 650 mg (2 x 325 mg) PO Q6H PRN 03/15/23 Headache/Pain Mild Scale (1-3) 30 days #90 tabs amlodipine 5 mg tablet 1 tab PO DAILY 30 days #30 tabs 03/15/23 atorvastatin 10 mg tablet 1 tab PO DAILY 30 days #30 tabs 03/15/23 donepezil 10 mg tablet 10 mg PO BEDTIME 30 days #30 tabs 03/15/23 fluticasone propionate 50 1 spray intranasal DAILY 30 days 03/15/23 mcg/actuation nasal #1 units spray,suspension meclizine 25 mg tablet 25 mg PO TID PRN dizziness 30 days 03/15/23 #14 tabs melatonin 3 mg tablet 3 mg PO BEDTIME PRN Insomnia 30 03/15/23 days #30 tabs memantine 10 mg tablet (Namenda) 10 mg PO BID 30 days #60 tabs 03/15/23 olanzapine 2.5 mg tablet 2.5 mg PO BEDTIME 30 days #30 tabs 03/15/23 peg [id number] 1 2 drp ophthalmic (eye) Q4H PRN Dry 03/15/23 %-0.2 %-0.2 % eye drops Eyes 30 days #5 mL (Artificial Tears ([id number])) white petrolatum-mineral oil 83 1 appl ophthalmic (eye) BEDTIME 30 03/15/23 %-15 % eye ointment (Lubrifresh PM) days #1 g Allergies Allergy/AdvReac Type Severity Reaction Status Date / Time epinephrine [EPINEPHRINE] Allergy Unknown TACHYCARDIA,SHAKEY, Verified 07/06/23 08:27 tachycardia NSAIDS (Non-Steroidal Allergy Unknown Verified 07/06/23 08:27 Anti-Inflamma anesthesia Allergy Unknown difficulty Uncoded 02/29/20 00:00 waking up Review of Systems Review of Systems: ROS unable to be obtained due to dementia COUNT INCLUDES THE [facility] Past Medical History Attestation statement: The following information was validated with the patient. Source: old records reviewed Medical History Bright red rectal bleeding Diabetes High cholesterol HTN (hypertension) Surgical History No pertinent past surgical history Social History Household Members: None Housing: House Unable to assess alcohol history related to: Unknown Alcohol intake: never Patient Tobacco Use Status: Never used Tobacco Smoked in Last 30 Days: No Use of substances other than those prescribed or required for medical reasons: No Advance Directives: Yes Advance Directives on File: Yes Advance Directives Date on File: 03/16/23 service: No Sexual orientation: Straight/Heterosexual Physical Exam Vital Signs: Vital Signs: Last Vital Signs Pulse 59 07/06/23 10:38 Resp 16 07/06/23 10:38 BP 140/60 H 07/06/23 10:38 Pulse Ox 99 07/06/23 10:38 O2 Del Method Room Air 07/06/23 10:38 BMI result Body Mass Index 9.6 Appearance: Alert. Confused. No acute distress. Eyes: Pupils equal, round and reactive to light. ENT: Pharynx normal. Small contusion L occipital area no nelson sign or raccoon eyes Neck: Normal inspection. Neck supple. CVS: Normal heart rate and rhythm. Pulses normal. Back: posterior L upper shoulder very superficial small skin tear Respiratory: No respiratory distress. Breath sounds normal. Abdomen: Soft and nontender. Skin: Skin warm and dry. Normal skin color. Normal skin turgor. Extremities: No lower extremity edema. I can range L arm without pain, L hip she does not grimace with ROM there is no shortening or ext rotation Neuro: confused No motor deficit. No sensory deficit. Course Course Course Narrative: BP improved stable for DC called and spoke with daughter Ioana about plan of care - discussed radiology findings. Medications Administered Discontinued Medications Generic Name Dose Route Start Last Admin Trade Name Giovanni PRN Reason Stop Dose Admin Acetaminophen 650 mg 07/06/23 08:23 07/06/23 08:43 Acetaminophen 325 Mg Tablet PO 07/06/23 08:24 650 mg ONCE ONE Administration Medical Decision Making Medical Decision Making [facility] Narrative: 87 yo female with PMH of dementia, HTN, HLD, GI bleed here with c/o mechanical fall witnessed by staff at SNF - she is a very poor historian due to dementia she does c/o headache. At this time wound covered very superficial. Will obtain CT head/cspine, L shoulder, rib films on L side, L hip and PO tylenol. Differential Diagnosis Differential Diagnoses: The differential diagnosis associated with the presentation includes trauma, fracture, contusion, skin tear, ICH Admission/Observation Consideration of admission/observation: Escalation of care including admission/observation considered work up negative, VS stable, at baseline Lab Data [facility] Lab Attestation statement: I reviewed the patient's lab results. Independent Interpretation I performed an independent interpretation of an: Plain X-Ray (no acute fractures) and CT Scan (negative) Radiology Impression Discussion of test interpretation with radiology: I have reviewed the radiologist's reading. Independent Historian Clinical information obtained from an independent historian. History obtained from or confirmed by: EMS External Record Review External record reviewed: Inpatient record Discharge Plan Discharge Clinical Impression: Skin tear of left upper extremity Fall Qualifiers: Encounter type: initial encounter Qualified Code(s): W19.XXXA - Unspecified fall, initial encounter Patient Disposition: Home, Self-Care Instructions: Abrasion (ED), Fall Prevention (ED) Additional Instructions: keep skin tear clean dry and intact monitor for redness, fevers, yellow drainage, return for worsening pain, confusion, trouble breathing, vomiting or any other concerns. CT head and cspine negative XR/XR hip LT w PEL1V IMPRESSION: 1. Mild degenerative changes left shoulder otherwise no acute process. 2. Unremarkable chest exam. 3. Unremarkable left ribs. 4. Unremarkable left hip and AP pelvis exam. 5. Moderate dextroscoliosis. Prescriptions: No Action acetaminophen 325 mg Tablet 650 mg PO Q6H PRN (Reason: Headache/Pain Mild Scale (1-3)) 30 Days Qty: 90 0RF donepezil 10 mg Tablet 10 mg PO BEDTIME 30 Days Qty: 30 0RF melatonin 3 mg Tablet 3 mg PO BEDTIME PRN (Reason: Insomnia) 30 Days Qty: 30 0RF olanzapine 2.5 mg Tablet 2.5 mg PO BEDTIME 30 Days Qty: 30 0RF fluticasone propionate 50 mcg/actuation [place],Suspension 1 spray intranasal DAILY 30 Days Qty: 1 0RF Artificial Tears([id number]) 1-0.2-0.2 % Drops 2 drp ophthalmic (eye) Q4H PRN (Reason: Dry Eyes) 30 Days Qty: 5 0RF memantine [Namenda] 10 mg Tablet 10 mg PO BID 30 Days Qty: 60 0RF Lubrifresh PM 83-15 % Ointment 1 appl ophthalmic (eye) BEDTIME 30 Days Qty: 1 0RF Protocol: Apply to: Apply to: both eyes atorvastatin 10 mg tablet 1 tab PO DAILY 30 Days Qty: 30 0RF amlodipine 5 mg tablet 1 tab PO DAILY 30 Days Qty: 30 0RF meclizine 25 mg tablet 25 mg PO TID PRN (Reason: dizziness) 30 Days Qty: 14 0RF
[2023-07-06] MEDS: Acetaminophen 325 MG TABLET 650 MG PO (08:43)
[2023-07-06 10:38] VITALS: BP 140/60; PULSE 59; RESP 16; O2SAT 99
--- NOTE | 2023-07-06 10:59 | PC.NURSE ---
report given to nursing staff at [facility]. 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
--- NOTE | 2023-07-06 14:38 | MHC.CM.ED ---
Received case management consult from Dr Truong. Patient came to the ER due to a fall. Found to have a skin tear. Dr Truong requesting VNA for residential. Patient is from [facility]. T/W spoke with Florence at facility. Patient is not currently active with a VNA. Patient was active with [facility] in the past. Referral made via [facility]. [facility] is able to accept patient.
== END 2023-07-06 12:00 | disposition home or self-care (01) ==
PROVIDERS: Emergency Provider Emergency Medicine; PCP Internal Medicine
DX: S41.012A Laceration without foreign body of left shoulder, initial encounter (principal); W01.0XXA Fall on same level from slipping, tripping and stumbling without subsequent striking against object, initial encounter; E11.9 Type 2 diabetes mellitus without complications; I10 Essential (primary) hypertension; E78.5 Hyperlipidemia, unspecified; F03.90 Unspecified dementia, unspecified severity, without behavioral disturbance, psychotic disturbance, mood disturbance, and anxiety; Y93.89 Activity, other specified; Y92.099 Unspecified place in other non-institutional residence as the place of occurrence of the external cause; Y99.9 Unspecified external cause status; Z79.02 Long term (current) use of antithrombotics/antiplatelets; Z79.899 Other long term (current) drug therapy
CPT/HCPCS: 70450; 71101; 72125; 73030; 73502; 99284

== ENCOUNTER 2023-07-07 15:44 | Emergency (ER) | payer MEDICARE, SELFPAY ==
--- NOTE | ~2023-07-07 | XR_ITS ---
EXAMINATION: LEFT ELBOW, LEFT FOREARM, LEFT WRIST CLINICAL INFORMATION: Pain after fall COMPARISON: Left elbow 02/07/2019, left wrist 10/11/2017 TECHNIQUE: 4 views elbow, 2 views forearm, 4 views wrist FINDINGS: Elbow: No significant bone, joint or soft tissue abnormality is seen. No effusion and no fractures. Forearm and wrist: There is a transverse fracture through the distal radial metaphysis. I suspect that this probably involves the radiocarpal joint although this is not seen with certainty. The fracture is impacted with mild dorsal angulation of the distal fracture fragment. There is also a nondisplaced fracture of the ulnar styloid. No other fractures. Again seen are marked degenerative changes at the first CMC joint which have progressed when compared to the 2018. XR/XR wrist LT min 3V IMPRESSION: 1. Fractures of the distal radius and ulnar styloid as described above. 2. Progressive degenerative changes first CMC joint. 3. Normal elbow.
--- NOTE | ~2023-07-07 | XR_ITS ---
EXAMINATION: LEFT ELBOW, LEFT FOREARM, LEFT WRIST CLINICAL INFORMATION: Pain after fall COMPARISON: Left elbow 02/07/2019, left wrist 10/11/2017 TECHNIQUE: 4 views elbow, 2 views forearm, 4 views wrist FINDINGS: Elbow: No significant bone, joint or soft tissue abnormality is seen. No effusion and no fractures. Forearm and wrist: There is a transverse fracture through the distal radial metaphysis. I suspect that this probably involves the radiocarpal joint although this is not seen with certainty. The fracture is impacted with mild dorsal angulation of the distal fracture fragment. There is also a nondisplaced fracture of the ulnar styloid. No other fractures. Again seen are marked degenerative changes at the first CMC joint which have progressed when compared to the 2018. XR/XR elbow LT min 3V IMPRESSION: 1. Fractures of the distal radius and ulnar styloid as described above. 2. Progressive degenerative changes first CMC joint. 3. Normal elbow.
--- NOTE | ~2023-07-07 | XR_ITS ---
EXAMINATION: LEFT ELBOW, LEFT FOREARM, LEFT WRIST CLINICAL INFORMATION: Pain after fall COMPARISON: Left elbow 02/07/2019, left wrist 10/11/2017 TECHNIQUE: 4 views elbow, 2 views forearm, 4 views wrist FINDINGS: Elbow: No significant bone, joint or soft tissue abnormality is seen. No effusion and no fractures. Forearm and wrist: There is a transverse fracture through the distal radial metaphysis. I suspect that this probably involves the radiocarpal joint although this is not seen with certainty. The fracture is impacted with mild dorsal angulation of the distal fracture fragment. There is also a nondisplaced fracture of the ulnar styloid. No other fractures. Again seen are marked degenerative changes at the first CMC joint which have progressed when compared to the 2018. XR/XR forearm LT 2V IMPRESSION: 1. Fractures of the distal radius and ulnar styloid as described above. 2. Progressive degenerative changes first CMC joint. 3. Normal elbow.
[2023-07-07 17:05] VITALS: BP 175/70; PULSE 57; RESP 18; TEMP 37; O2SAT 95; BMI 20.1
--- NOTE | 2023-07-07 17:05 | ED_ITS ---
HPI - General Adult General Chief complaint: Fall Stated complaint: fell 07/05 left wrist pain,swollen Time Seen by Provider: 07/08/23 00:06 Source: patient, RN notes reviewed and old records reviewed Mode of arrival: ambulatory History of Present Illness HPI narrative: 87-year-old female with a past medical history of diabetes, HLD, HTN, dementia, presenting to the ED from [facility] s/p trip & fall at facility yesterday. Patient was evaluated in our ED after incident, had multiple x-rays/CT's which were unremarkable, however was sent back to the ED as facility cannot provide level of care needed. Patient now complaining of left wrist pain/swelling and ecchymosis to LUE. Patient denies more recent injury/trauma or fall since visit yesterday. Denies abdominal pain, CP/SOB Related Data Home Medications Medication Instructions Recorded Confirmed citalopram 20 mg tablet 20 mg PO DAILY 07/08/23 07/08/23 olanzapine 2.5 mg tablet 2.5 mg PO BEDTIME 07/08/23 07/08/23 Previous Rx's Medication Instructions Recorded acetaminophen 325 mg tablet 650 mg (2 x 325 mg) PO Q6H PRN 03/15/23 Headache/Pain Mild Scale (1-3) 30 days #90 tabs amlodipine 5 mg tablet 1 tab PO DAILY 30 days #30 tabs 03/15/23 atorvastatin 10 mg tablet 1 tab PO DAILY 30 days #30 tabs 03/15/23 donepezil 10 mg tablet 10 mg PO BEDTIME 30 days #30 tabs 03/15/23 fluticasone propionate 50 1 spray intranasal DAILY 30 days 03/15/23 mcg/actuation nasal #1 units spray,suspension meclizine 25 mg tablet 25 mg PO TID PRN dizziness 30 days 03/15/23 #14 tabs melatonin 3 mg tablet 3 mg PO BEDTIME PRN Insomnia 30 03/15/23 days #30 tabs memantine 10 mg tablet (Namenda) 10 mg PO BID 30 days #60 tabs 03/15/23 peg [id number] 1 2 drp ophthalmic (eye) Q4H PRN Dry 03/15/23 %-0.2 %-0.2 % eye drops Eyes 30 days #5 mL (Artificial Tears ([id number])) white petrolatum-mineral oil 83 1 appl ophthalmic (eye) BEDTIME 30 03/15/23 %-15 % eye ointment (Lubrifresh PM) days #1 g acetaminophen 325 mg capsule 325 mg PO Q4H PRN pain #30 caps 07/09/23 (Tylenol) Allergies Allergy/AdvReac Type Severity Reaction Status Date / Time epinephrine [EPINEPHRINE] Allergy Unknown TACHYCARDIA,SHAKEY, Verified 07/07/23 17:05 tachycardia NSAIDS (Non-Steroidal Allergy Unknown Verified 07/07/23 17:05 Anti-Inflamma anesthesia Allergy Unknown difficulty Uncoded 02/29/20 00:00 waking up Review of Systems Review of Systems: ROS limited due to patient's baseline dementia Yes all other systems are reviewed and are negative Constitutional: Constitutional: Reports as per [facility] [place] Past Medical History Attestation statement: The following information was validated with the patient. Source: old records reviewed Medical History Bright red rectal bleeding Diabetes High cholesterol HTN (hypertension) Surgical History No pertinent past surgical history Social History Social History Household Members: None Housing: House Unable to assess alcohol history related to: Unknown Alcohol intake: never Patient Tobacco Use Status: Never used Tobacco Smoked in Last 30 Days: No Use of substances other than those prescribed or required for medical reasons: No Advance Directives: Yes Advance Directives on File: Yes Advance Directives Date on File: 03/16/23 service: No Sexual orientation: Straight/Heterosexual Physical Exam ED Vital Signs: Vital Signs - 24 hr 07/08/23 13:56 07/08/23 21:39 07/09/23 06:00 Temperature 97.8 F 98.4 F 97.9 F Pulse Rate 63 59 54 Respiratory Rate 18 16 14 Blood Pressure 117/65 143/51 H 128/63 Pulse Oximetry 95 96 95 Oxygen Delivery Method Room Air Room Air Room Air 07/09/23 08:27 Temperature 98.4 F Pulse Rate 65 Respiratory Rate 16 Blood Pressure 126/69 Pulse Oximetry 95 Oxygen Delivery Method Room Air BMI result Body Mass Index 20.1 Const General: cooperative, healthy appearing and no acute distress HENMT Head: Yes normal to inspection and Yes atraumatic Ears: hearing grossly normal bilaterally General nose exam: Normal external nose present Face and sinus: Yes normal facial exam Eyes General: appearance normal, both eyes and all related structures EOM: EOMs intact bilaterally Neck Neck: Yes normal visual inspection and Yes no meningeal signs Resp Effort & Inspection: normal respiratory effort and no respiratory distress Auscultation: clear to auscultation bilaterally Cardio Rate: regular rate Heart sounds: S1 normal heart sound present and S2 normal heart sound present Peripheral pulses: Peripheral pulses 2+ throughout GI Inspection: Yes normal to inspection Palpation (GI): Soft to palpation, nontender, no guarding and not rigid Back/Spine/Pelvis Other: No midline cervical/thoracic/lumbar spinous tenderness/step-off or deformity Skin Rashes: no rashes Neuro General: tone normal and no meningeal signs Cranial nerves: Yes CN's II-XII intact bilaterally Gait exam (Neuro): Normal gait present Extrem Other: Left wrist/hand with noted deformity/swelling and diffuse tenderness. Ecchymosis extending from left hand to elbow. Limited ROM to left forearm/wrist and hand secondary to pain. Neurovascularly intact. No erythema/warmth Course Course Course Narrative: This is an RME: Additional HPI, ROS, PE not included below will be deferred to primary provider. This is an 87-year-old female, with a history of dementia, hyperlipidemia, hypertension, GI bleed, presenting to the emergency department for re- evaluation. Patient was seen here yesterday after a fall. She had left shoulder, chest, left ribs, left hip pelvis x-rays performed without any acute findings. She was discharged back to the ER worse. I received a phone call from Dr. Segura who stated that she needed a higher level of care that this is not appropriate for her to be at the [facility]. Patient denies any new falls. She has no complaints. Patient had multiple rings on her fingers which were removed with lubricating jelly and given to son. After receiving call from Dr. Segura, I informed Case Management that patient will be returning. Plan: Given patient did not have x-rays of her left wrist, forearm or elbow with extensive bruising, will obtain x-rays. Further ER evaluation needed. XR wrist LT min 3V/XR forearm LT 2V/XR elbow LT min 3V IMPRESSION: 1. Fractures of the distal radius and ulnar styloid as described above. 2. Progressive degenerative changes first CMC joint. 3. Normal elbow. >> patient placed in sugar-tong splint is applied with sling. Will need orthopedic follow-up. Physician observation initiated as patient needs more time to be evaluated by PT/case management -0200--ED care transferred to Dr. Palmer pending PT/CM 07/08/2023 0824: Physician observation continues. Patient awaiting PT evaluation. Patient being followed by case management. Reevaluation(s) Reevaluation #1: Per case management patient will go to [facility] VIA BLS AT 2PM, uneventful night. Vital signs stable. Will continue to monitor Reevaluation #2: [facility] at 2pm today. Time: 13:41 Medications Administered Generic Name Dose Route Start Last Admin Trade Name Freq PRN Reason Stop Dose Admin Acetaminophen 325 mg 07/08/23 01:11 07/08/23 09:21 Acetaminophen 325 Mg Tablet PO 325 mg Q4H PRN Administration Pain, Mild (Pain Scale 1-3) Amlodipine Besylate 5 mg 07/08/23 09:00 07/09/23 08:29 Amlodipine Besylate 5 Mg Tablet PO 5 mg DAILY LORA Administration Protocol Atorvastatin Calcium 10 mg 07/08/23 09:00 07/09/23 08:29 Atorvastatin Calcium 10 Mg Tablet PO 10 mg DAILY LORA Administration Donepezil HCl 10 mg 07/08/23 21:00 07/08/23 21:28 Donepezil Hcl 10 Mg Tablet PO 10 mg BEDTIME LORA Administration Escitalopram Oxalate 10 mg 07/08/23 09:15 07/09/23 08:30 Escitalopram Oxalate 10 Mg Tablet PO 10 mg DAILY LORA Administration Fluticasone Propionate 1 spray 07/08/23 09:00 07/09/23 08:35 Fluticasone Propionate Nasal 16 Gm Frohna NOSTRIL-B Not Given DAILY LORA Memantine 10 mg 07/08/23 09:00 07/09/23 08:29 Memantine Hcl 10 Mg Tablet PO 10 mg BID LORA Administration Olanzapine 2.5 mg 07/08/23 21:00 07/08/23 21:28 Olanzapine 2.5 Mg Tablet PO 2.5 mg BEDTIME LORA Administration Procedures Orthopedic Splinting/Casting Injury #1: Side: left Upper Extremity Injury Location: wrist Upper Extremity Immobilizer: sling/shoulder immobilizer and sugar tong splint Medical Decision Making Medical Decision Making MDM Narrative: 87-year-old female with a past medical history of diabetes, HLD, HTN, dementia, presenting to the ED from [facility] s/p trip & fall at facility yesterday. On exam vital signs stable, NAD, nontoxic appearing, left upper extremity with noted deformity/ecchymosis and tenderness. Limited ROM secondary to pain/swelling. Imaging reviewed from yesterday. Concern for LUE fracture vs sprain. Unlikely dislocation Plan: X-rays, PT/case management Please refer to course for remaining clinical decision making, interpretation of labs/imaging results, and discussions with consultants and/or family members. Differential Diagnosis Differential Diagnoses: The differential diagnosis associated with the presentation includes As above Admission/Observation Consideration of admission/observation: Escalation of care including admission/observation considered Lab Data [facility] Lab Attestation statement: I reviewed the patient's lab results. Labs: Lab Results 07/08/23 Range/Units 22:21 COVID-19 (CODY) Negative (Negative) COVID-19 Clin Com See Note Independent Interpretation I performed an independent interpretation of an: Plain X-Ray (My interpretation: Distal radial and ulna styloid fracture) Radiology Impression Discussion of test interpretation with radiology: I have reviewed the radiologist's reading. External Record Review External record reviewed: Inpatient record, Office record, Outpatient record, Prior outpatient labs, Prior outpatient radiology, Primary care record and Outside ED record Tests considered The following testing was considered but not selected: As above Prescription Management I considered prescription management with: Pain Medication Chronic Conditions Patient?s care impacted by: Other (Dementia) Discharge Plan Discharge Clinical Impression: Distal radial fracture, Fracture of ulnar styloid Patient Disposition: Home, Self-Care Instructions: Arm Fracture in Adults (ED), Wrist Fracture in Adults (ED) Additional Instructions: Take your medications as prescribed. If you were prescribed antibiotics today, it is important that you take your medication to their entirety, do not skip any doses, do not finish them early. Follow-up with your primary care provider this week. Return to the emergency department with new or worsening symptoms. Such as fevers, chills, chest pain, shortness of breath, nausea, vomiting, dizziness, headache, vision changes, lethargy In case of emergency call 911 Prescriptions: New acetaminophen [Tylenol] 325 mg capsule 325 mg PO Q4H PRN (Reason: pain) Qty: 30 0RF No Action olanzapine 2.5 mg tablet 2.5 mg PO BEDTIME citalopram 20 mg tablet 20 mg PO DAILY acetaminophen 325 mg Tablet 650 mg PO Q6H PRN (Reason: Headache/Pain Mild Scale (1-3)) 30 Days Qty: 90 0RF donepezil 10 mg Tablet 10 mg PO BEDTIME 30 Days Qty: 30 0RF melatonin 3 mg Tablet 3 mg PO BEDTIME PRN (Reason: Insomnia) 30 Days Qty: 30 0RF fluticasone propionate 50 mcg/actuation Frohna,Suspension 1 spray intranasal DAILY 30 Days Qty: 1 0RF Artificial Tears([id number]) 1-0.2-0.2 % Drops 2 drp ophthalmic (eye) Q4H PRN (Reason: Dry Eyes) 30 Days Qty: 5 0RF memantine [Namenda] 10 mg Tablet 10 mg PO BID 30 Days Qty: 60 0RF Lubrifresh PM 83-15 % Ointment 1 appl ophthalmic (eye) BEDTIME 30 Days Qty: 1 0RF Protocol: Apply to: Apply to: both eyes atorvastatin 10 mg tablet 1 tab PO DAILY 30 Days Qty: 30 0RF amlodipine 5 mg tablet 1 tab PO DAILY 30 Days Qty: 30 0RF meclizine 25 mg tablet 25 mg PO TID PRN (Reason: dizziness) 30 Days Qty: 14 0RF Referrals: [facility] [Provider Group] - 1 week [facility] [Outside]
--- NOTE | 2023-07-07 22:02 | PC.NURSE ---
pt previously seen 07/05/23 for a fall at snf; son and pt unable to state details of fall states should be in previous chart. pt at baseline mentation per son. bruising swelling noted L. hand/wrist/forearm. pt denies pain. +pt pulse. pt placed in hospital gown. awaiting primary eval by ed provider.
[2023-07-07 23:35] VITALS: BP 143/81; PULSE 51; RESP 15; O2SAT 98
--- NOTE | 2023-07-08 01:49 | PC.NURSE ---
pt transferred to overflow, purwick in place, repositioned for comfort
--- NOTE | 2023-07-08 01:51 | MHC.EDTECH ---
Patient just came to overflow from the main emergency room ,Patient was transfer into bed ,got settle ,warm blanket given ,red sock was put on ,Pants remove ,And purewick Placed ,bed alarm on bed and Patient belonings list done .
[2023-07-08 05:22] VITALS: BP 173/67; PULSE 58; RESP 16; TEMP 36.1; O2SAT 96
--- NOTE | 2023-07-08 06:07 | PC.NURSE ---
Pt observed sleeping, bedalarm active
--- NOTE | 2023-07-08 06:23 | PC.NURSE ---
pt incontinent of urine, pt changed cleaned, bed change
--- NOTE | 2023-07-08 09:01 | PHA.MEDREC ---
Pharmacy Consult ? Medication Reconciliation Pharmacy has completed the medication reconciliation.
[2023-07-08] MEDS: amLODIPine Besylate 5 MG TABLET PO (09:19)
[2023-07-08] MEDS: Atorvastatin Calcium 10 MG TABLET PO (09:19)
[2023-07-08] MEDS: Escitalopram Oxalate 10 MG TABLET PO (09:19)
[2023-07-08] MEDS: Acetaminophen 325 MG TABLET PO (09:21)
[2023-07-08 09:25] VITALS: BP 134/53; PULSE 64
[2023-07-08] MEDS: Memantine HCl 10 MG TABLET PO ×2 (11:31→21:28)
--- NOTE | 2023-07-08 13:48 | PC.NURSE ---
Patient alert and oriented to self and place. Patient cooperative, but slightly anxious with being in hospital. Reassurance given. Patient denies chest pain or SOB. Left arm wrapped and in sling, pain meds given per EMAR. Lung sounds clear, +bowel sounds. Patient used bedpan x1, purewick in place. No BM this shift. Call monsivais at bedside, bed alarm on. All needs met.
--- NOTE | 2023-07-08 13:52 | MHC.CM.ED ---
Received case management consult overnight. Patient was in the ER on 07/06. Was d/c'd back to [facility] facility with Jojo ZAMBRANO. Patient return to ER due to wrist pain. Found to have left wrist fracture. Currently in a splint. Physical therapy eval completed. Short term rehab is recommended. Patient has not been inpatient in any facility in the past 30 days. Attempted to meet with patient in regards to discharge planning. Patient has a history of Dementia. Spoke with patient's daughter, Ioana, via telephone at [phone]. [facility] [address] [facility]. Referral made via [facility]. [facility] does not have a bed at this time. Referral broadcasted in [facility]. Options discussed with Ioana. Ioana accepts bed at [facility] [place]. Building will contact family about financials. Anticipate patient will d/c there via BLS tomorrow. Continue to monitor for d/c needs.
[2023-07-08 13:56] VITALS: BP 117/65; PULSE 63; RESP 18; TEMP 36.6; O2SAT 95
--- NOTE | 2023-07-08 17:23 | PC.NURSE ---
assumed care of pt at 1500, offering no complaints. set up for dinner. assisted with bedpan, purewick in place for stress/urge incontinence. Call monsivais within reach
--- NOTE | 2023-07-08 19:44 | PC.NURSE ---
I assumed care of the pt at 1900. Pt is asleep in bed at this time. Hearing aids at the bedside charging. Pt is waiting for STR placement.
[2023-07-08] MEDS: OLANZapine 2.5 MG TABLET PO (21:28)
[2023-07-08] MEDS: Donepezil HCl 10 MG TABLET PO (21:28)
[2023-07-08 21:39] VITALS: BP 143/51; PULSE 59; RESP 16; TEMP 36.9; O2SAT 96
[2023-07-08 22:47] LABS: COVID-19 Test Negative (Negative); IDNOW Serial# 08D9AD1C
[2023-07-09 06:00] VITALS: BP 128/63; PULSE 54; RESP 14; TEMP 36.6; O2SAT 95
--- NOTE | 2023-07-09 06:06 | PC.NURSE ---
Pt cleaned and boosted in bed. Purewick in place. No complaints. Pt waiting STR placement at this time.
[2023-07-09 08:27] VITALS: BP 126/69; PULSE 65; RESP 16; TEMP 36.9; O2SAT 95
[2023-07-09] MEDS: amLODIPine Besylate 5 MG TABLET PO (08:29)
[2023-07-09] MEDS: Memantine HCl 10 MG TABLET PO (08:29)
[2023-07-09] MEDS: Atorvastatin Calcium 10 MG TABLET PO (08:29)
[2023-07-09] MEDS: Escitalopram Oxalate 10 MG TABLET PO (08:30)
--- NOTE | 2023-07-09 10:30 | MHC.CM.ED ---
Patient remains in ER overflow. Will transfer to [facility] via BLS at 2pm. Patient, daughter IoanaNegin RN and Sis DE JESUS aware. [facility] booked. [facility] with chart. Continue to monitor for d/c needs.
--- NOTE | 2023-07-09 13:59 | PC.NURSE ---
report given to EMS - pt leaving/going back to facility at this time.
--- NOTE | 2023-07-09 14:05 | PC.NURSE ---
this RN called at [facility] - report given to RN.
== END 2023-07-09 14:06 | disposition home or self-care (01) ==
PROVIDERS: Physician Assistant Medical; Emergency Provider Student in an Organized Health Care Education/Training Program; PCP Internal Medicine
DX: S52.502A Unspecified fracture of the lower end of left radius, initial encounter for closed fracture (principal); S52.612A Displaced fracture of left ulna styloid process, initial encounter for closed fracture; R26.2 Difficulty in walking, not elsewhere classified; M79.602 Pain in left arm; M25.532 Pain in left wrist; I10 Essential (primary) hypertension; W01.10XA Fall on same level from slipping, tripping and stumbling with subsequent striking against unspecified object, initial encounter; Y93.9 Activity, unspecified; Y92.9 Unspecified place or not applicable; Y99.9 Unspecified external cause status; Z11.52 Encounter for screening for COVID-19; Z20.822 Contact with and (suspected) exposure to COVID-19; Z79.899 Other long term (current) drug therapy
CPT/HCPCS: 29105; 73080; 73090; 73110; 87635; 97162; 99284; 99285

== ENCOUNTER 2023-07-19 06:34 | Outpatient (REF) | payer MEDICARE, SELFPAY ==
--- NOTE | ~2023-07-19 | XR_ITS ---
EXAMINATION: XR WRIST, LEFT CLINICAL INFORMATION: Pain in left wrist COMPARISON: None available. TECHNIQUE: PA, lateral, and oblique views of the left wrist. FINDINGS: The bones are severely demineralized. There is a mildly displaced fracture of the metaphysis of the radius without articular extension. There is a mildly displaced fracture of the ulnar styloid. Associated soft tissue swelling is seen. There is severe degenerative change of the first carpometacarpal joint. The radiocarpal joint is narrow. XR/XR wrist LT min 3V IMPRESSION: 1. Mildly displaced fracture of the metaphysis of the radius without articular extension. 2. Mildly displaced fracture of the ulnar styloid.
== END 2023-07-19 06:35 | disposition home or self-care (01) ==
LOC: HO.HOSX 06:34
PROVIDERS: Visit Provider Physician Assistant
DX: S52.502A Unspecified fracture of the lower end of left radius, initial encounter for closed fracture (principal); W19.XXXA Unspecified fall, initial encounter; Y93.9 Activity, unspecified; Y92.9 Unspecified place or not applicable; Y99.9 Unspecified external cause status
CPT/HCPCS: 25600; 73110; 99202

== ENCOUNTER 2023-07-19 15:03 | Outpatient (AMB) | payer MEDICARE, SELFPAY ==
--- NOTE | 2023-07-19 15:10 | MHC.OFFVIS ---
Intake Intake Visit Reasons: FC-Left wrist fracture: DOI 07/05/23 Intake Note: Barbara an 87 year old right hand dominant female presents today with her daughter for an ER follow up of left wrist fx, DOI 07/05/23. Patient reports that she fell, presented to [facility] [place] ED where xrays were taken and placed in a splint. Currently she has pain with movement of her arm. States numbness and tingling in her hand. Allergies epinephrine [EPINEPHRINE] Allergy (Unknown, Verified 07/19/23 15:27) TACHYCARDIA,SHAKEY, tachycardia NSAIDS (Non-Steroidal Anti-Inflamma Allergy (Verified 07/19/23 15:27) Unknown anesthesia Allergy (Unknown, Uncoded 07/19/23 15:27) difficulty waking up HPI FC-Left wrist fracture: DOI 07/05/23 HPI Details 87-year-old right hand dominant female who presents to the office today with her daughter for an ER follow-up of left wrist injury s/p fall, 07/05/23. She was seen at ED where x-rays were performed and she was placed in a splint. She currently states she has pain in her arm with movement. She also c/o numbness and tingling in her hand. She lives in an assisted living. [facility] Medical History Bright red rectal bleeding Diabetes High cholesterol HTN (hypertension) Surgical History No pertinent past surgical history Social History Household Members: None Housing: House Unable to assess alcohol history related to: Unknown Alcohol intake: never Patient Tobacco Use Status: Never used Tobacco Advance Directives Date on File: 03/16/23 service: No Sexual orientation: Straight/Heterosexual Review of Systems Const All systems reviewed & are unremarkable except as noted in HPI and below Physical Exam Const General: cooperative and no acute distress Orientation/consciousness: patient oriented x3 Resp Effort & Inspection: normal respiratory effort and able to speak in complete sentences Cardio Peripheral pulses: Peripheral pulses 2+ throughout Neuro General: patient oriented x3 Extrem Other: Left wrist: Skin intact. No abrasions. She has mild swelling in the hand and fingers. Tenderness over the distal radius. She does have a positive Tinel?s with decreased sensation along the median nerve distribution. Office Procedures Casting/Splints 12835-Zkwa/Wrist Cast Application Procedure code (CPT) selection complete Fracture Care Fracture Billing Code: Fracture Billing Code Results Reviewed Results Reviewed: Xrays were obtained in the office today and personally reviewed by me of the left wrist show distal radius fracture with shortening Assessment & Plan Assessment & Plan (1) Distal radius fracture, left: Code(s): S52.502A - Unspecified fracture of the lower end of left radius, initial encounter for closed fracture Qualifiers: Encounter type: initial encounter Fracture morphology: unspecified fracture morphology Fracture type: closed Qualified Code(s): S52.502A - Unspecified fracture of the lower end of left radius, initial encounter for closed fracture Plan I discussed the injury to the patient and her daughter who is accompanying her today. Because of her age and onset of dementia we are going to treat this conservatively with a cast for the next 6 weeks. I did explain that with this type of distal radius fracture compression of the median nerve can be possible where she has carpal tunnel like symptoms which could resolve however chronic compression of the nerve could result in assisted carpal tunnel like symptoms. She would still like to treat this conservatively with a cast. I would like to see her back in 6 weeks with cast off and new x-rays. For rehab recommendations, I encouraged them to get her up and ambulating and working on gait training and ROM of hand. They are questioning use of a platform walker which may be reasonable if she is able to focus most of her upper extremity weight bearing on the right side and this may be difficult for her, therefore it may not be realistic. She will see me back as planned. Orders: Orders XR wrist LT min 3V 07/19/23 M25.532 - Pain in left wrist Patient Instructions: Scribed for Tobias Tyler PA-C, by Shalom Unger medical instructor, on 07/19/2023 at 3:15 PM EST. Tobias Diamond PA-C, have personally reviewed and agree with the information entered by the scribe. Coding Level of Care Code New Pt Level 3 (66338) Diagnoses Closed fracture of distal end of left radius, unspecified fracture morphology, initial encounter S52.502A Encounter type: initial encounter Fracture morphology: unspecified fracture morphology Fracture type: closed CPT Codes Casting - CPT: 98804-Jdll/Wrist Cast Application ([id number]) Fracture Care - Fracture Billing Code: Fracture Billing Code ([id number])
== END 2023-07-19 16:09 | disposition home or self-care (01) ==
PROVIDERS: PCP Internal Medicine; Visit Provider Physician Assistant
DX: S52.502A Unspecified fracture of the lower end of left radius, initial encounter for closed fracture (principal); W19.XXXA Unspecified fall, initial encounter
CPT/HCPCS: 25600; 99203

== ENCOUNTER 2023-08-11 15:42 | Outpatient (AMB) | payer MEDICARE, SELFPAY ==
--- NOTE | 2023-08-11 15:42 | MHC.OFFVIS ---
Intake Intake Visit Reasons: OV-Left wrist fracture: DOI 07/05/23 Intake Note: Pt presents to the office today for an OV Left fracture follow up. Pt states she is having bad pain and swelling under her cast and her fingers and thumb are swollen. Pt states her thumb even hurts to touch it. Allergies epinephrine [EPINEPHRINE] Allergy (Unknown, Verified 08/11/23 15:43) TACHYCARDIA,SHAKEY, tachycardia NSAIDS (Non-Steroidal Anti-Inflamma Allergy (Verified 08/11/23 15:43) Unknown anesthesia Allergy (Unknown, Uncoded 08/11/23 15:43) difficulty waking up HPI OV-Left wrist fracture: DOI 07/05/23 HPI Details Barbara is an 87 year old right hand dominant woman, here with her daughter, for a follow up of her left distal radius fracture. She fell on 07/05/23 injuring her wrist. She is hard of hearing and resides in assisted living. She was splinted in the ED on 07/07/23 and seen by LIZA Collado on 07/19/23 before being placed in a cast. Evidently the patient was told to return for follow-up visit in 6 weeks which is on 09/02/2022. The nurse at her half-way felt that this was too long, and requested that she be seen. She presents today with complaints of pain & swelling in her fingers, particularly her thumb. She says her fingers feel numb and her cast feels too tight. Her thumb hurts to touch. [facility] Medical History Bright red rectal bleeding Diabetes High cholesterol HTN (hypertension) Surgical History No pertinent past surgical history Social History Household Members: None Housing: House Unable to assess alcohol history related to: Unknown Alcohol intake: never Patient Tobacco Use Status: Never used Tobacco Advance Directives Date on File: 03/16/23 service: No Sexual orientation: Straight/Heterosexual Review of Systems Const All systems reviewed & are unremarkable except as noted in HPI and below Physical Exam Const General: cooperative, healthy appearing and no acute distress Orientation/consciousness: patient oriented x3 HEENT Head: Yes normocephalic and Yes atraumatic Eyes EOM: EOMs intact bilaterally Resp Effort & Inspection: normal respiratory effort and able to speak in complete sentences Cardio Jugular venous distension: no JVD Skin General skin exam: turgor normal Rashes: no rashes Neuro General: patient oriented x3 Extrem Other: Evaluation of Left Upper Extremity: The patient is alert, oriented, and in no acute distress Sensation is not quite normal in her fingers. Cap refill brisk. She has got some swelling still in her fingers and thumb, distal to the cast. The cast has been removed and the skin appears to be in good condition. It looks like she has not been moving her fingers much at all and she consequently has significant stiffness in her fingers and her thumb. Fracture completely non-tender Her hand is seen held in a pronated position, she has been in a cast for the last 4 weeks She has wrist supination to 0 degrees, and full pronation distal radius, DRUJ, distal ulna all non-tender Her distal radius fracture is nontender as well. We worked on ROM exercises for more than 15 minutes today in clinic, including finger ROM, wrist ROM, thumb ROM, and finger ABduction I could passively bring the tips of her fingers to her palm and closed to a fist, and back into extension She has mild flexion contractures at the MCP joints of ~20 degrees She can bring her elbow to ~25-30 degrees of extension from full flexion Radiographs: 3 views of the left wrist were taken and viewed by me, and compared to prior radiographs taken on 07/07/23. They show a distal radius fracture with some evidence of interval bony healing and ~22 degrees apex volar angulation. Psych Appearance: grossly normal Affect: normal affect Attitude: cooperative Assessment & Plan Assessment & Plan (1) Distal radius fracture, left: Code(s): S52.502A - Unspecified fracture of the lower end of left radius, initial encounter for closed fracture Qualifiers: Encounter type: initial encounter Fracture morphology: unspecified fracture morphology Fracture type: closed Qualified Code(s): S52.502A - Unspecified fracture of the lower end of left radius, initial encounter for closed fracture (2) Stiffness of left hand joint: Code(s): M25.642 - Stiffness of left hand, not elsewhere classified (3) Dementia: Code(s): F03.90 - Unspecified dementia, unspecified severity, without behavioral disturbance, psychotic disturbance, mood disturbance, and anxiety (4) Stiffness of left wrist joint: Code(s): M25.632 - Stiffness of left wrist, not elsewhere classified Plan Assessment & Plan: 1. Left distal radius fracture, from a fall DOI: 07/05/23 Seen in clinic and casted on 07/19/2023. With ~22 degrees apex volar angulation 2. Left wrist and hand stiffness I educated her about this condition This has been managed non-operatively in a cast, and the cast was discontinued by me today. I did not put her in a splint, as I am concerned that it would be left on an she would continue to have problems with stiffness. Her distal radius fracture is healed but not yet strong. She will remain nonweightbearing, particularly with regards to using a walker. She should continue to use her forearm bearing walker until her next visit. However she should be encouraged to lift and manipulate light wake objects with her left upper extremity, not heavier than a cell phone. We worked on ROM exercises for more than 15 minutes today in clinic She will perform gentle ROM exercises at home, 20x daily, focusing on wrist ROM and making a fist I ordered OT hand therapy for her, and instructions were printed out for her to bring to the therapists at her assisted living facility She will follow up as scheduled on 09/01/23 for a ROM check, with X-rays, 3V L wrist. Please assure that she is got significantly improved range of motion of all of the fingers of her right hand, hopefully some improved supination and wrist range of motion as well. She should be using that left hand by then. She was given a note to bring to her assisted living facility to remain NWB using her forearm bearing walker until her next appointment. She is to work on making a fist, finger extension, and wrist supination several times daily. Please note that greater than 30 minutes was spent with this patient going over the history, evaluating the patient and radiographs, formulating possible treatment options, discussing them with the patient, and documenting the visit. Scribed for Krysta Cannon MD by Franco Bates, medical insurance claims specialist, on 08/11/23 at 4:30 PM, EST. Orders: Orders XR wrist LT min 3V Today M25.532 - Pain in left wrist OT Evaluation and Treatment Today M25.632 - Stiffness of left wrist, not elsewhere classified, M25.642 - Stiffness of left hand, not elsewhere classified, S52.502A - Unspecified fracture of the lower end of left radius, initial encounter for closed fracture Coding Level of Care Code Global (63717) Diagnoses Closed fracture of distal end of left radius, unspecified fracture morphology, initial encounter S52.502A Encounter type: initial encounter Fracture morphology: unspecified fracture morphology Fracture type: closed Stiffness of left hand joint M25.642 Dementia F03.90 Stiffness of left wrist joint M25.632
== END 2023-08-11 16:39 | disposition home or self-care (01) ==
PROVIDERS: PCP Internal Medicine; Visit Provider Orthopaedic Surgery
DX: S52.502A Unspecified fracture of the lower end of left radius, initial encounter for closed fracture (principal); M25.642 Stiffness of left hand, not elsewhere classified; F03.90 Unspecified dementia, unspecified severity, without behavioral disturbance, psychotic disturbance, mood disturbance, and anxiety; M25.632 Stiffness of left wrist, not elsewhere classified
CPT/HCPCS: 99024

== ENCOUNTER 2023-08-11 15:42 | Outpatient (REF) | payer MEDICARE, SELFPAY ==
--- NOTE | ~2023-08-11 | XR_ITS ---
EXAMINATION: XR WRIST, LEFT CLINICAL INFORMATION: Left wrist pain. COMPARISON: 07/19/2023. TECHNIQUE: PA, lateral, and oblique views of the left wrist. FINDINGS: The bones are diffusely demineralized. Redemonstration of a mildly displaced, impacted fracture of the metaphysis of the distal radius. Redemonstration of mildly displaced fracture of the ulnar styloid. Degenerative changes in the wrist are severe at the 1st carpometacarpal joint. There has been some interval increased sclerosis/callus. XR/XR wrist LT min 3V IMPRESSION: 1. Healing mildly displaced, impacted fracture of the metaphysis of the distal radius. 2. Healing mildly displaced fracture of the ulnar styloid.
== END 2023-08-11 15:43 | disposition home or self-care (01) ==
LOC: HO.HOSX 15:42
PROVIDERS: PCP Internal Medicine; Visit Provider Orthopaedic Surgery
DX: M25.532 Pain in left wrist (principal)
CPT/HCPCS: 73110; 99212

== ENCOUNTER 2023-08-19 13:18 | Outpatient (AMB) | payer MEDICARE, SELFPAY ==
--- OUTSIDE RECORDS SUMMARY | 2023-08-19 13:21 | XMS_ITS | Patient Health Record ---
Author Name Unknown [facility] [place] Address [address] [place] [address] Care Team Providers Care Paint Technician Name Role Phone Donavan Segura MD Primary Care Provider UnavailLan Mcdaniel Unavailable [phone] ALLERGIES Allergen (clinical drug ingredient) Drug/Non Drug Allergy documented on EMR Reaction Allergy Type Onset Date Status EPINEPHrine Unknown Drug Allergy Activ e Novocain Unknown Drug Allergy Active REASON FOR REFERRAL No Information MEDICATIONS Medication SIG (Take, Route, Frequency, Duration) Notes Start Date End Date Status metFORMIN HCl 500 MG 1 tablet with meals Orally Once a day Not-Taking Atorvastatin Calcium Not-Taking Night Splint AFO - L1930 as directed Not-Taking Physical Therapy . . . 2-3x/week for 3- 4 weeks 05/16/2015 Not-Taking Losartan Potassium N ot-Taking Meclizine HCl Not-Ta vandana Aleve Not-Taking Claritin Not-Taking Lisinopril 10 MG 1 tablet Orally Once a day for 30 day(s) Active Aspirin 81 MG 1 tablet Orally Once a day RN Not-Taking Simvastatin 10 MG 1 tablet every eveni ng Orally Once a day for 30 day(s) Active Tylenol Not-Taking Omeprazole Not-Takin g IMMUNIZATIONS Vaccine Route Administration Date Status Comme nts Influenza Unknown 01/19/2018 Refused Influenza Unknown 08/24/2018 Refused SOCIAL HISTORY Tobacco Use: Social History Observation Description Date Details (start date - stop date) Never Smoker NA - NA Sex Assigned At : Social History Observation Description Sex Assigned At Unknown Tobacco Use/Smoking Question Answer Notes Are you a: nonsmoker Alcohol Screen Question Answer Notes Did you have a drink containing alcohol in the p ast year? No Points 0 Interpretation Negative Tobacco use other than smoking: Question Answer Notes Are you an other tobacco user? No PROBLEMS Problem Type ICD Code Onset Dates Problem Status W/U Status Risk SNOMED Code Notes Problem Primary osteoarthritis, right ankle and foot (M19.071) Active confirmed Localized, primary osteoarthritis of the ankle and/or foot (552139620) Problem Plantar fascial fibromatosis (M72.2) Active confirmed Plantar fascial fibromatosis (29183557) Problem Other hammer toe(s) (acquired), right foot (M20.41) Active confirmed Acquired hammer toe of right foot (3093731294163765 ) Problem Type 2 diabetes mellitus with other diabetic neurological complication (E11.49) Active confirmed Neurologic disorder associated with type II diabetes mellitus (863375025) PLAN OF TREATMENT Pending Test Test Name Order Date X ray : Foot, left 2V 05/16/2015 X ray : Foot, right 3V 10/18/2017 37382-FCXEPQC NAIL, 6 OR MORE 01/19/2018 88471-WURKOJQ NAIL, 6 OR MORE 04/18/2015 35835-BOOPRUX NAIL, 6 OR MORE 06/10/2011 96739-WZTLSXR NAIL, 6 OR MORE 10/23/2015 22294-PAHGVNX NAIL, 6 OR MORE 10/18/2017 83692-QKDKJWM NAIL, 6 OR MORE 04/25/2018 89213-Mcknapno Plate 06/10/2011 08398- Debride <25 sq cm 06/29/2011 11072-IWFB SKIN LESIONS, OVER 4 10/19/19 18 64542-QVPQ SKIN LESIONS, OVER 4 08/24/19 19 92749-FSLJ SKIN LESIONS, OVER 4 11/15/19 19 91680-NBUI SKIN LESIONS, OVER 4 02/16/20 19 13352-JWMP SKIN LESIONS, OVER 4 06/07/20 19 74021-LGGL SKIN LESIONS, OVER 4 09/06/19 20 96032-YOIW SKIN LESIONS, OVER 4 02/07/20 20 76621-EFCA SKIN LESIONS, OVER 4 05/15/20 20 15797-PKYZ SKIN LESIONS, OVER 4 08/19/19 21 75493-WCUZ SKIN LESIONS, OVER 4 11/19/19 21 73195-TGKW SKIN LESIONS, OVER 4 02/20/20 21 41230-KVCY SKIN LESIONS, OVER 4 04/18/20 15 97062-COFR SKIN LESIONS, OVER 4 04/25/20 18 78983-UCYC SKIN LESIONS, 2 TO 4 01/20/20 18 57917-CHCY SKIN LESIONS, 2 TO 4 10/23/19 16 96289-DISC SKIN LESIONS, 2 TO 4 06/10/20 11 Insurance Providers Payer Name Payer Address Payer Phone Subscriber Number Group Number Insured Name Patient Relationship to Insured Coverage Start Date Coverage End Date Medicare National [employer] [address] [place] [address] [id number] Barbara Phan Self - patient is the insured 0 [employer] [address] [place] [address] [id number] Barbara Phan Self - patient is the insured MEDICAL (GENERAL) HISTORY Medical History History ICD Code back, hip, knee pain cancer diabetic diverticulosis hypertension measles mumps chicken pox Angina Arthritis Broken bones Sciatica Diverticulitis Surgical History Surgery Date(Month/Year) knee surgery 2008 right lung lobectomy 2002 Hospitalization History Reason Date(Month/Year) [facility] fell and broke right wr ist 01/2015 [facility] for Diverticulitis [facility]- Fell on the stairs-Sta ple in head badly bruised 02/06/2019
--- NOTE | 2023-08-19 13:26 | MHC.OFFVIS ---
Intake Intake Visit Reasons: ov-Left wrist fx, DOI 07/05/23 Intake Note: Barbara an 87 year old female presents today with grandson for a follow up of left wrist fx, DOI 07/05/23. Patient facility has concerns of patient being in discomfort, redness and swelling. Allergies epinephrine [EPINEPHRINE] Allergy (Unknown, Verified 08/19/23 13:31) TACHYCARDIA,SHAKEY, tachycardia NSAIDS (Non-Steroidal Anti-Inflamma Allergy (Verified 08/19/23 13:31) Unknown anesthesia Allergy (Unknown, Uncoded 08/19/23 13:31) difficulty waking up Medication List - Last Reconciled 08/19/23 by Tobias Tyler PA-C acetaminophen (Tylenol) 325 mg PO Q4H PRN amlodipine 1 tab PO DAILY 30 days atorvastatin 1 tab PO DAILY 30 days citalopram 20 mg PO DAILY donepezil 10 mg PO BEDTIME 30 days fluticasone propionate 50 mcg/actuation 1 spray intranasal DAILY 30 days meclizine 25 mg PO TID PRN 30 days melatonin 3 mg PO BEDTIME PRN 30 days memantine (Namenda) 10 mg PO BID 30 days olanzapine 2.5 mg PO BEDTIME peg 909-rajgaroorjjk-hofvmqjg 1-0.2-0.2 % (Artificial Tears (mh758-ksmulpjgo-knbkwmaq)) 2 drps ophthalmic (eye) Q4H PRN 30 days white petrolatum-mineral oil 83-15 % (Lubrifresh PM) 1 appl See Protocol ophthalmic (eye) BEDTIME 30 days HPI ov-Left wrist fx, DOI 07/05/23 HPI Details 87-year-old female who returns to the office today with her grandson for a follow-up of left wrist fracture, 07/05/23. She was seen by Dr Cannon last week cast removed and placed in a velcro wrist splint. Since this appt, her facility states she has worsening swelling, discomfort, and redness in her left wrist. She was instructed to remain NWB on the LUE, which includes no use of her walker. Grandson unsure if this recommendation is being followed. The facility has concerns she is not compliant with the brace. [facility] Medical History Bright red rectal bleeding Diabetes High cholesterol HTN (hypertension) Surgical History No pertinent past surgical history Social History Household Members: None Housing: House Unable to assess alcohol history related to: Unknown Alcohol intake: never Patient Tobacco Use Status: Never used Tobacco Advance Directives Date on File: 03/16/23 service: No Sexual orientation: Straight/Heterosexual Review of Systems Const All systems reviewed & are unremarkable except as noted in HPI and below Physical Exam Const General: cooperative and no acute distress Orientation/consciousness: patient oriented x3 Resp Effort & Inspection: normal respiratory effort and able to speak in complete sentences Cardio Peripheral pulses: Peripheral pulses 2+ throughout Neuro General: patient oriented x3 Extrem Other: Left wrist: Normal to inspection. She does have some tenderness over the distal radius which is changed from her last visit. She continues to have swelling in the finger. She can supinate and pronate without discomfort. NVI. Office Procedures Casting/Splints 23160-Aaxg/Wrist Cast Application Procedure code (CPT) selection complete Results Reviewed Results Reviewed: Xrays were obtained in the office today and personally reviewed by me of the left wrist show possible acute on chronic distal radius fracture. Assessment & Plan Assessment & Plan (1) Distal radius fracture, left: Code(s): S52.502A - Unspecified fracture of the lower end of left radius, initial encounter for closed fracture Qualifiers: Encounter type: initial encounter Fracture morphology: unspecified fracture morphology Fracture type: closed Qualified Code(s): S52.502A - Unspecified fracture of the lower end of left radius, initial encounter for closed fracture Plan It is unclear if she has an acute or chronic fracture but given her ongoing symptoms, I did decide to place her in a short arm cast to limit her activities. She does have some baseline dementia so it is uncleare if she is compliant when encouraged to remain non-weight bearing. I would like to see her back in 3 weeks with cast off and new x-rays, sooner if needed. Orders: Orders XR wrist LT min 3V Today M25.532 - Pain in left wrist Patient Instructions: Scribed for Tobias Tyler PA-C, by Shalom Unger medical clinic manager, on 08/19/2023 at 1:00 PM Tobias FONSECA PA-C, have personally reviewed and agree with the information entered by the scribe. Coding Level of Care Code Global (62993) Diagnoses Closed fracture of distal end of left radius, unspecified fracture morphology, initial encounter S52.502A Encounter type: initial encounter Fracture morphology: unspecified fracture morphology Fracture type: closed CPT Codes Casting - CPT: 84032-Jwqm/Wrist Cast Application ([id number])
== END 2023-08-19 14:39 | disposition home or self-care (01) ==
PROVIDERS: PCP Internal Medicine; Visit Provider Physician Assistant
DX: S52.502A Unspecified fracture of the lower end of left radius, initial encounter for closed fracture (principal)
CPT/HCPCS: 29085; 99024

== ENCOUNTER 2023-08-19 13:19 | Outpatient (REF) | payer MEDICARE, SELFPAY ==
--- NOTE | ~2023-08-19 | XR_ITS ---
EXAMINATION: XR WRIST, LEFT CLINICAL INFORMATION: Pain in left wrist COMPARISON: Left wrist 08/11/2023 TECHNIQUE: PA, lateral, and oblique views of the left wrist. FINDINGS: The bones are diffusely demineralized. Again seen is a mildly displaced, impacted fracture of the metaphysis of the distal radius. No significant change in position or alignment of the fracture fragments. The lucent fracture cleft is blurred with now sclerosis along the fracture line. Again seen is a mildly displaced fracture the ulnar styloid. No change in position or alignment of the fracture fragments. There is severe degenerative change of the first carpometacarpal joint. XR/XR wrist LT min 3V IMPRESSION: 1. Healing mildly displaced, impacted fracture the metaphysis of the distal radius. 2. Healing mildly displaced fracture of the ulnar styloid.
== END 2023-08-19 13:20 | disposition home or self-care (01) ==
LOC: HO.HOSX 13:19
PROVIDERS: PCP Internal Medicine; Visit Provider Physician Assistant
DX: S52.502D Unspecified fracture of the lower end of left radius, subsequent encounter for closed fracture with routine healing (principal); M25.532 Pain in left wrist; X58.XXXD Exposure to other specified factors, subsequent encounter; Z79.899 Other long term (current) drug therapy
CPT/HCPCS: 29085; 73110; 99212

== ENCOUNTER 2023-09-15 12:06 | Outpatient (REF) | payer MEDICARE, SELFPAY ==
--- NOTE | ~2023-09-15 | XR_ITS ---
EXAMINATION: XR WRIST, LEFT CLINICAL INFORMATION: Pain in left wrist COMPARISON: Left wrist 08/19/2023 TECHNIQUE: PA, lateral, and oblique views of the left wrist. FINDINGS: The bones are diffusely demineralized. Again noted is a mildly displaced impacted fracture of the metaphysis of the distal radius. No significant change in position or alignment of the fracture fragments. Sclerosis is noted along the fracture line. Again seen is a mildly displaced fracture of the ulnar styloid. No change in position or alignment of the fracture fragments. There is severe degenerative change of the first carpometacarpal joint. XR/XR wrist LT min 3V IMPRESSION: 1. Healing mildly displaced, impacted fracture of the metaphysis of the distal radius. 2. Healing mildly displaced fracture the ulnar styloid
== END 2023-09-15 12:07 | disposition home or self-care (01) ==
LOC: HO.HOSX 12:06
PROVIDERS: Visit Provider Physician Assistant
DX: M25.532 Pain in left wrist (principal); S52.502D Unspecified fracture of the lower end of left radius, subsequent encounter for closed fracture with routine healing; X58.XXXD Exposure to other specified factors, subsequent encounter
CPT/HCPCS: 73110; 99212

== ENCOUNTER 2023-09-15 12:31 | Outpatient (AMB) | payer MEDICARE, SELFPAY ==
--- NOTE | 2023-09-15 12:54 | A.OFFVIS_ITS ---
Intake Intake Visit Reasons: OV- Left wrist fracture: DOI 07/05/23 Intake Note: Barbara an 87 year old female presents today for a follow up of left wrist fx, DOI 07/05/23. Cast off and xrays updated. Patient reports having numbness in her wrist/hand. Complains of stiffness in her wrist. Allergies epinephrine [EPINEPHRINE] Allergy (Unknown, Verified 09/15/23 12:55) TACHYCARDIA,SHAKEY, tachycardia NSAIDS (Non-Steroidal Anti-Inflamma Allergy (Verified 09/15/23 12:55) Unknown anesthesia Allergy (Unknown, Uncoded 09/15/23 12:55) difficulty waking up HPI OV- Left wrist fracture: DOI 07/05/23 HPI Details 87-year-old female who returns to the [facility] today for a follow-up of left wrist fracture, 07/05/23. She states she has numbness in her hand. She also c/o stiffness in her wrist. She has no other concerns today. FOR[facility]LY [facility] Medical History Bright red rectal bleeding Diabetes High cholesterol HTN (hypertension) Surgical History No pertinent past surgical history Social History Household Members: None Housing: House Unable to assess alcohol history related to: Unknown Alcohol intake: never Patient Tobacco Use Status: Never used Tobacco Advance Directives Date on File: 03/16/23 service: No Sexual orientation: Straight/Heterosexual Review of Systems Const All systems reviewed & are unremarkable except as noted in HPI and below Physical Exam Extrem Other: Left wrist: Normal to inspection. No swelling or redness. She has no tenderness to palpation over distal radius. She can fully extend all digits and has some weakness with making a fist. NVI. Results Reviewed Results Reviewed: X-rays of the left wrist obtained in the office today show a stable fracture pattern with interval healing. Assessment & Plan Assessment & Plan (1) Distal radius fracture, left: Code(s): S52.502A - Unspecified fracture of the lower end of left radius, initial encounter for closed fracture Qualifiers: Encounter type: subsequent encounter Fracture morphology: unspecified fracture morphology Fracture type: closed Fracture healing: with routine healing Qualified Code(s): S52.502D - Unspecified fracture of the lower end of left radius, subsequent encounter for closed fracture with routine healing Plan She was transitioned to Velcro wrist splint which she will wear with activities like ambulation. She can remove for hygiene, therapy exercises and sleeping. She does have a walker with an armrest which she uses to ambulate. I advised her to avoid direct placement of weight or pressure on her left wrist for the next 4-6 weeks. I would like to see her back in 6 weeks for a follow-up, sooner if needed. Orders: Orders XR wrist LT min 3V Today M25.532 - Pain in left wrist Patient Instructions: Scribed for Tobias Tyler PA-C, by Shalom Unger ophthalmic medical technician, on 09/15/2023 at 12:30 PM EST. ITobias PA-C, have personally reviewed and agree with the information entered by the scribe. Coding Level of Care Code Global (19886) Diagnoses Closed fracture of distal end of left radius with routine healing, unspecified fracture morphology, subsequent encounter S52.502D Encounter type: subsequent encounter Fracture morphology: unspecified fracture morphology Fracture type: closed Fracture healing: with routine healing
== END 2023-09-15 13:20 | disposition home or self-care (01) ==
PROVIDERS: PCP Internal Medicine; Visit Provider Physician Assistant
DX: S52.502D Unspecified fracture of the lower end of left radius, subsequent encounter for closed fracture with routine healing (principal)
CPT/HCPCS: 99024